=== PATIENT | male | born 1950 | race Caucasian/White ===

== ENCOUNTER 2024-06-07 08:51 | Outpatient (AMB) | payer OTHER, SELFPAY ==
[2024-06-07 08:58] VITALS: BP 176/74; PULSE 86; O2SAT 92; BMI 34.8
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
== END 2024-06-07 09:41 | disposition home or self-care (01) ==
PROVIDERS: PCP Family Medicine; Visit Provider Anesthesiology
DX: G89.4 Chronic pain syndrome (principal); M96.1 Postlaminectomy syndrome, not elsewhere classified; Z79.891 Long term (current) use of opiate analgesic
CPT/HCPCS: 99204

== ENCOUNTER 2024-06-07 08:51 | Outpatient (REF) | payer OTHER, SELFPAY ==
--- NOTE | ~2024-06-07 | XR_ITS ---
EXAMINATION: XR LUMBOSACRAL SPINE CLINICAL INFORMATION: Postlaminectomy syndrome. COMPARISON: None TECHNIQUE: AP, bilateral oblique and lateral views of the lumbar spine and lateral view of the lumbosacral junction. FINDINGS: There is bony demineralization. At L2-3, there is moderate posterior disc space narrowing, with a 3 mm retrolisthesis. There have been prior L3-S1 posterior fusions and discectomies, with intact posterior fixator rods, radicular screws and disc spaces. At L5-S1, there is a 5 mm anterolisthesis. No acute fracture or spondylolisthesis is seen. The posterior elements are intact. The paravertebral soft tissues are unremarkable. XR/XR lumbar spine 4V min IMPRESSION: 1. There is moderate degenerative disc disease at L2-3. 2. There have been prior posterior fusions and discectomies extending from L3 through S1. No hardware failure or loosening is seen. Electronically signed by: Finn Garnica MD 07/03/2024 05:43 PM EDT
== END 2024-06-07 08:52 | disposition home or self-care (01) ==
LOC: HO.XRAY 08:51
PROVIDERS: Visit Provider Anesthesiology
DX: M96.1 Postlaminectomy syndrome, not elsewhere classified (principal); G89.4 Chronic pain syndrome; Z79.891 Long term (current) use of opiate analgesic
CPT/HCPCS: 72110; 99202

== ENCOUNTER → 2024-06-15 10:55 | Outpatient (BNVA) | payer OTHER, SELFPAY | PROVIDERS: Visit Provider Anesthesiology ==

== ENCOUNTER → 2024-06-20 10:35 | Outpatient (BNVA) | payer OTHER, MEDICARE, MEDICAID, SELFPAY | PROVIDERS: PCP Family Medicine; Visit Provider Anesthesiology ==

== ENCOUNTER 2024-07-27 09:10 | Outpatient (AMB) | payer OTHER, MEDICAID, SELFPAY ==
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
[2024-07-27 09:28] VITALS: BP 186/106; PULSE 91; RESP 14; O2SAT 91; BMI 35.5
== END 2024-07-27 10:03 | disposition home or self-care (01) ==
PROVIDERS: PCP Family Medicine; Visit Provider Anesthesiology
DX: M96.1 Postlaminectomy syndrome, not elsewhere classified (principal); Z79.891 Long term (current) use of opiate analgesic; G89.4 Chronic pain syndrome
CPT/HCPCS: 99213

== ENCOUNTER → 2024-07-27 09:10 | Outpatient (BNVA) | payer OTHER, MEDICAID, SELFPAY | PROVIDERS: PCP Family Medicine; Visit Provider Anesthesiology | DX: M96.1 Postlaminectomy syndrome, not elsewhere classified (principal); G89.4 Chronic pain syndrome; Z79.891 Long term (current) use of opiate analgesic | CPT/HCPCS: 99212 ==

== ENCOUNTER 2024-08-29 06:04 | Outpatient (REF) | payer OTHER, MEDICAID, SELFPAY | END 2024-08-29 06:05 | disposition home or self-care (01) | LOC: CF 06:04 | PROVIDERS: Visit Provider Anesthesiology | DX: M96.1 Postlaminectomy syndrome, not elsewhere classified (principal); G89.4 Chronic pain syndrome; Z79.891 Long term (current) use of opiate analgesic; Z53.09 Procedure and treatment not carried out because of other contraindication | CPT/HCPCS: 99212 ==

== ENCOUNTER 2024-08-29 08:43 | Outpatient (AMB) | payer OTHER, MEDICAID, SELFPAY ==
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
[2024-08-29 08:49] VITALS: BP 198/126; PULSE 93; RESP 16; O2SAT 96; BMI 34.9
[2024-08-29 09:02] VITALS: BP 206/110
[2024-08-29 09:13] VITALS: BP 204/106
[2024-08-29 09:33] VITALS: BP 186/100
== END 2024-08-29 09:39 | disposition home or self-care (01) ==
PROVIDERS: PCP Family Medicine; Visit Provider Anesthesiology
DX: M96.1 Postlaminectomy syndrome, not elsewhere classified (principal); Z79.891 Long term (current) use of opiate analgesic; G89.4 Chronic pain syndrome
CPT/HCPCS: 99213

== ENCOUNTER 2024-09-05 06:11 | Outpatient (REF) | payer OTHER, MEDICAID, SELFPAY | END 2024-09-05 06:12 | disposition home or self-care (01) | LOC: CF 06:11 | PROVIDERS: Visit Provider Anesthesiology | DX: M96.1 Postlaminectomy syndrome, not elsewhere classified (principal); G89.4 Chronic pain syndrome; Z79.891 Long term (current) use of opiate analgesic | CPT/HCPCS: 62323; J0665; J2003 ==

== ENCOUNTER 2024-09-05 09:58 | Outpatient (AMB) | payer OTHER, MEDICAID, SELFPAY ==
--- NOTE | 2024-09-05 10:12 | A.OFFVIS_ITS ---
Vital Signs 09/05/24 10:20 09/05/24 13:46 09/05/24 13:48 09/05/24 13:48 09/05/24 13:50 Height 5 ft 5 in 5 ft 5 in Weight 210 lb 210 lb BMI 34.9 34.9 BP 145/110 H 118/67 156/88 H 175/97 H 170/97 H Blood Pressure Location Lt brachial Lt brachial Lt brachial Lt brachial Lt brachial Position Sitting Supine Sitting Sitting Sitting Respiration 14 14 Pulse 93 86 82 93 Pulse Source Pulse Oximeter Pulse Oximeter Pulse Oximeter Pulse Oximeter Pulse Oximetry (%) 90 L 90 L 90 L 90 L Oxygen Delivery Method Room Air Room Air Room Air Room Air Comment pre-op post-op Intake Visit Reasons: ITDD TRIAL WITH DILAUDID Allergies morphine Allergy (Intermediate, Verified 09/05/24 13:58) sweating PFSH Social History (Updated 06/07/24 @ 09:03 by Alesia Brown CMA) Household Members: None Alcohol intake: never Patient Tobacco Use Status: Current everyday Tobacco user Cigarettes Per Day: 10 Physical Exam Vital Signs: Last Vital Signs Pulse 93 09/05/24 13:50 Resp 14 09/05/24 13:46 BP 170/97 H 09/05/24 13:50 Pulse Ox 90 L 09/05/24 13:50 Oxygen Delivery Method Room Air 09/05/24 13:50 BMI result Body Mass Index 34.9 Assessment & Plan Assessment & Plan (1) Postlaminectomy syndrome of lumbar region: Code(s): M96.1 - Postlaminectomy syndrome, not elsewhere classified Category: Medical (2) custodial (current) use of opiate analgesic: Code(s): Z79.891 - custodial (current) use of opiate analgesic Category: Medical (3) Chronic pain syndrome: Code(s): G89.4 - Chronic pain syndrome Category: Medical Plan Intrathecal pain pump trial with bupivacaine. After obtaining informed consent the patient was brought to the operating room and positioned prone on operating table with pillow under the abdomen. Time-out was performed delineating name and date of of the patient, side and site of the procedure and nature of the procedure. The lower back was prepped with ChloraPrep and draped with sterile self adhesive utility towels. Sterilely draped C-arm was brought over the operating field and the sq picture of L1 and L2 vertebra were demonstrated on the screen. The hardware of the L3 vertebra was noted. In the projection of the right upper lamina to the skin injection of the local anesthetic lidocaine 2% was performed infiltrating the skin and subcutaneous tissues. After that 20 gauge pencil point 3 and a half inch needle was inserted through the skin and advanced to were the spinal canal on intermittent anterior posterior and lateral views. When tip of the needle was in the center of spinal canal on both AP and lateral views the stylette was removed and clear flow of CSF was observed. After that injection of the bupivacaine 0.25% preservative-free 0.7 mL (total dose 1.75 mg) was performed into the needle. After that needle was removed and sterile Band- Aid was applied. Patient was transferred to the recovery bed flat and recovered in PACU for 45 minutes. Patient tolerated procedure well. 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
[2024-09-05 10:20] VITALS: BP 145/110; PULSE 93; RESP 14; O2SAT 90; BMI 34.9
[2024-09-05 13:46] VITALS: BP 118/67; PULSE 86; RESP 14; O2SAT 90; BMI 34.9
[2024-09-05 13:48] VITALS: BP 156/88; BP 175/97; PULSE 82; O2SAT 90
[2024-09-05 13:50] VITALS: BP 170/97; PULSE 93; O2SAT 90
== END 2024-09-05 11:46 | disposition home or self-care (01) ==
LOC: HO.PMCPRC 09:58
PROVIDERS: PCP Family Medicine; Visit Provider Anesthesiology
DX: M96.1 Postlaminectomy syndrome, not elsewhere classified (principal); G89.4 Chronic pain syndrome; Z79.891 Long term (current) use of opiate analgesic
CPT/HCPCS: 62323

== ENCOUNTER 2024-09-13 10:46 | Outpatient (AMB) | payer OTHER, MEDICAID, SELFPAY ==
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
== END 2024-09-13 11:27 | disposition home or self-care (01) ==
LOC: HO.PMC 10:46
PROVIDERS: PCP Family Medicine; Visit Provider Anesthesiology
DX: M96.1 Postlaminectomy syndrome, not elsewhere classified (principal); Z79.891 Long term (current) use of opiate analgesic; G89.4 Chronic pain syndrome
CPT/HCPCS: 99214

== ENCOUNTER → 2024-09-13 10:46 | Outpatient (BNVA) | payer OTHER, MEDICAID, SELFPAY | PROVIDERS: PCP Family Medicine; Visit Provider Anesthesiology ==

== ENCOUNTER 2024-09-26 06:07 | Outpatient (REF) | payer OTHER, MEDICAID, SELFPAY | END 2024-09-26 06:08 | disposition home or self-care (01) | LOC: CF 06:07 | PROVIDERS: Visit Provider Anesthesiology | DX: Z13.89 Encounter for screening for other disorder (principal) ==

== ENCOUNTER 2025-07-05 15:19 | Outpatient (AMB) | payer MEDICARE, MEDICAID, SELFPAY ==
[2025-07-05 15:27] VITALS: BP 149/74; PULSE 101; RESP 18; O2SAT 98
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
== END 2025-07-05 15:43 | disposition home or self-care (01) ==
PROVIDERS: PCP Family Medicine; Visit Provider Anesthesiology
DX: M96.1 Postlaminectomy syndrome, not elsewhere classified (principal); Z79.891 Long term (current) use of opiate analgesic; G89.4 Chronic pain syndrome; Z45.1 Encounter for adjustment and management of infusion pump
CPT/HCPCS: 62368; 99214

== ENCOUNTER → 2025-07-05 15:19 | Outpatient (BNVA) | payer MEDICARE, MEDICAID, SELFPAY | PROVIDERS: PCP Family Medicine; Visit Provider Anesthesiology | DX: G89.4 Chronic pain syndrome (principal); M96.1 Postlaminectomy syndrome, not elsewhere classified; Z79.891 Long term (current) use of opiate analgesic | CPT/HCPCS: 62368; 99212 ==

== ENCOUNTER 2025-07-18 15:02 | Outpatient (AMB) | payer MEDICARE, MEDICAID, SELFPAY ==
--- OUTSIDE RECORDS SUMMARY | 2025-06-25 12:45 | XMS_ITS | Continuity of Care Document ---
Author Organization [facility] Address [address] [place] [address] Care Team Providers Care Feed Mixer Helper Name Role Phone Richa Bazan DNP [...] Copied on Encounter OFFICE/OUTPA TIENT VISIT, EST [facility], [address], [place], [place], [id number] , [facility] low back pain (chief complaint) Encounter for adjustment and management of infusion pumpOther specified diabetes mellitus with hyperglycemiaOt her spondylosis, lumbar regionPostlamin ectomy syndrome, not elsewhere classifiedChron ic pain syndromeLong term (current) use of opiate analgesicRadicu lopathy, lumbar regionHTN 5 Beni Chaudhry. [address] [facility], [address], [place], [place], [id number], [place]. tel:[phone] Referring Provider: Deisy Infante [address], [place], [address]. tel:[phone] OFFICE/OUTPA TIENT VISIT, EST [facility], [address], [place], [place], [id number] , [facility] low back pain (chief complaint) Knee Pain (chief complaint) Encounter for adjustment and management of infusion pumpOther specified diabetes mellitus with hyperglycemiaOt her spondylosis, lumbar regionPostlamin ectomy syndrome, not elsewhere classifiedRadic ulopathy, lumbar regionHTNChroni c pain syndromeLong term (current) use of opiate analgesic Jun- 5 Beni Richa. [address], [place], [id number], [place]. tel:[phone] Referring Provider: Marah Sandoval, [address], [place], [address]. tel:[phone] OFFICE/OUTPA TIENT VISIT, EST [facility], [address], [place], [place], [id number] , [facility] low back pain (chief complaint) Encounter for adjustment and management of infusion pumpOther specified diabetes mellitus with hyperglycemiaOt her spondylosis, lumbar regionPostlamin ectomy syndrome, not elsewhere classifiedRadic ulopathy, lumbar regionHTNChroni c pain syndromeLong term (current) use of opiate analgesicEncoun ter for removal of stapleGastro-es ophageal reflux disease without esophagitis Jun- 5 Beni Richa. [address], [place], [id number], [place]. tel:[phone] Referring Provider: Marah Sandoval, [address], [place], [address]. tel:[phone] [facility], [address], [place], [place], [id number] , [facility] low back pain (chief complaint) Knee Pain (chief complaint) Postlaminectomy syndrome, not elsewhere classifiedRadic ulopathy, lumbar regionOther spondylosis, lumbar regionChronic pain syndromeGERD without esophagitisHTNL eric term (current) use of opiate analgesicEncoun ter for adjustment and management of infusion pumpEncounter for change or removal of surgical wound dressing 5 Navjot Blanca. [address] [place], [place], [address], [place]. tel:[phone] Referring Provider: Marah Sandoval, [address], [place], [address]. tel:[phone] [facility], [address], [place], [place], [id number] , [place] [facility] No Information 5 Ivy Gerber. [address], [place], [address], [place]. tel:[phone] [facility], [address], [place], [place], [id number] , [facility] Chronic pain syndromePostlam inectomy syndrome, not elsewhere classifiedRadic ulopathy, lumbar region 5 Marshall Colorado. [address] [facility], [address], [place], [address], [place]. tel:[phone] OFFICE/OUTPA TIENT VISIT, EST [facility], [address], [place], [place], [id number] , [facility] Knee Pain (chief complaint) low back pain (chief complaint) Postlaminectomy syndrome, not elsewhere classifiedChron ic pain syndromeLong term (current) use of opiate analgesicHTNTyp e 2 diabetes mellitus without complicationsHy percholesterole miaRestless legs syndromeInsomni aGERD without esophagitisOthe r spondylosis, cervical region 5 Chetan Weeks. [address] [facility], [address], [id number], [place]. tel:[phone] Referring Provider: Marah Sandoval, [address], [place], [address]. tel:[phone] OFFICE/OUTPA TIENT VISIT, EST [facility], [address], [place], [place], [id number] , [facility] low back pain (chief complaint) Postlaminectomy syndrome, not elsewhere classifiedChron ic pain syndromeLong term (current) use of opiate analgesicHTNTyp e 2 diabetes mellitus without complicationsHy percholesterole miaGERD without esophagitisRest less legs syndromeInsomni aOther spondylosis, cervical region 5 Rayside LaMisa. [address] [facility], [facility] [address], [place], [id number], . tel:[phone] Referring Provider: Marah Sandoval, [address] [facility], [place], [address]. tel:[phone] OFFICE/OUTPA TIENT VISIT, EST [facility], [address], [place], [place], [id number] , [facility] Knee Pain (chief complaint) Other spondylosis, cervical regionPostlamin ectomy syndrome, not elsewhere classifiedChron ic pain syndromeLong term (current) use of opiate analgesicHTNTyp e 2 diabetes mellitus without complicationsHy percholesterole miaGERD without esophagitisRest less legs syndromeInsomni a 5 Rayside LaMisa. [address] [facility], [facility] [address], [place], [address], [place]. tel:[phone] Referring Provider: Marah Sandoval [address] [facility], [place], [address]. tel:[phone] [facility], [address], [place], [place], [id number] , [facility] No Information 5 Hudson Crystal. [address], [address] [facility], [place], [address], [place]. tel:[phone] Referring Provider: Marah Sandoval [address], [place], [address]. tel:[phone] OFFICE/OUTPA TIENT VISIT, EST [facility], [address], [place], [place], [id number] , [facility] Follow Up for Knee Pain (chief complaint) Follow Up for Lower Back Pain (chief complaint) Postlaminectomy syndrome, not elsewhere classifiedChron ic pain syndromeLong term (current) use of opiate analgesicHTNTyp e 2 diabetes mellitus without complicationsHy percholesterole miaGERD without esophagitisRest less legs syndrome Apr-2 5 Rayside LaMisa. [address] [facility], [facility] [address], [place], [address], [place]. tel:[phone] Referring Provider: Marah Sandoval, [address], [place], [address]. tel:[phone] [facility], [address], [place], [place], [id number] , [facility] Chronic pain syndromePostlam inectomy syndrome, not elsewhere classifiedRadic ulopathy, lumbar region Apr-2 5 Marshall Colorado. [address] [place] [address], [address], [place], [id number], [place]. tel:[phone] OFFICE/OUTPA TIENT VISIT, EST [facility], [address], [place], [place], [id number] , [facility] Knee Pain (chief complaint) low back pain (chief complaint) Postlaminectomy syndrome, not elsewhere classifiedRadic ulopathy, lumbar regionChronic pain syndromeInsomni aOther specified diabetes mellitus with hyperglycemiaLo ng term (current) use of opiate analgesic Apr- 5 Vecchione Analilia. [address] [facility] [address], [place], [id number], [place]. tel:[phone] [facility], [address], [place], [place], [id number] , [facility] No Information Apr-0 5 Beni Chaudhry. [address] [facility] [address], [place], [id number], [place]. tel:[phone] OFFICE/OUTPA TIENT VISIT, EST [facility], [address], [place], [place], [id number] , [facility] low back pain (chief complaint) Knee Pain (chief complaint) Postlaminectomy syndrome, not elsewhere classifiedChron ic pain syndromeHTN 5 Hudson Marah. [address], [place], [address], [place]. tel:[phone] Referring Provider: Marah Sandoval, [address], [place], [address]. tel:[phone] OFFICE/OUTPA TIENT VISIT, [facility], [address], [place], [place], [id number] , [facility] Knee Pain (chief complaint) back pain (chief complaint) Other spondylosis, lumbar regionPostlamin ectomy syndrome, not elsewhere classifiedRadic ulopathy, lumbar regionHTNChroni c pain syndromeLong term (current) use of opiate analgesicOther specified diabetes mellitus with hyperglycemia 5 Beni Chaudhry. [address] [place] [address], [id number], [place]. tel:[phone] OFFICE/OUTPA TIENT VISIT, [facility], [address], [place], [place], [id number] , [facility] low back pain (chief complaint) Knee Pain (chief complaint) Other spondylosis, lumbar regionPostlamin ectomy syndrome, not elsewhere classifiedRadic ulopathy, lumbar regionHTNDiabet es insipidusChroni c pain syndromeOther spondylosis, thoracic regionOther spondylosis, cervical regionLong term (current) use of opiate analgesic 5 Marshall Colorado. [address], [id number], [place]. tel:[phone] Family History Family Member Type Diagnosis Age At Onset Father Problem (finding) Family history of Alzhe shavonne's disease Mother Problem (finding) Family history of Arthr itis Father Problem (finding) Family history of Arthr itis Father Problem (finding) Family history of Demen tia Payers Payer name Insurance type Covered libertarian ID Authoriza tishereen(s) [employer] Assure H[employer] CI [id number] Social History Type Description Quantity Date Captured [...] meds/drugs and rest. low back pain Onset: gradual [...] reports he is leaving on today to [place] where he snowbirds from. He was advised that oral opiates will not be sent without an office visit so he is either to return to the office for refills or establish care with pain management while he is in [place] 6 months out of the year. Patient reports he cannot go back to the previous pain specialist he was consulting due to issues and will look into establishing care with someone else. As far as his pump goes, he reports he will follow up with Dr. rApit Bartlett who performed his ITP trial to see if he will manage his pump. Patient reports he will be returning in September and therefore can have his pump refilled at that time. Pending follow up in September, if patient has not established care with pain management in [place] who can manage his pump, we can attempt to send a referral to [facility] to see if his insurance will cover [...] AND DISCONTINUED ITP IS TITRATED. 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 Related to Radiculopathy, lumbar region We will continue Fen tanyl intrathecal therapy per protocol. We will continue Oxycodone 10 mg QID PRN for breakthrough pain as ITP is titrated. PATIENT IS ADVISED ORAL OPIATES WILL BE WEANED AND DISCONTINUED ITP IS TITRATED. Patient reports he is leaving on 06/25/2025 to [place] where he snowbirds from. Advised oral opiates will not be sent without an office visit so he is either to return to the office for refills or establish care with pain management while he is in [place] 6 months out of the year. Patient [...] not established care with pain management in [place] who can manage his pump, we can attempt to send a referral to [facility] to see if his insurance will cover [...] clean dry and intact. Site was cleaned. Thread Cutter applied benzoin tincture, removed abram, applied bacitracin [...] AND DISCONTINUED ITP IS TITRATED. Related to alf (current) use of opiate analgesic Advised to [...] others cannot easily access them. Related to alf (current) use of opiate analgesic UDS risk [...] others cannot easily access them. 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 Related to alf (current) use of opiate analgesic UDS risk [...] and destroyed at a depository. 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 Olivares. -pending PCP clearance- Dr. Yost in [place].-psych clearance on file. Advised that if we are going to proceed with IT pump implant we would need uds showing negative for any benzo' and A1C level needs to be 8% or below.Patient educated on the risks of taking benzodiazepines while taking prescribed opioids due to risk for LACE MENDER and respiratory depression and also on associated with an overdose. advised that no oxycodone would be prescribed until UDS is negative for benzo's. Related to Postlaminectomy syndrome, not elsewhere classified His last A1C is 8.6. Advised that we need this to be 8.0 or lower prior to proceeding with IT pump implant.He will follow up with PCP, Dr. Yost in [place] and still needs PCP clearance. 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 Related to alf (current) use of opiate analgesic Consider Lumbar [...] he has yet to find someone in [place] to manage his pump. Per records, daily dose of Fentanyl via intrathecal therapy was increased to 25% last encounter which he reports is well-tolerated without adverse side effects. He continues to report no significant relief of chronic low back pain and requesting additional pump adjustment today. assessment Chronic pain syndrome impression Transferred records from Dr. Itzel to reviewed. assessment alf (current) use of opiat e analgesic assessment Radiculopathy, lumbar region Jun impression Discontinued Cymbalta due to fabian sea. Aug-18-2025 assessment HTN impression Blood pressure is stable today. Mental Status Date Cognitive Assessment Orientation - Mcclusky ed to time, place, person, situation. Patient Care Teams Name Effective Dates (start - stop) Status Members No Information
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
[2025-07-18 15:12] VITALS: BP 153/83; PULSE 98; RESP 16; O2SAT 90; BMI 35.6
== END 2025-07-18 15:53 | disposition home or self-care (01) ==
PROVIDERS: PCP Family Medicine; Visit Provider Anesthesiology
DX: M96.1 Postlaminectomy syndrome, not elsewhere classified (principal); Z79.891 Long term (current) use of opiate analgesic; G89.4 Chronic pain syndrome; Z45.1 Encounter for adjustment and management of infusion pump
CPT/HCPCS: 95991; 99213

== ENCOUNTER → 2025-07-18 15:02 | Outpatient (BNVA) | payer MEDICARE, MEDICAID, SELFPAY | PROVIDERS: PCP Family Medicine; Visit Provider Anesthesiology | DX: M96.1 Postlaminectomy syndrome, not elsewhere classified (principal); G89.4 Chronic pain syndrome; Z79.891 Long term (current) use of opiate analgesic | CPT/HCPCS: 99212 ==

== ENCOUNTER 2025-07-24 14:15 | Outpatient (AMB) | payer MEDICARE, MEDICAID, SELFPAY ==
--- OUTSIDE RECORDS SUMMARY | 2025-06-25 12:45 | XMS_ITS | Continuity of Care Document ---
Author Organization [facility] Address [address] [place] [address] Care Team Providers Care Brand Strategy Manager Name Role Phone Richa Bazan DNP Unavailable [...] Copied on Encounter OFFICE/OUTPA TIENT VISIT, EST [facility], [address], [place], [place], [id number] , [facility] low back pain (chief complaint) Encounter for adjustment and management of infusion pumpOther specified diabetes mellitus with hyperglycemiaOt her spondylosis, lumbar regionPostlamin ectomy syndrome, not elsewhere classifiedChron ic pain syndromeLong term (current) use of opiate analgesicRadicu lopathy, lumbar regionHTN 5 Beni Chaudhry. [address] [facility], [address], [place], [place], [address], [place]. tel:[phone] Referring Provider: Deisy Infante [address], [place], [address]. tel:[phone] OFFICE/OUTPA TIENT VISIT, EST [facility], [address], [place], [place], [id number] , [facility] low back pain (chief complaint) Knee Pain (chief complaint) Encounter for adjustment and management of infusion pumpOther specified diabetes mellitus with hyperglycemiaOt her spondylosis, lumbar regionPostlamin ectomy syndrome, not elsewhere classifiedRadic ulopathy, lumbar regionHTNChroni c pain syndromeLong term (current) use of opiate analgesic Jun- 5 Beni Richa. [address], [place], [address], [place]. tel:[phone] Referring Provider: Marah Sandoval, [address], [place], [address]. tel:[phone] OFFICE/OUTPA TIENT VISIT, EST [facility], [address], [place], [place], [id number] , [facility] low back pain (chief complaint) Encounter for adjustment and management of infusion pumpOther specified diabetes mellitus with hyperglycemiaOt her spondylosis, lumbar regionPostlamin ectomy syndrome, not elsewhere classifiedRadic ulopathy, lumbar regionHTNChroni c pain syndromeLong term (current) use of opiate analgesicEncoun ter for removal of stapleGastro-es ophageal reflux disease without esophagitis Jun- 5 Beni Richa. [address], [place], [address], [place]. tel:[phone] Referring Provider: Marah Sandoval, [address], [place], [address]. tel:[phone] [facility], [address], [place], [place], [id number] , [facility] low back pain (chief complaint) Knee Pain (chief complaint) Postlaminectomy syndrome, not elsewhere classifiedRadic ulopathy, lumbar regionOther spondylosis, lumbar regionChronic pain syndromeGERD without esophagitisHTNL eric term (current) use of opiate analgesicEncoun ter for adjustment and management of infusion pumpEncounter for change or removal of surgical wound dressing 5 Navjot Blanca. [address] [place], [place], [address], [place]. tel:[phone] Referring Provider: Marah Sandoval, [address], [place], [address]. tel:[phone] [facility], [address], [place], [place], [id number] , [place] [facility] No Information 5 Ivy Gerber. [address], [place], [address], [place]. tel:[phone] [facility], [address], [place], [place], [id number] , [facility] Chronic pain syndromePostlam inectomy syndrome, not elsewhere classifiedRadic ulopathy, lumbar region 5 Marshall Colorado. [address] [facility], [address], [place], [address], [place]. tel:[phone] OFFICE/OUTPA TIENT VISIT, EST [facility], [address], [place], [place], [id number] , [facility] Knee Pain (chief complaint) low back pain (chief complaint) Postlaminectomy syndrome, not elsewhere classifiedChron ic pain syndromeLong term (current) use of opiate analgesicHTNTyp e 2 diabetes mellitus without complicationsHy percholesterole miaRestless legs syndromeInsomni aGERD without esophagitisOthe r spondylosis, cervical region 5 Chetan Weeks. [address] [facility], [address], [place], [address], [place]. tel:[phone] Referring Provider: Marah Sandoval, [address], [place], [address]. tel:[phone] OFFICE/OUTPA TIENT VISIT, EST [facility], [address], [place], [place], [id number] , [facility] low back pain (chief complaint) Postlaminectomy syndrome, not elsewhere classifiedChron ic pain syndromeLong term (current) use of opiate analgesicHTNTyp e 2 diabetes mellitus without complicationsHy percholesterole miaGERD without esophagitisRest less legs syndromeInsomni aOther spondylosis, cervical region 5 Rayside LaMisa. [address] [facility], [facility] [address], [place], [address], . tel:[phone] Referring Provider: Marah Sandoval, [address] [facility], [place], [address]. tel:[phone] OFFICE/OUTPA TIENT VISIT, EST [facility], [address], [place], [place], [id number] , [facility] Knee Pain (chief complaint) Other spondylosis, cervical regionPostlamin ectomy syndrome, not elsewhere classifiedChron ic pain syndromeLong term (current) use of opiate analgesicHTNTyp e 2 diabetes mellitus without complicationsHy percholesterole miaGERD without esophagitisRest less legs syndromeInsomni a 5 Rayside LaMisa. [address] [facility], [facility] [address], [place], [address], [place]. tel:[phone] Referring Provider: Marah Sandoval [address] [facility], [place], [address]. tel:[phone] [facility], [address], [place], [place], [id number] , [facility] No Information 5 Hudson Crystal. [address], [address] [facility], [place], [address], [place]. tel:[phone] Referring Provider: Marah Sandoval [address], [place], [address]. tel:[phone] OFFICE/OUTPA TIENT VISIT, EST [facility], [address], [place], [place], [id number] , [facility] Follow Up for Knee Pain (chief complaint) Follow Up for Lower Back Pain (chief complaint) Postlaminectomy syndrome, not elsewhere classifiedChron ic pain syndromeLong term (current) use of opiate analgesicHTNTyp e 2 diabetes mellitus without complicationsHy percholesterole miaGERD without esophagitisRest less legs syndrome Apr-2 5 Rayside LaMisa. [address] [facility], [facility] [address], [place], [address], [place]. tel:[phone] Referring Provider: Marah Sandoval, [address] [facility] [address], [place], [address]. tel:[phone] [facility], [address], [place], [place], [id number] , [facility] Chronic pain syndromePostlam inectomy syndrome, not elsewhere classifiedRadic ulopathy, lumbar region Apr-2 5 Marshall Colorado. [address] [place] [address], [address], [place], [address], [place]. tel:[phone] OFFICE/OUTPA TIENT VISIT, EST [facility], [address], [place], [place], [id number] , [facility] Knee Pain (chief complaint) low back pain (chief complaint) Postlaminectomy syndrome, not elsewhere classifiedRadic ulopathy, lumbar regionChronic pain syndromeInsomni aOther specified diabetes mellitus with hyperglycemiaLo ng term (current) use of opiate analgesic Apr- 5 Vecchione Analilia. [address] [facility] [address], [place], [address], [place]. tel:[phone] [facility], [address], [place], [place], [id number] , [facility] No Information Apr-0 5 Beni Chaudhry. [address] [facility] [address], [place], [address], [place]. tel:[phone] OFFICE/OUTPA TIENT VISIT, EST [facility], [address], [place], [place], [id number] , [facility] low back pain (chief complaint) Knee Pain (chief complaint) Postlaminectomy syndrome, not elsewhere classifiedChron ic pain syndromeHTN 5 Hudson Marah. [address], [place], [address], [place]. tel:[phone] Referring Provider: Marah Sandoval, [address], [place], [address]. tel:[phone] OFFICE/OUTPA TIENT VISIT, [facility], [address], [place], [place], [id number] , [facility] Knee Pain (chief complaint) back pain (chief complaint) Other spondylosis, lumbar regionPostlamin ectomy syndrome, not elsewhere classifiedRadic ulopathy, lumbar regionHTNChroni c pain syndromeLong term (current) use of opiate analgesicOther specified diabetes mellitus with hyperglycemia 5 Beni Chaudhry. [address] [place] [address], [id number], [place]. tel:[phone] OFFICE/OUTPA TIENT VISIT, [facility], [address], [place], [place], [id number] , [facility] low back pain (chief complaint) Knee Pain (chief complaint) Other spondylosis, lumbar regionPostlamin ectomy syndrome, not elsewhere classifiedRadic ulopathy, lumbar regionHTNDiabet es insipidusChroni c pain syndromeOther spondylosis, thoracic regionOther spondylosis, cervical regionLong term (current) use of opiate analgesic 5 Marshall Colorado. [address], [id number], [place]. tel:[phone] Family History Family Member Type Diagnosis Age At Onset Father Problem (finding) Family history of Alzhe shavonne's disease Mother Problem (finding) Family history of Arthr itis Father Problem (finding) Family history of Arthr itis Father Problem (finding) Family history of Demen tia Payers Payer name Insurance type Covered green party ID Authoriza tishereen(s) [employer] HMO CI [id number] Social History Type Description Quantity Date Captured [...] pain/RX meds and rest. Knee Pain Onset: year ago. [...] pain/RX meds and rest. Follow Up for Knee Pain Onset: 1 [...] heat, pain/RX meds and rest. Additional information: Follow Up for Lower Back Pain On [...] lying down, pain meds/drugs and rest. Qualifier: low back pain Onset: 7 years a [...] and rest. incomplete relief Knee Pain Onset: 7 years a go. [...] information: Incomplete relief. low back pain Onset: 20 years ago. [...] heat, pain/RX meds and rest. Knee Pain Severity level i [...] Pain Score 9/10 Instructions Date Instruction Marysol Har damon Advised to follow up with PCP [...] reports he is leaving on today to [place] where he snowbirds from. He was advised that oral opiates will not be sent without an office visit so he is either to return to the office for refills or establish care with pain management while he is in [place] 6 months out of the year. Patient [...] not established care with pain management in [place] who can manage his pump, we can attempt to send a referral to [facility] to see if his insurance will cover home health services for refills and adjustments. Related to Chronic pain syndrome Consider Lumbar ALAN at a later d [...] AND DISCONTINUED ITP IS TITRATED. Related to [facility] (current) use of opiate analgesic s/p Fentanyl ITP implant on 05/09. Related to Postlaminectomy syndrome, not elsewhere classified Consider Lumbar MBB at a later d [...] for adjustment and management of infusion pump s/p Fentanyl ITP implant on 05/09. Related [...] AND DISCONTINUED ITP IS TITRATED. Related to [facility] (current) use of opiate analgesic Consider Lumbar ALAN at a later d ate. Related to Radiculopathy, lumbar region Advised to follow up with [...] reports he is leaving on 06/25/2025 to [place] where he snowbirds from. Advised oral opiates will not be sent without an office visit so he is either to return to the office for refills or establish care with pain management while he is in [place] 6 months out of the year. Patient [...] not established care with pain management in [place] who can manage his pump, we can attempt to send a referral to [facility] to see if his insurance will cover home health services for refills and adjustments. Related to Chronic pain syndrome Consider Lumbar MBB at a later d ate. Related to Other spondylosis, lumbar region Incisions was assess ed prior to staple removal. Incision is clean dry and intact. Site was cleaned. Punchboard Stuffer applied benzoin tincture, removed abram, applied bacitracin [...] AND DISCONTINUED ITP IS TITRATED. Related to [facility] (current) use of opiate analgesic Advised to [...] others cannot easily access them. Related to [facility] (current) use of opiate analgesic UDS risk [...] others cannot easily access them. 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 Related to [facility] (current) use of opiate analgesic UDS risk [...] and destroyed at a depository. 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 Olivares. -pending PCP clearance- Dr. Yost in [place].-psych clearance on file. Advised that if we are going to proceed with IT pump implant we would need uds showing negative for any benzo' and A1C level needs to be 8% or below.Patient educated on the risks of taking benzodiazepines while taking prescribed opioids due to risk for RESOLUTE PROFESSIONAL and respiratory depression and also on associated with an overdose. advised that no oxycodone would be prescribed until UDS is negative for benzo's. Related to Postlaminectomy syndrome, not elsewhere classified His last A1C is 8.6. Advised that we need this to be 8.0 or lower prior to proceeding with IT pump implant.He will follow up with PCP, Dr. Yost in [place] and still needs PCP clearance. 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 Related to HTN Consider Lumbar ALAN at a later date. [...] continue non opioid treatment options. Related to [facility] (current) use of opiate analgesic Patient is an excell ent candidate for [...] Postlaminectomy syndrome, not elsewhere classified Consider Lumbar MBB at a later date. [...] taking prescribed opioids due to risk for RESOLUTE PROFESSIONAL and respiratory depression and also on associated [...] or drug to drug interactions. Related to [facility] (current) use of opiate analgesic Consider Lumbar [...] he has yet to find someone in [place] to manage his pump. Per records, daily dose of Fentanyl via intrathecal therapy was increased to 25% last encounter which he reports is well-tolerated without adverse side effects. He continues to report no significant relief of chronic low back pain and requesting additional pump adjustment today. assessment Chronic pain syndrome impression Transferred records from Dr. Itzel to reviewed. assessment [facility] (current) use of opiat e analgesic assessment Radiculopathy, lumbar region Jun impression Discontinued Cymbalta due to fabian sea. Aug-18-2025 assessment HTN impression Blood pressure is stable today. Mental Status Date Cognitive Assessment Orientation - [place] ed to time, place, person, situation. Patient Care Teams Name Effective Dates (start - stop) Status Members No Information
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
[2025-07-24 14:22] VITALS: BP 159/83; PULSE 79; RESP 18; O2SAT 97
== END 2025-07-24 14:31 | disposition home or self-care (01) ==
LOC: HO.PMCPRC 14:15
PROVIDERS: PCP Family Medicine; Visit Provider Anesthesiology
DX: G89.4 Chronic pain syndrome (principal); M96.1 Postlaminectomy syndrome, not elsewhere classified; Z79.891 Long term (current) use of opiate analgesic; Z45.1 Encounter for adjustment and management of infusion pump
CPT/HCPCS: 95991; 99214

== ENCOUNTER → 2025-07-24 14:15 | Outpatient (BNVA) | payer MEDICARE, MEDICAID, SELFPAY | PROVIDERS: PCP Family Medicine; Visit Provider Anesthesiology | DX: Z45.1 Encounter for adjustment and management of infusion pump (principal); G89.4 Chronic pain syndrome; M96.1 Postlaminectomy syndrome, not elsewhere classified; Z79.891 Long term (current) use of opiate analgesic | CPT/HCPCS: 99212 ==

== ENCOUNTER 2025-08-08 13:51 | Outpatient (AMB) | payer MEDICARE, MEDICAID, SELFPAY ==
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
[2025-08-08 14:29] VITALS: BP 149/89; PULSE 92; RESP 20; O2SAT 95
== END 2025-08-08 14:39 | disposition home or self-care (01) ==
LOC: HO.PMC 13:52
PROVIDERS: PCP Family Medicine; Visit Provider Anesthesiology
DX: M96.1 Postlaminectomy syndrome, not elsewhere classified (principal); Z79.891 Long term (current) use of opiate analgesic; G89.4 Chronic pain syndrome; Z45.1 Encounter for adjustment and management of infusion pump
CPT/HCPCS: 95991

== ENCOUNTER → 2025-08-08 13:51 | Outpatient (BNVA) | payer MEDICARE, MEDICAID, SELFPAY | PROVIDERS: PCP Family Medicine; Visit Provider Anesthesiology | DX: Z45.1 Encounter for adjustment and management of infusion pump (principal); M96.1 Postlaminectomy syndrome, not elsewhere classified; G89.4 Chronic pain syndrome; Z79.891 Long term (current) use of opiate analgesic | CPT/HCPCS: 95991 ==

== ENCOUNTER 2025-08-15 13:02 | Outpatient (AMB) | payer MEDICARE, MEDICAID, SELFPAY ==
[2025-08-15 13:05] VITALS: BP 138/86; PULSE 96; RESP 16; O2SAT 86; BMI 35.6
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
== END 2025-08-15 13:47 | disposition home or self-care (01) ==
LOC: HO.PMC 13:03
PROVIDERS: PCP Family Medicine; Visit Provider Anesthesiology
DX: M96.1 Postlaminectomy syndrome, not elsewhere classified (principal); Z79.891 Long term (current) use of opiate analgesic; G89.4 Chronic pain syndrome
CPT/HCPCS: 95991; 99213

== ENCOUNTER → 2025-08-15 13:02 | Outpatient (BNVA) | payer MEDICARE, MEDICAID, SELFPAY | PROVIDERS: PCP Family Medicine; Visit Provider Anesthesiology | DX: Z45.1 Encounter for adjustment and management of infusion pump (principal); G89.4 Chronic pain syndrome; M96.1 Postlaminectomy syndrome, not elsewhere classified; Z79.891 Long term (current) use of opiate analgesic | CPT/HCPCS: 95991; 99212 ==

== ENCOUNTER 2025-08-21 06:23 | Outpatient (REF) | payer MEDICARE, MEDICAID, SELFPAY ==
--- OUTSIDE RECORDS SUMMARY | 2025-06-25 12:45 | XMS_ITS | Continuity of Care Document ---
Author Organization [facility] Address [address] [place] [address] Care Team Providers Care Corrugator Operator Helper Name Role Phone Richa Bazan DNP Unavailable [...] SUSPECTED OR WITNESSED OPIOID OVERDOSE. TO CALL 9-1-1 IMMEDIATELY AFTER USE trazodone 50 mg tablet [...] Copied on Encounter OFFICE/OUTPA TIENT VISIT, EST [facility], [address], [place], [place], [id number] , [facility] low back pain (chief complaint) Encounter for adjustment and management of infusion pumpOther specified diabetes mellitus with hyperglycemiaOt her spondylosis, lumbar regionPostlamin ectomy syndrome, not elsewhere classifiedChron ic pain syndromeLong term (current) use of opiate analgesicRadicu lopathy, lumbar regionHTN 5 Beni Chaudhry. [address] [facility], [address], [place], [place], [id number], [place]. tel:[phone] Referring Provider: Deisy Infante [address], [place], [address]. tel:[phone] OFFICE/OUTPA TIENT VISIT, EST [facility], [address], [place], [place], [id number] , [facility] low back pain (chief complaint) Knee Pain (chief complaint) Encounter for adjustment and management of infusion pumpOther specified diabetes mellitus with hyperglycemiaOt her spondylosis, lumbar regionPostlamin ectomy syndrome, not elsewhere classifiedRadic ulopathy, lumbar regionHTNChroni c pain syndromeLong term (current) use of opiate analgesic Jun- 5 Beni Richa. [address] [facility] [address], [place], [id number], [place]. tel:[phone] Referring Provider: Marah Sandoval, [address], [place], [address]. tel:[phone] OFFICE/OUTPA TIENT VISIT, EST [facility], [address], [place], [place], [id number] , [facility] low back pain (chief complaint) Encounter for adjustment and management of infusion pumpOther specified diabetes mellitus with hyperglycemiaOt her spondylosis, lumbar regionPostlamin ectomy syndrome, not elsewhere classifiedRadic ulopathy, lumbar regionHTNChroni c pain syndromeLong term (current) use of opiate analgesicEncoun ter for removal of stapleGastro-es ophageal reflux disease without esophagitis Jun- 5 Beni Richa. [address], [place], [id number], [place]. tel:[phone] Referring Provider: Marah Sandoval, [address], [place], [address]. tel:[phone] [facility], [address], [place], [place], [id number] , [facility] low back pain (chief complaint) Knee Pain (chief complaint) Postlaminectomy syndrome, not elsewhere classifiedRadic ulopathy, lumbar regionOther spondylosis, lumbar regionChronic pain syndromeGERD without esophagitisHTNL eric term (current) use of opiate analgesicEncoun ter for adjustment and management of infusion pumpEncounter for change or removal of surgical wound dressing 5 Navjot Blanca. [address] [place], [place], [address], [place]. tel:[phone] Referring Provider: Marah Sandoval, [address], [place], [address]. tel:[phone] [facility], [address], [place], [place], [id number] , [place] [facility] No Information 5 Ivy Gerber. [address], [place], [address], [place]. tel:[phone] [facility], [address], [place], [place], [id number] , [facility] Chronic pain syndromePostlam inectomy syndrome, not elsewhere classifiedRadic ulopathy, lumbar region 5 Marshall Colorado. [address] [facility], [address], [place], [address], [place]. tel:[phone] OFFICE/OUTPA TIENT VISIT, EST [facility], [address], [place], [place], [id number] , [facility] Knee Pain (chief complaint) low back pain (chief complaint) Postlaminectomy syndrome, not elsewhere classifiedChron ic pain syndromeLong term (current) use of opiate analgesicHTNTyp e 2 diabetes mellitus without complicationsHy percholesterole miaRestless legs syndromeInsomni aGERD without esophagitisOthe r spondylosis, cervical region 5 Chetan Weeks. [address] [facility], [address], [place], [id number], [place]. tel:[phone] Referring Provider: Marah Sandoval, [address], [place], [address]. tel:[phone] OFFICE/OUTPA TIENT VISIT, EST [facility], [address], [place], [place], [id number] , [facility] low back pain (chief complaint) Postlaminectomy syndrome, not elsewhere classifiedChron ic pain syndromeLong term (current) use of opiate analgesicHTNTyp e 2 diabetes mellitus without complicationsHy percholesterole miaGERD without esophagitisRest less legs syndromeInsomni aOther spondylosis, cervical region 5 Rayside LaMisa. [address] [facility], [facility] [address], [place], [id number], . tel:[phone] Referring Provider: Marah Sandoval, [address] [facility], [place], [address]. tel:[phone] OFFICE/OUTPA TIENT VISIT, EST [facility], [address], [place], [place], [id number] , [facility] Knee Pain (chief complaint) Other spondylosis, cervical regionPostlamin ectomy syndrome, not elsewhere classifiedChron ic pain syndromeLong term (current) use of opiate analgesicHTNTyp e 2 diabetes mellitus without complicationsHy percholesterole miaGERD without esophagitisRest less legs syndromeInsomni a 5 Rayside LaMisa. [address] [facility], [facility] [address], [place], [address], [place]. tel:[phone] Referring Provider: Marah Sandoval [address] [facility], [place], [address]. tel:[phone] [facility], [address], [place], [place], [id number] , [facility] No Information 5 Hudson Crystal. [address], [address] [facility], [place], [address], [place]. tel:[phone] Referring Provider: Marah Sandoval [address], [place], [address]. tel:[phone] OFFICE/OUTPA TIENT VISIT, EST [facility], [address], [place], [place], [id number] , [facility] Follow Up for Knee Pain (chief complaint) Follow Up for Lower Back Pain (chief complaint) Postlaminectomy syndrome, not elsewhere classifiedChron ic pain syndromeLong term (current) use of opiate analgesicHTNTyp e 2 diabetes mellitus without complicationsHy percholesterole miaGERD without esophagitisRest less legs syndrome Apr-2 5 Rayside LaMisa. [address] [facility], [facility] [address], [place], [address], [place]. tel:[phone] Referring Provider: Marah Sandoval, [address] [facility] [address], [place], [address]. tel:[phone] [facility], [address], [place], [place], [id number] , [facility] Chronic pain syndromePostlam inectomy syndrome, not elsewhere classifiedRadic ulopathy, lumbar region Apr-2 5 Marshall Colorado. [address] [place] [address], [address], [place], [address], [place]. tel:[phone] OFFICE/OUTPA TIENT VISIT, EST [facility], [address], [place], [place], [id number] , [facility] Knee Pain (chief complaint) low back pain (chief complaint) Postlaminectomy syndrome, not elsewhere classifiedRadic ulopathy, lumbar regionChronic pain syndromeInsomni aOther specified diabetes mellitus with hyperglycemiaLo ng term (current) use of opiate analgesic Apr- 5 Vecchione Analilia. [address] [facility] [address], [place], [address], [place]. tel:[phone] [facility], [address], [place], [place], [id number] , [facility] No Information Apr-0 5 Beni Chaudhry. [address] [facility] [address], [place], [address], [place]. tel:[phone] OFFICE/OUTPA TIENT VISIT, EST [facility], [address], [place], [place], [id number] , [facility] low back pain (chief complaint) Knee Pain (chief complaint) Postlaminectomy syndrome, not elsewhere classifiedChron ic pain syndromeHTN 5 Hudson Marah. [address], [place], [address], [place]. tel:[phone] Referring Provider: Marah Sandoval, [address], [place], [address]. tel:[phone] OFFICE/OUTPA TIENT VISIT, [facility], [address], [place], [place], [id number] , [facility] Knee Pain (chief complaint) back pain (chief complaint) Other spondylosis, lumbar regionPostlamin ectomy syndrome, not elsewhere classifiedRadic ulopathy, lumbar regionHTNChroni c pain syndromeLong term (current) use of opiate analgesicOther specified diabetes mellitus with hyperglycemia 5 Beni Chaudhry. [address] [place] [address], [id number], [place]. tel:[phone] OFFICE/OUTPA TIENT VISIT, [facility], [address], [place], [place], [id number] , [facility] low back pain (chief complaint) Knee Pain (chief complaint) Other spondylosis, lumbar regionPostlamin ectomy syndrome, not elsewhere classifiedRadic ulopathy, lumbar regionHTNDiabet es insipidusChroni c pain syndromeOther spondylosis, thoracic regionOther spondylosis, cervical regionLong term (current) use of opiate analgesic 5 Marshall Colorado. [address], [id number], [place]. tel:[phone] Family History Family Member Type Diagnosis Age At Onset Father Problem (finding) Family history of Alzhe shavonne's disease Mother Problem (finding) Family history of Arthr itis Father Problem (finding) Family history of Arthr itis Father Problem (finding) Family history of Demen tia Payers Payer name Insurance type Covered democrat ID Authoriza tishereen(s) [employer] H[employer] CI [id number] Social History Type Description Quantity Date Captured [...] rest. partial relief low back pain Onset: 10 years ago. [...] pain meds/drugs and rest. Knee Pain Onset: 6 years a go. [...] down, pain meds/drugs and rest. incomplete relief Knee Pain Onset: 20 years ago. Duration: [...] heat, lying down, pain meds/drugs and rest. back pain Severity level i [...] pain meds/drugs and rest. Knee Pain Onset: gradual. Duration: more than 1 hour. Severity level is 7. Location: bilateral knee. There is no radiation. The pain is aching, dull and deep. The pain is aggravated by movement, walking and standing. The pain is relieved by elevation, heat, pain/RX meds and rest. Functional Status Date Functional Assessmen t Pain Score 9/10 Instructions Date Instruction Marysol Infor damon Advised to follow up with PCP as scheduled. Related to Other specified diabetes mellitus with hyperglycemia Advised to follow up with PCP as scheduled. Related to HTN We will continue Fen tanyl intrathecal therapy per protocol. We will continue Oxycodone 10 mg QID PRN for breakthrough pain as ITP is titrated. PATIENT IS ADVISED ORAL OPIATES WILL BE WEANED AND DISCONTINUED ITP IS TITRATED. Patient reports he is leaving on today to [place] where he snowbirds from. He was advised that oral opiates will not be sent without an office visit so he is either to return to the office for refills or establish care with pain management while he is in [place] 6 months out of the year. Patient [...] not established care with pain management in [place] who can manage his pump, we can attempt to send a referral to [facility] to see if his insurance will cover home health services for refills and adjustments. Related to Chronic pain syndrome s/p Fentanyl ITP implant on 05/09. Related to Postlaminectomy syndrome, not elsewhere classified Consider Lumbar ALAN at a later d ate. Related to Radiculopathy, lumbar region E-FORCSE and [...] DISCONTINUED ITP IS TITRATED. Related to terminal makeup operator (current) use of opiate analgesic Consider Lumbar MBB at a later d ate. Related to Other spondylosis, lumbar region Will increase daily dosage by 25%Current daily [...] Related to Postlaminectomy syndrome, not elsewhere classified E-FORCSE and UDS wer e analyzed for [...] substances with no evidence of early refills. OMARLLLOW risk: UDS performed 1-2 times every 6 [...] DISCONTINUED ITP IS TITRATED. Related to terminal makeup operator (current) use of opiate analgesic Advised to follow up with PCP as scheduled. Related to HTN Advised to follow up with PCP as scheduled. Related to Other specified diabetes mellitus with hyperglycemia We will continue Fen tanyl intrathecal therapy per protocol. We will continue Oxycodone 10 mg QID PRN for breakthrough pain as ITP is titrated. PATIENT IS ADVISED ORAL OPIATES WILL BE WEANED AND DISCONTINUED ITP IS TITRATED. Patient reports he is leaving on 06/25/2025 to [place] where he snowbirds from. Advised oral opiates will not be sent without an office visit so he is either to return to the office for refills or establish care with pain management while he is in [place] 6 months out of the year. Patient [...] not established care with pain management in [place] who can manage his pump, we can attempt to send a referral to [facility] to see if his insurance will cover home health services for refills and adjustments. Related to Chronic pain syndrome Consider Lumbar MBB at a later d ate. Related to Other spondylosis, lumbar region Incisions was assess ed prior to staple removal. Incision is clean dry and intact. Site was cleaned. Degree Clerk applied benzoin tincture, removed abram, applied bacitracin [...] DISCONTINUED ITP IS TITRATED. Related to terminal makeup operator (current) use of opiate analgesic Advised [...] cannot easily access them. Related to terminal makeup operator (current) use of opiate analgesic UDS [...] cannot easily access them. Related to terminal makeup operator (current) use of opiate analgesic UDS [...] in an opioid emergency. Related to terminal makeup operator (current) use of opiate analgesic UDS [...] destroyed at a depository. Related to terminal makeup operator (current) use of opiate analgesic He is scheduled for fentanyl it pump trial w/ dr. Olivares. -pending PCP clearance- Dr. Yost in [place].-psych clearance on file. Advised that if we are going to proceed with IT pump implant we would need uds showing negative for any benzo' and A1C level needs to be 8% or below.Patient educated on the risks of taking benzodiazepines while taking prescribed opioids due to risk for DIRECTOR TARGETED MARKETING and respiratory depression and also on associated with an overdose. advised that no oxycodone would be prescribed until UDS is negative for benzo's. Related to Postlaminectomy syndrome, not elsewhere classified His last A1C is 8.6. Advised that we need this to be 8.0 or lower prior to proceeding with IT pump implant.He will follow up with PCP, Dr. Yost in [place] and still needs PCP clearance. Related to Other specified diabetes mellitus with hyperglycemia prescribed doxepin a nd says that it does not work well. Related to Insomnia E-FORCSE and UDS wer e analyzed for [...] of benzodiazepines and any metabolite Related to USP (current) use of opiate analgesic Says that [...] BID PRN. Related to Radiculopathy, lumbar region Consider Lumbar MBB at a later date. We will obtain records from Dr. Arpit Bartlett. We will trial Celebrex 100 mg BID. Discussed risks of long use of NSAIDs. Patient denies renal, liver, GI or cardiovascular disease. Advised patient to continue to follow up with PCP for annual labs and close monitoring. Related to Other spondylosis, lumbar region E-FORCSE and UDS wer e [...] continue non opioid treatment options. Related to terminal makeup operator (current) use of opiate analgesic UDS from 12/21/2024 i s positive for Benzodiazepines and ETOH. Alcohol is likely a false positive due to history of poorly controlled diabetes. Patients EHR indicates he is prescribed Diazepam 10 mg. Per PDMP, Diazepam has not been filled but records only go as far is 2022. Patient educated on the risks of taking benzodiazepines while taking prescribed opioids due to risk for DIRECTOR TARGETED MARKETING and respiratory depression and also on associated [...] or drug to drug interactions. Related to USP (current) use of opiate analgesic Consider Lumbar [...] he has yet to find someone in [place] to manage his pump. Per records, daily dose of Fentanyl via intrathecal therapy was increased to 25% last encounter which he reports is well-tolerated without adverse side effects. He continues to report no significant relief of chronic low back pain and requesting additional pump adjustment today. assessment Chronic pain syndrome impression Transferred records from Dr. Itzel to reviewed. assessment terminal makeup operator (current) use of opiat e analgesic assessment Radiculopathy, lumbar region Jun impression Discontinued Cymbalta due to fabian sea. Aug-18-2025 assessment HTN impression Blood pressure is stable today. Mental Status Date Cognitive Assessment Orientation - [place] ed to time, place, person, situation. Patient Care Teams Name Effective Dates (start - stop) Status Members No Information
== END 2025-08-21 06:24 | disposition home or self-care (01) ==
LOC: CF 06:23
PROVIDERS: Visit Provider Anesthesiology
DX: M96.1 Postlaminectomy syndrome, not elsewhere classified (principal); G89.4 Chronic pain syndrome; Z79.891 Long term (current) use of opiate analgesic
CPT/HCPCS: 62370; 99212

== ENCOUNTER 2025-08-21 13:02 | Outpatient (AMB) | payer MEDICARE, MEDICAID, SELFPAY ==
[2025-08-21 13:03] VITALS: BP 154/82; PULSE 100; RESP 16; O2SAT 89; BMI 35.6
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
== END 2025-08-21 14:46 | disposition home or self-care (01) ==
LOC: HO.PMCPRC 13:02
PROVIDERS: PCP Family Medicine; Visit Provider Anesthesiology
DX: M96.1 Postlaminectomy syndrome, not elsewhere classified (principal); Z79.891 Long term (current) use of opiate analgesic; G89.4 Chronic pain syndrome; Z45.1 Encounter for adjustment and management of infusion pump
CPT/HCPCS: 62370; 99214

== ENCOUNTER 2025-08-29 15:12 | Outpatient (AMB) | payer MEDICARE, MEDICAID, SELFPAY ==
--- OUTSIDE RECORDS SUMMARY | 2025-06-25 12:45 | XMS_ITS | Continuity of Care Document ---
Author Organization [facility] Address [address] [place] [address] Care Team Providers [facility] [employer] Name Role Phone Richa Bazan DNP Unavailable [...] SUSPECTED OR WITNESSED OPIOID OVERDOSE. TO CALL -- IMMEDIATELY AFTER USE trazodone 50 mg tablet take 1 tablet by oral route every evening after meals 50 MG - Active lisinopril 20 mg tablet take 1 tablet by oral route 2 times every day 20 MG - Active omeprazole 20 mg tablet,delayed release - Active ropinirole 0.5 mg tablet take 1 tablet by oral route every day 0.5 MG - Active glimepiride 4 mg tablet take 1 tablet by oral route 2 times every day 4 MG - Active Arnuity Ellipta 100 mcg/actuation powder for inhalation inhale 1 puff by inhalation route every day at the same time each day 100 MCG - Active Jardiance 10 mg tablet take 1 tablet by oral route every day in the morning 10 MG - Active amlodipine 5 mg tablet take 1 tablet by oral route every day 5 MG - Active albuterol sulfate HFA 90 mcg/actuation aerosol inhaler inhale 2 puff by inhalation route every 4 - 6 hours as needed 180 MCG - Active Procedures Procedure Date OFFICE/OUTPATIENT VISIT, [...] Copied on Encounter OFFICE/OUTPA TIENT VISIT, EST [facility], [address], [place], [place], [id number] , [facility] low back pain (chief complaint) Encounter for adjustment and management of infusion pumpOther specified diabetes mellitus with hyperglycemiaOt her spondylosis, lumbar regionPostlamin ectomy syndrome, not elsewhere classifiedChron ic pain syndromeLong term (current) use of opiate analgesicRadicu lopathy, lumbar regionHTN 5 Beni Chaudhry. [address] [facility], [address], [place], [place], [id number], [place]. tel:[phone] Referring Provider: Deisy Infante [address], [place], [address]. tel:[phone] OFFICE/OUTPA TIENT VISIT, EST [facility], [address], [place], [place], [id number] , [facility] low back pain (chief complaint) Knee Pain (chief complaint) Encounter for adjustment and management of infusion pumpOther specified diabetes mellitus with hyperglycemiaOt her spondylosis, lumbar regionPostlamin ectomy syndrome, not elsewhere classifiedRadic ulopathy, lumbar regionHTNChroni c pain syndromeLong term (current) use of opiate analgesic Jun- 5 Beni Richa. [address] [facility] [address], [place], [address], [place]. tel:[phone] Referring Provider: Marah Sandoval, [address], [place], [address]. tel:[phone] OFFICE/OUTPA TIENT VISIT, EST [facility], [address], [place], [place], [id number] , [facility] low back pain (chief complaint) Encounter for adjustment and management of infusion pumpOther specified diabetes mellitus with hyperglycemiaOt her spondylosis, lumbar regionPostlamin ectomy syndrome, not elsewhere classifiedRadic ulopathy, lumbar regionHTNChroni c pain syndromeLong term (current) use of opiate analgesicEncoun ter for removal of stapleGastro-es ophageal reflux disease without esophagitis Jun- 5 Beni Richa. [address] [facility] [address], [place], [address], [place]. tel:[phone] Referring Provider: Marah Sandoval, [address], [place], [address]. tel:[phone] [facility], [address], [place], [place], [id number] , [facility] low back pain (chief complaint) Knee Pain (chief complaint) Postlaminectomy syndrome, not elsewhere classifiedRadic ulopathy, lumbar regionOther spondylosis, lumbar regionChronic pain syndromeGERD without esophagitisHTNL eric term (current) use of opiate analgesicEncoun ter for adjustment and management of infusion pumpEncounter for change or removal of surgical wound dressing 5 Navjot Blanca. [address] [place], [place], [address], [place]. tel:[phone] Referring Provider: Marah Sandoval, [address], [place], [address]. tel:[phone] [facility], [address], [place], [place], [id number] , [place] [facility] No Information 5 Ivy Gerber. [address], [place], [address], [place]. tel:[phone] [facility], [address], [place], [place], [id number] , [facility] Chronic pain syndromePostlam inectomy syndrome, not elsewhere classifiedRadic ulopathy, lumbar region 5 Marshall Colorado. [address] [facility], [address], [place], [address], [place]. tel:[phone] OFFICE/OUTPA TIENT VISIT, EST [facility], [address], [place], [place], [id number] , [facility] Knee Pain (chief complaint) low back pain (chief complaint) Postlaminectomy syndrome, not elsewhere classifiedChron ic pain syndromeLong term (current) use of opiate analgesicHTNTyp e 2 diabetes mellitus without complicationsHy percholesterole miaRestless legs syndromeInsomni aGERD without esophagitisOthe r spondylosis, cervical region 5 Chetan Weeks. [address] [facility], [address], [place], [address], [place]. tel:[phone] Referring Provider: Marah Sandoval, [address], [place], [address]. tel:[phone] OFFICE/OUTPA TIENT VISIT, EST [facility], [address], [place], [place], [id number] , [facility] low back pain (chief complaint) Postlaminectomy syndrome, not elsewhere classifiedChron ic pain syndromeLong term (current) use of opiate analgesicHTNTyp e 2 diabetes mellitus without complicationsHy percholesterole miaGERD without esophagitisRest less legs syndromeInsomni aOther spondylosis, cervical region 5 Rayside LaMisa. [address] [facility], [facility], [place], [address], . tel:[phone] Referring Provider: Marah Sandoval, [address] [facility], [place], [address]. tel:[phone] OFFICE/OUTPA TIENT VISIT, EST [facility], [address], [place], [place], [id number] , [facility] Knee Pain (chief complaint) Other spondylosis, cervical regionPostlamin ectomy syndrome, not elsewhere classifiedChron ic pain syndromeLong term (current) use of opiate analgesicHTNTyp e 2 diabetes mellitus without complicationsHy percholesterole miaGERD without esophagitisRest less legs syndromeInsomni a 5 Rayside LaMisa. [address] [facility], [facility] [address], [place], [address], [place]. tel:[phone] Referring Provider: Marah Sandoval [address] [facility], [place], [address]. tel:[phone] [facility], [address], [place], [place], [id number] , [facility] No Information 5 Hudson Crystal. [address], [address] [facility], [place], [address], [place]. tel:[phone] Referring Provider: Marah Sandoval [address], [place], [address]. tel:[phone] OFFICE/OUTPA TIENT VISIT, EST [facility], [address], [place], [place], [id number] , [facility] Follow Up for Knee Pain (chief complaint) Follow Up for Lower Back Pain (chief complaint) Postlaminectomy syndrome, not elsewhere classifiedChron ic pain syndromeLong term (current) use of opiate analgesicHTNTyp e 2 diabetes mellitus without complicationsHy percholesterole miaGERD without esophagitisRest less legs syndrome Apr-2 5 Rayside LaMisa. [address] [facility], [facility], [place], [address], [place]. tel:[phone] Referring Provider: Marah Sandoval, [address] [facility] [address], [place], [address]. tel:[phone] [facility], [address], [place], [place], [id number] , [facility] Chronic pain syndromePostlam inectomy syndrome, not elsewhere classifiedRadic ulopathy, lumbar region Apr-2 5 Marshall Colorado. [address] [place] [address], [address], [place], [address], [place]. tel:[phone] OFFICE/OUTPA TIENT VISIT, EST [facility], [address], [place], [place], [id number] , [facility] Knee Pain (chief complaint) low back pain (chief complaint) Postlaminectomy syndrome, not elsewhere classifiedRadic ulopathy, lumbar regionChronic pain syndromeInsomni aOther specified diabetes mellitus with hyperglycemiaLo ng term (current) use of opiate analgesic Apr- 5 Vecchione Analilia. [address] [facility] [address], [place], [address], [place]. tel:[phone] [facility], [address], [place], [place], [address] , [facility] No Information Apr-0 5 Beni Chaudhry. [address] [facility] [address], [place], [address], [place]. tel:[phone] OFFICE/OUTPA TIENT VISIT, EST [facility], [address], [place], [place], [address] , [facility] low back pain (chief complaint) Knee Pain (chief complaint) Postlaminectomy syndrome, not elsewhere classifiedChron ic pain syndromeHTN 5 Hudson Marah. [address], [place], [address], [place]. tel:[phone] Referring Provider: Marah Sandoval, [address], [place], [address]. tel:[phone] OFFICE/OUTPA TIENT VISIT, [facility], [address], [place], [place], [id number] , [facility] Knee Pain (chief complaint) back pain (chief complaint) Other spondylosis, lumbar regionPostlamin ectomy syndrome, not elsewhere classifiedRadic ulopathy, lumbar regionHTNChroni c pain syndromeLong term (current) use of opiate analgesicOther specified diabetes mellitus with hyperglycemia 5 Beni Chaudhry. [address] [place] [address], [id number], [place]. tel:[phone] OFFICE/OUTPA TIENT VISIT, [facility], [address], [place], [place], [address] , [facility] low back pain (chief complaint) Knee Pain (chief complaint) Other spondylosis, lumbar regionPostlamin ectomy syndrome, not elsewhere classifiedRadic ulopathy, lumbar regionHTNDiabet es insipidusChroni c pain syndromeOther spondylosis, thoracic regionOther spondylosis, cervical regionLong term (current) use of opiate analgesic 5 Marshall Colorado. [address], [id number], [place]. tel:[phone] Family History Family Member Type Diagnosis Age At Onset Father Problem (finding) Family history of Alzhe shavonne's disease Mother Problem (finding) Family history of Arthr itis Father Problem (finding) Family history of Arthr itis Father Problem (finding) Family history of Demen tia Payers Payer name Insurance type Covered green party ID Authoriza tishereen(s) [employer] H[employer] CI [id number] Social History Type Description Quantity Date Captured [...] reports he is leaving on today to [place] where he snowbirds from. He was advised that oral opiates will not be sent without an office visit so he is either to return to the office for refills or establish care with pain management while he is in [place] 6 months out of the year. Patient [...] not established care with pain management in [place] who can manage his pump, we can attempt to send a referral to [facility] to see if his insurance will [...] ate. Related to Other spondylosis, lumbar region E-FORCSE [...] AND DISCONTINUED ITP IS TITRATED. Related to lobsterman (current) use of opiate analgesic Will increase [...] AND DISCONTINUED ITP IS TITRATED. Related to lobsterman (current) use of opiate analgesic Consider Lumbar ALAN at a later d ate. Related to Radiculopathy, lumbar region Advised to follow up with PCP as scheduled. Related to HTN Advised to follow up with PCP as scheduled. Related to Other specified diabetes mellitus with hyperglycemia Consider Lumbar MBB at a later d ate. Related to Other spondylosis, lumbar region We will continue Fen tanyl intrathecal therapy per protocol. We will continue Oxycodone 10 mg QID PRN for breakthrough pain as ITP is titrated. PATIENT IS ADVISED ORAL OPIATES WILL BE WEANED AND DISCONTINUED ITP IS TITRATED. Patient reports he is leaving on 06/25/2025 to [place] where he snowbirds from. Advised oral opiates will not be sent without an office visit so he is either to return to the office for refills or establish care with pain management while he is in [place] 6 months out of the year. Patient [...] not established care with pain management in [place] who can manage his pump, we can attempt to send a referral to [employer] to see if his insurance will cover home health services for refills and adjustments. Related to Chronic pain syndrome Incisions was assess ed prior to staple removal. Incision is clean dry and intact. Site was cleaned. Environmental Sampler applied benzoin tincture, removed abram, applied bacitracin [...] AND DISCONTINUED ITP IS TITRATED. Related to lobsterman (current) use of opiate analgesic Advised to follow up with PCP as scheduled. Related to Other specified diabetes mellitus with hyperglycemia Consider Lumbar ALAN at a later d ate. Related to Radiculopathy, lumbar region Consider Lumbar MBB at a later d ate. Related to Other spondylosis, lumbar region We will continue Fen tanyl [...] others cannot easily access them. Related to lobsterman (current) use of opiate analgesic UDS risk [...] others cannot easily access them. Related to lobsterman (current) use of opiate analgesic UDS risk [...] environment in an opioid emergency. Related to lobsterman (current) use of opiate analgesic UDS risk [...] and destroyed at a depository. Related to lobsterman (current) use of opiate analgesic He is scheduled for fentanyl it pump trial w/ dr. Olivares. -pending PCP clearance- Dr. Yost in [place].-psych clearance on file. Advised that if we are going to proceed with IT pump implant we would need uds showing negative for any benzo' and A1C level needs to be 8% or below.Patient educated on the risks of taking benzodiazepines while taking prescribed opioids due to risk for TABLE KEEPER and respiratory depression and also on associated with an overdose. advised that no oxycodone would be prescribed until UDS is negative for benzo's. Related to Postlaminectomy syndrome, not elsewhere classified His last A1C is 8.6. Advised that we need this to be 8.0 or lower prior to proceeding with IT pump implant.He will follow up with PCP, Dr. Yost in [place] and still needs PCP clearance. Related to [...] of benzodiazepines and any metabolite Related to half-way (current) use of opiate analgesic Says that [...] monitoring. Related to Other spondylosis, lumbar region Consider Lumbar ALAN at a later date. [...] continue non opioid treatment options. Related to lobsterman (current) use of opiate analgesic UDS from [...] taking prescribed opioids due to risk for TABLE KEEPER and respiratory depression and also on associated [...] or drug to drug interactions. Related to half-way (current) use of opiate analgesic Consider Lumbar [...] he has yet to find someone in [place] to manage his pump. Per records, daily dose of Fentanyl via intrathecal therapy was increased to 25% last encounter which he reports is well-tolerated without adverse side effects. He continues to report no significant relief of chronic low back pain and requesting additional pump adjustment today. assessment Chronic pain syndrome impression Transferred records from Dr. Itzel to reviewed. assessment lobsterman (current) use of opiat e analgesic assessment Radiculopathy, lumbar region Jun impression Discontinued Cymbalta due to fabian sea. Aug-18-2025 assessment HTN impression Blood pressure is stable today. Mental Status Date Cognitive Assessment Orientation - [place] ed to time, place, person, situation. Patient Care Teams Name Effective Dates (start - stop) Status Members No Information
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
[2025-08-29 15:26] VITALS: BP 149/80; PULSE 95; RESP 16; O2SAT 96; BMI 35.6
--- OUTSIDE RECORDS SUMMARY | 2025-08-29 21:27 | XMS_ITS | Data Portability ---
Author Organization [facility], [facility] [place] Address [address] [place] [address] Care Team Providers Care Probation Supervisor Name Role Phone EDDY JOHNSON Primary Care Provider [phone] Assessment No assessment recorded. Plan of Treatment Reminders Order Date Submit Date Provider Last Modified By Organization Details Last Modified Time Details Appointments Establ dariel Lai t 30 2024 08:00A Chris JOHNSON MD Not available Not available Not available Lab vitami n D, 25-hyd sharon, total, serum 2024 025 [facility] (Lab), [address] [place] [address], [id number], 06/18/2025 08:55:20 vitami n B12, serum 2024 025 [facility] (Lab), [address] [place] [address], [id number], 06/18/2025 08:55:20 folate , serum 2024 025 [facility] (Lab), [address] [place] [address], [id number], 06/18/2025 08:55:19 magnes ium, serum or plasma 2024 025 [facility] (Lab), [address] [place] [address], [id number], 06/18/2025 08:55:19 CBC w/ diff 2024 025 [facility] (Lab), [address] [place] [address], [id number], 06/18/2025 08:55:20 TSH, ultra- sensit felix, serum 2024 025 [facility] (Lab), [address] [place] [address], [id number], 06/18/2025 08:55:20 T4, free, serum 2024 025 [facility] (Lab), [address] [place] [address], [id number], 06/18/2025 08:55:19 lipid panel, serum 2024 025 [facility] (Lab), [address] [place] [address], [id number], 06/18/2025 08:55:19 HbA1c (hemog lobin A1c), blood 2024 025 [facility] (Lab), [address] [place] [address], [id number], 06/18/2025 08:55:19 CMP, serum or plasma 2024 025 [facility] (Lab), [address] [place] [address], [id number], 06/18/2025 08:55:20 urinal ysis comple te, reflex cultur e 2024 025 [facility] (Lab), [address] [place] [address], [id number], 06/18/2025 08:55:20 microa lbumin , urine 2024 025 [facility] (Lab), [address] [place] [address], [id number], 06/18/2025 08:55:20 Referral pulmon ologis t referr al 2024 025 nida Love MD, [address] [place] [address] [facility] [place], [place], [address], 06/20/2025 08:55:11 Procedures None record ed. Surgeries None record ed. Imaging None record ed. Medication Orders Lantus Solost ar U-100 Insuli n 100 unit/m L (3 mL) subcut aneous pen 2024 025 [facility] [place], [address], 06/18/2025 08:45:55 trazod one 50 mg tablet 2024 025 [facility] [address] [place], [address], 05/07/2025 11:29:02 Peride x 0.12 % mouthw lyndsay 2024 025 [facility] [place], [address], 06/18/2025 09:11:12 nystat in 100,00 0 unit/m L oral suspen ronn 2024 025 [facility] [place], [address], 04/19/2025 09:10:01 lisino pril 10 mg tablet 2024 025 [facility] [address] [place], [address], 04/19/2025 09:03:48 Advair Diskus 250 mcg-50 mcg/do se powder for inhala tion 2024 025 [facility] [place], [address], 04/19/2025 09:10:05 albute rol sulfat e 2.5 mg/3 mL (0.083 %) soluti on for nebuli zation 2024 025 [facility] [address] [place], [address], 04/19/2025 09:10:05 albute rol sulfat e 2.5 mg/3 mL (0.083 %) soluti on for nebuli zation 2024 025 [email or web address] iz Not available 04/24/2025 06:41:35 shona ukast 10 mg tablet 2024 025 [facility] [address] [place], [address], 04/19/2025 09:33:00 OneTou ch Verio test strips [address] [facility] [address] [facility] [address] [place], [address], 04/30/2025 08:30:24 Lantus Solost ar U-100 Insuli n 100 unit/m L (3 mL) subcut aneous pen [address] [facility] [address] [place], [address], 06/18/2025 08:43:00 clotri mazole 10 mg jaylin 2024 025 [facility] [address] [place], [address], 04/19/2025 08:22:07 Breztr i Aerosp here 160 mcg-9m cg-4.8 mcg/ac tuatio n HFA aeroso l inhale r 2024 025 [facility] [address] [place], [address], 05/07/2025 11:01:03 azithr omycin 250 mg tablet 2024 025 [facility] [address] [place], [address], 04/19/2025 08:21:44 Patient TargetsNo targets recorded. Patient Instructions Encounter Date Encounter Id Patient Instructions Last Modified By Organization Details Last Modified Time 03/01/2025 [id number] health literacy assessment* [email or web address] Not available 03/01/2025 11:52:19 04/05/2025 [id number] health literacy assessment* Not available 04/05/2025 13:21:08 candidiasis: car e instructions Not available 04/05/2025 13:21:08 04/19/2025 [id number] health literacy assessment* Not available 04/19/2025 09:03:38 05/07/2025 [id number] health literacy assessment* Not available 05/07/2025 11:25:37 06/18/2025 [id number] health literacy assessment* Not available 06/18/2025 08:45:44 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 Referral for A cute exacerbation of chronic obstructive pulmonary disease copd, seen in hospital Referring Physician: Chela Carranza, Family Medicine, Encounter Date: 03/01/2025 Results Created Date Observation Date Name Description Value Unit Range Abnormal Flag Note LastModifiedBy Organization Detail LastModifiedTime 02/22/2002/21/2025 healt h liter acy asses sment * Brief Health Literacy Results Normal Not Available [facility] [address], [address], 02/21/2025 11:39:55 03/01/20 25 03/01/2025 healt h liter acy asses sment * Brief Health Literacy Results Normal Not Available [facility] [address], [address], 03/01/2025 08:13:35 04/05/20 25 04/05/2025 healt h liter acy asses sment * Brief Health Literacy Results Normal Not Available [address], [address], 04/05/2025 12:53:39 04/19/20 25 04/19/2025 healt h liter acy asses sment * Brief Health Literacy Results Normal Not Available [address], [address], 04/19/2025 08:26:11 05/07/20 25 05/07/2025 HEMOG LOBIN A1C Hb A1C % res 8.1 % 4.0-6. 0 high Not Available [facility] (Lab) [address] [place], [address], 05/07/2025 13:36:01 05/07/20 25 05/07/2025 HEMOG LOBIN A1C estimated average glucose calc 185.77 The ADA diagn ostic crite hoa for diabe anay using Hgb A1C deter minat ion is two resul ts great er than or equal to 6.5%. (Rega rdles s of plasm a gluco se resul ts.) Refer ence: Diab etes Care 2023; 47 (Supp lemen t_1): S20-S 42 https ://do i.org /10.2 337/d c24-S 002 Not Available [facility] (Lab) [address] [place], [address], 05/07/2025 13:36:01 05/07/20 25 05/07/2025 healt h liter acy asses sment * Brief Health Literacy Results Normal Not Available [address], [address], 05/04/2025 14:33:17 05/29/20 25 05/29/2025 HEMOG LOBIN A1C Hb A1C % res 8.0 % 4.0-6. 0 high Not Available [facility] (Lab) [address] [place], [address], 05/29/2025 16:43:41 05/29/20 25 05/29/2025 HEMOG LOBIN A1C estimated average glucose calc 182.90 The ADA diagn ostic crite hoa for diabe anay using Hgb A1C deter minat ion is two resul ts great er than or equal to 6.5%. (Rega rdles s of plasm a gluco se resul ts.) Refer ence: Diab etes Care 2023; 47 (Supp lemen t_1): S20-S 42 https ://do i.org /10.2 337/d c24-S 002 Not Available [facility] (Lab) [address] [place], [address], 05/29/2025 16:43:41 06/18/20 25 06/18/2025 healt h liter acy asses sment * Brief Health Literacy Results [place] te Not Available [facility] [address], [place], [address], 06/15/2025 14:28:03 Result Notes None recorded. Problems Name Problem SNOMED Code Status Onset Date Resolution Date Notes Provider Name and Address Organization Details Recorded Time Acute kidney injury [id number] Marvin Hernandez [facility] 5 11:37:43 Acute exacerbati on of chronic obstructiv e pulmonary disease 570721808 Active DEEPTI TIPTON, LIFE SCIENCES MANAGER [address] [place], [address], [facility] 5 14:30:43 Respirator y acidosis and metabolic alkalosis 304605373 Marvin anne, [facility] 11:37:43 Dyspnea [id number] Marvin Hernandez [facility] 11:37:43 Joint swelling 958200578 Marvin anne [facility] 5 11:37:43 Laceration of thumb 045434621 Active Ana Hernandez null, [facility] 5 11:37:43 Left lower zone pneumonia 885879164 Active Ana Hernandez null, [facility] 5 11:37:43 Hypoxia 321240553 Active Ana Hernandez null, [facility] 5 11:37:43 Acute-on-c hronic respirator y failure 81490314 Active CHELA CARRANZA NP [address] [place], [address], [facility] 5 20:24:37 Acute respirator y acidosis 89178633 [facility] 11:37:43 Congestion of nasal sinus 98748044 [facility] 5 11:37:43 Mixed hyperlipid emia 966843806 Active 2022 Not Available [facility] 4 00:47:27 Tobacco dependence syndrome 03296267 Active 2022 CHELA CARRANZA NP [address] [place], [address], [facility] 5 20:27:42 Chronic obstructiv e pulmonary disease 23860073 Active 2022 DEEPTI TIPTON APRN [address] [place], [address], [facility] 5 10:02:27 Chronic low back pain 077323419 Active 2022 DEEPTI TIPTON APRN [address] [place], [address], [facility] 5 10:00:43 Cigarette smoker 59019006 Active 2022 Not Available [facility] 4 00:47:27 Pneumonia 682625578 Active 2022 Not Available [facility] 4 00:47:27 Type 2 diabetes mellitus 67691304 Active 2022 Not Available [facility] 4 00:47:27 Neuropathy due to type 2 diabetes mellitus 658594245213 106 Active 2022 Not Available [facility] 4 00:47:27 Essential hypertensi on 98691374 Active 2022 CHUCHO HALE[address] [facility], [place], [place], [address] [place] [address], [facility] 5 20:28:46 Restless legs syndrome 96688589 Active 2022 Not Available [facility] 4 00:47:27 Gastroesop hageal reflux disease 109641665 Active 2022 Not Available [facility] 4 00:47:27 Acute upper respirator y infection 85603831 Active 2023 Not Available [facility] 4 00:47:27 Nausea 258211280 Active 2024 MD Nia RUEDA [place], [address] [place] [address], [facility] 5 15:12:20 Constipati on 87677577 Active 2024 EDDY JOHNSON MD [address] [place], [place], [address] [place] [address], [facility] 5 15:20:09 Community acquired pneumonia 357783264 Active 2024 CHUCHO HALE N [facility], [place], [place], [address] [place] [address], [facility] 5 20:24:06 Acute on chronic hypoxemic and hypercapni c respirator y failure 425647945502 07 Active 2024 CHUCHO HALE N [facility], [place], [address], [facility] 5 20:26:15 Chronic pain syndrome 124475266 Active 2024 CHUCHO HALE N [facility], [place], [address], [facility] 5 20:27:59 Diabetic peripheral neuropathy 055100460 Active 2024 CHUCHO HAEL N [facility], [place], [address], [facility] 5 20:28:12 Gastroesop hageal reflux disease without esophagiti s 704277032 Active 2024 CHUCHO HALE N [facility], [place], [address], [facility] 5 20:29:08 Allergic rhinitis 10391324 Active [address] [place], [address], [facility] 5 09:46:02 Hyperglyce delon due to type 2 diabetes mellitus 822784137630 109 Active 2024 EZIO DEE [facility], [place], [address], [facility] 5 16:20:59 Candidiasi s of mouth 06134004 Active [address] [place], [address], [facility] 5 11:17:40 Gingivitis 80090709 Active [address] [place], [address], [facility] 5 11:24:16 Insomnia 275846700 Active [address] [place], [address], [facility] 5 11:26:33 Hyperlipid emia 16166242 Active [address] [place], [address], [place] [facility] 5 08:47:23 Problem Notes None recorded. Procedures Surgical History Date Name Laterality Status Provider Name and Address Organization Details Recorded Time 0 Self Management Goals completed Delores Dowd [facility] 03/28/2020 10:17:11 Imaging Results None recorded. Procedure Notes None recorded. Medical Equipment None Reported. Allergies Allergen ID Allergen Name Allergen Category Reaction Reaction Severity Criticality Documentation Date Start Date Code Code System Note Provider Name and Address Organization Details Recorded Time 77908 morphine medicatio n flushing moderate Not available 10/14/2023 7052 RxNorm Pedro anne, [facility] 5 14:55:28 Medications Name Sig Start Date Stop Date Status Note LastModified by Organization Details LastModified Time OneTouch Verio lancets Check glucose at least once daily in the morning 2024 active Not Available Not Available Not Avai lable clotrimaz ole 10 mg jaylin DISSOLVE 1 TABLET BY MOUTH FIVE TIMES DAILY FOR 7 DAYS FOR THRUSH 04/19 completed Not Available Not Available Not Available fluticaso ne 250 mcg-salme terol 50 mcg/dose blistr powdr for inhalatio n INHALE 1 PUFF BY MOUTH TWICE DAILY FOR COPD active Not Available Not Available No t Available nystatin 100,000 unit/mL oral suspensio n TAKE 5 ML BY MOUTH FOUR TIMES DAILY FOR 14 DAYS, FOR THRUSH. active Not Available Not Available No t Available prednison e 10 mg tablet 01/09 completed Not Available Not Available Not Available doxycycli ne hyclate 100 mg capsule TAKE 1 CAPSULE BY MOUTH EVERY 12 HOURS FOR 10 DAYS 02/21 completed Not Available Not Available Not Available albuterol sulfate 2.5 mg/3 mL (0.083 %) solution for nebulizat ion USE 1 VIAL IN NEBULIZE R EVERY 4 TO 6 HOURS NEEDED FOR WHEEZING FOR SHORTNES S OF BREATH active Not Available Not Available No t Available guaifenes in ER 600 mg tablet,ex tended release Take 600 mg by oral route. 03/01 completed Not Available Not Available Not Available trazodone 50 mg tablet TAKE 1 TO 2 TABLETS BY MOUTH ONCE DAILY AT NIGHT NEEDED FOR INSOMNIA active Not Available Not Available No t Available azithromy omkar 250 mg tablet TAKE 2 TABLETS BY MOUTH ON DAY 1, AND THEN TAKE 1 TABLET BY MOUTH ONCE A DAY ON DAY 2 THROUGH DAY 5 04/19 completed Not Available Not Available Not Available aspirin 325 mg tablet Take 1 tablet every day by oral route. 01/09 completed Not Available Not Available Not Available tizanidin e 4 mg tablet TAKE 1 TABLET BY MOUTH EVERY 12 HOURS NEEDED 01/09 completed nausea Not Available Not Available Not Available benzonata te 200 mg capsule TAKE 1 CAPSULE BY MOUTH THREE TIMES A DAY FOR 5 DAYS 02/21 completed Not Available Not Available Not Available lisinopri l 20 mg tablet Take 20 mg by oral route. 03/01 completed Not Available Not Available Not Available prednison e 20 mg tablet TAKE 1 TABLET BY MOUTH TWICE A DAY 03/01 completed Not Available Not Available Not Available Advair Diskus 100 mcg-50 mcg/dose powder for inhalatio n INHALE 1 DOSE BY MOUTH TWICE DAILY. RINSE MOUTH AFTER USE 10/14 completed Not Available Not Available Not Available amlodipin e 5 mg tablet TAKE ONE TABLET (5MG) BY MOUTH DAILY AT 9AM active Not Available Not Available No t Available doxepin 10 mg capsule TAKE 1 CAPSULE BY MOUTH EVERY DAY AT BEDTIME 03/01 completed Not Available Not Available Not Available quetiapin e 100 mg tablet 10/14 completed Not Available Not Available Not Available glimepiri de 2 mg tablet Take 1 tablet every day by oral route. 01/09 completed Not Available Not Available Not Available meloxicam 7.5 mg tablet 01/09 completed Not Available Not Available Not Available ofloxacin 0.3 % ear drops INSTILL 5 DROPS INTO EACH AFFECTED EAR TWICE A DAY FOR 10 DAYS 05/04 completed Not Available Not Available Not Available baclofen 10 mg tablet TAKE 1 TABLET ORALLY TWICE A DAY NEEDED FOR PAIN 10/14 completed Not Available Not Available Not Available benzonata te 100 mg capsule TAKE 1 CAPSULE BY MOUTH 3 TIMES A DAY NEEDED FOR COUGH 03/01 completed Not Available Not Available Not Available cephalexi n 500 mg capsule 01/09 completed Not Available Not Available Not Available ropinirol e 0.5 mg tablet TAKE ONE TABLET (0.5 MG) BY MOUTH DAILY AT 9PM active Not Available Not Available No t Available lisinopri l 10 mg tablet TAKE 1 TABLET BY MOUTH ONCE DAILY FOR HIGH BLOOD PRESSURE (DOSE INCREASE ) active Not Available Not Available No t Available glimepiri de 4 mg tablet TAKE TWO TABLETS (8 MG) BY MOUTH DAILY AT 9AM active Not Available Not Available No t Available lidocaine 5 % topical patch APPLY 1 PATCH BY TOPICAL ROUTE ONCE DAILY (MAY WEAR UP TO 12HOURS. ) 01/09 completed Not Available Not Available Not Available nicotine 21 mg/24 hr daily transderm al patch 01/09 completed Not Available Not Available Not Available omeprazol e 20 mg capsule,d elayed release TAKE ONE CAPSULE (20 MG) BY MOUTH EVERY OTHER DAY active Not Available Not Available No t Available pseudoeph edrine 30 mg tablet Take 60 mg by oral route. 06/18 completed Not Available Not Available Not Available monteluka st 10 mg tablet TAKE 1 TABLET BY MOUTH ONCE DAILY FOR ALLERGIE S active Not Available Not Available No t Available lisinopri l 5 mg tablet TAKE 1 TABLET BY MOUTH EVERY DAY 01/09 completed Not Available Not Available Not Available mupirocin 2 % topical ointment APPLY SMOLE AMOUNT TO POST OP WOUND THREE TIMES A DAY TO AFFECATE D AREA 06/18 completed Not Available Not Available Not Available diazepam 10 mg tablet TAKE ONE TABLET BY MOUTH TWICE DAILY NEEDED FOR ANXIETY 02/21 completed Not Available Not Available Not Available zolpidem 10 mg tablet 10/14 completed Not Available Not Available Not Available albuterol sulfate HFA 90 mcg/actua tion aerosol inhaler INHALE TWO PUFFS BY MOUTH FOUR TIMES DAILY NEEDED FOR SHORTNES S OF BREATH OR WHEEZING active Not Available Not Available No t Available celecoxib 100 mg capsule TAKE 1 CAPSULE BY MOUTH TWICE DAILY 01/09 completed nausea Not Available Not Available Not Available ondansetr on 4 mg disintegr ating tablet DISSOLVE 2 TABLETS IN MOUTH TWICE DAILY 03/01 completed Not Available Not Available Not Available doxycycli ne hyclate 100 mg tablet TAKE 1 TABLET BY MOUTH TWICE DAILY FOR 14 DAYS 06/18 completed Not Available Not Available Not Available diazepam 5 mg tablet Take 1 tablet every day by oral route as needed. 01/09 completed Prescrib ed by PCP in [place] Not Available Not Available Not Available amoxicill in 875 mg-potass ium clavulana te 125 mg tablet TAKE 1 TABLET BY MOUTH EVERY 12 HOURS FOR 7 DAYS 05/07 completed Not Available Not Available Not Available tobramyci n 0.3 %-dexamet hasone 0.1 % eye drops,jeni pension PLEASE SEE ATTACHED FOR DETAILED DIRECTIO NS 10/14 completed Not Available Not Available Not Available oxycodone 5 mg tablet TAKE 1 TABLET BY MOUTH EVERY 6 HOURS NEEDED FOR BREAKTHR OUGH PAIN 04/05 completed Not Available Not Available Not Available Comp-Air Nebulizer Compresso r USE DIRECTED active Not Available Not Available No t Available azithromy omkar 500 mg tablet TAKE 1 TABLET BY MOUTH EVERY DAY FOR 3 DAYS 11/23 completed Not Available Not Available Not Available duloxetin e 20 mg capsule,d elayed release TAKE 1 CAPSULE BY MOUTH TWICE DAILY 03/01 completed Not Available Not Available Not Available chlorhexi dine gluconate 0.12 % mouthwash SWISH AND SPIT 15 ML IN MOUTH TWICE DAILY 06/18 completed Not Available Not Available Not Available Lantus Solostar U-100 Insulin 100 unit/mL (3 mL) subcutane ous pen INJECT 10 UNITS SUBCUTAN EOUSLY TWICE A DAY IN THE MORNING FOR 30 DAYS FOR DIABETES . active Not Available Not Available No t Available oxycodone 10 mg tablet TAKE 1 TABLET BY MOUTH EVERY 6 HOURS . DO NOT EXCEED 4 PER 24 HOURS active Not Available Not Available No t Available OneTouch Verio test strips CHECK BLOOD GLUCOSE AT LEAST ONCE DAILY IN THE MORNING , FASTING, AND THROUGHO UT THE DAY NEEDED. active Not Available Not Available No t Available OptiChamb er Omayra [facility] spacer FOR USE WITH INHALER INHALED EVERY 6 HRS WITH INHALER 30 DAYS active Not Available Not Available No t Available Jardiance 10 mg tablet TAKE ONE TABLET (10MG) BY MOUTH DAILY AT 9AM active Not Available Not Available No t Available OneTouch Verio Flex Meter active Not Available Not Available Not Available Trelegy Ellipta 100 mcg-62.5 mcg-25 mcg powder for inhalatio n INHALE 1 PUFF BY MOUTH DAILY 04/05 completed Not Available Not Available Not Available OneTouch Delica Plus Lancet 33 gauge active Not Available Not Available Not Available Breztri Aerospher e 160 mcg-9mcg- 4.8mcg/ac tuation HFA aerosol inhaler INHALE 2 PUFFS TWICE DAILY FOR 30 DAYS FOR COPD MAINMARVA NCE 05/07 completed Not Available Not Available Not Available QuickVue SARS Antigen kit Take 1 kit by miscell. route. 01/09 completed Not Available Not Available Not Available Ultra-Fin e Pen Needle 31 gauge x 5/16 USE ONE PEN NEEDEL EVERY DAY active Not Available Not Available No t Available Vitals Date Recorded Body height Body mass index (BMI) Body weight Body temperature Respiratory rate Oxygen saturation Oxygen saturation in Arterial blood by Pulse oximetry Systolic And Diastolic Provider Name and Address Organization Details Last Updated DateTime 165.1 cm 33.1 kg/m2 52577.1 6 g 97.2 [degF] 18 /min 10 % 10 % 144/84 mm[Hg] Natividad Reynaga [facility] 10:38:53 Date Recorded Oxygen saturation Oxygen saturation in Arterial blood by Pulse oximetry Provider Name and Address Organization Details Last Updated DateTime 04/05/2025 91 % 91 % DEEPTI TIPTON, LIFE SCIENCES MANAGER [address] [place], [address], [facility] 04/05/2025 13:10:57 Date Recorded Body height Body mass index (BMI) Body weight Respiratory rate Heart rate Body temperature Systolic And Diastolic Provider Name and Address Organization Details Last Updated DateTime 165.1 cm 33.4 kg/m2 71071.0 7 g 16 /min 98 /min 97 [degF] 130/88 mm[Hg] Ana Hernandez [facility] 12:56:50 Date Recorded Body height Body mass index (BMI) Body weight Respiratory rate Body temperature Oxygen saturation Oxygen saturation in Arterial blood by Pulse oximetry Heart rate Systolic And Diastolic Provider Name and Address Organization Details Last Updated DateTime 165.1 cm 33.7 kg/m2 75318.5 3 g 18 /min 97.3 [degF] 93 % 93 % 86 /min 136/84 mm[Hg] Angella AngelaKnight [facility] 5 08:20:16 Date Recorded Body height Body mass index (BMI) Body weight Respiratory rate Body temperature Heart rate Oxygen saturation Oxygen saturation in Arterial blood by Pulse oximetry Systolic And Diastolic Provider Name and Address Organization Details Last Updated DateTime 5 165.1 cm 34 kg/m2 25715.2 8 g 20 /min 97 [degF] 91 /min 91 % 91 % 130/78 mm[Hg] Ana Hernandez [facility] 5 11:00:01 Date Recorded Body height Body mass index (BMI) Body weight Respiratory rate Body temperature Oxygen saturation Oxygen saturation in Arterial blood by Pulse oximetry Heart rate Systolic And Diastolic Provider Name and Address Organization Details Last Updated DateTime 5 165.1 cm 33.4 kg/m2 23310.6 3 g 20 /min 97.3 [degF] 87 % 87 % 97 /min 140/90 mm[Hg] Ana Hernandez [facility] 5 08:22:16 Social History Question Answer Notes LastModified by Organizat ion Details LastModified Time Tobacco Smoking Status Current Some Day Smoker Cedric anne [facility] 10/14/2023 13:19:39 Are You Blind Or Do You Have Difficulty Seeing? No [email or web address] Information not available 04/19/2025 What Is Your Level Of Caffeine Consumption? Occasional A Pot Of Coffee Most Of The Time [email or web address] Information not available 04/19/2025 Are You Deaf Or Do You Have Serious Difficulty Hearing? No [email or web address] Information not available 04/19/2025 What Was The Date Of Your Most Recent Tobacco Screening? 06/18/2025 malcolm Information not available 06/18/2025 How Many Children Do You Have? 0 [email or web address] Information not available 04/19/2025 What Is Your Relationship Status? Single [email or web address] Information not available 04/19/2025 At What Age Did You Start Smoking Tobacco? [age] Yrs Old oscar Information not available 03/01/2025 How Much Tobacco Do You Smoke? 0.5 PPD Information not available 10/14/2023 How Many Years Have You Smoked Tobacco? 50 50 Yrs [email or web address] Information not available 03/01/2025 Do You Have Difficulty Walking Or Climbing Stairs? No [email or web address] Information not available 04/19/2025 Sex: Unknown Functional Status Question Answer Note LastModified by Organizat ion Details LastModified Time Do you or have you ever used any other forms of tobacco or nicotine? Yes Information not available 10/14/2023 What is your level of alcohol consumption? None [email or web address] Information not available 04/19/2025 Do you or have you ever used smokeless tobacco? Never used smokeless tobacco Nicotine Patch Information not available 10/14/2023 Are you currently employed? No DISABLE [email or web address] Information not available 04/19/2025 Are you able to walk independently without assistance or assistive devices? YESWOREST [email or web address] Information not available 04/19/2025 Do you have difficulty doing errands alone? No [email or web address] Information not available 04/19/2025 Are you able to care for yourself independently? Yes Information not available 04/19/2025 Do you or have you ever used e-cigarettes or vape? Never used electronic cigarettes Information not available 10/14/2023 Mental Status Question Answer Note LastModified by Organization D etails LastModified Time Do you have difficulty concentrating, remembering or making decisions? No [email or web address] Information no t available 04/19/2025 Family History Relationship Description Onset Age of this Age Resolved Age Notes LastModified by Organization Details LastModified Time Father Heart disease [email or web address] Not available 2022 13:58:46 Medical History No medical history recorded. Immunizations Vaccine Type Date Status Note Provider Rigo pollard and Address Organization Details Recorded Time COVID-19, mRNA, LNP-S, PF, 30 mcg/0.3 mL dose 12/16/2020 completed Ana Hernandez [facility] 02/21/2025 11:37:49 COVID-19, mRNA, LNP-S, PF, 30 mcg/0.3 mL dose 01/17/2021 completed Ana anne [facility] 02/21/2025 11:37:50 Tdap 02/16/2020 completed Ana anne, [facility] 02/21/2025 11:37:50 Past Encounters Encounter ID Performer Location Encounter Start Date Encounter Closed Date Diagnosis/Indication Diagnosis SNOMED-CT Code Diagnosis ICD10 Code Diagnosis IMO Codes Diagnosis Note [id number] SANDRA POOLE [facility] [address] [place] [address] 03/25/2020 15:10:57 03/25/2020 15:11:29 Exposure to viral disease 6323808685 81538 Z20.828 [id number] SANDRA LIPSCOMB [facility] [address] [place] [address] 03/27/2020 12:58:36 04/09/2020 08:41:59 Exposure to viral disease 7479384544 04460 Z20.828 Pt notified COVID-19 not detected on recent nasopharyn geal swab. Pt verbalizes understand ing and will monitor for any s/sx of infection. Pt advised to continue to practice social distancing and follow CDC guidelines , including the use of face coverings in public, frequent hand washing and sanitizing of high touch surfaces. All questions answered to pt's satisfacti on [id number] EDDY JOHNSON MD Family Medicine [facility] [address] [facility] [place] [address] 10/14/2023 13:07:31 10/15/2023 08:32:54 Chronic obstructive pulmonary disease 52736202 J44.9 Chronic, advair ICS/ LABAPoorly controlled , requires albuterol inhaler/ne b 5-8 times per weekHas PRN home O2 - Uses 1.5L o2 via NC at night if O2 down to 80s.Pt reports average 90-91 o2 satspredni sone.Discu ssed goal 88-92%O2 91% RA today at restSmokin g cessationB L wheezing and crackles today, see PNAIncreas e advair to 250-50 from 100-50mcgC ont PRN albuterol inhaler/ne bsHas pulmonolog y appt in February in [facility], none here Chronic low back pain 27 3337043 M54.50 S/p multiple back surgeriesF [facility]michael ortho who prescribed oxycodone 10mg qid Cigarette smoker 7824834 7 F17.210 1/2 pack daily [id number] pack yearsconte mplative stageUsing nicotine patches History of primary malignant neoplasm of urinary bladder 617028268 Z85.51 S/p surgery 10-12 yrs agoRpt biopsy several years ago was negativeFo jacky urology in [facility] Pneumonia 973067094 J18. 9 Recent PNA was placed on 2 courses of abx (doxycylin e) in [facility] and 1 course of prednisone . He felt better, now worsening with chest congestion , wheezing, sputum arguello worse with laying down. Denies fevers/chi llsNo resp distressOn going x 1 month.Last taken doxy 3 weeks ago Start augmentin x 5days, march d/c if labs / cxr normalStar t azt x 3 day course, complete regardless of invx Neuropathy due to type 2 diabetes mellitus [id number] 74079 E11.40 Pt not sure what meds he takes for DMAsked pt to bring in meds Essential hypertension 82289374 I10 Lisinopril 5mg Restless l egs syndrome 76212482 G25.81 ropinirole 0.5mg qhs Gastroesop hageal reflux disease 111854127 K21.9 well controlled omeprazole 20mg PRN [id number] EDDY JOHNSON MD Family Medicine [address] [address] 11/23/2023 13:42:22 11/23/2023 16:35:00 Chronic obstructive pulmonary disease 69899462 J44.9 Chronic, advair ICS/ LABAPoorly controlled requiring albuterol inhaler/ne b multiple times weekly, but improving since incr in advair dosageWhee juanisng improved from last visitHas PRN home O2 - Uses 1.5L o2 via NC at night if O2 down to 80s.Discus sed goal 88-92%O2 90% RA today at rest Smoking cessation discussedC hange advair to trelegyCon t PRN albuterol inhaler/ne bsHas pulmonolog y appt in February in [facility], none hereAdvise d to f/u pulm referral in [place] Pneumonia [id number] J18. 9 PNA resolved with course of augmentin + AZTProcal was negAdvised pt no need to obtain CXR Neuropathy due to type 2 diabetes mellitus 7238435829 11133 E11.40 Check A1COn glimepirid e 2mg Chronic low back pain 27 5161122 M54.50 Chronic, poorly controlled , worse with recent lifting and renovation sS/p multiple back surgeriesM idline spinal tenderness in upper backFollow ing ortho who prescribed oxycodone 10mg qidReferra l to pain mxTrial of lidocaine 5% patch Cigarette smoker 5853338 7 F17.210 1/2 pack daily smoker, or less than 1/2 pack with pack yearsconte mplative stageUsing nicotine patchesAdv ised pt to set quit date History of primary malignant neoplasm of urinary bladder 926813564 Z85.51 S/p surgery 10-12 yrs agoRpt biopsy several years ago was negativeFo [facility] Essential hypertension 25319140 I10 Chronic, elevated 153/93Pt reports various readings at homeF/u in 1 mo with BP log Restless l egs syndrome 09164542 G25.81 Chronic, stable on ropinirole 0.5mg qhs Gastroesop hageal reflux disease 452865210 K21.9 well controlled omeprazole 20mg PRN [id number] DEEPTI TIPTON APRN Family Medicine [address] [address] 11/26/2023 10:32:52 11/26/2023 14:38:05 Chronic obstructive pulmonary disease 77172924 J44.9 Discussed COPD symptoms, discussed inhaler use and safetyMedi cation instructio ns reviewed, use albuterol ONLY as neededCont inue maintenanc e inhaler use if you have onePt does/does not follow with pulmonolog yMonitor for new/worsen ing symptomsER precaution s discussedF ollow up as needed Acute uppe r respiratory infection 14861182 J06.9 Flu/COVID negative today in clinicMost likely a viral URI, so recommend watchful waiting and symptom mgmtAbx given due to history of COPD and per patient request in case of worsening symptoms or no improvemen t after a week or soNasal spray as directed, as needed for congestion and pressure reliefOTC cold/cough medicine as directed, unless history of HTN, in which case avoid decongesta nts and use Coricin HBP insteadSup portive care reviewed: raising HOB, humidifier use, saline nasal spray, rest, encourage PO fluids and monitor hydration status, infection control measures.F ollow up if neededER precaution s discussed [id number] EDDY JOHNSON MD Family Medicine [facility] [address] [facility] [place] [address] 01/09/2025 14:39:52 01/09/2025 15:26:00 Chronic obstructive pulmonary disease 87027082 J44.9 Chronic, advair ICS/ LABAPoorly controlled requiring albuterol inhaler/ne b multiple times weekly, but improving since incr in advair dosagehome O2 PRN - 1.5L via NC at night if O2 down to 80s,Discus sed goal 88-92%O2 92% RA today at rest Smoking cessation discussedR egimen:jacek legyCont PRN albuterol inhaler/ne bs pulmonolog y in [facility] Neuropathy due to type 2 diabetes mellitus 8853448019 78951 E11.40 A1C 7.7; 1 yr ago; pt had labs done 1-2 weeks ago downstairs will call lab Regimen:gl imepiride 4mgjardian ce 10mg Eye exam yearly advised.Fo ot exam yearly advised.Co ntinue current regimen.La bs as below in 3m Chronic low back pain 27 3631460 M54.50 Chronic,S/ p multiple back surgeriesM idline spinal tenderness in upper backtaperi ng off oxycodone 10mg qid on tizanidine + celecoxib pain mx DrCreamers cheduled for a Fentanyl IT pump on 02/19/25. Cigarette smoker 7574704 7 F17.210 1/2 pack daily smoker, or less than 1/2 pack with oscbtho27 pack yearsconte mplative stagehas not been using nicotine patchesAdv ised pt to set quit date History of primary malignant neoplasm of urinary bladder 450150301 Z85.51 S/p surgery 10-12 yrs agoRpt biopsy several years ago was negativeFo [facility] [place] [facility] Essential hypertension 30446767 I10 Chronic, elevated 145/80Pt reports home BP 120/70s Regimen:am lodipine 5mglisinop ril 10mg daily Restless l egs syndrome 12143850 G25.81 Chronic, stable on ropinirole 0.5mg qhs Gastroesop hageal reflux disease 980538560 K21.9 well controlled omeprazole 20mg PRN Nausea 299967049 R11.0 likely d/t mild opioid withdrawal sPRN zofran Constipation 21502207 K5 9.00 improved with increasing fiber intake in dietChroni c Recommende d increasing water intake, exercise and increasing fiber intake. Advised goal of daily soft stooling. May drink prune juice or pear juice to initiate bowel regularity and then decrease as needed to maintain a once daily or every other day bowel habit Also encouraged use of bulk forming laxatives such as methylcell ulose (Citrucel) & psyllium (Metamucil ) and/or osmotic laxatives such as Miralax, and avoidance of routine use of stimulant laxatives. [id number] DEEPTI TIPTON APRN [address] [address] 02/21/2025 11:32:20 02/23/2025 10:23:05 Pre-surgery evaluation 434033408 Z01.818 After speaking with surgical coordinato r, confirmed that they do NOT need any other bloodwork to be ordered, as they already have the results they need.No other testing required for their clearance. After exam today, patient can be cleared for the procedure, informed surgical coordinato r he was discharged from the hospital today after recent hospitaliz ation x 1 week for COPD pneumonia, but doing well today, on room air, no SOB, minimal wheezing. Chronic low back pain 27 4153329 M54.50 G89.29 [id number] Chronic ob structive pulmonary disease 71438179 J44.9 793865889 Discussed COPD symptoms, discussed inhaler use and safetyMedi cation instructio ns reviewed, use albuterol ONLY as neededCont inue maintenanc e inhaler use if you have onePt does/does not follow with pulmonolog yMonitor for new/worsen ing symptomsER precaution s discussedF ollow up as needed History of pneumonia 161 706104 Z87.01 941482 [id number] CHELA CARRANZA, [facility] Family Medicine Ruperto pollard [address] [place] [address] 03/01/2025 10:05:21 03/01/2025 13:12:20 Community acquired pneumonia 484606357 J15.9 114549 Left lower lobe pneumoniaP atient completed a course of Rocephin and azithromyc in Acute exac erbation of chronic obstructive pulmonary disease 442255596 J44.1 990189 Patient initially was treated with Rocephin and Zithromax as well as systemic steroids, and short acting bronchodil ators. He was seen by Dr. Dennison. Patient was slowly improving on discharge Dr. Dennison recommende d cefdinir and azithromyc in, prednisone taper and he should continue with Trelegy Ellipta once daily and a rescue inhaler as needed. He would encourage the patient to follow-up with him in the outpatient setting for pulmonary workup including pulmonary function tests and screening for alpha 1 antitrypsi n.On discharge it was recommende d patient be on Mucinex 600 p.o. twice dailyPredn isone 20 mg p.o. twice daily for 5 daysTessal on Perles as needed for coughMaint enance medicines for his COPD include Trelegy Ellipta 10-62.51 inhalation daily, and albuterol HFA as needed for shortness of breath.Did nt take steriod taper.Janna ent stated he just had a test intratheca l pump on wednesday, Acute on c hronic hypoxemic and hypercapnic respiratory failure 7596940558 5107 J96.21 J96.22 19168209 Improving, patient wears 1-1/2 L of oxygen at night as needed. Patient was seen by Dr. Dennison he also recommende d the possibilit y of workup for obstructiv e sleep apnea after discharge. Tobacco de pendence syndrome 14533715 F17.200 67598 Recommend [place] [employer] tobacco website as a source to help with cessationc utting down, 5 cigs a day.Uses nicotine patches. Chronic pain syndrome 37 1369629 G89.4 40428 Oxycodone 10 mg p.o. every 12 hours as neededwork ing with Pain management , [place] [facility], candidate for intratheca l pain, surgery tentative, 05/28/2025 . Patient just had a test intratheca l pump this past wednesday. Patient underwent urine drug screen on Wednesday, results pending. Patient stating he is in alot of pain, and needs additional narcotics, [place] [facility] will not prescribe additional , nacotics at this time, due to active prescripti on for valium, via mail order, in [facility]. Patient requested, a receipt , for return of medication . verified process with another provider, recommend to call [facility], and or [facility] to see if they have a take back program, and if they will give a written acknowledg ment of return, and also to call Mail order Pharam[facility], and stopp the mail order of your prescripti ons. Patient left office before , discussing recommenda tions. Essential hypertension 64024191 I10 83963 Blood pressure today is; 144/84Lisi nopril 20 mg p.o. daily and Norvasc 5 p.o. daily Gastroesop hageal reflux disease without esophagitis 919227611 K21.9 116774 Omeprazole 20 mg p.o. daily as needed Allergic rhinitis 418143 04 J30.9 104265[address]44 [address]Dr . Juma added intranasal steroidsDi scharge Sudafed 60 mg p.o. twice daily Hyperglyce delon due to type 2 diabetes mellitus 0143370176 19094 E11.65 11801778 Hemoglobin A1c is an 8.2Continu e Amaryl 8 mg p.o. daily, patient is also on Jardiance 10 tab p.o. daily [id number] DEEPTI TIPTON APRN Family Medicine [address] [address] 04/05/2025 12:35:59 04/05/2025 13:22:47 Acute exacerbation of chronic obstructive pulmonary disease 701370962 J44.1 898008 Will stop Trelegy and try Breztri insteadBe sure to rinse mouth thoroughly after each use Declines x-ray today Discussed COPD symptoms, discussed inhaler use and safetyMedi cation instructio ns reviewed, use albuterol ONLY as neededCont inue maintenanc e inhaler use if you have one Pt does not follow with pulmonolog y, declines referral today Monitor for new/worsen ing symptomsER precaution s discussedF ollow up as needed Candidiasis of mouth 014 99880 B33.0 938269 [id number] DEEPTI TIPTON APRN Family Medicine [facility] [address] [facility] [place] [address] 04/19/2025 07:57:53 04/19/2025 09:35:50 Essential hypertension 82201767 I10 27150 Reports he sees on his list that he's supposed to be taking the lisinopril , but he ran out a while back. Was prescribed by his PCP up [place], and he needs a refill. However, his manual BP today is 136/84 and he was originally on 20mg lisinopril .After discussion , will restart at 10mg lisinopril daily, with instructio ns for him to monitor BP daily and keep a diary, bring it to next appt Discussed normal parameters , follow up if home checks fall outside of theseDiscu ssed signs/symp toms of hypertensi on to monitor forRecomme nded DASH dietFollow with eye doctor regularly, at least annuallyCOLE henry discussedC all and/or follow up if questions or concerns Hyperglyce delon due to type 2 diabetes mellitus 0854828461 88669 E11.65 [id number] Results pulled from [employer], A1C does show 8.5% last weekPatien t reports when he checks his glucose, it can show as high as 500s throughout the day.He reports he's taking his oral diabetes meds as prescribed , but needs something else to help get better controlAft er discussion , will start him on Lantus 10 units daily, and instructed him to check his glucose every day in the morning, fasting. He already has follow-up appt scheduled 05/07 with me, so he will bring his glucose log in that day. Monitor for new/worsen ing symptomsCOLE henry discussedF ollow up as directed Chronic ob structive pulmonary disease 61417545 J44.9 835724585 He's likely using an Advair, so will refill since this is his preference . Rinse mouth after every use!Also recommend using nebulizer instead of inhaler when he has a flare of his COPDNeb treatment given in clinic today with resolution of wheezing, and improved air movement throughout , oxygen sat 90% on room air, patient feels relief.Als ifeanyi discussed he might be triggered by environmen yobany factors, especially when he said the weather has been triggering his symptoms lately.Collin fallon start on Montelukas t instead of OTC allergy med to see if this helps him manage his symptoms Medication instructio rafita reviewed, use albuterol ONLY as neededCont inue maintenanc e inhaler use if you have onePt does/does not follow with pulmonolog yMonitor for new/worsen ing symptomsCOLE henry discussedF ollow up as needed Candidiasis of mouth 797 01180 B37.0 82216 Lozenges didn't work as well as liquid did in the past, so will send liquid instead [id number] DEEPTI TIPTON, [facility] Medicine [facility] [address] [place] [address] 05/07/2025 10:47:55 05/09/2025 10:51:08 Hyperglycemia due to type 2 diabetes mellitus 3534146351 67455 E11.65 2485004353 05/07/2025 -- Increase Lantus to twice daily, 10 units each dose based on glucose log from home. Explained the importance of taking a true FASTING glucose in the mornings 04/19/2025 -- Results pulled from [employer], A1C does show 8.5% last weekPatien t reports when he checks his glucose, it can show as high as 500s throughout the day.He reports he's taking his oral diabetes meds as prescribed , but needs something else to help get better controlAft er discussion , will start him on Lantus 10 units daily, and instructed him to check his glucose every day in the morning, fasting. He already has follow-up appt scheduled 05/07 with me, so he will bring his glucose log in that day. Monitor for new/worsen ing symptomsCOLE henry discussedF ollow up as directed Gingivitis 36815155 K05. 10 9333132 Follows with [email or web address], has used Peridex before and feels like this would help with his thrush and gum discomfort . Will send. Insomnia 269960410 G47.0 0 40745668 Reports has a history of insomnia, was on trazodone years ago, states he maxed out at 200mg nightly. He states he's been off of it for years now, and has trouble sleeping regularly. Will try trazodone again since he's been off the med for a while, and OTC meds not helping. Sleep Hygiene: -No television in bedroom -Avoid daytime sleeping. -Regular exercise, but not near bedtime. -No heavy meals within a few hours of bedtime. -No alcohol within a few hours of bedtime and limit use. -Avoid caffeine in the evening. -If unable to fall asleep within 20 minutes, get out of bed and do something else until sleepy; repeat cycle until sleep occurs. [id number] DEEPTI TIPTON APRN Family Medicine [facility] [address] [place] [address] 06/18/2025 08:13:19 06/18/2025 08:56:12 Hyperglycemia due to type 2 diabetes mellitus 4536944640 51825 E11.65 06/2025 -- 8.0%, home readings 80s-110 -- Increase Lantus to twice daily, 10 units each dose based on glucose log from home. Explained the importance of taking a true FASTING glucose in the mornings 04/19/2025 -- Results pulled from [facility], A1C does show 8.5% last weekPatien leonardo reports when he checks his glucose, it can show as high as 500s throughout the day.He reports he's taking his oral diabetes meds as prescribed , but needs something else to help get better controlAft er discussion , will start him on Lantus 10 units daily, and instructed him to check his glucose every day in the morning, fasting. He already has follow-up appt scheduled 05/07 with me, so he will bring his glucose log in that day. Monitor for new/worsen ing symptomsCOLE henry discussedF ollow up as directed Essential hypertension 97638022 I10 27049 06/2025 -- 140/90, stable Continue amlodipine 5mg daily, lisinopril 10mg daily Discussed normal parameters , follow up if home checks fall outside of theseDiscu ssed signs/symp toms of hypertensi on to monitor forRecomme nded DASH dietFollow with eye doctor regularly, at least annuallyCOLE henry discussedC all and/or follow up if questions or concerns Hyperlipidemia 33572583 E78.5 48640830 No results on file? Insomnia 906287296 G47.0 0 [id number] 06/2025 -- Reports he thinks trazodone would work better if his allergies were better, states he lays down and his nose gets stuffy where he can't breathe through it. [place]. -- Reports has a history of insomnia, was on trazodone years ago, states he maxed out at 200mg nightly. He states he's been off of it for years now, and has trouble sleeping regularly. Will try trazodone again since he's been off the med for a while, and OTC meds not helping. Sleep Hygiene: -No television in bedroom -Avoid daytime sleeping. -Regular exercise, but not near bedtime. -No heavy meals within a few hours of bedtime. -No alcohol within a few hours of bedtime and limit use. -Avoid caffeine in the evening. -If unable to fall asleep within 20 minutes, get out of bed and do something else until sleepy; repeat cycle until sleep occurs. Chronic ob structive pulmonary disease 61949389 J44.9 [id number] 06/2025 -- Stable, CTA today, oxygen varies 87-88% to 92% on room air, denies any SOB04/2025 -- He's likely using an Advair, so will refill since this is his preference . Rinse mouth after every use!Also recommend using nebulizer instead of inhaler when he has a flare of his COPDNeb treatment given in clinic today with resolution of wheezing, and improved air movement throughout , oxygen sat 90% on room air, patient feels relief.Zofia o discussed he might be triggered by environmen yobany factors, especially when he said the weather has been triggering his symptoms lately.Collin l start on Montelukas t instead of OTC allergy med to see if this helps him manage his symptoms Medication instructio ns reviewed, use albuterol ONLY as neededCont inue maintenanc e inhaler use if you have onePt does/does not follow with pulmonolog yMonitor for new/worsen ing symptomsER precaution s discussedF ollow up as needed Chronic pain syndrome 37 7320438 G89.4 81417 Follows with pain mgmt in [place], just had pain pump implanted a couple of weeks ago, dosing being adjusted Allergic rhinitis 088425 04 J30.9 8593909 Meds as prescribed [place], and if so, may need allergy testing and further mgmt with group therapist Health Concerns Section Related Observation LastModified by Organization Detai ls LastModified Time None Recorded Concern Status LastModified by Organization Details LastModified Time None Recorded Advance Directives Directive None Recorded Payers Insurance Date Sequence Insurance Name Policy Number Policy Valentino Covered Member ID Valentino Member ID Guarantor Name 02/20/2025 1 [employer] (MEDICARE REPLACEMENT/A DVANTAGE - PPO) Stanislav Jacobson [id number] Stanislav Jacobson 06/17/2025 1 [employer] (MEDICARE REPLACEMENT/A DVANTAGE - [place] [id number] Stanislav Jacobson [id number] Stanislav Jacobson 02/20/2025 1 [employer] (HMO) [id number] Stanislav Jacobson [id number] Stanislav Jacobson 02/20/2025 1 [place] Stanislav Jacobson [id number] Stanislav Jacobson 02/20/2025 2 [place] [facility] Stanislav Jacobson [id number] Stanislav Jacobson Notes Date Note Type Note Provider Name and Address Organization Details Recorded Time 03/01/2025 text/html ROS as noted in the HPI Patient initally went to Urgent care , thought he had the flu, fatigue, congested, wheezing, moist nonproductive cough , SOB. Patient was prescribed doxycline for 10 days, Tried mucinex. no better, went back to urgent care after 9 days, no better, to ER.Patient is here for hospital follow-up visi Patient was admitted to [facility] on 02/15/2025 and discharged on 02/21/2025. Patient was admitted to the hospital with dyslipidemia, hypertension esophageal reflux disease, tobacco dependence, he has a history of COPD , no O2 at night,diabetes type 2 with diabetic neuropathy and chronic back pain and restless leg syndrome. Due to 2-week history of progressive shortness of breath and a cough congested and wheezing for the past week he went to an urgent care on Wednesday after having flulike symptoms he was presided present prescribed doxycycline for pneumonia has symptoms worsened therefore he came to the emergency room. Patients breatrhing much better, back to baseline. CHELA CARRANZA NP [address], [place], [address], [facility] 03/01/2025 11:57:25 04/05/2025 text/html ROS as noted in the HPI Patient is a 74yo male, presenting for concern about pneumonia coming back. States for the past couple of weeks, when he lays down, he feels like he gets congested nasally, and then he starts coughing and can't stop. He has been sleeping more upright lately. He clarifies that he does not get SOB where he feels like he can't get a deep breath or feels pressure on his chest, but only has trouble with breathing through his nose. Reports he thinks the Trelegy is giving him pneumonia, he has been reading the Trelegy packet. He states he stopped the Trelegy 2 days ago, and he's starting to improve now. Has oxygen at his bedside that he uses as needed. States he doesn't have full blown thrush, but he does have to rinse his mouth often throughout the day. He does have surgery in 16 days for his pain pump implant. [place]. DEEPTI TIPTON APRN [address], [place], [address], [facility] 04/05/2025 14:31:03 04/19/2025 text/html ROS as noted in the HPI Patient is a 74yo male, presenting for discussion labs and meds. Reports his pain pump implant surgery was canceled because of his A1C being too high. He reports was done at [facility], ordered by his surgeon, and A1C was 8.5%. States he also continues to have issues with his COPD. He went back to his Advair because he states the other inhaler causes thrush and doesn't help his breathing. He is wheezing today. He does use oxygen at home as needed. DEEPTI TIPTON APRN [address], [place], [address], [facility] 04/19/2025 13:29:30 05/07/2025 text/html ROS as noted in the [facility] Patient is a 74yo male, presenting for urgent care follow-up after being seen a couple of weeks ago, was diagnosed with ear infection. Given abx and drops. Helped. States also is concerned that he keeps getting the lung infection, state abx help a little, but then it keeps coming back. He does still smoke though. Feels good today. He brings his glucose log, has been doing his Lantus daily as prescribed. Home glucose log ranging from 113 to 160s, but times of checking vary throughout the morning from 0430 to as late as noon. States it's because he doesn't sleep, and often he stays up and cooks throughout the night. DEEPTI TIPTON APRN [address], [place], [address], [facility] 05/07/2025 16:21:14 06/18/2025 text/html ROS as noted in the HPI Patient is a 74yo male, presenting for follow-up after having his pain pump placed 06/01. He reports he's going back this week for follow-up, and still having pain, they're working on adjusting the dose. He [place] a [place], then return in mid-September. Reports he's been keeping track of his glucose at home, has been better, more in the 80s-115 range. Doing Lantus twice daily. DEEPTI TIPTON APRN [address], [place], [address], [facility] 06/18/2025 09:46:36
--- OUTSIDE RECORDS SUMMARY | 2025-08-29 21:27 | XMS_ITS | Data Portability ---
Author Organization [facility], autoContract - [facility] Address [address] [place] [address] Assessment No assessment recorded. Plan of Treatment Reminders Order Date Submit Date Provider Last Modified By Organization Details Last Modified Time Details Appointments None recorded. Lab HbA1c (hemoglobi n A1c), blood 2023 024 [email or web address] 3 [facility], [address] [place] [address], [address], [place], [address], 13:01:19 CBC w/ auto diff 2023 024 [facility] AT [address], [address], 4 09:54:28 CMP, serum or plasma 2023 024 [facility] AT [address], [address], 4 09:54:28 TSH, serum or plasma 2023 024 [facility] AT [address], [address], 4 09:54:27 vitamin D, 25-hydroxy , total, serum 2023 024 [facility] AT [address], [address], 4 09:54:27 vitamin B12 + folate, serum or blood 2023 024 [facility], [address] [place], [address], 4 09:54:28 urinalysis , complete 2023 024 [facility], [address] [place], [address], 4 09:54:28 microalbum in/creatin ine, mass ratio, urine 2023 024 3 [facility], [address] [place], [address], 4 13:01:20 lipid panel, serum 2023 024 [email or web address] [facility], [address], [address], [place], [address], 4 09:54:16 PSA, serum or plasma 2023 024 DAMON [facility], [address], [address], [place], [address], 4 09:55:20 fecal occult blood, stool 2023 024 3 [facility], [address], [address], [place], [address], 4 13:01:20 HbA1c (hemoglobi n A1c), blood 2023 024 [email or web address] 3 [facility], [address], [address], [place], [address], 4 13:02:24 CBC w/ auto diff 2023 024 DAMON [facility], [address], [address], [place], [address], 4 10:21:55 CMP, serum or plasma 2023 024 [facility], [address], [address], [place], [address], 4 10:21:59 TSH, serum or plasma 2023 024 [facility], [address], [address], [place], [address], 4 10:21:58 vitamin D, 25-hydroxy , total, serum 2023 024 [facility], [address], [address], [place], [address], 4 10:21:58 vitamin B12 + folate, serum or blood 2023 024 [facility], [address], [address], [place], [address], 4 10:21:55 urinalysis , complete 2023 024 [facility], [address], [address], [place], [address], 4 10:22:01 lipid panel, serum 2023 024 [facility], [address], [address], [place], [address], 4 10:22:00 PSA, serum or plasma 2023 024 [email or web address] [facility], [address], [address], [place], [address], 4 10:21:38 fecal occult blood, stool 2023 024 [email or web address] [facility], [address], [address], [place], [address], 4 10:21:38 Referral dermatolog ist referral - requesting skin cancer screening 2023 024 [facility] [place], [address], [place], [address], 4 09:01:43 Procedures None recorded. Surgeries None recorded. Imaging CT, head, w/o contrast - persistent headaches 2023 024 [email or web address] 3 [facility], [address], [address], [place], [address], 4 13:01:28 XR, chest, 2 view - persistent cough, shortness of breath 2023 024 3 [facility], [address], [place], [address], 4 13:01:27 XR, chest, 2 view - persistent cough, shortness of breath 2023 024 [email or web address] 3 [facility], [address], [address], [place], [address], 4 13:02:33 Medication Orders glimepirid e 4 mg tablet 2023 024 [facility]/Pharmacy #3668, [address] [place], [address], 4 09:54:24 albuterol sulfate HFA 90 mcg/actuat ion aerosol inhaler 2023 024 [email or web address] [facility]/Pharmacy #3668, [address] [place], [address], 4 09:54:17 Trelegy Ellipta 100 mcg-62.5 mcg-25 mcg powder for inhalation 2023 024 [facility]/Pharmacy #3668, [address] [place], [address], 4 09:54:23 ropinirole 0.5 mg tablet [address]/Pharmacy #3668, [address] [place], [address], 4 09:54:18 diazepam 10 mg tablet [address]/Pharmacy #3668, [address] [place], [address], 4 09:54:17 lisinopril 10 mg tablet [address]/Pharmacy #3668, [address] [place], [address], 4 09:54:18 lisinopril 20 mg tablet 2023 024 [facility] [address] [place], [address], 4 09:54:24 lidocaine 5 % topical patch [address]/Pharmacy #3668, [address] [place], [address], 4 09:54:18 neomycin-p olymyxin-h ydrocort 3.5 mg-10,000 unit/mL-1 % ear drops,susp [address]/Pharmacy #3668, [address] [place], [address], 4 09:54:18 nicotine 21 mg/24 hr daily transderma l patch 2023 024 [facility]/Pharmacy #3668, [address] [place], [address], 4 09:54:24 oxycodone 10 mg tablet [address]/Pharmacy #3668, [address] [place], [address], 4 09:54:18 omeprazole 20 mg capsule,de layed release 2023 024 [address], [address] [place] [address], [address], 4 09:54:18 levofloxac in 750 mg tablet 2023 024 [address], [address] [place] [address], [address], 4 09:54:16 montelukas t 10 mg tablet 2023 024 [address], [address] [place] [address], [address], 4 09:54:17 prednisone 10 mg tablet 2023 024 [address], [address] [place] [address], [address], 4 09:54:16 glimepirid e 4 mg tablet 2023 024 [address] [place] [address], [address], 4 10:20:25 albuterol sulfate HFA 90 mcg/actuat ion aerosol inhaler 2023 024 [facility], [address] [place] [address], [address], 4 10:20:30 Trelegy Ellipta 100 mcg-62.5 mcg-25 mcg powder for inhalation 2023 024 [facility] [address] [place] [address], [address], 4 10:20:31 ropinirole 0.5 mg tablet [address]/Pharmacy #3668, [address] [place], [address], 4 08:28:49 diazepam 10 mg tablet 2023 024 [address] [place], [address], 4 08:28:55 lisinopril 10 mg tablet 2023 024 [facility] [address] [place], [address], 4 09:31:08 lidocaine 5 % topical patch 2023 024 [address] [place], [address], 4 10:20:25 neomycin-p olymyxin-h ydrocort 3.5 mg-10,000 unit/mL-1 % ear drops,susp 2023 024 [facility] [address] [place], [address], 4 09:31:08 nicotine 21 mg/24 hr daily transderma l patch 2023 024 [address] [place], [address], 4 10:20:25 oxycodone 10 mg tablet 2023 024 [address] [place], [address], 4 08:29:06 omeprazole 20 mg capsule,de layed release 2023 024 [address] [place], [address], 4 10:20:25 levofloxac in 750 mg tablet 2023 024 [facility]/Pharmacy #3668, [address] [place], [address], 4 09:31:07 montelukas t 10 mg tablet 2023 024 [facility]/Pharmacy #3668, [address] [place], [address], 4 09:31:07 prednisone 10 mg tablet 2023 024 [facility]/Pharmacy #3668, [address] [place], [address], 4 09:42:17 Patient TargetsNo targets recorded. Patient InstructionsNo instructions recorded. 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 lesion requesting skin cancer screening Referring Physician: Milagros Urbina, Real Estate Administrative Assistant, Encounter Date: 01/13/2024 Problems Name Problem SNOMED Code Status Onset Date Resolution Date Notes Provider Name and Address Organization Details Recorded Time Chronic back pain 650297854 Active 2023 Madeline Nathan null, [facility] 4 08:28:00 Essential hypertensio n 37436387 Active 2023 Madeline Nathan null, [facility] 4 08:41:30 Chronic obstructive pulmonary disease 76910918 Active 2023 Madeline Nathan null, [facility] 4 08:41:43 Hyperlipide delon 44194951 Active 2023 Madeline Nathan null, [facility] 4 08:41:49 Diabetes mellitus 60701626 Active 2023 Madeline Nathan null, [facility] 4 08:41:55 Restless legs syndrome 54508257 Active 2023 Madeline Nathan null, [facility] 4 08:42:02 Gastroesoph ageal reflux disease 635248837 [facility] [address] [facility] 08:42:07 Upper respiratory infection 86831694 Active [address] [facility] 4 08:42:12 Pneumonia 023953198 Active [address] [facility] 4 08:42:18 Problem Notes None recorded. Procedures Surgical History Date Name Laterality Status Provider Name and Address Organization Details Recorded Time Knee Replacement completed Vineet Nathan [facility] 12/30/2023 08:33:46 Knee Surgery completed Madeline Nathan [facility] 12/30/2023 08:33:50 Hernia Repair completed Madeline Nathan [facility] 12/30/2023 08:33:55 procedure on shoulder completed Madeline Nathan [facility] 12/30/2023 08:34:12 Back Surgery completed Madeline Nathan [facility] 12/30/2023 08:34:16 Imaging Results None recorded. Procedure Notes None recorded. Medical Equipment None Reported. Allergies Allergen ID Allergen Name Allergen Category Reaction Reaction Severity Criticality Documentation Date Start Date Code Code System Note Provider Name and Address Organization Details Recorded Time 534185 morphine medicatio n flushing moderate Not available 12/30/2023 7052 RxNorm itchi ng and perfu sely sweat ing Milagros Ciara [facility] 4 08:41:48 Medications Name Sig Start Date Stop Date Status Note LastModified by Organization Details LastModified Time prednisone 10 mg tablet Take 1 tablet every day by oral route for 7 days. 2023 active Not Available Not Available Not Avai lable doxycycline hyclate 100 mg capsule 12/30 completed Not Available Not Available Not Available azithromyci n 250 mg tablet TAKE 2 TABLETS BY MOUTH TODAY, THEN TAKE 1 TABLET DAILY FOR 4 DAYS DIRECTED 12/30 completed Not Available Not Available Not Available lisinopril 20 mg tablet TAKE 1 TABLET BY MOUTH EVERY DAY FOR 30 DAYS 2023 active Not Available Not Available Not Avai lable prednisone 20 mg tablet 12/30 completed Not Available Not Available Not Available Advair Diskus 100 mcg-50 mcg/dose powder for inhalation INHALE 1 DOSE BY MOUTH TWICE DAILY. RINSE MOUTH AFTER USE 12/30 completed Not Available Not Available Not Available glimepiride 2 mg tablet 12/30 completed Not Available Not Available Not Available ropinirole 0.5 mg tablet Take 1 tablet 3 times a day by oral route for 30 days. 2023 active Not Available Not Available Not Avai lable lisinopril 10 mg tablet TAKE 1 TABLET BY MOUTH EVERY DAY active Not Available Not Available No t Available glimepiride 4 mg tablet Take 1 tablet every day by oral route for 90 days. 2023 active Not Available Not Available Not Avai lable lidocaine 5 % topical patch APPLY 1 PATCH BY TOPICAL ROUTE ONCE DAILY (MAY WEAR UP TO 12HOURS.) 2023 active Not Available Not Available Not Avai lable Advair Diskus 250 mcg-50 mcg/dose powder for inhalation INHALE 1 PUFF TWICE A DAY active Not Available Not Available No t Available nicotine 21 mg/24 hr daily transdermal patch Apply 1 patch every day by transderm al route for 30 days. 2023 active Not Available Not Available Not Avai lable omeprazole 20 mg capsule,del ayed release Take 1 capsule every day by oral route for 90 days. 2023 active Not Available Not Available Not Avai lable montelukast 10 mg tablet TAKE 1 TABLET BY MOUTH EVERY DAY AT BEDTIME active Not Available Not Available No t Available lisinopril 5 mg tablet TAKE 1 TABLET BY MOUTH EVERY DAY active Not Available Not Available No t Available diazepam 10 mg tablet Take 1 tablet every day by oral route for 15 days. 2023 active Not Available Not Available Not Avai lable levofloxaci n 750 mg tablet Take 1 tablet every day by oral route for 7 days. 2023 active Not Available Not Available Not Avai lable albuterol sulfate HFA 90 mcg/actuati on aerosol inhaler Inhale 2 puffs every 4 hours by inhalatio n route for 90 days. 2023 active Not Available Not Available Not Avai lable doxycycline hyclate 100 mg tablet 12/30 completed Not Available Not Available Not Available amoxicillin 875 mg-coryu m clavulanate 125 mg tablet TAKE 1 TABLET BY MOUTH EVERY 12 HOURS FOR 5 DAYS 12/30 completed Not Available Not Available Not Available tobramycin 0.3 %-dexametha sone 0.1 % eye drops,suspe nsion PLEASE SEE ATTACHED FOR DETAILED DIRECTION S 12/30 completed Not Available Not Available Not Available oxycodone 5 mg tablet 12/30 completed Not Available Not Available Not Available neomycin-po lymyxin-hyd rocort 3.5 mg-10,000 unit/mL-1 % ear drops,susp INSTILL 4 DROPS INTO AFFECTED EAR(S) BY OTIC ROUTE 3 TIMES PER DAY x 7 days 2023 active Not Available Not Available Not Avai lable Mucinex 600 mg tablet, extended release active Not Available Not Available Not Available azithromyci n 500 mg tablet TAKE 1 TABLET BY MOUTH EVERY DAY FOR 3 DAYS 12/30 completed Not Available Not Available Not Available oxycodone 10 mg tablet Take 1 tablet 4 times a day by oral route as needed for 30 days. 2023 active Not Available Not Available Not Avai lable Trelegy Ellipta 100 mcg-62.5 mcg-25 mcg powder for inhalation Inhale 2 puffs twice a day by inhalatio n route for 90 days. active Not Available Not Available No t Available [employer] At-Home COVID-19 Test kit TEST DIRECTED TODAY 12/30 completed Not Available Not Available Not Available Vitals Date Recorded Body weight Body mass index (BMI) Body height Heart rate Respiratory rate Oxygen saturation Oxygen saturation in Arterial blood by Pulse oximetry Body temperature Systolic And Diastolic Systolic And Diastolic Provider Name and Address Organization Details Last Updated DateTime 4 07991.4 g 34.9 kg/m2 165.1 cm 76 /min 16 /min 96 % 96 % 97.6 [degF] 154/88 mm[Hg] 148/90 mm[Hg] Cecilio LOPEZ - [facility] 4 08:37:25 Date Recorded Body height Body mass index (BMI) Body weight Heart rate Respiratory rate Body temperature Oxygen saturation Oxygen saturation in Arterial blood by Pulse oximetry Systolic And Diastolic Systolic And Diastolic Provider Name and Address Organization Details Last Updated DateTime 165.1 cm 35.3 kg/m2 79056.5 8 g 82 /min 16 /min 97.5 [degF] 97 % 97 % 170/98 mm[Hg] 174/96 mm[Hg] Cecilio Nathan [facility] 08:39:01 Social History Question Answer Notes LastModified by [employer] Details LastModified Time Tobacco Smoking Status Current Every Day Smoker Madeline Nathan [facility] 12/30/2023 08:33:37 Do You Have An Advance Directive? No Information not available 12/30/2023 What Is Your Level Of Caffeine Consumption? Moderate Information not available 12/30/2023 What Is Your Code Status? Full Code [email or web address] Information not available 12/30/2023 What Was The Date Of Your Most Recent Tobacco Screening? 01/13/2024 [email or web address] Information not available 07/20/2024 How Much Tobacco Do You Smoke? 0.5 PPD [email or web address] Information not available 12/30/2023 Sex: Unknown Functional Status Question Answer Note LastModified by [email or web address] Details LastModified Time Do you or have you ever used any other forms of tobacco or nicotine? No Information not available 12/30/2023 What is your level of alcohol consumption? Occasional [email or web address] Information not available 12/30/2023 Mental Status None recorded. Family History Relationship Description Onset Age of this Age Resolved Age Notes LastModified by Organization Details LastModified Time Mother Heart disease [email or web address] Not available 2023 08:32:10 Father Heart disease [email or web address] Not available 2023 08:32:24 Medical History Condition Response Coronary Artery Disease N Other N Gout N Atrial Fibrillation N Blood Diseases N Kidney Stones N Hyperthyroidism N Blood disorders N Blood Transfusion N Emphysema N COPD Y Depression N Congenital Heart Disease N Pneumonia N Peripheral Arterial Disease N Edema N Gastrointestinal Disease N Anxiety Disorder N Muscle, Joint, or Bone Problems Y Obesity N Vision or Eye Problems N Arthritis N Infertility N Polyps N Mental Disorder N Blood Clot N Cancer N Stroke N Varicosities N Crohn's Disease N Leg or Foot Ulcers N Raynaud's Disease N Polio N Aortic Aneurysm N Neurologic Disorder Y Rheumatoid Arthritis N Arrhythmia N Fibromyalgia N Headaches N Kidney Disease N Heart Problems N Pituitary Disorder N Ear or Hearing Problems N Hospitalizations Y Artificial Joints N Skin Problems N Eating Disorder N MRSA exposure N Constipation N Ulcers N Rheumatic Fever N Bleeding Disorder N AIDS/HIV N Asthma N Atrial Flutter N Substance Abuse N Peripheral Vascular Disease N Sleep Disorder N GERD/Reflux Y Hepatitis N Pulmonary Embolism N PCOS N Chronic Ear Infections N Chicken Pox N Autism Spectrum Disorder (ASD) N Hematologic Disease N Thrombophilias N Thyroid Disease N Breast Cancer N Hernia N Hospital Admission Other Than N Hypothyroidism N Glaucoma N Lung Disease N Developmental or Behavioral Disorders N Defects or Inherited Disease N Breast Problem N Pacemaker N Difficulty Swallowing N Anesthesia Complications N Genitourinary Disease N Deep Vein Thrombosis N Varicose Veins N Meniere's disease N Head Injury/Concussion N Congenital Anomalies N Brown Bite N Carotid Disease N Endometriosis N Bladder or Kidney Problems N High Cholesterol N Liver Disease N Valvular Abnormalities N Organ Transplant N Dialysis N Foot Deformity N Allergies/Hayfever N Dyslipidemia N Thyroid Problems N GI Problems N ADD/ADHD N Anemia N Back Pain N Sjogren's Syndorme N Heart Attack (IA) N Mental Illness N Diabetes Y Ovarian Cancer N Cardiomyopathy N Bedwetting N Seizures/Epilepsy N Congestive Heart Failure (CHF) N Hyperlipidemia Y Valvular Heart Disease N Eczema N Abuse/Domestic Violence N Diverticulitis N Lupus N Ankylosing Spondylitis N Psoriasis N Sleep Apnea N Warfarin Management N Heart Disease N Hypertension Y Pre-Eclampsia N Osteoporosis N Immunizations Vaccine Type Date Status Note Provider Nam e and Address Organization Details Recorded Time COVID-19, mRNA, LNP-S, PF, 30 mcg/0.3 mL dose 12/16/2020 completed Madeline henry null, [facility] 12/30/2023 08:26:36 COVID-19, mRNA, LNP-S, PF, 30 mcg/0.3 mL dose 01/17/2021 completed Madeline henry null, [facility] 12/30/2023 08:26:36 Tdap 02/16/2020 completed Madeline Salguero cas null, [facility] 12/30/2023 08:26:36 Past Encounters Encounter ID Performer Location Encounter Start Date Encounter Closed Date Diagnosis/Indication Diagnosis SNOMED-CT Code Diagnosis ICD10 Code Diagnosis IMO Codes Diagnosis Note [id number] MILAGROS EZIO URBINA [facility] [place] [address] 12/30/2023 08:13:19 12/30/2023 09:24:23 Acute otitis media 2896912 H66.92 Patient presents with signs/symp toms of otitis media. Will treat as below. Supportive care reviewed: avoid swimming for several days and use ear plugs thereafter . Recommende d acetaminop hen/ibupro fen PRN pain Follow up as below. Acute bronchitis 2058481 2 J20.9 Patient presents with allergic rhinitis. Supportive care reviewed: raising HOB, avoiding triggers, taking controller medication s, use of saline nasal spray/humi difier, encourage PO fluids, monitor hydration. RTO as scheduled for next WCC; sooner if any new or concerning symptoms arise. Essential hypertension 14379050 I10 First line treatment: lifestyle changes which include weight loss, exercise most days of the week, diet low in saturated fat, smoking cessation cessation. Increase the use of soluble fiber in diet such as gum, fruit, vegetables to enhance lowering of LDL.Follow Dash diet: eat foods rich in potassium, magnesium, and calcium.Re duce red meat and processed foods.Redu ce salt intake.BP 154/88 then 148/90pati ent reports this is what he usually runs dailywill increase Lisinopril to 10 mg q dayPatient will monitor blood pressure and report if unable to control or if they develop new symptoms. Polyarthropathy 31094505 M13.0 Discussed medication regimen as well as diet and exercise modificati on. Patient will apply heat/ice as needed for pain relief. Follow up in 3 months. Chronic pain syndrome 37 5242486 G89.4 will monitor and notify as needed [facility] examination 522327479 Z00.01 Education was provided on healthy nutrition, including a diet rich in fruits and vegetables , minimizing simple carbohydra anay, salt, and saturated fats. Encouraged regular cardiovasc ular exercise such as walking at least 30 minutes daily, 5 times per week. Emphasized preventive health measures and educated pt on fall prevention and community- based lifestyle interventi ons to help reduce health risks and promote healthy living. Gastroesop hageal reflux disease without esophagitis 242099102 K21.9 Patient will continue conservati ve management at this time. This includes: hydration eating a low irritant diet and avoiding alcohol until symptoms subside. Patient was advised to contact their doctor or nearest Emergency Department if they have any of the following symptoms: pain increases or moves to one location, vomiting and/or diarrhea, fever over 100.5, blood in vomit or bowel movements, weakness or dizziness, chest or back pain, cough or trouble breathing or any new/concer kelly symptoms. Restless l egs syndrome 27086758 G25.81 will monitor and notify f worsens Hyperlipidemia 16210072 E78.5 Patient with known hyperlipid emia. Last lipid panel poorly controlled . Lifestyle modificati ons discussed including weight loss, aerobic exercise at least 30 min/day at least 5 days per week, and a diet rich in fruit and vegetables . Goal LDL: 100mg/dL, 70mg/dL}}. Will continue to follow lipid panel q6-12 months. Chronic ob structive pulmonary disease 38484251 J44.9 Plan1-Diet and lifestyle counseling , especially breathing exercises to improve oxygenatio n.2- Mood and cognitive assessment will follow regimen be done in future to make sure patient is able to follow regimen.3- Also we will be discussing life stressors and advanced directives and documentat ion in future encounters . Generalize d anxiety disorder 00729506 F41.1 Patient identified triggers for anxiety and impact of anxious thinking on functionin g. Discussed strategies to regulate symptoms and need for compliance with treatment. Nicotine dependence 5629 4008 F17.200 Advise about smoking cessationO rder smoking cessation counseling , greater than 3 minutes up to 10 minutes Type 2 gerry betes mellitus 02396429 E11.9 Patient seen in office today for Diabetes is well controlled . Patient educated on diabetes complicati ons . Discussed treatment/ diagnostic plan and orders with patient as indicated below. Provided diabetic diet Screening for malignant neoplasm of prostate 798144155 Z12.5 will follow results Screening for malignant neoplasm of colon 388604133 Z12.11 will follow results [id number] MILAGROS URBINA APRN [facility] [employer] [facility] [address] [place] [address] 01/13/2024 08:28:42 01/13/2024 09:13:47 Acute otitis media 3746222 H66.92 Patient presents with signs/symp toms of otitis media. Will treat as below. Supportive care reviewed:a void swimming for several days and use ear plugs thereafter . Recommende d acetaminop hen/ibupro fen PRN pain Follow up as below. RESOLVED Acute bronchitis [id number] 2 J20.9 Patient presents with allergic rhinitis. Supportive care reviewed: raising HOB, avoiding triggers, taking controller medication s, use of saline nasal spray/humi difier, encourage PO fluids, monitor hydration. RTO as scheduled for next WCC; sooner if any new or concerning symptoms arise. RESOLVED Essential hypertension [id number] I10 First line treatment: lifestyle changes which include weight loss, exercise most days of the week, diet low in saturated fat, smoking cessation cessation. Increase the use of soluble fiber in diet such as gum, fruit, vegetables to enhance lowering of LDL.Follow Dash diet: eat foods rich in potassium, magnesium, and calcium.Re duce red meat and processed foods.Redu ce salt intake.BP 170/98 and 174/96 todaypatie nt reports this is what he usually runs dailywill increase Lisinopril to 20 mg q dayPatient will monitor blood pressure and report if unable to control or if they develop new symptoms.w ill bring in BP diary in 2 weeks Polyarthropathy [id number] M13.0 Discussed medication regimen as well as diet and exercise modificati on. Patient will apply heat/ice as needed for pain relief. Follow up in 3 months. Chronic pain syndrome [id number] G89.4 will monitor and notify as needed Adult [facility] examination [id number] Z00.01 Education was provided on healthy nutrition, including a diet rich in fruits and vegetables , minimizing simple carbohydra anay, salt, and saturated fats. Encouraged regular cardiovasc ular exercise such as walking at least 30 minutes daily, 5 times per week. Emphasized preventive health measures and educated pt on fall prevention and community- based lifestyle interventi ons to help reduce health risks and promote healthy living. Gastroesop hageal reflux disease without esophagitis [id number] K21.9 Patient will continue conservati ve management at this time. This includes: hydration eating a low irritant diet and avoiding alcohol until symptoms subside. Patient was advised to contact their doctor or nearest Emergency Department if they have any of the following symptoms: pain increases or moves to one location, vomiting and/or diarrhea, fever over 100.5, blood in vomit or bowel movements, weakness or dizziness, chest or back pain, cough or trouble breathing or any new/concer kelly symptoms. Restless l egs syndrome [id number] G25.81 will monitor and notify f worsens Hyperlipidemia [id number] E78.5 Patient with known hyperlipid emia. Last lipid panel poorly controlled . Lifestyle modificati ons discussed including weight loss, aerobic exercise at least 30 min/day at least 5 days per week, and a diet rich in fruit and vegetables . Goal LDL: 100mg/dL, 70mg/dL}}. Will continue to follow lipid panel q6-12 months. Chronic ob structive pulmonary disease [id number] J44.9 Plan1-Diet and lifestyle counseling , especially breathing exercises to improve oxygenatio n.2- Mood and cognitive assessment will follow regimen be done in future to make sure patient is able to follow regimen.3- Also we will be discussing life stressors and advanced directives and documentat ion in future encounters . Increase trelegy to 2 puffs twice nisa Generalize d anxiety disorder [id number] F41.1 Patient identified triggers for anxiety and impact of anxious thinking on functionin g. Discussed strategies to regulate symptoms and need for compliance with treatment. Nicotine dependence [id number] F17.200 Advise about smoking cessationO rder smoking cessation counseling , greater than 3 minutes up to 10 minuteswea ring nicotine patch but still smokingper medical records patient had LDCT in 05/30 which revealed emphysemat ous changes Type 2 gerry betes mellitus [id number] E11.9 Patient seen in office today for Diabetes is well controlled . Patient educated on diabetes complicati ons . Discussed treatment/ diagnostic plan and orders with patient as indicated below. Provided diabetic diet Screening for malignant neoplasm of prostate [id number] Z12.5 will follow results Screening for malignant neoplasm of colon [id number] Z12.11 will follow results Skin lesion 34273874 L98 .9 will follow results Headache 14269316 R51.9 will follow results Obesity [id number] E66.9 BMI:35.3 Advise about healthy life style and weight loss Health Concerns Section Related Observation LastModified by Organization Detai ls LastModified Time None Recorded Concern Status LastModified by Organization Details LastModified Time None Recorded Advance Directives Directive N: Payers Insurance Date Sequence Insurance Name Policy Number Policy Valentino Covered Member ID Valentino Member ID Guarantor Name 06/21/2024 2 [place] Stanislav Jacobson [id number] Stanislav Austinard 06/21/2024 1 [employer] (MEDICARE REPLACEMENT/ ADVANTAGE - PPO) Stanislav Jacobson [id number] Stanislav Jacobson Notes Date Note Type Note Provider Name and Address Organization Details Recorded Time 12/30/2023 text/html Annual WellnessReported by PatientSocial/Behavior al HistoryFor additional lifestyle factors, patient reportstobacco usebut reportsno alcohol intake. For diet and nutrition, patient reportshealthy dietanddiscussed diet improvement. For fracture risk, patient reportsno history of fractures,no recent explained fracture, andno sudden unexplained fractures. For physical activity, patient reportsgood physical condition.Mental Status:For depression risk, patient reportsnever feels sad, empty, or tearfulandno loss of interest in activities.Functional AbilityFor hearing, patient reportsloss of hearing in one ear only(left ear pain). For vision, patient reportsno vision problems. 73 y/o male patient new to [facility] patient presented for admission to the practice. Studies ordered as below. Discussed plan with patient, who expressed understanding. Follow up as noted below.patient has history of polyarthritis, chronic pain, COPD, nicotine dependence, DM type 2, GERD and hypertensionhe reports that he has had a persistent congested cough and recurrent URI's.Also left ear pain x 2 weeks Milagros Urbian [place], [place] - [facility] 01/13/2024 08:29:11 01/13/2024 text/html Annual WellnessReported by PatientSocial/Behavior al HistoryFor additional lifestyle factors, patient reportstobacco usebut reportsdrinks alcohol (mild-moderate)(report s that he has cut back on cigarette use). For diet and nutrition, patient reportshealthy dietanddiscussed diet improvement. For fracture risk, patient reportsno history of fracturesandno recent explained fracture. 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 For vision, patient reportsno vision problems. 73 y/o male with history of COPD, chronic back pain, DM, type 2, GERD, hyperlipidemia, RLS and chronic bronchitis.here for CDAalso, reports unable to get labs done do to insurance issuecomplains of headaches, noted BP 170/98 and 174/96 todayalso, chronic cough and generalized back and joint pain [facility] [place] - [facility] 01/13/2024 09:59:10
== END 2025-08-29 15:43 | disposition home or self-care (01) ==
LOC: HO.PMC 15:13
PROVIDERS: PCP Family Medicine; Visit Provider Anesthesiology
DX: M96.1 Postlaminectomy syndrome, not elsewhere classified (principal); Z79.891 Long term (current) use of opiate analgesic; G89.4 Chronic pain syndrome; Z45.1 Encounter for adjustment and management of infusion pump
CPT/HCPCS: 62367; 99214

== ENCOUNTER → 2025-08-29 15:12 | Outpatient (BNVA) | payer MEDICARE, MEDICAID, SELFPAY | PROVIDERS: PCP Family Medicine; Visit Provider Anesthesiology | DX: Z45.1 Encounter for adjustment and management of infusion pump (principal); G89.4 Chronic pain syndrome; M96.1 Postlaminectomy syndrome, not elsewhere classified; Z96.89 Presence of other specified functional implants; Z79.891 Long term (current) use of opiate analgesic | CPT/HCPCS: 62367; 99212 ==

== ENCOUNTER 2025-09-05 10:48 | Outpatient (AMB) | payer MEDICARE, MEDICAID, SELFPAY ==
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
[2025-09-05 10:57] VITALS: BP 196/110; PULSE 92; RESP 16; O2SAT 87; BMI 35.8
== END 2025-09-05 11:28 | disposition home or self-care (01) ==
LOC: HO.PMC 10:49
PROVIDERS: PCP Family Medicine; Visit Provider Anesthesiology
DX: M96.1 Postlaminectomy syndrome, not elsewhere classified (principal); Z79.891 Long term (current) use of opiate analgesic; G89.4 Chronic pain syndrome; Z45.1 Encounter for adjustment and management of infusion pump
CPT/HCPCS: 95991; 99213

== ENCOUNTER → 2025-09-05 10:48 | Outpatient (BNVA) | payer MEDICARE, MEDICAID, SELFPAY | PROVIDERS: PCP Family Medicine; Visit Provider Anesthesiology | DX: Z45.89 Encounter for adjustment and management of other implanted devices (principal); M96.1 Postlaminectomy syndrome, not elsewhere classified; G89.4 Chronic pain syndrome; Z79.891 Long term (current) use of opiate analgesic | CPT/HCPCS: 95991; 99212 ==

== ENCOUNTER 2025-09-13 14:03 | Outpatient (AMB) | payer MEDICARE, MEDICAID, SELFPAY ==
--- OUTSIDE RECORDS SUMMARY | 2025-06-25 11:45 | XMS_ITS | Continuity of Care Document ---
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 Name Role Phone Richa Bazan DNP Unavailable Unavailable Allergies, Adverse Reactions, Alerts Substance Reaction Status Criticality morphine Other Active No Information Medications Medication Instructions Dosage Effective Dates (start - stop) Status Comments mupirocin 2 % topical ointment apply by topical route 3 times every day a small amount to the affected area 0.00 - Active to be applied to post-op wound Narcan 4 mg/actuation nasal spray spray 0.1 milliliter by intranasal route in 1 nostril may repeat dose every 2-3 minutes as needed alternating nostrils with each dose 4 MG - Active TO BE USED IN A SUSPECTED OR WITNESSED OPIOID OVERDOSE. TO CALL 9--1 IMMEDIATELY AFTER USE trazodone 50 mg tablet take 1 tablet by oral route every evening after meals 50 MG - Active albuterol sulfate HFA 90 mcg/actuation aerosol inhaler inhale 2 puff by inhalation route every 4 - 6 hours as needed 180 MCG - Active amlodipine 5 mg tablet take 1 tablet by oral route every day 5 MG - Active Jardiance 10 mg tablet take 1 tablet by oral route every day in the morning 10 MG - Active Arnuity Ellipta 100 mcg/actuation powder for inhalation inhale 1 puff by inhalation route every day at the same time each day 100 MCG - Active glimepiride 4 mg tablet take 1 tablet by oral route 2 times every day 4 MG - Active lisinopril 20 mg tablet take 1 tablet by oral route 2 times every day 20 MG - Active omeprazole 20 mg tablet,delayed release - Active ropinirole 0.5 mg tablet take 1 tablet by oral route every day 0.5 MG - Active Procedures Procedure Date OFFICE/OUTPATIENT VISIT, EST SPIN/BRAIN PUMP REFIL & MAIN OFFICE/OUTPATIENT VISIT, EST SPIN/BRAIN PUMP REFIL & MAIN SPIN/BRAIN PUMP REFIL & MAIN OFFICE/OUTPATIENT VISIT, EST SPIN/BRAIN PUMP REFIL & MAIN POSTOP FOLLOW-UP VISIT ASC Coding Pump Implant IMPLANT SPINAL CANAL CATH OFFICE/OUTPATIENT VISIT, EST OFFICE/OUTPATIENT VISIT, EST OFFICE/OUTPATIENT VISIT, EST Duplicate Encounter OFFICE/OUTPATIENT VISIT, EST ALAN interlaminar lmbr/sac OFFICE/OUTPATIENT VISIT, EST Patient Left Without Being Seen 025 OFFICE/OUTPATIENT VISIT, EST OFFICE/OUTPATIENT VISIT, EST OFFICE/OUTPATIENT VISIT, NEW DRUG TEST PRSMV CHEM ANLYZR Advance Directives Directive Yes / No Effective Date File Name No Information Encounters Encounter Description Practice Location Reason(s) For Visit Diagnoses Date Provider Providers Copied on Encounter OFFICE/OUTPA TIENT VISIT, EST [facility], [address], [place], [place], [id number] , [facility] low back pain (chief complaint) Encounter for adjustment and management of infusion pumpOther specified diabetes mellitus with hyperglycemiaOt her spondylosis, lumbar regionPostlamin ectomy syndrome, not elsewhere classifiedChron ic pain syndromeLong term (current) use of opiate analgesicRadicu lopathy, lumbar regionHTN 5 Beni Chaudhry. [address] [facility], [place], [place], [id number], [place]. tel:[phone] Referring Provider: Deisy Infante [address], [place], [address]. tel:[phone] OFFICE/OUTPA TIENT VISIT, EST [facility], [address], [place], [place], [id number] , [facility] low back pain (chief complaint) Knee Pain (chief complaint) Encounter for adjustment and management of infusion pumpOther specified diabetes mellitus with hyperglycemiaOt her spondylosis, lumbar regionPostlamin ectomy syndrome, not elsewhere classifiedRadic ulopathy, lumbar regionHTNChroni c pain syndromeLong term (current) use of opiate analgesic Jun- 5 Beni Richa. [address] [facility] [address], [place], [id number], [place]. tel:[phone] Referring Provider: Marah Sandoval, [address], [place], [address]. tel:[phone] OFFICE/OUTPA TIENT VISIT, EST [facility], [address], [place], [place], [id number] , [facility] low back pain (chief complaint) Encounter for adjustment and management of infusion pumpOther specified diabetes mellitus with hyperglycemiaOt her spondylosis, lumbar regionPostlamin ectomy syndrome, not elsewhere classifiedRadic ulopathy, lumbar regionHTNChroni c pain syndromeLong term (current) use of opiate analgesicEncoun ter for removal of stapleGastro-es ophageal reflux disease without esophagitis Jun- 5 Beni Richa. [address], [place], [address], [place]. tel:[phone] Referring Provider: Marah Sandoval, [address], [place], [address]. tel:[phone] [facility], [address], [place], [place], [id number] , [facility] low back pain (chief complaint) Knee Pain (chief complaint) Postlaminectomy syndrome, not elsewhere classifiedRadic ulopathy, lumbar regionOther spondylosis, lumbar regionChronic pain syndromeGERD without esophagitisHTNL eric term (current) use of opiate analgesicEncoun ter for adjustment and management of infusion pumpEncounter for change or removal of surgical wound dressing 5 Navjot Blanca. [address] [place], [place], [address], [place]. tel:[phone] Referring Provider: Marah Sandoval, [address], [place], [address]. tel:[phone] [facility], [address], [place], [place], [id number] , [place] [facility] [place] No Information 5 Ivy Gerber. [address], [place], [address], [place]. tel:[phone] [facility], [address], [place], [place], [id number] , [facility] Chronic pain syndromePostlam inectomy syndrome, not elsewhere classifiedRadic ulopathy, lumbar region 5 Marshall Colorado. [address] [facility], [address], [address], [place]. tel:[phone] OFFICE/OUTPA TIENT VISIT, EST [facility], [address], [place], [place], [id number] , [facility] Knee Pain (chief complaint) low back pain (chief complaint) Postlaminectomy syndrome, not elsewhere classifiedChron ic pain syndromeLong term (current) use of opiate analgesicHTNTyp e 2 diabetes mellitus without complicationsHy percholesterole miaRestless legs syndromeInsomni aGERD without esophagitisOthe r spondylosis, cervical region 5 Chetan Weeks. [address] [facility], [address], [place], [address], [place]. tel:[phone] Referring Provider: Marah Sandoval, [address], [place], [address]. tel:[phone] OFFICE/OUTPA TIENT VISIT, EST [facility], [address], [place], [place], [id number] , [facility] low back pain (chief complaint) Postlaminectomy syndrome, not elsewhere classifiedChron ic pain syndromeLong term (current) use of opiate analgesicHTNTyp e 2 diabetes mellitus without complicationsHy percholesterole miaGERD without esophagitisRest less legs syndromeInsomni aOther spondylosis, cervical region 5 Rayside LaMisa. [address] [facility], [facility] [address], [place], [id number], . tel:[phone] Referring Provider: Marah Sandoval, [address] [facility], [place], [address]. tel:[phone] OFFICE/OUTPA TIENT VISIT, EST [facility], [address], [place], [place], [id number] , [facility] Knee Pain (chief complaint) Other spondylosis, cervical regionPostlamin ectomy syndrome, not elsewhere classifiedChron ic pain syndromeLong term (current) use of opiate analgesicHTNTyp e 2 diabetes mellitus without complicationsHy percholesterole miaGERD without esophagitisRest less legs syndromeInsomni a 5 Rayside LaMisa. [address] [facility], [facility] [address], [place], [id number], [place]. tel:[phone] Referring Provider: Marah Sandoval [address] [facility], [place], [address]. tel:[phone] [facility], [address], [place], [place], [id number] , [facility] No Information 5 Hudson Crystal. [address], [address] [facility], [place], [address], [place]. tel:[phone] Referring Provider: Marah Sandoval [address], [place], [address]. tel:[phone] OFFICE/OUTPA TIENT VISIT, EST [facility], [address], [place], [place], [id number] , [facility] Follow Up for Knee Pain (chief complaint) Follow Up for Lower Back Pain (chief complaint) Postlaminectomy syndrome, not elsewhere classifiedChron ic pain syndromeLong term (current) use of opiate analgesicHTNTyp e 2 diabetes mellitus without complicationsHy percholesterole miaGERD without esophagitisRest less legs syndrome Apr-2 5 Rayside LaMisa. [address] [facility], [facility] [address], [place], [address], [place]. tel:[phone] Referring Provider: Marah Sandoval, [address] [facility] [address], [place], [address]. tel:[phone] [facility], [address], [place], [place], [id number] , [facility] Chronic pain syndromePostlam inectomy syndrome, not elsewhere classifiedRadic ulopathy, lumbar region Apr-2 5 Marshall Colorado. [address] [place] [address], [address], [place], [address], [place]. tel:[phone] OFFICE/OUTPA TIENT VISIT, EST [facility], [address], [place], [place], [id number] , [facility] Knee Pain (chief complaint) low back pain (chief complaint) Postlaminectomy syndrome, not elsewhere classifiedRadic ulopathy, lumbar regionChronic pain syndromeInsomni aOther specified diabetes mellitus with hyperglycemiaLo ng term (current) use of opiate analgesic Apr- 5 Vecchione Analilia. [address] [facility] [address], [address], [place]. tel:[phone] [facility], [address], [place], [place], [id number] , [facility] No Information Apr-0 [address] [facility] [address], [place], [address], [place]. tel:[phone] OFFICE/OUTPA TIENT VISIT, EST [facility], [address], [place], [place], [id number] , [facility] low back pain (chief complaint) Knee Pain (chief complaint) Postlaminectomy syndrome, not elsewhere classifiedChron ic pain syndromeHTN 5 Hudson Marah. [address], [place], [address], [place]. tel:[phone] Referring Provider: Marah Sandoval, [address], [place], [address]. tel:[phone] OFFICE/OUTPA TIENT VISIT, [facility], [address], [place], [place], [id number] , [facility] Knee Pain (chief complaint) back pain (chief complaint) Other spondylosis, lumbar regionPostlamin ectomy syndrome, not elsewhere classifiedRadic ulopathy, lumbar regionHTNChroni c pain syndromeLong term (current) use of opiate analgesicOther specified diabetes mellitus with hyperglycemia 5 Beni Chaudhry. [address] [place] [address], [id number], [place]. tel:[phone] OFFICE/OUTPA TIENT VISIT, [facility], [address], [place], [place], [address] , [facility] low back pain (chief complaint) Knee Pain (chief complaint) Other spondylosis, lumbar regionPostlamin ectomy syndrome, not elsewhere classifiedRadic ulopathy, lumbar regionHTNDiabet es insipidusChroni c pain syndromeOther spondylosis, thoracic regionOther spondylosis, cervical regionLong term (current) use of opiate analgesic 5 Marshall Colorado. [address], [id number], [place]. tel:[phone] Family History Family Member Type Diagnosis Age At Onset Father Problem (finding) Family history of Alzhe shavonne's disease Mother Problem (finding) Family history of Arthr itis Father Problem (finding) Family history of Arthr itis Father Problem (finding) Family history of Demen tia Payers Payer name Insurance type Covered republican ID Authoriza tishereen(s) [employer] Assure HMO CI [id number] Social History Type Description Quantity Date Captured Comments Alcohol Use Details Unknown Caffeine Use Details Unknown Tobacco Use Status No Information Smoking Status No Information Sex Male Vital Signs Date / Time: Height Weight BMI Pulse Rate Blood Pressure Temperature Respiratory Rate Body Surface Area Head Circumference Head Circ. Percentile Wt./Alex. Percentile BMI percentile Pulse Ox Inhaled Ox 3:55 PM 71.00 in 86.183 kg (190.00 lbs) 26.5 0 kg/m eter (2) 93 /min 138/80 mm[Hg] 2.08 meter(2) Chief Complaint And Reason For Visit From encounter dated '06/25/2025 16:45'. low back pain (chief complaint). Description: Onset: 20 years ago. Severity level is 8. Duration: > 1 hour. The problem is worsening. It occurs persistently. Location of pain is lower back. The client describes the pain as an ache, deep, dull, stabbing and throbbing. Symptoms are aggravatedby ascending stairs, jumping, sneezing and standing. Symptoms are relieved by heat, lying down, pain meds/drugs and rest. partial relief Reason For Referral Reason For Referral No Information Plan Of Treatment Date Type Action Status Goal Tobacco cessation counseling completed Referral Ordered: Family Medicine (related to Postlaminectomy syndrome, not elsewhere classified) ordered Appointment Stanislav Jacobson 07/20 BOOKED History Of Present Illness Encounter Date Complaint History Of Prese nt Illness low back pain Onset: 20 years ago. Severity level is 8. Duration: > 1 hour. The problem is worsening. It occurs persistently. Location of pain is lower back. The client describes the pain as an ache, deep, dull, stabbing and throbbing. Symptoms are aggravated by ascending stairs, jumping, sneezing and standing. Symptoms are relieved by heat, lying down, pain meds/drugs and rest. partial relief Knee Pain Onset: gradual. Duration: more than 1 hour. Severity level is 6. Location: right knee. The pain is aching, dull and deep. The pain is aggravated by movement, walking and standing. The pain is relieved by elevation, heat, pain/RX meds and rest. Additional information: Qualifier: Partial Relief. . low back pain Onset: gradual w ithout injury. Severity level is 8. Duration: > 1 hour. The client describes the pain as an ache, deep, dull, stabbing and throbbing. Symptoms are aggravated by bending, daily activities, extension, flexion, jumping, lifting, pushing, running, sneezing, twisting and walking. Symptoms are relieved by heat, lying down, pain meds/drugs and rest. partial relief low back pain Onset: gradual w ithout injury. Severity level is 8. Duration: > 1 hour. Location of pain is lower back. The client describes the pain as an ache, deep, dull, stabbing and throbbing. Symptoms are aggravated by bending, daily activities, extension, flexion, jumping, lifting, pushing, running, sneezing, twisting and walking. Symptoms are relieved by heat, lying down, pain meds/drugs and rest. partial relief Knee Pain Onset: 6 years a go. Duration: more than 1 hour. Location: knee. The pain radiates to the Right side. The pain is aching, dull and deep. The pain is aggravated by movement, walking and standing. The pain is relieved by elevation, heat, pain/RX meds and rest. low back pain Onset: 10 years ago. Severity level is 6. Duration: > 1 hour. The problem is worsening. It occurs persistently. Location of pain is lower back. Pain is radiated to the back and both sides. The client describes the pain as an ache, deep, dull and throbbing. Symptoms are aggravated by bending, daily activities, extension, flexion, jumping, lifting, pushing, running, sneezing, twisting and walking. Symptoms are relieved by heat, lying down, pain meds/drugs and rest. low back pain Onset: 20 years ago. Severity level is 9. Duration: > 1 hour. The problem is changing in character. It occurs persistently. Location of pain is lower back. Pain is radiated to the left ankle, right ankle, left calf, right calf, left foot, right foot, left thigh and right thigh. The client describes the pain as an ache, burning, deep, numbness, piercing and sharp. Symptoms are aggravated by bending, daily activities, extension, flexion, jumping, lifting, pushing, running, sneezing, twisting and walking. Symptoms are relieved by heat, lying down, pain meds/drugs and rest. Knee Pain Onset: year ago. Duration: more than 1 hour. Severity level is 8. It occurs constantly and is changing in character. Location: right knee. The pain is aching and dull. The pain is aggravated by movement, walking and standing. The pain is relieved by elevation, heat, pain/RX meds and rest. low back pain Onset: 20 years ago. Severity level is 9. Duration: > 1 hour. The problem is changing in character. It occurs persistently. Location of pain is lower back. Pain is radiated to the left ankle, right ankle, left calf, right calf, left foot, right foot, left thigh and right thigh. The client describes the pain as an ache, burning, deep, dull, numbness, piercing, sharp, stabbing and throbbing. Symptoms are aggravated by bending, daily activities, extension, flexion, jumping, lifting, pushing, sneezing and walking. Symptoms are relieved by heat, lying down, pain meds/drugs and rest. Knee Pain Onset: 10 years ago. Duration: more than 1 hour. Severity level is 6. It occurs constantly and is changing in character. Location: right knee. There is no radiation. The pain is aching, dull and deep. The pain is aggravated by movement, walking and standing. The pain is relieved by elevation, heat, pain/RX meds and rest. Follow Up for Lower Back Pain On set: 30 years ago. Severity level is 9. Duration: > 1 hour. It occurs persistently. Location of pain is lower back. Pain is radiated to the BLE. The client describes the pain as an ache, burning, deep, dull, numbness, piercing, sharp, stabbing and throbbing. Symptoms are aggravated by bending, daily activities, extension, flexion, jumping, lifting, pushing, running, sneezing, twisting and walking. Symptoms are relieved by heat, lying down, pain meds/drugs and rest. Qualifier: Follow Up for Knee Pain Onset: 1 0 years ago. Duration: more than 1 hour. Severity level is 6. It occurs constantly and is better than the last visit. Location: knee. The pain does not radiate at this time. The pain is aching, dull and deep. The pain is aggravated by movement, walking and standing. The pain is relieved by elevation, heat, pain/RX meds and rest. Additional information: Knee Pain Onset: 7 years a go. Duration: more than 1 hour. Severity level is 9. It occurs constantly and is worsening. Location: knee. The pain radiates to the right leg. The pain is aching, dull and deep. The pain is aggravated by movement, walking and standing. The pain is relieved by elevation, heat, pain/RX meds and rest. Additional information: Incomplete relief. low back pain Onset: 7 years a go. Severity level is 9. Duration: > 1 hour. It occurs persistently. Location of pain is lower back. Pain is radiated to the BLE. The client describes the pain as an ache, burning, deep, dull, numbness, piercing, sharp, stabbing and throbbing. Symptoms are aggravated by bending, daily activities, extension, flexion, jumping, lifting, pushing, running, sneezing, twisting and walking. Symptoms are relieved by heat, lying down, pain meds/drugs and rest. incomplete relief low back pain Onset: 20 years ago. Severity level is 9. Duration: > 1 hour. The problem is changing in character. It occurs persistently. Location of pain is lower back. Pain is radiated to the left ankle, right ankle, left calf, right calf, left foot, right foot, left thigh and right thigh. The client describes the pain as an ache, burning, deep, dull, numbness, piercing, sharp, stabbing and throbbing. Symptoms are aggravated by bending, daily activities, extension, flexion, jumping, lifting, pushing, running, sneezing, twisting and walking. Symptoms are relieved by heat, lying down, pain meds/drugs and rest. Knee Pain Onset: 20 years ago. Duration: more than 1 hour. Severity level is 6. It occurs constantly and is changing in character. Location: bilateral knee. The pain is aching, dull and deep. The pain is aggravated by movement, walking and standing. The pain is relieved by elevation, heat, pain/RX meds and rest. back pain Severity level i s severe. Location of pain is lower back. The client describes the pain as an ache, burning, piercing, stabbing and throbbing. Symptoms are aggravated by bending, daily activities, extension, flexion, lifting, pushing, running, sneezing, standing, twisting and walking. Symptoms are relieved by heat, lying down, pain meds/drugs and rest. Knee Pain Severity level i s moderate-severe. Location: bilateral knee. The pain is aching, dull and deep. The pain is aggravated by movement, walking and standing. The pain is relieved by elevation, heat, pain/RX meds and rest. Knee Pain Onset: gradual. Duration: more than 1 hour. Severity level is 7. Location: bilateral knee. There is no radiation. The pain is aching, dull and deep. The pain is aggravated by movement, walking and standing. The pain is relieved by elevation, heat, pain/RX meds and rest. low back pain Onset: gradual w ithout injury. Severity level is 8. Duration: > 1 hour. Location of pain is lower back. Pain is radiated to the left thigh, right thigh and Down both sides. The client describes the pain as an ache, burning, piercing, stabbing and throbbing. Symptoms are aggravated by bending, daily activities, extension, flexion, jumping, lifting, pushing, running, sneezing, standing, twisting and walking. Symptoms are relieved by heat, lying down, pain meds/drugs and rest. Functional Status Date Functional Assessmen t Pain Score 9/10 Instructions Date Instruction Marysol jose Advised to follow up with PCP as scheduled. Related to Other specified diabetes mellitus with hyperglycemia We will continue Fen tanyl intrathecal therapy per protocol. We will continue Oxycodone 10 mg QID PRN for breakthrough pain as ITP is titrated. PATIENT IS ADVISED ORAL OPIATES WILL BE WEANED AND DISCONTINUED ITP IS TITRATED. Patient reports he is leaving on today to [place] where he [place] from. He was advised that oral opiates will not be sent without an office visit so he is either to return to the office for refills or establish care with pain management while he is in [place] 6 months out of the year. Patient reports he cannot go back to the previous pain specialist he was consulting due to issues and will look into establishing care with someone else. As far as his pump goes, he reports he will follow up with Dr. Arpit Bartlett who performed his ITP trial to see if he will manage his pump. Patient reports he will be returning in September and therefore can have his pump refilled at that time. Pending follow up in September, if patient has not established care with pain management in [place] who can manage his pump, we can attempt to send a referral to [facility] to see if his insurance will cover home health services for refills and adjustments. Related to Chronic pain syndrome s/p Fentanyl ITP implant on 05/09. Related to Postlaminectomy syndrome, not elsewhere classified Consider Lumbar ALAN at a later d ate. Related to Radiculopathy, lumbar region Consider Lumbar MBB at a later d ate. Related to Other spondylosis, lumbar region Advised to follow up with PCP as scheduled. Related to HTN E-FORCSE and UDS wer e analyzed for clinical management and judgment. No aberrant behavior detected on today's assessment. UDS risk category color- YELLOW- No evidence of aberrant behaviors. Previous urine drugs screens have been inconsistent; positive for benzodiazepines and alcohol. Based on PDMP, patient continues to comply with the opiate agreement by maintaining one provider for prescription of controlled substances with no evidence of early refills. ZENA risk: UDS performed 1-2 times every 6 months. Last UDS 02/28/2025. I have reviewed the results of the most recent urine drug screen which is CONSISTENT. Based on these results, we will continue Fentanyl intrathecal therapy per protocol. We will continue Oxycodone 10 mg QID PRN for breakthrough pain as ITP is titrated. PATIENT IS ADVISED ORAL OPIATES WILL BE WEANED AND DISCONTINUED ITP IS TITRATED. SIX UDS performed in 12 months.Definitive UDS NOT ordered today. CAGE score 0; PHQ-9 score 0; Opiate risk score <3 as of 06/25/2025.We will continue Fentanyl intrathecal therapy per protocol. We will continue Oxycodone 10 mg QID PRN for breakthrough pain as ITP is titrated. PATIENT IS ADVISED ORAL OPIATES WILL BE WEANED AND DISCONTINUED ITP IS TITRATED. 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 Patient scheduled for pump refill on 09/27/2025. Related to Encounter for adjustment and management of infusion pump Will increase daily dosage by 25%Current daily dosage 20.55 mcg/day Next ALARM DATE 01/15/2025Patient provided a copy of telemetry. Patient to follow up in 2-4 weeks for pump adjustment. Related to Encounter for adjustment and management of infusion pump Consider Lumbar ALAN at a later d ate. Related to Radiculopathy, lumbar region s/p Fentanyl ITP implant on 05/09. Related to Postlaminectomy syndrome, not elsewhere classified Advised to follow up with PCP as scheduled. Related to HTN E-FORCSE and UDS wer e analyzed for clinical management and judgment. No aberrant behavior detected on today's assessment. UDS risk category color- YELLOW- No evidence of aberrant behaviors. Previous urine drugs screens have been inconsistent; positive for benzodiazepines and alcohol. Based on PDMP, patient continues to comply with the opiate agreement by maintaining one provider for prescription of controlled substances with no evidence of early refills. MARICARMENLOW risk: UDS performed 1-2 times every 6 months. Last UDS 02/28/2025. I have reviewed the results of the most recent urine drug screen which is CONSISTENT. Based on these results, we will continue Fentanyl intrathecal therapy per protocol. We will continue Oxycodone 10 mg QID PRN for breakthrough pain as ITP is titrated. PATIENT IS ADVISED ORAL OPIATES WILL BE WEANED AND DISCONTINUED ITP IS TITRATED. SIX UDS performed in 12 months.Definitive UDS NOT ordered today. CAGE score 0; PHQ-9 score 0; Opiate risk score <3 as of 06/20/2025. We will continue Fentanyl intrathecal therapy per protocol. We will continue Oxycodone 10 mg QID PRN for breakthrough pain as ITP is titrated. PATIENT IS ADVISED ORAL OPIATES WILL BE WEANED AND DISCONTINUED ITP IS TITRATED. Related to detention (current) use of opiate analgesic We will continue Fen tanyl intrathecal therapy per protocol. We will continue Oxycodone 10 mg QID PRN for breakthrough pain as ITP is titrated. PATIENT IS ADVISED ORAL OPIATES WILL BE WEANED AND DISCONTINUED ITP IS TITRATED. Patient reports he is leaving on 06/25/2025 to [place] where he [place] from. Advised oral opiates will not be sent without an office visit so he is either to return to the office for refills or establish care with pain management while he is in [place] 6 months out of the year. Patient reports he cannot go back to the previous pain specialist he was consulting due to issues and will look into establishing care with someone else. As far as his pump goes, he reports he will follow up with Dr. Arpit Bartlett who performed his ITP trial to see if he will manage his pump. Patient reports he will be returning in September and therefore can have his pump refilled at that time. Pending follow up in September, if patient has not established care with pain management in [place] who can manage his pump, we can attempt to send a referral to [facility] to see if his insurance will cover home health services for refills and adjustments. Related to Chronic pain syndrome Advised to follow up with PCP as scheduled. Related to Other specified diabetes mellitus with hyperglycemia Consider Lumbar MBB at a later d ate. Related to Other spondylosis, lumbar region Incisions was assess ed prior to staple removal. Incision is clean dry and intact. Site was cleaned. Er Tech applied benzoin tincture, removed abram, applied bacitracin cream on incision and secured with steri-strips. Covered with dry sterile gauze and secured with medfix tape.Informed the patient that they can shower starting tomorrow. Advised against submerging in water such as pool or bath. Informed them to NOT remove the steri-strips and allow them to fall off on their own. Advised steri strips can be removed after 2 weeks if they have not been removed. Related to Encounter for removal of staple Advised patient to f ollow up with PCP or emergency room given concerns of GERD that is not alleviated with PPI as symptoms could be possibly be of other etiology. Patient verbalizes understanding. Related to Gastro-esophageal reflux disease without esophagitis Will increase daily dosage by 20%Current daily dosage 16.46 mcg/day Next ALARM DATE 03/08/2026Patient provided a copy of telemetry. Patient to follow up in 2-4 weeks for pump adjustment. Related to Encounter for adjustment and management of infusion pump E-FORCSE and UDS wer e analyzed for clinical management and judgment. No aberrant behavior detected on today's assessment. UDS risk category color- YELLOW- No evidence of aberrant behaviors. Previous urine drugs screens have been inconsistent; positive for benzodiazepines and alcohol. Based on PDMP, patient continues to comply with the opiate agreement by maintaining one provider for prescription of controlled substances with no evidence of early refills. YELLLOW risk: UDS performed 1-2 times every 6 months. Last UDS 02/28/2025. I have reviewed the results of the most recent urine drug screen which is CONSISTENT. Based on these results, we will continue Fentanyl intrathecal therapy per protocol. We will continue Oxycodone 10 mg QID PRN for breakthrough pain as ITP is titrated. PATIENT IS ADVISED ORAL OPIATES WILL BE WEANED AND DISCONTINUED ITP IS TITRATED. SIX UDS performed in 12 months.Definitive UDS NOT ordered today. CAGE score 0; PHQ-2 score 0; Opiate risk score <3 as of 06/13/2025. We will continue Fentanyl intrathecal therapy per protocol. We will continue Oxycodone 10 mg QID PRN for breakthrough pain as ITP is titrated. PATIENT IS ADVISED ORAL OPIATES WILL BE WEANED AND DISCONTINUED ITP IS TITRATED. 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 Related to Other specified diabetes mellitus with hyperglycemia Consider Lumbar MBB at a later d ate. Related to Other spondylosis, lumbar region Consider Lumbar ALAN at a later d ate. Related to Radiculopathy, lumbar region We will continue Fen tanyl intrathecal therapy per protocol. We will continue Oxycodone 10 mg QID PRN for breakthrough pain as ITP is titrated. PATIENT IS ADVISED ORAL OPIATES WILL BE WEANED AND DISCONTINUED ITP IS TITRATED. Related to Chronic pain syndrome Advised to follow up with PCP as scheduled. Related to HTN s/p Fentanyl ITP implant on 05/09. Related to Postlaminectomy syndrome, not elsewhere classified UDS risk category co michelle- YELLOW: Long-term use of BZOsYELLOW risk: UDS performed 1-2 times every 6 months. Last UDS 02/28/2025 consistent. SIX UDS completed in 6 months. UDS not indicated today.We will refill current opioid medications without changes in type, dosing, or frequency. Will continue current medication regimen of Oxycodone 10 mg QID PRN pain. Patient reminded that dose will be decreased once IT Fentanyl pump has been implanted. Verbalized understanding Daily MME: 60The patient was instructed that all controlled substance medications should be stored in their original bottles inside a locked cabinet, lockbox, or a location where others cannot easily access them. 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 Last UDS 02/28/25 consistent-NEG for BZO. FOUR (4)) UDS- 01/31/25, 02/07/25, 02/15/25, and 02/28/25 completed in 3 months. UDS not indicated today.As the patient has been experiencing inadequate pain control with current medication we will adjust the regimen as follows: increase Oxycodone 5 mg QID to 10 mg QID for better pain control. Patient informed that dose will be decreased once IT Fentanyl pump has been implanted. Verbalized understanding The patient was instructed that all controlled substance medications should be stored in their original bottles inside a locked cabinet, lockbox, or a location where others cannot easily access them. 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 Last UDS 02/28/25 consistent-NEG for BZO. FIVE (5)) UDS- 12/21/24, 01/31/25, 02/07/25, 02/15/25, and 02/28/25 completed in 3 months. UDS not indicated today.Diazepam 10 mg #30 wasted and destroyed with RX destroyer solution, witnessed by patient The patient has incomplete relief from NSAIDs, ice/heat and is in moderate to severe pain, consistent with the physical examination performed today. I will start the patient on a trial of Oxycodone 5 mg QID PRN. UDS from the last visit is consistent. The patient has signed an opioid contract. Rules of opiate prescribing reviewed with the patient. There is no evidence of aberrant behavior or inconsistencies. EFORSCE demonstrates no aberrant behavior. The patient understands to take the medication only as prescribed. It was explained to the patient and the patient understands the potential side effects of the medications including sedation, drowsiness and respiratory depression. The patient understands not to drive or operate heavy machinery while on this medication. Informed to bring medication in current bottle to EVERY office visitThe patient was instructed that all controlled substance medications should be stored in their original bottles inside a locked cabinet, lockbox, or a location where others cannot easily access them Narcan nasal spray prescribed to be used PRN in case of suspected or actual overdose. This product is medically necessary as there is no other FDA approved medication for use in a non-medical environment in an opioid emergency. 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 PDMP reveals that Diazepam 10 mg #30 was delivered to residence on 02/14/25--this was not disclosed by patient. States, I haven't taken any. RED risk: UDS performed 1-2 times every 3 months. Last UDS 02/15/2025 inconsistent-POS for BZO. FOUR (4) UDS- 12/21/24, 01/31/25, 02/07/25,and 02/15/25 completed in 3 months. Patient insists on leaving a urine sample todayUDS performed today to evaluate for compliance with medication regimen and opioid agreement. Evaluation of the DEFINITIVE levels of benzodiazepine metabolites via urine sample is medically necessary to identify a specific substance and to identify non-prescribed medication or illicit substances use for ongoing safe prescribing of controlled substances, which is needed to guide managementAgain, patient inform that opioids will not be prescribed until UDS returns NEG for benzodiazepinesPatient will provide documentation that Diazepam 10 mg #30 was left and destroyed at a depository. 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 Olivares. -pending PCP clearance- Dr. Yost in [place].-psych clearance on file. Advised that if we are going to proceed with IT pump implant we would need uds showing negative for any benzo' and A1C level needs to be 8% or below.Patient educated on the risks of taking benzodiazepines while taking prescribed opioids due to risk for MANUAL MACHINIST and respiratory depression and also on associated with an overdose. advised that no oxycodone would be prescribed until UDS is negative for benzo's. Related to Postlaminectomy syndrome, not elsewhere classified prescribed doxepin a nd says that it does not work well. Related to Insomnia His last A1C is 8.6. Advised that we need this to be 8.0 or lower prior to proceeding with IT pump implant.He will follow up with PCP, Dr. Yost in [place] and still needs PCP clearance. Related to Other specified diabetes mellitus with hyperglycemia E-FORCSE and UDS wer e analyzed for clinical management and judgment. Information on nonopioid alternatives for the treatment of pain has been discussed with patient today.UDS RED- UDS SHOWING + FOR BENZO'SPatient has had 4 UDS within the last 12 months. Last UDS results are: 02/07/25 and is still showing + for benzo. Oxazepam showed 85 on 02/07/25 and had showed 62 on 01/04/25.He says that he is unsure why it would still be + in the UDS and says that he has not taken any for at least over a month. Advised patient that no opiates will be prescribed in combination with any Benzo's and the UDS has to be negative for any benzo's before opiates can be prescribed.Patient's opiate risk tool score is: 0 which puts them at *LOW RISK* for future opioid abuse.CAGE questionnaire score: 0-obtain definitive UDS to asses for any presence of benzodiazepines and any metabolite Related to detention (current) use of opiate analgesic Says that the tizani dine does not work well. Related to Radiculopathy, lumbar region Case was discussed w lindsey Olivares. He is present in the room during the visit. Advised the patient to trial Doxepin to aid with sleep as patient states he has trialed Cymbalta and trazodone in the past. Hgb A1c must be bellow 8 before proceeding with implant.Patient has been advised the following clearances must be obtained prior to trial: - psychological clearance (pending from Dr. Arpit Bartlett) ( Request sent again, but pt was advised to obtain)- medical clearance (pending clearance) - Pre-operative labs (reports he completed, request another order because unsure if he completed the correct ones) Patient is scheduled for Fentanyl ITP trial on 02/19/2025. Related to Postlaminectomy syndrome, not elsewhere classified UDS from 12/21/2024 i s positive for Benzodiazepines and ETOH.ETOH may be due to uncontrolled diabetes.Discussed with the patient the office protocol for initiation of opioid therapy which requires obtaining medical records and obtaining a UDS. If it is negative for illicit substances and benzodiazepines we will consider low dose opioid therapy. Patient should speak to the prescribed for BZD about safer alternatives as the use of BZD and opioids are contraindicated as congruent use may lead to respiratory depression and even . EMPHASIZED TO THE PATIENT THAT THEY ARE NOT TO STOP BZD ABUPTLY.Advised patient to ensure records are received by this office before next visit or obtain them their self to provide for review to avoid treatment delays.We will obtain records from Dr. Claus Soto Related to Chronic pain syndrome Advised to follow up with PCP as scheduled. Related to Other specified diabetes mellitus with hyperglycemia Advised to follow up with PCP as scheduled. Related to HTN Patient is an excell ent candidate for an intrathecal Fentanyl IT pump trial. Patient reports he has failed Dilaudid and Bupivacaine intrathecal pump trial with previous pain specialist. Patient has failed conservative treatment including physical therapy, oral analgesics treatment with NSAIDs and opioids. Patient's pain is interfering with functional activities including sleep and work. It is medically necessary, reasonable, and appropriate to proceed with intrathecal morphine pump trial. Patient has been advised the following clearances must be obtained prior to trial: - psychological clearance (pending from Dr. Arpit Bartlett) - medical clearance (pending clearance) - Pre-operative labs (reports he completed but does not have a copy of results). Patient is scheduled for Fentanyl ITP trial on 02/19/2025. Patient is advised that we will not proceed with permanent implant until patient is able to discontinue benzodiazepines and provide a consistent UDS. He is also advised A1C would need to be <8 for permanent implant. Patient is not receptive to spinal cord stimulator trial. Related to Postlaminectomy syndrome, not elsewhere classified Consider Lumbar ALAN at a later date. We will obtain records from Dr. Arpit Bartlett. We will trial Tizanidine 4 mg BID PRN. Related to Radiculopathy, lumbar region E-FORCSE and UDS wer e analyzed for clinical management and judgment. No aberrant behavior detected on today's assessment. UDS risk category color- YELLOW- No evidence of aberrant behaviors. Previous urine drugs screens have been inconsistent; positive for benzodiazepines and alcohol. Based on PDMP, patient continues to comply with the opiate agreement by maintaining one provider for prescription of controlled substances with no evidence of early refills. ZENA risk: UDS performed 1-2 times every 6 months. Last UDS 12/21/2024. I have reviewed the results of the most recent urine drug screen which is inconsistent; positive for alcohol and benzodiazepines. Alcohol is likely a false positive due to uncontrolled diabetes. Patient denies alcohol use. Based on these results, we will defer overseeing opiate therapy until patient is able to discontinue benzodiazepines and provide a consistent UDS. ONE UDS performed in 12 months.Definitive UDS ordered today for patient to take orders and complete once he has weaned off of Diazepam. Patient advised it takes 2 weeks for UDS to process once it specimen is received by laboratory. Patient verbalizes understanding. CAGE score 0; PHQ-9 score 0; Opiate risk score <3 as of 01/04/2025. We will continue non opioid treatment options. Related to detention (current) use of opiate analgesic Consider Lumbar MBB at a later date. We will obtain records from Dr. Arpit Bartlett. We will trial Celebrex 100 mg BID. Discussed risks of long use of NSAIDs. Patient denies renal, liver, GI or cardiovascular disease. Advised patient to continue to follow up with PCP for annual labs and close monitoring. Related to Other spondylosis, lumbar region UDS from 12/21/2024 i s positive for Benzodiazepines and ETOH. Alcohol is likely a false positive due to history of poorly controlled diabetes. Patients EHR indicates he is prescribed Diazepam 10 mg. Per PDMP, Diazepam has not been filled but records only go as far is 2022. Patient educated on the risks of taking benzodiazepines while taking prescribed opioids due to risk for MANUAL MACHINIST and respiratory depression and also on associated with an overdose. Patient advised this office will not continue to prescribe opiates such as Oxycodone or proceed with permanent implant of Fentanyl intrathecal pump. He is advised to follow up with prescriber to discuss safe tapering and alternative treatment option. He is advised AGAINST abrupt discontinuation of medication as it can result in with threatening withdrawals. Pending patients ability to provide a consistent UDS negative for benzodiazepines and review of records from Dr. Claus Soto, we will consider overseeing Oxycodone as previously prescribed and proceeding with Fentanyl ITP implant if he has a successful ITP trial and A1C is <8. We will obtain records from Dr. Claus Soto. Related to Chronic pain syndrome Consider Thoracic MBB at a later date Related to Other spondylosis, thoracic region Consider Cervical MBB at a later date Related to Other spondylosis, cervical region Patient advised they may take Tylenol 1,000mg Q8-hours PRN. Patient strongly advised against exceeding 3,000mg of Tylenol a Day.Cymbalta recommended for this patient Related to Chronic pain syndrome This office is consi dering taking over this patient's care; therefore, we will obtain an initial presumptive UDS specimen provided today to evaluate for compliance with prescribed medications and the opioid consent, to identify non-prescribed medication or illicit substance use for ongoing safe prescribing of controlled substances, to identify drugs when a definitive concentration of a drug is needed to guide management, to identify a specific substance or its metabolite that is in a large class of drugs, or for use in a differential assessment of medication efficacy, side effects, or drug to drug interactions. 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 Patient is receptive to Treatment options were discussed Patient is receptive to fentanyl IT Pump trialPatient was scheduled for fentanyl IT Pump trialThis office is to attain records from previous physician, updated labs, and medical clearance Related to Postlaminectomy syndrome, not elsewhere classified Assessments Type Assessment Date assessment Encounter for adjustment and man agement of infusion pump assessment Other specified diabetes mellitu s with hyperglycemia impression A1C was 8.5 assessment Other spondylosis, lumbar region assessment Postlaminectomy syndrome, not el sewhere classified impression [HPI continued]: He reports he will return on 09/27/2025 for pump refill and pump adjustment if he has yet to find someone in [place] to manage his pump. Per records, daily dose of Fentanyl via intrathecal therapy was increased to 25% last encounter which he reports is well-tolerated without adverse side effects. He continues to report no significant relief of chronic low back pain and requesting additional pump adjustment today. assessment Chronic pain syndrome impression Transferred records from Dr. Itzel to reviewed. assessment terminal operator (current) use of opiat e analgesic assessment Radiculopathy, lumbar region Jun impression Discontinued Cymbalta due to [place]. Aug-18-2025 assessment HTN impression Blood pressure is stable today. Mental Status Date Cognitive Assessment Orientation - [place] ed to time, place, person, situation. Patient Care Teams Name Effective Dates (start - stop) Status Members No Information
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
[2025-09-13 14:05] VITALS: BP 170/87; PULSE 103; RESP 16; O2SAT 87
--- OUTSIDE RECORDS SUMMARY | 2025-09-13 17:15 | XMS_ITS | Data Portability ---
Author Organization [facility], autoContract - [facility] Medical Address [address] [place] [address] Assessment No assessment recorded. Plan of Treatment Reminders Order Date Submit Date Provider Last Modified By Organization Details Last Modified Time Details Appointments None recorded. Lab HbA1c (hemoglobi n A1c), blood 2023 024 [email or web address] 3 [facility], [address] [place] [address], [address], [place], [address], 13:01:19 CBC w/ auto diff 2023 024 [facility] AT [address], [address], 4 09:54:28 CMP, serum or plasma 2023 024 [facility] AT [address], [address], 4 09:54:28 TSH, serum or plasma 2023 024 [facility] AT [address], [address], 4 09:54:27 vitamin D, 25-hydroxy , total, serum 2023 024 [facility] AT [address], [address], 4 09:54:27 vitamin B12 + folate, serum or blood 2023 024 [facility], [address] [place], [address], 4 09:54:28 urinalysis , complete 2023 024 [facility], [address] [place], [address], 4 09:54:28 microalbum in/creatin ine, mass ratio, urine 2023 024 3 [facility], [address] [place], [address], 4 13:01:20 lipid panel, serum 2023 024 [email or web address] [facility], [address], [address], [place], [address], 4 09:54:16 PSA, serum or plasma 2023 024 [facility], [address], [address], [place], [address], 4 09:55:20 fecal occult blood, stool 2023 024 [email or web address] 3 [facility], [address], [address], [place], [address], 4 13:01:20 HbA1c (hemoglobi n A1c), blood 2023 024 [email or web address] 3 [facility], [address], [place], [address], 4 13:02:24 CBC w/ auto diff 2023 024 [facility], [address], [place], [address], 4 10:21:55 CMP, serum or plasma 2023 024 [facility], [address], [address], [place], [address], 4 10:21:59 TSH, serum or plasma 2023 024 [facility], [address], [address], [place], [address], 4 10:21:58 vitamin D, 25-hydroxy , total, serum 2023 024 [facility], [address], [address], [place], [address], 4 10:21:58 vitamin B12 + folate, serum or blood 2023 024 [facility], [address], [address], [place], [address], 4 10:21:55 urinalysis , complete 2023 024 [facility], [address], [address], [place], [address], 4 10:22:01 lipid panel, serum 2023 024 [facility], [address], [address], [place], [address], 4 10:22:00 PSA, serum or plasma 2023 024 [email or web address] [facility], [address], [address], [place], [address], 4 10:21:38 fecal occult blood, stool 2023 024 [email or web address] [facility], [address], [address], [place], [address], 4 10:21:38 Referral dermatolog ist referral - requesting skin cancer screening 2023 024 [facility] [place], [address], [place], [address], 4 09:01:43 Procedures None recorded. Surgeries None recorded. Imaging CT, head, w/o contrast - persistent headaches 2023 024 [email or web address] 3 [facility], [address], [address], [place], [address], 4 13:01:28 XR, chest, 2 view - persistent cough, shortness of breath 2023 024 [email or web address] 3 [facility], [address], [address], [place], [address], 4 13:01:27 XR, chest, 2 view - persistent cough, shortness of breath 2023 024 [email or web address] 3 [facility], [address], [address], [place], [address], 4 13:02:33 Medication Orders glimepirid e 4 mg tablet 2023 024 [facility]/Pharmacy #3668, [address] [place], [address], 4 09:54:24 albuterol sulfate HFA 90 mcg/actuat ion aerosol inhaler 2023 024 [email or web address] [facility]/Pharmacy #3668, [address] [place], [address], 4 09:54:17 Trelegy Ellipta 100 mcg-62.5 mcg-25 mcg powder for inhalation 2023 024 [facility]/Pharmacy #3668, [address] [place], [address], 4 09:54:23 ropinirole 0.5 mg tablet [address]/Pharmacy #3668, [address] [place], [address], 4 09:54:18 diazepam 10 mg tablet [address]/Pharmacy #3668, [address] [place], [address], 4 09:54:17 lisinopril 10 mg tablet [address]/Pharmacy #3668, [address] [place], [address], 4 09:54:18 lisinopril 20 mg tablet 2023 024 [facility] [address] [place], [address], 4 09:54:24 lidocaine 5 % topical patch [address]/Pharmacy #3668, [address] [place], [address], 4 09:54:18 neomycin-p olymyxin-h ydrocort 3.5 mg-10,000 unit/mL-1 % ear drops,susp [address]/Pharmacy #3668, [address] [place], [address], 4 09:54:18 nicotine 21 mg/24 hr daily transderma l patch 2023 024 [facility]/Pharmacy #3668, [address] [place], [address], 4 09:54:24 oxycodone 10 mg tablet [address]/Pharmacy #3668, [address] [place], [address], 4 09:54:18 omeprazole 20 mg capsule,de layed release 2023 024 [address], [address] [place] [address], [address], 4 09:54:18 levofloxac in 750 mg tablet 2023 024 [address], [address] [place] [address], [address], 4 09:54:16 montelukas t 10 mg tablet 2023 024 [address], [address] [place] [address], [address], 4 09:54:17 prednisone 10 mg tablet 2023 024 [address], [address] [place] [address], [address], 4 09:54:16 glimepirid e 4 mg tablet 2023 024 [address], [address] [place] [address], [address], 4 10:20:25 albuterol sulfate HFA 90 mcg/actuat ion aerosol inhaler 2023 024 [facility] [address] [place] [address], [address], 4 10:20:30 Trelegy Ellipta 100 mcg-62.5 mcg-25 mcg powder for inhalation 2023 024 [facility] [address] [place] [address], [address], 4 10:20:31 ropinirole 0.5 mg tablet [address]/Pharmacy #3668, [address] [place], [address], 4 08:28:49 diazepam 10 mg tablet 2023 024 [address], [address] [place], [address], 4 08:28:55 lisinopril 10 mg tablet 2023 024 [facility] [address] [place], [address], 4 09:31:08 lidocaine 5 % topical patch 2023 024 [address], [address] [place], [address], 4 10:20:25 neomycin-p olymyxin-h ydrocort 3.5 mg-10,000 unit/mL-1 % ear drops,susp 2023 024 [facility] [address] [place], [address], 4 09:31:08 nicotine 21 mg/24 hr daily transderma l patch 2023 024 [address], [address] [place], [address], 4 10:20:25 oxycodone 10 mg tablet 2023 024 [address], [address] [place], [address], 4 08:29:06 omeprazole 20 mg capsule,de layed release 2023 024 [address], [address] [place], [address], 4 10:20:25 levofloxac in 750 mg tablet 2023 024 [facility]/Pharmacy #3668, [address] [place], [address], 4 09:31:07 montelukas t 10 mg tablet 2023 024 [facility]/Pharmacy #3668, [address] [place], [address], 4 09:31:07 prednisone 10 mg tablet 2023 024 [facility]/Pharmacy #3668, [address] [place], [address], 4 09:42:17 Patient TargetsNo targets recorded. Patient InstructionsNo instructions recorded. 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 4 08:28:00 Essential hypertensio n 34562760 Active 2023 Madeline Nathan null, [facility] 4 08:41:30 Chronic obstructive pulmonary disease 20263863 Active 2023 Madeline Nathan null, [facility] 4 08:41:43 Hyperlipide delon 33346084 Active 2023 Madeline Nathan null, [facility] 4 08:41:49 Diabetes mellitus 39501618 Active 2023 Madeline Nathan null, [facility] 4 08:41:55 Restless legs syndrome 55099111 Active 2023 Madeline Nathan null, [facility] 4 08:42:02 Gastroesoph ageal reflux disease 777747943 [facility] 08:42:07 Upper respiratory infection 66061017 [facility] 4 08:42:12 Pneumonia 241109716 Active 2023 [facility] 4 08:42:18 Problem Notes None recorded. Procedures Surgical History Date Name Laterality Status Provider Name and Address Organization Details Recorded Time Knee Replacement completed Vineet Nathan [facility] 12/30/2023 08:33:46 Knee Surgery completed Madeline Nathan [facility] 12/30/2023 08:33:50 Hernia Repair completed Madeline Nathan [facility] 12/30/2023 08:33:55 procedure on shoulder completed Madeline Nathan [facility] 12/30/2023 08:34:12 Back Surgery completed Madeline Nathan [facility] 12/30/2023 08:34:16 Imaging Results None recorded. Procedure Notes None recorded. Medical Equipment None Reported. Allergies Allergen ID Allergen Name Allergen Category Reaction Reaction Severity Criticality Documentation Date Start Date Code Code System Note Provider Name and Address Organization Details Recorded Time 379373 morphine medicatio n flushing moderate Not available 12/30/2023 7052 RxNorm itchi ng and perfu sely sweat ing Milagros [facility] 4 08:41:48 Medications Name Sig Start [...] Address Organization Details Last Updated DateTime 4 00914.4 g 34.9 kg/m2 165.1 cm 76 /min 16 /min 96 % 96 % 97.6 [degF] 154/88 mm[Hg] 148/90 mm[Hg] Cecilio LOPEZ - [facility] 4 08:37:25 Date Recorded Body height Body mass index (BMI) Body weight Heart rate Respiratory rate Body temperature Oxygen saturation Oxygen saturation in Arterial blood by Pulse oximetry Systolic And Diastolic Systolic And Diastolic Provider Name and Address Organization Details Last Updated DateTime 165.1 cm 35.3 kg/m2 53278.5 8 g 82 /min 16 /min 97.5 [degF] 97 % 97 % 170/98 mm[Hg] 174/96 mm[Hg] Cecilio Nathan [facility] 08:39:01 Social History Question Answer Notes LastModified by [employer] Details LastModified Time Tobacco Smoking Status Current Every Day Smoker Madeline Nathan [facility] 12/30/2023 08:33:37 Do You Have An Advance Directive? No [email or web address] Information not available 12/30/2023 What Is Your Level Of Caffeine Consumption? Moderate [email or web address] Information not available 12/30/2023 What Is Your Code Status? Full Code Information not available 12/30/2023 What Was The Date Of Your Most Recent Tobacco Screening? 01/13/2024 [email or web address] Information not available 07/20/2024 How Much Tobacco Do You Smoke? 0.5 PPD [email or web address] Information not available 12/30/2023 Sex: Unknown Functional Status Question Answer Note LastModified by [employer] Details LastModified Time Do you or have you ever used any other forms of tobacco or nicotine? No [email or web address] Information not available 12/30/2023 What is your level of alcohol consumption? Occasional [email or web address] Information not available 12/30/2023 Mental Status None recorded. Family History Relationship Description Onset Age of this Age Resolved Age Notes LastModified by Organization Details LastModified Time Mother Heart disease [email or web address] Not available 2023 08:32:10 Father Heart disease [email or web address] Not available 2023 08:32:24 Medical History Condition Response Coronary Artery Disease N Other N Gout N Atrial Fibrillation N Blood Diseases N Kidney Stones N Hyperthyroidism N Blood Transfusion N Blood disorders N Emphysema N COPD Y Congenital Heart Disease N Depression N Pneumonia N Peripheral Arterial Disease N Edema N Gastrointestinal Disease N Anxiety Disorder N Muscle, Joint, or Bone Problems Y Obesity N Vision or Eye Problems N Arthritis N Polyps N Infertility N Blood Clot N Mental Disorder N Cancer N Varicosities N Stroke N Crohn's Disease N Leg or Foot Ulcers N Raynaud's Disease N Polio N Aortic Aneurysm N Neurologic Disorder Y Arrhythmia N Rheumatoid Arthritis N Headaches N Fibromyalgia N Kidney Disease N Heart Problems N [...] Pain N Sjogren's Syndorme N Heart Attack ([place]) N Mental Illness N Diabetes Y Ovarian [...] mL dose 12/16/2020 completed Madeline henry null, [facility] 12/30/2023 08:26:36 COVID-19, mRNA, LNP-S, PF, 30 mcg/0.3 mL dose 01/17/2021 completed Madeline henry null, [facility] 12/30/2023 08:26:36 Tdap 02/16/2020 completed Madeline Salguero cas null, [facility] 12/30/2023 08:26:36 Past Encounters Encounter ID Performer Location Encounter Start Date Encounter Closed Date Diagnosis/Indication Diagnosis SNOMED-CT Code Diagnosis ICD10 Code Diagnosis IMO Codes Diagnosis Note [id number] MILAGROS EZIO URBINA [facility] [place] [address] 12/30/2023 08:13:19 12/30/2023 09:24:23 Acute otitis media 1269252 H66.92 Patient presents with signs/symp toms of otitis media. Will treat as below. Supportive care reviewed: avoid swimming for several days and use ear plugs thereafter . Recommende d acetaminop hen/ibupro fen PRN pain Follow up as below. Acute bronchitis 5786828 2 J20.9 Patient presents with allergic rhinitis. Supportive care reviewed: raising HOB, avoiding triggers, taking controller medication s, use of saline nasal spray/humi difier, encourage PO fluids, monitor hydration. RTO as scheduled for next WCC; sooner if any new or concerning symptoms arise. Essential hypertension 53447943 I10 First line treatment: lifestyle changes which [...] or if they develop new symptoms. Polyarthropathy 04543356 M13.0 Discussed medication regimen as well as diet and exercise modificati on. Patient will apply heat/ice as needed for pain relief. Follow up in 3 months. Chronic pain syndrome 37 1035973 G89.4 will monitor and notify as needed Adult [facility] examination 298334904 Z00.01 Education was provided on healthy nutrition, [...] living. Gastroesop hageal reflux disease without esophagitis 240815137 K21.9 Patient will continue conservati ve management [...] new/concer kelly symptoms. Restless l egs syndrome 18057534 G25.81 will monitor and notify f worsens Hyperlipidemia 75288610 E78.5 Patient with known hyperlipid emia. Last lipid panel poorly controlled . Lifestyle modificati ons discussed including weight loss, aerobic exercise at least 30 min/day at least 5 days per week, and a diet rich in fruit and vegetables . Goal LDL: 100mg/dL, 70mg/dL}}. Will continue to follow lipid panel q6-12 months. Chronic ob structive pulmonary disease 89258160 J44.9 Plan1-Diet and lifestyle counseling , especially breathing exercises to improve oxygenatio n.2- Mood and cognitive assessment will follow regimen be done in future to make sure patient is able to follow regimen.3- Also we will be discussing life stressors and advanced directives and documentat ion in future encounters . Generalize d anxiety disorder 59109077 F41.1 Patient identified triggers for anxiety and impact of anxious thinking on functionin g. Discussed strategies to regulate symptoms and need for compliance with treatment. Nicotine dependence 5629 4008 F17.200 Advise about smoking cessationO rder smoking cessation counseling , greater than 3 minutes up to 10 minutes Type 2 gerry betes mellitus 01528409 E11.9 Patient seen in office today for Diabetes is well controlled . Patient educated on diabetes complicati ons . Discussed treatment/ diagnostic plan and orders with patient as indicated below. Provided diabetic diet Screening for malignant neoplasm of prostate 817292747 Z12.5 will follow results Screening for malignant neoplasm of colon 383831455 Z12.11 will follow results [id number] MILAGROS URBINA [facility]N [facility] [employer] [facility] [address] [place] [address] 01/13/2024 08:28:42 01/13/2024 09:13:47 Acute otitis media 0937230 H66.92 Patient presents with signs/symp toms of otitis media. Will treat as below. Supportive care reviewed:a void swimming for several days and use ear plugs thereafter . Recommende d acetaminop hen/ibupro fen PRN pain Follow up as below. RESOLVED Acute bronchitis 0656786 2 J20.9 Patient presents with allergic rhinitis. Supportive care reviewed: raising HOB, avoiding triggers, taking controller medication s, use of saline nasal spray/humi difier, encourage PO fluids, monitor hydration. RTO as scheduled for next WCC; sooner if any new or concerning symptoms arise. RESOLVED Essential hypertension 45072397 I10 First line treatment: lifestyle changes which [...] in BP diary in 2 weeks Polyarthropathy 89162316 M13.0 Discussed medication regimen as well as diet and exercise modificati on. Patient will apply heat/ice as needed for pain relief. Follow up in 3 months. Chronic pain syndrome 37 6488635 G89.4 will monitor and notify as needed Adult [facility] examination 849031484 Z00.01 Education was provided on healthy nutrition, [...] living. Gastroesop hageal reflux disease without esophagitis 773691755 K21.9 Patient will continue conservati ve management [...] new/concer kelly symptoms. Restless l egs syndrome 88632096 G25.81 will monitor and notify f worsens Hyperlipidemia 58311340 E78.5 Patient with known hyperlipid emia. Last lipid panel poorly controlled . Lifestyle modificati ons discussed including weight loss, aerobic exercise at least 30 min/day at least 5 days per week, and a diet rich in fruit and vegetables . Goal LDL: 100mg/dL, 70mg/dL}}. Will continue to follow lipid panel q6-12 months. Chronic ob structive pulmonary disease 26340313 J44.9 Plan1-Diet and lifestyle counseling , especially breathing exercises to improve oxygenatio n.2- Mood and cognitive assessment will follow regimen be done in future to make sure patient is able to follow regimen.3- Also we will be discussing life stressors and advanced directives and documentat ion in future encounters . Increase trelegy to 2 puffs twice nisa Generalize d anxiety disorder 88132789 F41.1 Patient identified triggers for anxiety and [...] ous changes Type 2 gerry betes mellitus 25853030 E11.9 Patient seen in office today for Diabetes is well controlled . Patient educated on diabetes complicati ons . Discussed treatment/ diagnostic plan and orders with patient as indicated below. Provided diabetic diet Screening for malignant neoplasm of prostate 319165483 Z12.5 will follow results Screening for malignant neoplasm of colon 927145201 Z12.11 will follow results Skin lesion 29941288 L98 .9 will follow results Headache 60722581 R51.9 will follow results Obesity 039652287 E66.9 BMI:35.3 Advise about healthy life style and weight loss Health Concerns Section Related Observation LastModified by Organization Detai ls LastModified Time None Recorded Concern Status LastModified by Organization Details LastModified Time None Recorded Advance Directives Directive N: Payers Insurance Date Sequence Insurance Name Policy Number Policy Valentino Covered Member ID Valentino Member ID Guarantor Name 06/21/2024 2 MEDICARE-ID (MEDICARE) Stanislav Jacobson [id number] Stanislav Austinard 06/21/2024 1 [employer] (MEDICARE REPLACEMENT/ ADVANTAGE - PPO) Stanislav Jacobson [id number] Stanislav Jacobson Notes Date Note Type Note [...] problems. 73 y/o male patient new to [facility] patient presented for admission to the practice. Studies ordered as below. Discussed plan with patient, who expressed understanding. Follow up as noted below.patient has history of polyarthritis, chronic pain, COPD, nicotine dependence, DM type 2, GERD and hypertensionhe reports that he has had a persistent congested cough and recurrent URI's.Also left ear pain x 2 weeks Milagros Urbina [place], [place] - [facility] 01/13/2024 08:29:11 01/13/2024 text/html Annual WellnessReported [...] generalized back and joint pain Milagros Urbina [facility], [place] - [facility] 01/13/2024 09:59:10
--- OUTSIDE RECORDS SUMMARY | 2025-09-13 17:15 | XMS_ITS | Data Portability ---
Author Organization [facility], Family Medicine [address] Address [address] [place] [address] Care Team Providers Care Chiller Operator Name Role Phone EDDY JOHNSON Primary Care Provider Assessment No assessment recorded. Plan of Treatment Reminders Order Date Submit Date Provider Last Modified By Organization Details Last Modified Time Details Appointments Establ dariel Lai t 30 2024 08:00A Chris JOHNSON MD Not available Not available Not available Lab vitami n D, 25-hyd sharon, total, serum 2024 025 [facility] (Lab), [address] [place] [address], [address], 06/18/2025 08:55:20 vitami n B12, serum 2024 025 [facility] (Lab), [address] [place] [address], [address], 06/18/2025 08:55:20 folate , serum 2024 025 [facility] (Lab), [address] [place] [address], [address], 06/18/2025 08:55:19 magnes ium, serum or plasma 2024 025 [facility] (Lab), [address] [place] [address], [address], 06/18/2025 08:55:19 CBC w/ diff 2024 025 [facility] (Lab), [address] [place] [address], [address], 06/18/2025 08:55:20 TSH, ultra- sensit felix, serum 2024 025 [facility] (Lab), [address] [place] [address], [address], 06/18/2025 08:55:20 T4, free, serum 2024 025 [facility] (Lab), [address] [place] [address], [address], 06/18/2025 08:55:19 lipid panel, serum 2024 025 [facility] (Lab), [address] [place] [address], [address], 06/18/2025 08:55:19 HbA1c (hemog lobin A1c), blood 2024 025 [facility] (Lab), [address] [place] [address], [address], 06/18/2025 08:55:19 CMP, serum or plasma 2024 025 [facility] ([facility]), [address] [place] [address], [address], 06/18/2025 08:55:20 urinal ysis comple te, reflex cultur e 2024 025 [facility] (Lab), [address] [place] [address], [address], 06/18/2025 08:55:20 microa lbumin , urine 2024 025 [facility] ([facility]), [address] [place] [address], [address], 06/18/2025 08:55:20 Referral pulmon ologis t referr al 2024 025 nida Love MD, [address] [place] [address] [facility] [place], [place], [address], 06/20/2025 08:55:11 Procedures None record ed. Surgeries None record ed. Imaging None record ed. Medication Orders Lantus Solost ar U-100 Insuli n 100 unit/m L (3 mL) subcut aneous pen 2024 025 [facility] [place], [address], 06/18/2025 08:45:55 trazod one 50 mg tablet 2024 025 [facility], [address] [place], [address], 05/07/2025 11:29:02 Peride x 0.12 % mouthw lyndsay 2024 025 [facility], [address] [place], [address], 06/18/2025 09:11:12 nystat in 100,00 0 unit/m L oral suspen ronn 2024 025 [facility], [address] [place], [address], 04/19/2025 09:10:01 lisino pril 10 mg tablet 2024 025 [facility], [address] [place], [address], 04/19/2025 09:03:48 Advair Diskus 250 mcg-50 mcg/do se powder for inhala tion 2024 025 [facility], [address] [place], [address], 04/19/2025 09:10:05 albute rol sulfat e 2.5 mg/3 mL (0.083 %) soluti on for nebuli zation 2024 025 [facility], [address] [place], [address], 04/19/2025 09:10:05 albute rol sulfat e 2.5 mg/3 mL (0.083 %) soluti on for nebuli zation 2024 025 [email or web address] iz Not available 04/24/2025 06:41:35 shona ukast 10 mg tablet 2024 025 [facility], [address] [place], [address], 04/19/2025 09:33:00 OneTou ch Verio test strips [address] [facility] [place], [address], 04/30/2025 08:30:24 Lantus Solost ar U-100 Insuli n 100 unit/m L (3 mL) subcut aneous pen [address] [facility] [place], [address], 06/18/2025 08:43:00 clotri mazole 10 mg jayiln 2024 025 [facility], [address] [place], [address], 04/19/2025 08:22:07 Breztr i Aerosp here 160 mcg-9m cg-4.8 mcg/ac tuatio n HFA aeroso l inhale r 2024 025 [facility], [address] [place], [address], 05/07/2025 11:01:03 azithr omycin 250 mg tablet 2024 025 [facility], [address] [place], [address], 04/19/2025 08:21:44 Patient TargetsNo targets recorded. Patient Instructions Encounter Date Encounter Id Patient Instructions Last Modified By Organization Details Last Modified Time 03/01/2025 [id number] health literacy assessment* [email or web address] Not available 03/01/2025 11:52:19 04/05/2025 [id number] health literacy assessment* Not available 04/05/2025 13:21:08 candidiasis: car e instructions Not available 04/05/2025 13:21:08 04/19/2025 [id number] health literacy assessment* Not available 04/19/2025 09:03:38 05/07/2025 [id number] health literacy assessment* Not available 05/07/2025 11:25:37 06/18/2025 [id number] health literacy assessment* Not available 06/18/2025 08:45:44 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 Referral for A cute exacerbation of chronic obstructive pulmonary disease copd, seen in hospital Referring Physician: Chela Carranza, Family Medicine, Encounter Date: 03/01/2025 Results Created Date Observation Date Name Description Value Unit Range Abnormal Flag Note LastModifiedBy Organization Detail LastModifiedTime 02/22/2002/21/2025 healt h liter acy asses sment * Brief Health Literacy Results Normal Not Available [facility] [address], [address], 02/21/2025 11:39:55 03/01/20 25 03/01/2025 healt h liter acy asses sment * Brief Health Literacy Results Normal Not Available [facility] [address], [address], 03/01/2025 08:13:35 04/05/20 25 04/05/2025 healt h liter acy asses sment * Brief Health Literacy Results Normal Not Available [address], [address], 04/05/2025 12:53:39 04/19/20 25 04/19/2025 healt h liter acy asses sment * Brief Health Literacy Results Normal Not Available [address], [address], 04/19/2025 08:26:11 05/07/20 25 05/07/2025 HEMOG LOBIN A1C Hb A1C % res 8.1 % 4.0-6. 0 high Not Available [facility] ([facility]) [address] [place], [address], 05/07/2025 13:36:01 05/07/20 25 05/07/2025 HEMOG LOBIN [...] /10.2 337/d c24-S 002 Not Available [facility] ([facility]) [address] [place], [address], 05/07/2025 13:36:01 05/07/20 25 05/07/2025 healt h liter acy asses sment * Brief Health Literacy Results Normal Not Available [address], [address], 05/04/2025 14:33:17 05/29/20 25 05/29/2025 HEMOG LOBIN A1C Hb A1C % res 8.0 % 4.0-6. 0 high Not Available [facility] (Lab) [address] [place], [address], 05/29/2025 16:43:41 05/29/20 25 05/29/2025 HEMOG LOBIN [...] /10.2 337/d c24-S 002 Not Available [facility] (Lab) [address] [place], [address], 05/29/2025 16:43:41 06/18/20 25 06/18/2025 healt h liter acy asses sment * Brief Health Literacy Results Adequa te Not Available [facility] [address], [place], [address], 06/15/2025 14:28:03 Result Notes None recorded. Problems Name Problem SNOMED Code Status Onset Date Resolution Date Notes Provider Name and Address Organization Details Recorded Time Acute kidney injury [id number] Marvin Hernandez [facility] 5 11:37:43 Acute exacerbati on of chronic obstructiv e pulmonary disease 328804898 Active DEEPTI TIPTON, DOORS PREFITTER [address] [place], [address], [facility] 5 14:30:43 Respirator y acidosis and metabolic alkalosis 563466170 Marvin anne, [facility] 11:37:43 Dyspnea [id number] Marvin Hernandez [facility] 11:37:43 Joint swelling 932382624 Marvin anne [facility] 5 11:37:43 Laceration of thumb 229140609 Active Ana Hernandez null, [facility] 5 11:37:43 Left lower zone pneumonia 427534587 Active Ana Hernandez null, [facility] 5 11:37:43 Hypoxia 954780956 Active Ana Hernandez null, [facility] 5 11:37:43 Acute-on-c hronic respirator y failure 61576205 Active CHELA CARRANZA NP [address] [place], [address], [facility] 5 20:24:37 Acute respirator y acidosis 74966705 [facility] 11:37:43 Congestion of nasal sinus 63073321 [facility] 5 11:37:43 Mixed hyperlipid emia 420079606 Active 2022 Not Available [facility] 4 00:47:27 Tobacco dependence syndrome 31186934 Active 2022 CHELA CARRANZA NP [address] [place], [address], [facility] 5 20:27:42 Chronic obstructiv e pulmonary disease 53798514 Active 2022 DEEPTI TIPTON APRN [address] [place], [address], [facility] 5 10:02:27 Chronic low back pain 387323404 Active 2022 DEEPTI TIPTON APRN [address] [place], [address], [facility] 5 10:00:43 Cigarette smoker 28111941 Active 2022 Not Available [facility] 4 00:47:27 Pneumonia 864411964 Active 2022 Not Available [facility] 4 00:47:27 Type 2 diabetes mellitus 48491564 Active 2022 Not Available [facility] 4 00:47:27 Neuropathy due to type 2 diabetes mellitus 470203271030 106 Active 2022 Not Available [facility] 4 00:47:27 Essential hypertensi on 49986852 Active 2022 CHUCHO HALE[address] [facility], [place], [place], [address] [place] [address], [facility] 5 20:28:46 Restless legs syndrome 42141302 Active 2022 Not Available [facility] 4 00:47:27 Gastroesop hageal reflux disease 603589246 Active 2022 Not Available [facility] 4 00:47:27 Acute upper respirator y infection 71470391 Active 2023 Not Available [facility] 4 00:47:27 Nausea 484571819 Active 2024 MD Nia RUEDA [place], [address] [place] [address], [facility] 5 15:12:20 Constipati on 03217756 Active 2024 EDDY JOHNSON MD [address] [place], [place], [address] [place] [address], [facility] 5 15:20:09 Community acquired pneumonia 533249459 Active 2024 CHUCHO HALE N [facility], [place], [place], [address] [place] [address], [facility] 5 20:24:06 Acute on chronic hypoxemic and hypercapni c respirator y failure 210739453626 07 Active 2024 CH[facility]CHO [facility]ALE N [facility], [place], [address], [facility] 5 20:26:15 Chronic pain syndrome 211496684 Active 2024 CHUCHO HALE N [facility], [place], [address], [facility] 5 20:27:59 Diabetic peripheral neuropathy 584724285 Active 2024 CHUCHO HALE N [facility], [place], [address], [facility] 5 20:28:12 Gastroesop hageal reflux disease without esophagiti s 604999503 Active 2024 CHUCHO HALE N [facility], [place], [address], [facility] 5 20:29:08 Allergic rhinitis 18424502 Active [address] [place], [address], [facility] 5 09:46:02 Hyperglyce delon due to type 2 diabetes mellitus 103108752341 109 Active 2024 EZIO DEE [facility], [place], [address], [facility] 5 16:20:59 Candidiasi s of mouth 50251562 Active [address] [place], [address], [facility] 5 11:17:40 Gingivitis 08139953 Active 2024 [place], [address], [facility] 5 11:24:16 Insomnia 760314871 Active 2024 [place], [address], [facility] 5 11:26:33 Hyperlipid emia 56657039 Active 2024 [place], [address], [place] [facility] 5 08:47:23 Problem Notes None recorded. Procedures Surgical History Date Name Laterality Status Provider Name and Address Organization Details Recorded Time 0 Self Management Goals completed Delores Dowd [facility] 03/28/2020 10:17:11 Imaging Results None recorded. Procedure Notes None recorded. Medical Equipment None Reported. Allergies Allergen ID Allergen Name Allergen Category Reaction Reaction Severity Criticality Documentation Date Start Date Code Code System Note Provider Name and Address Organization Details Recorded Time 75937 morphine medicatio n flushing moderate Not available 10/14/2023 7052 RxNorm Pedro anne, [facility] 5 14:55:28 Medications Name Sig Start Date [...] 01/09 completed Prescrib ed by PCP in [place] Not Available Not Available Not Available amoxicill [...] Available No t Available OptiChamb er Omayra [facility] spacer FOR USE WITH INHALER INHALED EVERY [...] Last Updated DateTime 165.1 cm 33.1 kg/m2 49855.1 6 g 97.2 [degF] 18 /min 10 % 10 % 144/84 mm[Hg] Natividad Reynaga [facility] 10:38:53 Date Recorded Oxygen saturation Oxygen saturation in Arterial blood by Pulse oximetry Provider Name and Address Organization Details Last Updated DateTime 04/05/2025 91 % 91 % DEEPTI TIPTON, DOORS PREFITTER [address] [place], [address], [facility] 04/05/2025 13:10:57 Date Recorded Body height Body mass index (BMI) Body weight Respiratory rate Heart rate Body temperature Systolic And Diastolic Provider Name and Address Organization Details Last Updated DateTime 165.1 cm 33.4 kg/m2 96537.0 7 g 16 /min 98 /min 97 [degF] 130/88 mm[Hg] Ana Hernandez [facility] 12:56:50 Date Recorded Body height Body mass index (BMI) Body weight Respiratory rate Body temperature Oxygen saturation Oxygen saturation in Arterial blood by Pulse oximetry Heart rate Systolic And Diastolic Provider Name and Address Organization Details Last Updated DateTime 165.1 cm 33.7 kg/m2 31395.5 3 g 18 /min 97.3 [degF] 93 % 93 % 86 /min 136/84 mm[Hg] Angella AngelaKnight [facility] 5 08:20:16 Date Recorded Body height Body mass index (BMI) Body weight Respiratory rate Body temperature Heart rate Oxygen saturation Oxygen saturation in Arterial blood by Pulse oximetry Systolic And Diastolic Provider Name and Address Organization Details Last Updated DateTime 5 165.1 cm 34 kg/m2 09573.2 8 g 20 /min 97 [degF] 91 /min 91 % 91 % 130/78 mm[Hg] Ana Hernandez [facility] 5 11:00:01 Date Recorded Body height Body mass index (BMI) Body weight Respiratory rate Body temperature Oxygen saturation Oxygen saturation in Arterial blood by Pulse oximetry Heart rate Systolic And Diastolic Provider Name and Address Organization Details Last Updated DateTime 5 165.1 cm 33.4 kg/m2 97032.6 3 g 20 /min 97.3 [degF] 87 % 87 % 97 /min 140/90 mm[Hg] Ana Hernandez [facility] 5 08:22:16 Social History Question Answer Notes LastModified by Organizat ion Details LastModified Time Tobacco Smoking Status Current Some Day Smoker Cedric anne [facility] 10/14/2023 13:19:39 Are You Blind Or Do You Have Difficulty Seeing? No [email or web address] Information not available 04/19/2025 What Is Your Level Of Caffeine Consumption? Occasional A Pot Of Coffee Most Of The Time [email or web address] Information not available 04/19/2025 Are You Deaf Or Do You Have Serious Difficulty Hearing? No [email or web address] Information not available 04/19/2025 What Was The Date Of Your Most Recent Tobacco Screening? 06/18/2025 [email or web address] Information not available 06/18/2025 How Many Children Do You Have? 0 [email or web address] Information not available 04/19/2025 What Is Your Relationship Status? Single [email or web address] Information not available 04/19/2025 At What Age Did You Start Smoking Tobacco? [age] Yrs Old oscar Information not available 03/01/2025 How Much Tobacco Do You Smoke? 0.5 PPD Information not available 10/14/2023 How Many Years Have You Smoked Tobacco? 50 52 Yrs [email or web address] Information not available 03/01/2025 Do You Have Difficulty Walking Or Climbing Stairs? No [email or web address] Information not available 04/19/2025 Sex: Unknown Functional Status Question Answer Note LastModified by Organizat ion Details LastModified Time Do you or have you ever used any other forms of tobacco or nicotine? Yes Information not available 10/14/2023 What is your level of alcohol consumption? None [email or web address] Information not available 04/19/2025 Do you or have you ever used smokeless tobacco? Never used smokeless tobacco Nicotine Patch Information not available 10/14/2023 Are you currently employed? No DISABLE [email or web address] Information not available 04/19/2025 Are you able to walk independently without assistance or assistive devices? YESWOREST [email or web address] Information not available 04/19/2025 Do you have difficulty doing errands alone? No [email or web address] Information not available 04/19/2025 Are you able to care for yourself independently? Yes [email or web address] Information not available 04/19/2025 Do you or have you ever used e-cigarettes or vape? Never used electronic cigarettes Information not available 10/14/2023 Mental Status Question Answer Note LastModified by Organization D etails LastModified Time Do you have difficulty concentrating, remembering or making decisions? No [email or web address] Information no t available 04/19/2025 Family History [...] mcg/0.3 mL dose 12/16/2020 completed Ana Hernandez [facility] 02/21/2025 11:37:49 COVID-19, mRNA, LNP-S, PF, 30 mcg/0.3 mL dose 01/17/2021 completed Ana anne [facility] 02/21/2025 11:37:50 Tdap 02/16/2020 completed Ana anne, [facility] 02/21/2025 11:37:50 Past Encounters Encounter ID Performer Location Encounter Start Date Encounter Closed Date Diagnosis/Indication Diagnosis SNOMED-CT Code Diagnosis ICD10 Code Diagnosis IMO Codes Diagnosis Note [id number] [facility] POOLE [facility] [address] [place] [address] 03/25/2020 15:10:57 03/25/2020 15:11:29 Exposure to viral disease 7890049800 28175 Z20.828 [id number] [facility] LIPSCOMB [facility] [address] [place] [address] 03/27/2020 12:58:36 04/09/2020 08:41:59 Exposure to viral disease 0909505875 43748 Z20.828 Pt notified COVID-19 not detected on recent nasopharyn geal swab. Pt verbalizes understand ing and will monitor for any s/sx of infection. Pt advised to continue to practice social distancing and follow CDC guidelines , including the use of face coverings in public, frequent hand washing and sanitizing of high touch surfaces. All questions answered to pt's satisfacti on [id number] EDDY JOHNSON MD Family Medicine [facility] [address] [facility] [place] [address] 10/14/2023 13:07:31 10/15/2023 08:32:54 Chronic obstructive pulmonary disease 51259742 J44.9 Chronic, advair ICS/ LABAPoorly controlled , [...] bsHas pulmonolog y appt in February in [facility], none here Chronic low back pain 27 3068164 M54.50 S/p multiple back surgeriesF [facility] orth[facility] who prescribed oxycodone 10mg qid Cigarette smoker 6868013 7 F17.210 1/2 pack daily [email or web address] pack yearsconte mplative stageUsing nicotine patches History of primary malignant neoplasm of urinary bladder 429529947 Z85.51 S/p surgery 10-12 yrs agoRpt biopsy several years ago was negativeFo jacky urology in [facility] Pneumonia 530397279 J18. 9 Recent PNA was placed on 2 courses of abx (doxycylin e) in [facility] and 1 course of prednisone . [...] Neuropathy due to type 2 diabetes mellitus 8351579428 73893 E11.40 Pt not sure what meds he takes for DMAsked pt to bring in meds Essential hypertension 54351235 I10 Lisinopril 5mg Restless l egs syndrome 41765840 G25.81 ropinirole 0.5mg qhs Gastroesop hageal reflux disease 529091978 K21.9 well controlled omeprazole 20mg PRN [id number] EDDY JOHNSON MD Family Medicine [address] [address] 11/23/2023 13:42:22 11/23/2023 16:35:00 Chronic obstructive pulmonary disease 59666970 J44.9 Chronic, advair ICS/ LABAPoorly controlled requiring [...] bsHas pulmonolog y appt in February in [facility], none hereAdvise d to f/u pulm referral in [place] Pneumonia 299916335 J18. 9 PNA resolved with course of augmentin + AZTProcal was negAdvised pt no need to obtain CXR Neuropathy due to type 2 diabetes mellitus 7136302978 97490 E11.40 Check A1COn glimepirid e 2mg Chronic low back pain 27 1004395 M54.50 Chronic, poorly controlled , worse with recent lifting and renovation sS/p multiple back surgeriesM idline spinal tenderness in upper backFollow ing ortho who prescribed oxycodone 10mg qidReferra l to pain mxTrial of lidocaine 5% patch Cigarette smoker 3420730 7 F17.210 1/2 pack daily smoker, or less than 1/2 pack with [id number] pack yearsconte mplative stageUsing nicotine patchesAdv ised pt to set quit date History of primary malignant neoplasm of urinary bladder 094003880 Z85.51 S/p surgery 10-12 yrs agoRpt biopsy several years ago was negativeFo [facility] Essential hypertension 10901569 I10 Chronic, elevated 153/93Pt reports various readings at homeF/u in 1 mo with BP log Restless l egs syndrome 88475867 G25.81 Chronic, stable on ropinirole 0.5mg qhs Gastroesop hageal reflux disease 593451317 K21.9 well controlled omeprazole 20mg PRN [id number] DEEPTI TIPTON APRN Family Medicine [address] [address] 11/26/2023 10:32:52 11/26/2023 14:38:05 Chronic obstructive pulmonary disease 71609098 J44.9 Discussed COPD symptoms, discussed inhaler use and safetyMedi cation instructio ns reviewed, use albuterol ONLY as neededCont inue maintenanc e inhaler use if you have onePt does/does not follow with pulmonolog yMonitor for new/worsen ing symptomsER precaution s discussedF ollow up as needed Acute uppe r respiratory infection 41260352 J06.9 Flu/COVID negative today in clinicMost likely [...] ollow up if neededER precaution s discussed [id number] EDDY JOHNSON MD Family Medicine [place] [facility] [address] [facility] [address] 01/09/2025 14:39:52 01/09/2025 15:26:00 Chronic obstructive pulmonary disease 55780102 J44.9 Chronic, advair ICS/ LABAPoorly controlled requiring albuterol inhaler/ne b multiple times weekly, but improving since incr in advair dosagehome O2 PRN - 1.5L via NC at night if O2 down to 80s,Discus sed goal 88-92%O2 92% RA today at rest Smoking cessation discussedR egimen:jacek legyCont PRN albuterol inhaler/ne bs pulmonolog y in [facility] Neuropathy due to type 2 diabetes mellitus 8783925567 43614 E11.40 A1C 7.7; 1 yr ago; pt had labs done 1-2 weeks ago downstairs will call lab Regimen:gl imepiride 4mgjardian ce 10mg Eye exam yearly advised.Fo ot exam yearly advised.Co ntinue current regimen.La bs as below in 3m Chronic low back pain 27 9384472 M54.50 Chronic,S/ p multiple back surgeriesM idline spinal tenderness in upper backtaperi ng off oxycodone 10mg qid on tizanidine + celecoxib pain mx DrCreamers cheduled for a Fentanyl IT pump on 02/19/25. Cigarette smoker 5140642 7 F17.210 1/2 pack daily smoker, or less than 1/2 pack with [email or web address] pack yearsconte mplative stagehas not been using nicotine patchesAdv ised pt to set quit date History of primary malignant neoplasm of urinary bladder 472549317 Z85.51 S/p surgery 10-12 yrs agoRpt biopsy several years ago was negativeFo [facility] [place] Essential hypertension 71078129 I10 Chronic, elevated 145/80Pt reports home BP 120/70s Regimen:am lodipine 5mglisinop ril 10mg daily Restless l egs syndrome 71893092 G25.81 Chronic, stable on ropinirole 0.5mg qhs Gastroesop hageal reflux disease 877852485 K21.9 well controlled omeprazole 20mg PRN Nausea 348586038 R11.0 likely d/t mild opioid withdrawal sPRN zofran Constipation 82449285 K5 9.00 improved with increasing fiber intake [...] avoidance of routine use of stimulant laxatives. [id number] DEEPTI TIPTON APRN [address] [address] 02/21/2025 11:32:20 02/23/2025 10:23:05 Pre-surgery evaluation 232224511 Z01.818 After speaking with surgical coordinato r, [...] minimal wheezing. Chronic low back pain 27 7403931 M54.50 G89.29 9623461876 Chronic ob structive pulmonary disease 66035926 J44.9 [id number] Discussed COPD symptoms, discussed inhaler use and safetyMedi cation instructio ns reviewed, use albuterol ONLY as neededCont inue maintenanc e inhaler use if you have onePt does/does not follow with pulmonolog yMonitor for new/worsen ing symptomsER precaution s discussedF ollow up as needed History of pneumonia [id number] Z87.01 527800 [id number] CHELA CARRANZA, [facility] Ruperto pollard [address] [facility] [place] [address] 03/01/2025 10:05:21 03/01/2025 13:12:20 Community acquired pneumonia [id number] J15.9 341360 Left lower lobe pneumoniaP atient completed a course of Rocephin and azithromyc in Acute exac erbation of chronic obstructive pulmonary disease 945944881 J44.1 601242 Patient initially was treated with Rocephin and [...] c hronic hypoxemic and hypercapnic respiratory failure [id number] 5107 J96.21 J96.22 08577949 Improving, patient wears 1-1/2 L of oxygen at night as needed. Patient was seen by Dr. Dennison he also recommende d the possibilit y of workup for obstructiv e sleep apnea after discharge. Tobacco de pendence syndrome 68371557 F17.200 94064 Recommend [place] [employer] tobacco website as a source to help with cessationc utting down, 5 cigs a day.Uses nicotine patches. Chronic pain syndrome 37 4320229 G89.4 57248 Oxycodone 10 mg p.o. every 12 hours as neededwork ing with Pain management , [place] [facility], candidate for intratheca l pain, surgery tentative, 05/28/2025 . Patient just had a test intratheca l pump this past wednesday. Patient underwent urine drug screen on Wednesday, results pending. Patient stating he is in alot of pain, and needs additional narcotics, [place] [facility] will not prescribe additional , nacotics at this time, due to active prescripti on for valium, via mail order, in [facility]. Patient requested, a receipt , for return [...] before , discussing recommenda tions. Essential hypertension 66462912 I10 36180 Blood pressure today is; 144/84Lisi nopril 20 mg p.o. daily and Norvasc 5 p.o. daily Gastroesop hageal reflux disease without esophagitis 248525725 K21.9 005727 Omeprazole 20 mg p.o. daily as needed Allergic rhinitis 664866 04 J30.9 [id number] resolvedDr . Juma added intranasal steroidsDi scharge Sudafed 60 mg p.o. twice daily Hyperglyce delon due to type 2 diabetes mellitus 0889053072 82507 E11.65 63399630 Hemoglobin A1c is an 8.2Continu e Amaryl 8 mg p.o. daily, patient is also on Jardiance 10 tab p.o. daily [id number] DEEPTI TIPTON APRN Family Medicine [address] [address] 04/05/2025 12:35:59 04/05/2025 13:22:47 Acute exacerbation of chronic obstructive pulmonary disease 366954117 J44.1 873845 Will stop Trelegy and try Breztri insteadBe [...] ollow up as needed Candidiasis of mouth 670 61290 B32.0 202867 [id number] DEEPTI TIPTON APRN Family Medicine [facility] surya [address] [facility] [address] 04/19/2025 07:57:53 04/19/2025 09:35:50 Essential hypertension 48895203 I10 83319 Reports he sees on his list that he's supposed to be taking the lisinopril , but he ran out a while back. Was prescribed by his PCP up [place], and he needs a refill. However, his [...] delon due to type 2 diabetes mellitus [id number] 48399 E11.65 0358204403 Results pulled from [facility], A1C does show 8.5% last weekPatien t [...] as directed Chronic ob structive pulmonary disease 10422341 J44.9 111312879 He's likely using an Advair, so will [...] up as needed Candidiasis of mouth 797 39114 B37.0 91594 Lozenges didn't work as well as liquid did in the past, so will send liquid instead [id number] DEEPTI TIPTON, [facility] Medicine [facility] [address] [place] [address] 05/07/2025 10:47:55 05/09/2025 10:51:08 Hyperglycemia due to type 2 diabetes mellitus 4004806549 00835 E11.65 5602164463 05/07/2025 -- Increase Lantus to twice daily, 10 units each dose based on glucose log from home. Explained the importance of taking a true FASTING glucose in the mornings 04/19/2025 -- Results pulled from [facility], A1C does show 8.5% last weekPatien t [...] henry discussedF ollow up as directed Gingivitis 08798334 K05. 10 7765637 Follows with [facility], has used Peridex before and feels like this would help with his thrush and gum discomfort . Will send. Insomnia 598063244 G47.0 0 94292550 Reports has a history of insomnia, was [...] until sleepy; repeat cycle until sleep occurs. [id number] DEEPTI TIPTON APRN Family Medicine [facility] [address] [place] [address] 06/18/2025 08:13:19 06/18/2025 08:56:12 Hyperglycemia due to type 2 diabetes mellitus [id number] 03565 E11.65 06/2025 -- 8.0%, home readings 80s-110 [...] discussedF ollow up as directed Essential hypertension 86801345 I10 91144 06/2025 -- 140/90, stable Continue amlodipine 5mg daily, lisinopril 10mg daily Discussed normal parameters , follow up if home checks fall outside of theseDiscu ssed signs/symp toms of hypertensi on to monitor forRecomme nded DASH dietFollow with eye doctor regularly, at least annuallyCOLE henry discussedC all and/or follow up if questions or concerns Hyperlipidemia 56727525 E78.5 16549165 No results on file? Insomnia 807143352 G47.0 0 97255574 06/2025 -- Reports he thinks trazodone would [...] sleep occurs. Chronic ob structive pulmonary disease 94475484 J44.9 906337151 06/2025 -- Stable, CTA today, oxygen varies [...] up as needed Chronic pain syndrome 37 7275194 G89.4 69431 Follows with pain mgmt in [place], just had pain pump implanted a couple of weeks ago, dosing being adjusted Allergic rhinitis 179250 04 J30.9 3966124 Meds as prescribed [place], and if so, may need allergy testing and further mgmt with algebra teacher Health Concerns Section Related Observation LastModified by Organization Detai ls LastModified Time None Recorded Concern Status LastModified by Organization Details LastModified Time None Recorded Advance Directives Directive None Recorded Payers Insurance Date Sequence Insurance Name Policy Number Policy Valentino Covered Member ID Valentino Member ID Guarantor Name 02/20/2025 1 [employer] (MEDICARE REPLACEMENT/A DVANTAGE - PPO) Stanislav Jacobson [id number] Stanislav Jacobson 06/17/2025 1 [employer] (MEDICARE REPLACEMENT/A DVANTAGE - HMO) [id number] Stanislav Jacobson [id number] Stanislav Jacobson 02/20/2025 1 [employer] (HMO) [id number] Stanislav Jacobson [id number] Stanislav Jacobson 02/20/2025 1 [place] Stanislav Jacobson [id number] Stanislav Jacobson 02/20/2025 2 [place] [facility] Stanislav Jacobson [id number] Stanislav Jacobson Notes Date Note Type [...] follow-up visi Patient was admitted to [facility] on 02/15/2025 and discharged on 02/21/2025. Patient [...] to baseline. CHELA CARRANZA NP [address], [place], [address], [facility] 03/01/2025 11:57:25 04/05/2025 text/html ROS as [...] his surgery. DEEPTI TIPTON APRN [address], [place], [address], [facility] 04/05/2025 14:31:03 04/19/2025 text/html ROS as noted in the HPI Patient is a 74yo male, presenting for discussion labs and meds. Reports his pain pump implant surgery was canceled because of his A1C being too high. He reports was done at [facility], ordered by his surgeon, and A1C was 8.5%. States he also continues to have issues with his COPD. He went back to his Advair because he states the other inhaler causes thrush and doesn't help his breathing. He is wheezing today. He does use oxygen at home as needed. DEEPTI TIPTON APRN [address], [place], [address], [facility] 04/19/2025 13:29:30 05/07/2025 text/html ROS as noted in the [facility] Patient is a 74yo male, presenting for [...] the night. DEEPTI TIPTON APRN [address], [place], [address], [facility] 05/07/2025 16:21:14 06/18/2025 text/html ROS as [...] Doing Lantus twice daily. DEEPTI TIPTON APRN [address], [place], [address], [facility] 06/18/2025 09:46:36
== END 2025-09-13 14:48 | disposition home or self-care (01) ==
PROVIDERS: PCP Family Medicine; Visit Provider Anesthesiology
DX: Z45.1 Encounter for adjustment and management of infusion pump (principal)
CPT/HCPCS: 62370

== ENCOUNTER → 2025-09-13 14:03 | Outpatient (BNVA) | payer MEDICARE, MEDICAID, SELFPAY | PROVIDERS: PCP Family Medicine; Visit Provider Anesthesiology | DX: Z45.1 Encounter for adjustment and management of infusion pump (principal); M96.1 Postlaminectomy syndrome, not elsewhere classified; G89.4 Chronic pain syndrome; Z79.891 Long term (current) use of opiate analgesic | CPT/HCPCS: 62370 ==

== ENCOUNTER 2025-09-18 06:18 | Outpatient (REF) | payer MEDICARE, MEDICAID, SELFPAY ==
--- OUTSIDE RECORDS SUMMARY | 2025-09-17 08:26 | XMS_ITS | Continuity of Care Document ---
Author Organization [facility] Address [address] [place] [address] Care Team Providers Care Lumber Stacker Driver Name Role Phone Stanislav Olivares DO Unavailable Unavailable Allergies, Adverse Reactions, Alerts Substance Reaction Status Criticality morphine Other Active No Information Medications Medication Instructions Dosage Effective Dates (start - stop) Status Comments fentanyl citrate (bulk) 100 % powder for intrathecal route - Active Fentanyl 125 mcg/ml per 40 mL. Appt date XXX Delivery date: XXX mupirocin 2 % topical ointment apply by [...] VISIT, EST Patient Left Without Being Seen OFFICE/OUTPATIENT VISIT, EST OFFICE/OUTPATIENT VISIT, EST OFFICE/OUTPATIENT VISIT, NEW DRUG TEST PRSMV CHEM ANLYZR Advance Directives Directive Yes / No Effective Date File Name No Information Encounters Encounter Description Practice Location Reason(s) For Visit Diagnoses Date Provider Providers Copied on Encounter [facility], [address], [place], [place], [id number] , [facility] No Information Marshall Colorado. [address], [address], [place], [place], [address], [place]. tel:[phone] OFFICE/OUTPA TIENT VISIT, EST [facility], [address], [place], [place], [address] , [facility] low back pain (chief complaint) Encounter for adjustment and management of infusion pumpOther specified diabetes mellitus with hyperglycemiaOt her spondylosis, lumbar regionPostlamin ectomy syndrome, not elsewhere classifiedChron ic pain syndromeLong term (current) use of opiate analgesicRadicu lopathy, lumbar regionHTN 5 Beni Richa. [address], [place], [address], [place]. tel:[phone] Referring Provider: Deisy Infante [address], [place], [address]. tel:[phone] OFFICE/OUTPA TIENT VISIT, EST [facility], [address], [place], [place], [address] , [facility] low back pain (chief complaint) Knee Pain (chief complaint) Encounter for adjustment and management of infusion pumpOther specified diabetes mellitus with hyperglycemiaOt her spondylosis, lumbar regionPostlamin ectomy syndrome, not elsewhere classifiedRadic ulopathy, lumbar regionHTNChroni c pain syndromeLong term (current) use of opiate analgesic 5 Beni Richa. [address] [facility] [address], [place], [address], [place]. tel:[phone] Referring Provider: Deisy Infante [address], [place], [address]. tel:[phone] OFFICE/OUTPA TIENT VISIT, EST [facility], [address], [place], [place], [address] , [facility] low back pain (chief complaint) Encounter for adjustment and management of infusion pumpOther specified diabetes mellitus with hyperglycemiaOt her spondylosis, lumbar regionPostlamin ectomy syndrome, not elsewhere classifiedRadic ulopathy, lumbar regionHTNChroni c pain syndromeLong term (current) use of opiate analgesicEncoun ter for removal of stapleGastro-es ophageal reflux disease without esophagitis 5 Beni Richa. [address], [place], [place], [address], [place]. tel:[phone] Referring Provider: Deisy Infante [address], [place], [address]. tel:[phone] [facility], [address], [place], [place], [address] , [facility] low back pain (chief complaint) Knee Pain (chief complaint) Postlaminectomy syndrome, not elsewhere classifiedRadic ulopathy, lumbar regionOther spondylosis, lumbar regionChronic pain syndromeGERD without esophagitisHTNL eric term (current) use of opiate analgesicEncoun ter for adjustment and management of infusion pumpEncounter for change or removal of surgical wound dressing 5 Navjot Blanca. [address] [place], [place], [address], [place]. tel:[phone] Referring Provider: Marah Sandoval, [address], [place], [address]. tel:[phone] [facility], [address], [place], [place], [address] , [facility] No Information 5 Ivy Gerber. [address], [place], [address], [place]. tel:[phone] [facility], [address], [place], [place], [address] , [facility] Chronic pain syndromePostlam inectomy syndrome, not elsewhere classifiedRadic ulopathy, lumbar region 5 Marshall Colorado. [address], [address], [place], [address], [place]. tel:[phone] OFFICE/OUTPA TIENT VISIT, EST [facility], [address], [place], [place], [address] , [facility] Knee Pain (chief complaint) low back pain (chief complaint) Postlaminectomy syndrome, not elsewhere classifiedChron ic pain syndromeLong term (current) use of opiate analgesicHTNTyp e 2 diabetes mellitus without complicationsHy percholesterole miaRestless legs syndromeInsomni aGERD without esophagitisOthe r spondylosis, cervical region 5 Rayside LaMisa. [address], [address], [place], [address], [place]. tel:[phone] Referring Provider: Marah Sandoval, [address], [place], [address]. tel:[phone] OFFICE/OUTPA TIENT VISIT, EST [facility], [address], [place], [place], [address] , [facility] low back pain (chief complaint) Postlaminectomy syndrome, not elsewhere classifiedChron ic pain syndromeLong term (current) use of opiate analgesicHTNTyp e 2 diabetes mellitus without complicationsHy percholesterole miaGERD without esophagitisRest less legs syndromeInsomni aOther spondylosis, cervical region 5 Rayside LaMisa. [address], [address], [place], [address], [place]. tel:[phone] Referring Provider: Marah Sandoval, [address] [facility], [place], [address]. tel:[phone] OFFICE/OUTPA TIENT VISIT, EST [facility], [address], [place], [place], [address] , [facility] Knee Pain (chief complaint) Other spondylosis, cervical regionPostlamin ectomy syndrome, not elsewhere classifiedChron ic pain syndromeLong term (current) use of opiate analgesicHTNTyp e 2 diabetes mellitus without complicationsHy percholesterole miaGERD without esophagitisRest less legs syndromeInsomni a 5 Rayside LaMisa. [address], [address], [place], [address], [place]. tel:[phone] Referring Provider: Marah Sandoval, [address], [place], [address]. tel:[phone] [facility], [address], [place], [place], [address] , [facility] No Information Apr- 5 Hudson Crystal. [address], [place], [address], [place]. tel:[phone] Referring Provider: Marah Sandoval, [address], [place], [address]. tel:[phone] OFFICE/OUTPA TIENT VISIT, EST [facility], [address], [place], [place], [address] , [facility] Follow Up for Knee Pain (chief complaint) Follow Up for Lower Back Pain (chief complaint) Postlaminectomy syndrome, not elsewhere classifiedChron ic pain syndromeLong term (current) use of opiate analgesicHTNTyp e 2 diabetes mellitus without complicationsHy percholesterole miaGERD without esophagitisRest less legs syndrome Feb-2 5 Rayside Desi. [address] [facility] [address], [place], [address], [place]. tel:[phone] Referring Provider: Marah Sandoval, [address], [place], [address]. tel:[phone] [facility], [address], [place], [place], [address] , [facility] Chronic pain syndromePostlam inectomy syndrome, not elsewhere classifiedRadic ulopathy, lumbar region Feb- 5 Marshall Colorado. [address], [address], [place], [address], [place]. tel:[phone] OFFICE/OUTPA TIENT VISIT, EST [facility], [address], [place], [place], [address] , [facility] Knee Pain (chief complaint) low back pain (chief complaint) Postlaminectomy syndrome, not elsewhere classifiedRadic ulopathy, lumbar regionChronic pain syndromeInsomni aOther specified diabetes mellitus with hyperglycemiaLo ng term (current) use of opiate analgesic Apr- 5 Vecchione Analilia. [address], [address], [place], [address], [place]. tel:[phone] [facility], [address], [place], [place], [address] , [facility] No Information 0 5 Beni Richa. [address] [facility], [address], [place], [address], . tel:[phone] OFFICE/OUTPA TIENT VISIT, EST [facility], [address], [place], [place], [address] , [facility] low back pain (chief complaint) Knee Pain (chief complaint) Postlaminectomy syndrome, not elsewhere classifiedChron ic pain syndromeHTN 5 Hudson Crystal. [address], [address], [place], [address], [place]. tel:[phone] Referring Provider: Marah Sandoval, [address] [place] [address] [address], [place], [place], [facility] tel:[phone] OFFICE/OUTPA TIENT VISIT, EST [facility], [address], [place], [place], [address] , [facility] Knee Pain (chief complaint) back pain (chief complaint) Other spondylosis, lumbar regionPostlamin ectomy syndrome, not elsewhere classifiedRadic ulopathy, lumbar regionHTNChroni c pain syndromeLong term (current) use of opiate analgesicOther specified diabetes mellitus with hyperglycemia 5 Beni Richa. [address] [facility], [address], [place], [address], [place]. tel:[phone] OFFICE/OUTPA TIENT VISIT, NEW [facility], [address], [place], [place], [address] , [facility] low back pain (chief complaint) Knee Pain (chief complaint) Other spondylosis, lumbar regionPostlamin ectomy syndrome, not elsewhere classifiedRadic ulopathy, lumbar regionHTNDiabet es insipidusChroni c pain syndromeOther spondylosis, thoracic regionOther spondylosis, cervical regionLong term (current) use of opiate analgesic 5 Marshall Colorado. [address], [address], [place], [place], [address], [place]. tel:[phone] Family History Family Member Type Diagnosis Age At Onset Father Problem (finding) Family history of Alzhe shavonne's disease Mother Problem (finding) Family history of Arthr itis Father Problem (finding) Family history of Arthr itis Father Problem (finding) Family history of Demen tia Payers Payer name Insurance type Covered republican ID Authoriza tishereen(s) [employer] Medicare Assure HMO [place] [id number] Social History Type Description Quantity Date Captured Comments Alcohol Use Details Unknown Caffeine Use Details Unknown Tobacco Use Status No Information Smoking Status No Information Sex Male Chief Complaint And Reason For Visit No Information Reason For Referral Reason For Referral No Information Plan Of Treatment Date Type Action Status Goal Tobacco cessation counseling completed Referral Ordered: Family Medicine (related to Postlaminectomy syndrome, not elsewhere classified) ordered Appointment Stanislav Jacobson 07/20 ML BOOKED History Of Present Illness Encounter Date [...] rest. Functional Status Date Functional Assessmen t No Information Instructions Date Instruction Additional Infor damon Advised to follow up with [...] reports he is leaving on today to [place] where he snowbirds from. He was advised that oral opiates will not be sent without an office visit so he is either to return to the office for refills or establish care with pain management while he is in [place] 6 months out of the year. Patient [...] not established care with pain management in [place] who can manage his pump, we can attempt to send a referral to [facility] to see if his insurance will [...] AND DISCONTINUED ITP IS TITRATED. Related to exterminator termite (current) use of opiate analgesic Consider Lumbar [...] AND DISCONTINUED ITP IS TITRATED. Related to exterminator termite (current) use of opiate analgesic Advised to follow up with PCP as scheduled. Related to HTN We will continue Fen tanyl intrathecal therapy per protocol. We will continue Oxycodone 10 mg QID PRN for breakthrough pain as ITP is titrated. PATIENT IS ADVISED ORAL OPIATES WILL BE WEANED AND DISCONTINUED ITP IS TITRATED. Patient reports he is leaving on 06/25/2025 to [place] where he snowbirds from. Advised oral opiates will not be sent without an office visit so he is either to return to the office for refills or establish care with pain management while he is in [place] 6 months out of the year. Patient [...] not established care with pain management in [place] who can manage his pump, we can attempt to send a referral to [facility] to see if his insurance will [...] clean dry and intact. Site was cleaned. Customer Service Engineer applied benzoin tincture, removed abram, applied bacitracin [...] AND DISCONTINUED ITP IS TITRATED. Related to exterminator termite (current) use of opiate analgesic Advised to [...] others cannot easily access them. Related to care home (current) use of opiate analgesic UDS risk [...] others cannot easily access them. Related to care home (current) use of opiate analgesic UDS risk [...] environment in an opioid emergency. Related to exterminator termite (current) use of opiate analgesic UDS risk [...] and destroyed at a depository. Related to exterminator termite (current) use of opiate analgesic He is scheduled for fentanyl it pump trial w/ dr. Olivares. -pending PCP clearance- Dr. Yost in [place].-psych clearance on file. Advised that if we are going to proceed with IT pump implant we would need uds showing negative for any benzo' and A1C level needs to be 8% or below.Patient educated on the risks of taking benzodiazepines while taking prescribed opioids due to risk for WATER SKI ASSEMBLER and respiratory depression and also on associated with an overdose. advised that no oxycodone would be prescribed until UDS is negative for benzo's. Related to Postlaminectomy syndrome, not elsewhere classified His last A1C is 8.6. Advised that we need this to be 8.0 or lower prior to proceeding with IT pump implant.He will follow up with PCP, Dr. Yost in [place] and still needs PCP clearance. Related to [...] of benzodiazepines and any metabolite Related to exterminator termite (current) use of opiate analgesic Says that the tizani dine does not work well. Related to Radiculopathy, lumbar region Mar-18-2025 Case was discussed w lindsey Olivares. He [...] continue non opioid treatment options. Related to care home (current) use of opiate analgesic Consider Lumbar [...] taking prescribed opioids due to risk for WATER SKI ASSEMBLER and respiratory depression and also on associated [...] or drug to drug interactions. Related to exterminator termite (current) use of opiate analgesic Consider Lumbar [...] not elsewhere classified Assessments Type Assessment Date No Information Patient Care Teams Name Effective Dates (start - stop) Status Members No Information
--- OUTSIDE RECORDS SUMMARY | 2025-09-18 06:20 | XMS_ITS | Data Portability ---
Author Organization [facility], Family [facility] [place] Address [address] [place] [address] Care Team Providers Care Dynamotor Repairer Name Role Phone EDDY JOHNSON Primary Care Provider [phone] Assessment No assessment recorded. Plan of Treatment Reminders Order Date Submit Date Provider Last Modified By Organization Details Last Modified Time Details Appointments Establ dariel Lai t 30 2024 08:00A Chris JOHNSON MD Not available Not available Not available Lab vitami n D, 25-hyd sharon, total, serum 2024 025 [facility] (Lab), [address] [place] [address], [id number], 06/18/2025 08:55:20 vitami n B12, serum 2024 025 [facility] (Lab), [address] [place] [address], [id number], 06/18/2025 08:55:20 folate , serum 2024 025 [facility] (Lab), [address] [place] [address], [address], 06/18/2025 08:55:19 magnes ium, serum or plasma 2024 025 [facility] (Lab), [address] [place] [address], [id number], 06/18/2025 08:55:19 CBC w/ diff 2024 025 [facility] ([facility]), [address] [place] [address], [id number], 06/18/2025 08:55:20 TSH, ultra- sensit felix, serum 2024 025 [facility] (Lab), [address] [place] [address], [address], 06/18/2025 08:55:20 T4, free, serum 2024 025 [facility] ([facility]), [address] [place] [address], [address], 06/18/2025 08:55:19 lipid panel, serum 2024 025 [facility] ([facility]), [address] [place] [address], [address], 06/18/2025 08:55:19 HbA1c (hemog lobin A1c), blood 2024 025 [facility] (Lab), [address] [place] [address], [address], 06/18/2025 08:55:19 CMP, serum or plasma 2024 025 [facility] ([facility]), [address] [place] [address], [address], 06/18/2025 08:55:20 urinal ysis comple te, reflex cultur e 2024 025 [facility] ([facility]), [address] [place] [address], [address], 06/18/2025 08:55:20 microa lbumin , urine 2024 025 [facility] ([facility]), [address] [place] [address], [address], 06/18/2025 08:55:20 Referral pulmon ologis t referr al 2024 025 nida Love MD, [address] [place] [address] [facility], [place], [address], 06/20/2025 08:55:11 Procedures None record ed. Surgeries None record ed. Imaging None record ed. Medication Orders Lantus Solost ar U-100 Insuli n 100 unit/m L (3 mL) subcut aneous pen 2024 025 [facility] [place], [address], 06/18/2025 08:45:55 trazod one 50 mg tablet 2024 025 [facility] [place], [address], 05/07/2025 11:29:02 Peride x 0.12 % mouthw lyndsay 2024 025 [facility] [place], [address], 06/18/2025 09:11:12 nystat in 100,00 0 unit/m L oral suspen ronn 2024 025 [facility], [address] [place], [address], 04/19/2025 09:10:01 lisino pril 10 mg tablet 2024 025 [facility] [place], [address], 04/19/2025 09:03:48 Advair Diskus 250 mcg-50 mcg/do se powder for inhala tion 2024 025 [facility], [address] [place], [address], 04/19/2025 09:10:05 albute rol sulfat e 2.5 mg/3 mL (0.083 %) soluti on for nebuli zation 2024 025 [facility], [address] [place], [address], 04/19/2025 09:10:05 albute rol sulfat e 2.5 mg/3 mL (0.083 %) soluti on for nebuli zation 2024 025 [email or web address] iz Not available 04/24/2025 06:41:35 shona ukast 10 mg tablet 2024 025 [facility], [address] [place], [address], 04/19/2025 09:33:00 OneTou ch Verio test strips [address] [facility] [address] [facility], [address] [place], [address], 04/30/2025 08:30:24 Lantus Solost ar U-100 Insuli n 100 unit/m L (3 mL) subcut aneous pen [address] [facility] [address] [facility], [address] [place], [address], 06/18/2025 08:43:00 clotri mazole 10 mg jaylin 2024 025 [facility], [address] [place], [address], 04/19/2025 08:22:07 Breztr i Aerosp here 160 mcg-9m cg-4.8 mcg/ac tuatio n HFA aeroso l inhale r 2024 025 [facility], [address] [place], [address], 05/07/2025 11:01:03 azithr omycin 250 mg tablet 2024 025 [facility], [address] [place], [address], 04/19/2025 08:21:44 Patient TargetsNo targets recorded. Patient Instructions Encounter Date Encounter Id Patient Instructions Last Modified By Organization Details Last Modified Time 03/01/2025 [id number] health literacy assessment* [email or web address] Not available 03/01/2025 11:52:19 04/05/2025 [id number] health literacy assessment* Not available 04/05/2025 13:21:08 candidiasis: car e instructions Not available 04/05/2025 13:21:08 04/19/2025 [id number] health literacy assessment* Not available 04/19/2025 09:03:38 05/07/2025 [id number] health literacy assessment* Not available 05/07/2025 11:25:37 06/18/2025 [id number] health literacy assessment* Not available 06/18/2025 08:45:44 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 Referral for A cute exacerbation of chronic obstructive pulmonary disease copd, seen in hospital Referring Physician: Chela Carranza, Family Medicine, Encounter Date: 03/01/2025 Results Created Date Observation Date Name Description Value Unit Range Abnormal Flag Note LastModifiedBy Organization Detail LastModifiedTime 02/22/2002/21/2025 healt h liter acy asses sment * Brief Health Literacy Results Normal Not Available [facility] [address], [address], 02/21/2025 11:39:55 03/01/20 25 03/01/2025 healt h liter acy asses sment * Brief Health Literacy Results Normal Not Available [facility] [address], [address], 03/01/2025 08:13:35 04/05/20 25 04/05/2025 healt h liter acy asses sment * Brief Health Literacy Results Normal Not Available [address], [address], 04/05/2025 12:53:39 04/19/20 25 04/19/2025 healt h liter acy asses sment * Brief Health Literacy Results Normal Not Available [address], [address], 04/19/2025 08:26:11 05/07/20 25 05/07/2025 HEMOG LOBIN A1C Hb A1C % res 8.1 % 4.0-6. 0 high Not Available [facility] (Lab) [address] [place], [address], 05/07/2025 13:36:01 05/07/20 25 05/07/2025 HEMOG LOBIN [...] i.org /10.2 337/d c24-S 002 Not Available [facility] (Lab) [address] [place], [address], 05/07/2025 13:36:01 05/07/20 25 05/07/2025 healt h liter acy asses sment * Brief Health Literacy Results Normal Not Available [address], [address], 05/04/2025 14:33:17 05/29/20 25 05/29/2025 HEMOG LOBIN A1C Hb A1C % res 8.0 % 4.0-6. 0 high Not Available [facility] (Lab) [address] [place], [address], 05/29/2025 16:43:41 05/29/20 25 05/29/2025 HEMOG LOBIN [...] i.org /10.2 337/d c24-S 002 Not Available [facility] (Lab) [address] [place], [address], 05/29/2025 16:43:41 06/18/20 25 06/18/2025 healt h liter acy asses sment * Brief Health Literacy Results Adequa te Not Available [facility] [address], [place], [address], 06/15/2025 14:28:03 Result Notes None recorded. Problems Name Problem SNOMED Code Status Onset Date Resolution Date Notes Provider Name and Address Organization Details Recorded Time Acute kidney injury [id number] Marvin Hernandez [facility] 5 11:37:43 Acute exacerbati on of chronic obstructiv e pulmonary disease 744938651 Active DEEPTI TIPTON, ENVIRONMENTAL AUDITOR [address] [place], [address], [facility] 5 14:30:43 Respirator y acidosis and metabolic alkalosis 787463978 Marvin anne, [facility] 11:37:43 Dyspnea 102209889 Marvin Hernandez [facility] 11:37:43 Joint swelling 528210713 Marvin anne [facility] 5 11:37:43 Laceration of thumb 465026752 Active Ana Hernandez null, [facility] 5 11:37:43 Left lower zone pneumonia 443509597 Active Ana Hernandez null, [facility] 5 11:37:43 Hypoxia 078136425 Active Ana Hernandez null, [facility] 5 11:37:43 Acute-on-c hronic respirator y failure 76989758 Active CHELA CARRANZA NP [address] [place], [address], [facility] 5 20:24:37 Acute respirator y acidosis 95959123 Active [facility] 5 11:37:43 Congestion of nasal sinus 11972005 [facility] 5 11:37:43 Mixed hyperlipid emia 356967068 Active 2022 Not Available [facility] 4 00:47:27 Tobacco dependence syndrome 58966975 Active 2022 CHELA CARRANZA NP [address] [place], [address], [facility] 5 20:27:42 Chronic obstructiv e pulmonary disease 50231740 Active 2022 DEEPTI TIPTON APRN [address] [place], [address], [facility] 5 10:02:27 Chronic low back pain 280115944 Active 2022 DEEPTI TIPTON APRN [address] [place], [address], [facility] 5 10:00:43 Cigarette smoker 57453955 Active 2022 Not Available [facility] 4 00:47:27 Pneumonia 423505695 Active 2022 Not Available [facility] 4 00:47:27 Type 2 diabetes mellitus 64400917 Active 2022 Not Available [facility] 4 00:47:27 Neuropathy due to type 2 diabetes mellitus 413680898393 106 Active 2022 Not Available [facility] 4 00:47:27 Essential hypertensi on 20264880 Active 2022 CHUCHO HALE1 N [facility], [place], [place], [address] [place] [address], [facility] 5 20:28:46 Restless legs syndrome 21993013 Active 2022 Not Available [facility] 4 00:47:27 Gastroesop hageal reflux disease 781548510 Active 2022 Not Available [facility] 4 00:47:27 Acute upper respirator y infection 09871588 Active 2023 Not Available [facility] 4 00:47:27 Nausea 389842474 Active 2024 MD Nia RUEDA [address] [place], [place], [address] [place] [address], [facility] 5 15:12:20 Constipati on 54399684 Active 2024 EDDY JOHNSON MD [address] [place], [place], [address] [place] [address], [facility] 5 15:20:09 Community acquired pneumonia 020225596 Active 2024 CHUCHO HALE N [facility], [place], [address] [place] [address], [facility] 5 20:24:06 Acute on chronic hypoxemic and hypercapni c respirator y failure 208218218598 07 Active 2024 CHUCHO HALE N [facility], [place], [address], [facility] 5 20:26:15 Chronic pain syndrome 222882421 Active 2024 CHUCHO HALE N [facility], [place], [address], [facility] 5 20:27:59 Diabetic peripheral neuropathy 871267284 Active 2024 CHUCHO HALE N [facility], [place], [address], [facility] 5 20:28:12 Gastroesop hageal reflux disease without esophagiti s 546393629 Active 2024 CHUCHO HALE N [facility], [place], [address], [facility] 5 20:29:08 Allergic rhinitis 10393916 Active 2024 [place], [address], [facility] 5 09:46:02 Hyperglyce delon due to type 2 diabetes mellitus 579578629610 109 Active 2024 EZIO DEE [facility], [place], [address], [facility] 5 16:20:59 Candidiasi s of mouth 99529477 Active [address] [place], [address], [facility] 5 11:17:40 Gingivitis 15227221 Active 2024 [place], [address], [facility] 5 11:24:16 Insomnia 804446888 Active [address] [place], [address], [facility] 5 11:26:33 Hyperlipid emia 82829214 Active 2024 [place], [address], [place] [facility] 5 08:47:23 Problem Notes None recorded. Procedures Surgical History Date Name Laterality Status Provider Name and Address Organization Details Recorded Time 0 Self Management Goals completed Delores Dowd [facility] 03/28/2020 10:17:11 Imaging Results None recorded. Procedure Notes None recorded. Medical Equipment None Reported. Allergies Allergen ID Allergen Name Allergen Category Reaction Reaction Severity Criticality Documentation Date Start Date Code Code System Note Provider Name and Address Organization Details Recorded Time 94328 morphine medicatio n flushing moderate Not available 10/14/2023 7052 RxNorm Pedro anne, [facility] 5 14:55:28 Medications Name Sig Start Date [...] 01/09 completed Prescrib ed by PCP in [place] Not Available Not Available Not Available amoxicill [...] Available No t Available [facility] spacer FOR USE WITH INHALER [...] Last Updated DateTime 165.1 cm 33.1 kg/m2 45738.1 6 g 97.2 [degF] 18 /min 10 % 10 % 144/84 mm[Hg] Natividad Reynaga [facility] 10:38:53 Date Recorded Oxygen saturation Oxygen saturation in Arterial blood by Pulse oximetry Provider Name and Address Organization Details Last Updated DateTime 04/05/2025 91 % 91 % DEEPTI TIPTON, ENVIRONMENTAL AUDITOR [address] [place], [address], [facility] 04/05/2025 13:10:57 Date Recorded Body height Body mass index (BMI) Body weight Respiratory rate Heart rate Body temperature Systolic And Diastolic Provider Name and Address Organization Details Last Updated DateTime 165.1 cm 33.4 kg/m2 24598.0 7 g 16 /min 98 /min 97 [degF] 130/88 mm[Hg] Ana Hernandez [facility] 12:56:50 Date Recorded Body height Body mass index (BMI) Body weight Respiratory rate Body temperature Oxygen saturation Oxygen saturation in Arterial blood by Pulse oximetry Heart rate Systolic And Diastolic Provider Name and Address Organization Details Last Updated DateTime 165.1 cm 33.7 kg/m2 28791.5 3 g 18 /min 97.3 [degF] 93 % 93 % 86 /min 136/84 mm[Hg] Angella AngelaKnight [facility] 5 08:20:16 Date Recorded Body height Body mass index (BMI) Body weight Respiratory rate Body temperature Heart rate Oxygen saturation Oxygen saturation in Arterial blood by Pulse oximetry Systolic And Diastolic Provider Name and Address Organization Details Last Updated DateTime 5 165.1 cm 34 kg/m2 12569.2 8 g 20 /min 97 [degF] 91 /min 91 % 91 % 130/78 mm[Hg] Ana Hernandez [facility] 5 11:00:01 Date Recorded Body height Body mass index (BMI) Body weight Respiratory rate Body temperature Oxygen saturation Oxygen saturation in Arterial blood by Pulse oximetry Heart rate Systolic And Diastolic Provider Name and Address Organization Details Last Updated DateTime 5 165.1 cm 33.4 kg/m2 38318.6 3 g 20 /min 97.3 [degF] 87 % 87 % 97 /min 140/90 mm[Hg] Ana Hernandez [facility] 5 08:22:16 Social History Question Answer Notes LastModified by Organizat ion Details LastModified Time Tobacco Smoking Status Current Some Day Smoker Cedric anne [facility] 10/14/2023 13:19:39 Are You Blind Or Do You Have Difficulty Seeing? No [email or web address] Information not available 04/19/2025 What Is Your Level Of Caffeine Consumption? Occasional A Pot Of Coffee Most Of The Time Information not available 04/19/2025 Are You Deaf Or Do You Have Serious Difficulty Hearing? No [email or web address] Information not available 04/19/2025 What Was The Date Of Your Most Recent Tobacco Screening? 06/18/2025 [email or web address] Information not available 06/18/2025 How Many Children Do You Have? 0 [email or web address] Information not available 04/19/2025 What Is Your Relationship Status? Single Information not available 04/19/2025 At What Age Did You Start Smoking Tobacco? [age] Yrs Old oscar Information not available 03/01/2025 How Much Tobacco Do You Smoke? 0.5 PPD Information not available 10/14/2023 How Many Years Have You Smoked Tobacco? 50 52 Yrs [email or web address] Information not available 03/01/2025 Do You Have Difficulty Walking Or Climbing Stairs? No Information not available 04/19/2025 Sex: Unknown Functional Status Question Answer Note LastModified by Organizat ion Details LastModified Time Do you or have you ever used any other forms of tobacco or nicotine? Yes Information not available 10/14/2023 What is your level of alcohol consumption? None [email or web address] Information not available 04/19/2025 Do you or have you ever used smokeless tobacco? Never used smokeless tobacco Nicotine Patch Information not available 10/14/2023 Are you currently employed? No DISABLE [email or web address] Information not available 04/19/2025 Are you able to walk independently without assistance or assistive devices? YESWOREST [email or web address] Information not available 04/19/2025 Do you have difficulty doing errands alone? No [email or web address] Information not available 04/19/2025 Are you able to care for yourself independently? Yes [email or web address] Information not available 04/19/2025 Do you or have you ever used e-cigarettes or vape? Never used electronic cigarettes Information not available 10/14/2023 Mental Status Question Answer Note LastModified by Organization D etails LastModified Time Do you have difficulty concentrating, remembering or making decisions? No [email or web address] Information no t available 04/19/2025 Family History [...] mcg/0.3 mL dose 12/16/2020 completed Ana Hernandez [facility] 02/21/2025 11:37:49 COVID-19, mRNA, LNP-S, PF, 30 mcg/0.3 mL dose 01/17/2021 completed Ana anne [facility] 02/21/2025 11:37:50 Tdap 02/16/2020 completed Ana anne, [facility] 02/21/2025 11:37:50 Past Encounters Encounter ID Performer Location Encounter Start Date Encounter Closed Date Diagnosis/Indication Diagnosis SNOMED-CT Code Diagnosis ICD10 Code Diagnosis IMO Codes Diagnosis Note [id number] [facility] POOLE [facility] [address] [place] [address] 03/25/2020 15:10:57 03/25/2020 15:11:29 Exposure to viral disease 5563804200 17017 Z20.828 [id number] [facility]DRA LIPSCOMB [facility] [address] [place] [address] 03/27/2020 12:58:36 04/09/2020 08:41:59 Exposure to viral disease 6942436601 09779 Z20.828 Pt notified COVID-19 not detected on recent nasopharyn geal swab. Pt verbalizes understand ing and will monitor for any s/sx of infection. Pt advised to continue to practice social distancing and follow CDC guidelines , including the use of face coverings in public, frequent hand washing and sanitizing of high touch surfaces. All questions answered to pt's satisfacti on [id number] EDDY JOHSNON MD Family Medicine [facility] [address] [facility] [place] [address] 10/14/2023 13:07:31 10/15/2023 08:32:54 Chronic obstructive pulmonary disease 15018582 J44.9 Chronic, advair ICS/ LABAPoorly controlled , [...] bsHas pulmonolog y appt in February in [facility], none here Chronic low back pain 27 7202035 M54.50 S/p multiple back surgeriesF olmichael ortho who prescribed oxycodone 10mg qid Cigarette smoker 0562823 7 F17.210 1/2 pack daily ldnihw83 pack yearsconte mplative stageUsing nicotine patches History of primary malignant neoplasm of urinary bladder 777666867 Z85.51 S/p surgery 10-12 yrs agoRpt biopsy several years ago was negativeFo jacky urology in [facility] Pneumonia 028217483 J18. 9 Recent PNA was placed on 2 courses of abx (doxycylin e) in [facility] and 1 course of prednisone . [...] Neuropathy due to type 2 diabetes mellitus 3458651413 64642 E11.40 Pt not sure what meds he takes for DMAsked pt to bring in meds Essential hypertension 63361672 I10 Lisinopril 5mg Restless l egs syndrome 99149515 G25.81 ropinirole 0.5mg qhs Gastroesop hageal reflux disease 838466950 K21.9 well controlled omeprazole 20mg PRN [id number] EDDY JOHNSON MD Family Medicine [address] [address] 11/23/2023 13:42:22 11/23/2023 16:35:00 Chronic obstructive pulmonary disease 49778407 J44.9 Chronic, advair ICS/ LABAPoorly controlled requiring [...] bsHas pulmonolog y appt in February in [facility], none hereAdvise d to f/u pulm referral [place] Pneumonia 723283082 J18. 9 PNA resolved with course of augmentin + AZTProcal was negAdvised pt no need to obtain CXR Neuropathy due to type 2 diabetes mellitus 4967268201 94402 E11.40 Check A1COn glimepirid e 2mg Chronic low back pain 27 5091789 M54.50 Chronic, poorly controlled , worse with recent lifting and renovation sS/p multiple back surgeriesM idline spinal tenderness in upper backFollow ing ortho who prescribed oxycodone 10mg qidReferra l to pain mxTrial of lidocaine 5% patch Cigarette smoker 6325046 7 F17.210 1/2 pack daily smoker, or less than 1/2 pack with lapivhr43 pack yearsconte mplative stageUsing nicotine patchesAdv ised pt to set quit date History of primary malignant neoplasm of urinary bladder 018793533 Z85.51 S/p surgery 10-12 yrs agoRpt biopsy several years ago was negativeFo [facility] in [facility] Essential hypertension 98776700 I10 Chronic, elevated 153/93Pt reports various readings at homeF/u in 1 mo with BP log Restless l egs syndrome 46244755 G25.81 Chronic, stable on ropinirole 0.5mg qhs Gastroesop hageal reflux disease 892805486 K21.9 well controlled omeprazole 20mg PRN [id number] DEEPTI TIPTON APRN Family Medicine [address] [address] 11/26/2023 10:32:52 11/26/2023 14:38:05 Chronic obstructive pulmonary disease 70293180 J44.9 Discussed COPD symptoms, discussed inhaler use and safetyMedi cation instructio ns reviewed, use albuterol ONLY as neededCont inue maintenanc e inhaler use if you have onePt does/does not follow with pulmonolog yMonitor for new/worsen ing symptomsER precaution s discussedF ollow up as needed Acute uppe r respiratory infection 96123939 J06.9 Flu/COVID negative today in clinicMost likely [...] ollow up if neededER precaution s discussed [id number] EDDY JOHNSON MD Family Medicine [place] [facility] [address] [facility] [place] [address] 01/09/2025 14:39:52 01/09/2025 15:26:00 Chronic obstructive pulmonary disease 22513343 J44.9 Chronic, advair ICS/ LABAPoorly controlled requiring albuterol inhaler/ne b multiple times weekly, but improving since incr in advair dosagehome O2 PRN - 1.5L via NC at night if O2 down to 80s,Discus sed goal 88-92%O2 92% RA today at rest Smoking cessation discussedR egimen:jacek legyCont PRN albuterol inhaler/ne bs pulmonolog y in [facility] Neuropathy due to type 2 diabetes mellitus 5905120052 87535 E11.40 A1C 7.7; 1 yr ago; pt had labs done 1-2 weeks ago downstairs will call lab Regimen:gl imepiride 4mgjardian ce 10mg Eye exam yearly advised.Fo ot exam yearly advised.Co ntinue current regimen.La bs as below in 3m Chronic low back pain 27 3435507 M54.50 Chronic,S/ p multiple back surgeriesM idline spinal tenderness in upper backtaperi ng off oxycodone 10mg qid on tizanidine + celecoxib pain mx DrCreamers cheduled for a Fentanyl IT pump on 02/19/25. Cigarette smoker 2780995 7 F17.210 1/2 pack daily smoker, or less than 1/2 pack with djgmivi62 pack yearsconte mplative stagehas not been using nicotine patchesAdv ised pt to set quit date History of primary malignant neoplasm of urinary bladder 568947593 Z85.51 S/p surgery 10-12 yrs agoRpt biopsy several years ago was negativeFo [facility] [place] [place] Essential hypertension 31549475 I10 Chronic, elevated 145/80Pt reports home BP 120/70s Regimen:am lodipine 5mglisinop ril 10mg daily Restless l egs syndrome 23570960 G25.81 Chronic, stable on ropinirole 0.5mg qhs Gastroesop hageal reflux disease 459462985 K21.9 well controlled omeprazole 20mg PRN Nausea 053132398 R11.0 likely d/t mild opioid withdrawal sPRN zofran Constipation 53647569 K5 9.00 improved with increasing fiber intake [...] avoidance of routine use of stimulant laxatives. [id number] DEEPTI TITPON APRN [address] [address] 02/21/2025 11:32:20 02/23/2025 10:23:05 Pre-surgery evaluation 985205335 Z01.818 After speaking with surgical coordinato r, [...] minimal wheezing. Chronic low back pain 27 2818371 M54.50 G89.29 3403789573 Chronic ob structive pulmonary disease 62494776 J44.9 [id number] Discussed COPD symptoms, discussed inhaler use and safetyMedi cation instructio ns reviewed, use albuterol ONLY as neededCont inue maintenanc e inhaler use if you have onePt does/does not follow with pulmonolog yMonitor for new/worsen ing symptomsER precaution s discussedF ollow up as needed History of pneumonia 161 004017 Z87.01 086953 [id number] CHELA CARRANZA, [facility] [address] [facility] [place] [address] 03/01/2025 10:05:21 03/01/2025 13:12:20 Community acquired pneumonia [id number] J15.9 852298 Left lower lobe pneumoniaP atient completed a course of Rocephin and azithromyc in Acute exac erbation of chronic obstructive pulmonary disease [id number] J44.1 493694 Patient initially was treated with Rocephin and [...] c hronic hypoxemic and hypercapnic respiratory failure [id number] 5107 J96.21 J96.22 [id number] Improving, patient wears 1-1/2 L of oxygen at night as needed. Patient was seen by Dr. Dennison he also recommende d the possibilit y of workup for obstructiv e sleep apnea after discharge. Tobacco de pendence syndrome 67986225 F17.200 53170 Recommend [place] [facility] tobacco website as a source to help with cessationc utting down, 5 cigs a day.Uses nicotine patches. Chronic pain syndrome 37 [id number] G89.4 36781 Oxycodone 10 mg p.o. every 12 hours as neededwork ing with Pain management , [place] [facility], candidate for intratheca l pain, surgery tentative, 05/28/2025 . Patient just had a test intratheca l pump this past wednesday. Patient underwent urine drug screen on Wednesday, results pending. Patient stating he is in alot of pain, and needs additional narcotics, [place] [facility] will not prescribe additional , nacotics at this time, due to active prescripti on for valium, via mail order, in [facility]. Patient requested, a receipt , for [...] before , discussing recommenda tions. Essential hypertension 02782853 I10 88686 Blood pressure today is; 144/84Lisi nopril 20 mg p.o. daily and Norvasc 5 p.o. daily Gastroesop hageal reflux disease without esophagitis [id number] K21.9 579816 Omeprazole 20 mg p.o. daily as needed Allergic rhinitis 618066 04 J30.9 [id number] resolvedDr . Juma added intranasal steroidsDi scharge Sudafed 60 mg p.o. twice daily Hyperglyce delon due to type 2 diabetes mellitus [id number] 27958 E11.65 44278586 Hemoglobin A1c is an 8.2Continu e Amaryl 8 mg p.o. daily, patient is also on Jardiance 10 tab p.o. daily [id number] DEEPTI TIPTON APRN Family Medicine [address] [address] 04/05/2025 12:35:59 04/05/2025 13:22:47 Acute exacerbation of chronic obstructive pulmonary disease 807178911 J44.1 078724 Will stop Trelegy and try Breztri insteadBe [...] ollow up as needed Candidiasis of mouth 247 05000 B38.0 759772 [id number] DEEPTI TIPTON APRN Family Medicine [facility] [address] [facility] [place] [address] 04/19/2025 07:57:53 04/19/2025 09:35:50 Essential hypertension 54290951 I10 86216 Reports he sees on his list that he's supposed to be taking the lisinopril , but he ran out a while back. Was prescribed by his PCP [place], and he needs a refill. However, his [...] delon due to type 2 diabetes mellitus 7582401332 83118 E11.65 6768828010 Results pulled from [employer], A1C does show 8.5% last weekPatien t [...] as directed Chronic ob structive pulmonary disease 63420944 J44.9 839067087 He's likely using an Advair, so will [...] up as needed Candidiasis of mouth 797 65951 B37.0 66824 Lozenges didn't work as well as liquid did in the past, so will send liquid instead [id number] DEEPTI TIPTON, [facility] [address] [place] [address] 05/07/2025 10:47:55 05/09/2025 10:51:08 Hyperglycemia due to type 2 diabetes mellitus [id number] 49477 E11.65 3076971625 05/07/2025 -- Increase Lantus to twice daily, 10 units each dose based on glucose log from home. Explained the importance of taking a true FASTING glucose in the mornings 04/19/2025 -- Results pulled from [employer], A1C does show 8.5% last weekPatien t [...] henry discussedF ollow up as directed Gingivitis 99993065 K05. 10 9066726 Follows with [facility], has used Peridex before and feels like this would help with his thrush and gum discomfort . Will send. Insomnia 001404218 G47.0 0 31144245 Reports has a history of insomnia, was [...] until sleepy; repeat cycle until sleep occurs. [id number] DEEPTI TIPTON APRN Family Medicine [facility] [address] [place] [address] 06/18/2025 08:13:19 06/18/2025 08:56:12 Hyperglycemia due to type 2 diabetes mellitus [id number] 10941 E11.65 06/2025 -- 8.0%, home readings 80s-110 [...] discussedF ollow up as directed Essential hypertension 03297124 I10 88363 06/2025 -- 140/90, stable Continue amlodipine 5mg daily, lisinopril 10mg daily Discussed normal parameters , follow up if home checks fall outside of theseDiscu ssed signs/symp toms of hypertensi on to monitor forRecomme nded DASH dietFollow with eye doctor regularly, at least annuallyCOLE henry discussedC all and/or follow up if questions or concerns Hyperlipidemia 18985110 E78.5 38210114 No results on file? Insomnia 266495994 G47.0 0 98528987 06/2025 -- Reports he thinks trazodone would [...] sleep occurs. 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 Health Concerns Section Related Observation LastModified by Organization Detai ls LastModified Time None Recorded Concern Status LastModified by Organization Details LastModified Time None Recorded Advance Directives Directive None Recorded Payers Insurance Date Sequence Insurance Name Policy Number Policy Valentino Covered Member ID Valentino Member ID Guarantor Name 02/20/2025 1 [employer] (MEDICARE REPLACEMENT/A DVANTAGE - PPO) Stanislav Jacobson [id number] Stanislav Jacobson 06/17/2025 1 [employer] (MEDICARE REPLACEMENT/A DVANTAGE - HMO) [id number] Stanislav Jacobson [id number] Stanislav Jacobson 02/20/2025 1 [employer] (HMO) [id number] Stanislav Jacobson [id number] Stanislav Jacobson 02/20/2025 1 [place] Stanislav Jacobson [id number] Stanislav Jacobson 02/20/2025 2 [place] [facility] Stanislav Jacobson [id number] Stanislav Jacobson Notes Date Note Type [...] hospital follow-up visi Patient was admitted to [facility] on 02/15/2025 and discharged on 02/21/2025. Patient [...] to baseline. CHELA CARRANZA NP [address] [facility], [place], [address], [facility] 03/01/2025 11:57:25 04/05/2025 text/html ROS as noted [...] his surgery. DEEPTI TIPTON APRN [address], [place], [address], [facility] 04/05/2025 14:31:03 04/19/2025 text/html ROS as noted in the HPI Patient is a 74yo male, presenting for discussion labs and meds. Reports his pain pump implant surgery was canceled because of his A1C being too high. He reports was done at [facility], ordered by his surgeon, and A1C was 8.5%. States he also continues to have issues with his COPD. He went back to his Advair because he states the other inhaler causes thrush and doesn't help his breathing. He is wheezing today. He does use oxygen at home as needed. DEEPTI TIPTON APRN [address], [place], [address], [facility] 04/19/2025 13:29:30 05/07/2025 text/html ROS as noted in the [facility] Patient is a 74yo male, presenting for [...] the night. DEEPTI TIPTON APRN [address], [place], [address], [facility] 05/07/2025 16:21:14 06/18/2025 text/html ROS as noted [...] Doing Lantus twice daily. DEEPTI TIPTON APRN [address], [place], [address], [facility] 06/18/2025 09:46:36
--- OUTSIDE RECORDS SUMMARY | 2025-09-18 06:21 | XMS_ITS | Data Portability ---
Author Organization [facility], autoContract - [facility] Address [address] [place] [address] Assessment No assessment recorded. Plan of Treatment Reminders Order Date Submit Date Provider Last Modified By Organization Details Last Modified Time Details Appointments None recorded. Lab HbA1c (hemoglobi n A1c), blood 2023 024 3 [email or web address], [address] [place] [address], [address], [place], [address], 13:01:19 CBC w/ auto diff 2023 024 [facility] AT [address], [address], 4 09:54:28 CMP, serum or plasma 2023 024 [facility] AT [address], [address], 4 09:54:28 TSH, serum or plasma 2023 024 [facility] [place] [address] [place], [address], 4 09:54:27 vitamin D, 25-hydroxy , total, serum 2023 024 [facility] AT [address], [address], 4 09:54:27 vitamin B12 + folate, serum or blood 2023 024 [facility], [address] [place], [address], 4 09:54:28 urinalysis , complete 2023 024 [facility], [address] [place], [address], 4 09:54:28 microalbum in/creatin ine, mass ratio, urine 2023 024 [email or web address] 3 [facility], [address] [place], [address], 4 13:01:20 lipid panel, serum 2023 024 [email or web address], [address], [address], [place], [address], 4 09:54:16 PSA, serum or plasma 2023 024 [facility], [address], [address], [place], [address], 4 09:55:20 fecal occult blood, stool 2023 024 [email or web address] 3 [facility], [address], [address], [place], [address], 4 13:01:20 HbA1c (hemoglobi n A1c), blood 2023 024 3 [facility], [address], [address], [place], [address], 4 13:02:24 CBC w/ auto diff 2023 024 [facility], [address], [address], [place], [address], 4 10:21:55 CMP, serum or plasma 2023 024 [facility], [address], [address], [place], [address], 4 10:21:59 TSH, serum or plasma 2023 024 [facility], [address], [address], [place], [address], 4 10:21:58 vitamin D, 25-hydroxy , total, serum 2023 024 [facility], [address], [address], [place], [address], 4 10:21:58 vitamin B12 + folate, serum or blood 2023 024 [facility], [address], [address], [place], [address], 4 10:21:55 urinalysis , complete 2023 024 [facility], [address], [address], [place], [address], 4 10:22:01 lipid panel, serum 2023 024 [facility], [address], [address], [place], [address], 4 10:22:00 PSA, serum or plasma 2023 024 [email or web address] [facility], [address], [address], [place], [address], 4 10:21:38 fecal occult blood, stool 2023 024 [email or web address], [address], [address], [place], [address], 4 10:21:38 Referral dermatolog ist referral - requesting skin cancer screening 2023 [facility]24 [facility] [place], [address], [place], [address], 4 09:01:43 Procedures None recorded. Surgeries None recorded. Imaging CT, head, w/o contrast - persistent headaches 2023 024 [email or web address] 3 [facility], [address], [place], [address], 4 13:01:28 XR, chest, 2 view - persistent cough, shortness of breath 2023 024 [email or web address] 3 [facility], [address], [place], [address], 4 13:01:27 XR, chest, 2 view - persistent cough, shortness of breath 2023 024 [id number] 3 [facility], [address], [address], [place], [address], 4 13:02:33 Medication Orders glimepirid e [address] mg tablet [address] [facility]/Pharmacy #3668, [address] [place], [address], 4 09:54:24 albuterol sulfate HFA 90 mcg/actuat ion aerosol inhaler 2023 024 [email or web address] [facility]/Pharmacy #3668, [address] [place], [address], 4 09:54:17 Trelegy Ellipta 100 mcg-62.5 mcg-25 mcg powder for inhalation [address] [facility]/Pharmacy #3668, [address] [place], [address], 4 09:54:23 ropinirole 0.5 mg tablet [address]/Pharmacy #3668, [address] [place], [address], 4 09:54:18 diazepam 10 mg tablet [address]/Pharmacy #3668, [address] [place], [address], 4 09:54:17 lisinopril 10 mg tablet [address]/Pharmacy #3668, [address] [place], [address], 4 09:54:18 l[facility]opril 20 mg tablet 2023 024 [facility] [address] [place], [address], 4 09:54:24 lidocaine 5 % topical patch [address]/Pharmacy #3668, [address] [place], [address], 4 09:54:18 neomycin-p olymyxin-h ydrocort 3.5 mg-10,000 unit/mL-1 % ear drops,susp [address]/Pharmacy #3668, [address] [place], [address], 4 09:54:18 nicotine 21 mg/24 hr daily transderma l patch [address] [facility]/Pharmacy #3668, [address] [place], [address], 4 09:54:24 oxycodone 10 mg tablet [address]/Pharmacy #3668, [address] [place], [address], 4 09:54:18 omeprazole 20 mg capsule,de layed release 2023 024 [address], [address] [place] [address], [address], 4 09:54:18 levofloxac in 750 mg tablet 2023 024 [address], [address] [place] [address], [address], 4 09:54:16 montelukas t 10 mg tablet 2023 024 [address], [address] [place] [address], [address], 4 09:54:17 prednisone 10 mg tablet 2023 024 [address], [address] [place] [address], [address], 4 09:54:16 glimepirid e 4 mg tablet 2023 024 [address], [address] [place] [address], [address], 4 10:20:25 albuterol sulfate HFA 90 mcg/actuat ion aerosol inhaler 2023 024 [facility] [address] [place] [address], [address], 4 10:20:30 Trelegy Ellipta 100 mcg-62.5 mcg-25 mcg powder for inhalation 2023 024 [facility] [address] [place] [address], [address], 4 10:20:31 ropinirole 0.5 mg tablet [address]/Pharmacy #3668, [address] [place], [address], 4 08:28:49 diazepam 10 mg tablet 2023 024 [address] [place], [address], 4 08:28:55 lisinopril 10 mg tablet 2023 024 [facility] [address] [place], [address], 4 09:31:08 lidocaine 5 % topical patch 2023 [address]24 [address] [place], [address], 4 10:20:25 neomycin-p olymyxin-h ydrocort 3.5 mg-10,000 unit/mL-1 % ear drops,susp 2023 024 [facility] [address] [place], [address], 4 09:31:08 nicotine 21 mg/24 hr daily transderma l patch 2023 024 [address] [place], [address], 4 10:20:25 oxycodone 10 mg tablet 2023 024 [address] [place], [address], 4 08:29:06 omeprazole 20 mg capsule,de layed release 2023 024 [address] [place], [address], 4 10:20:25 levofloxac in 750 [address] tablet [address] [facility]/Pharmacy #3668, [address] [place], [address], 4 09:31:07 montelukas t 10 mg tablet [address] [facility]/Pharmacy #3668, [address] [place], [address], 4 09:31:07 prednisone [address] [facility]/Pharmacy #3668, [address] [place], [address], 4 09:42:17 Patient TargetsNo targets recorded. Patient InstructionsNo instructions recorded. 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 Painting Manager Referral for S kin lesion requesting skin cancer screening Referring Physician: Milagros Urbina, Director Experimental Medicine, Encounter Date: 01/13/2024 Problems Name Problem SNOMED Code Status Onset Date Resolution Date Notes Provider Name and Address Organization Details Recorded Time Chronic back pain 929876998 Active 2023 Madeline Nathan null, [facility] 4 08:28:00 Essential hypertensio n 10781349 Active 2023 Madeline Nathan null, [facility] 4 08:41:30 Chronic obstructive pulmonary disease 11466141 Active 2023 Madeline Nathan null, [facility] 4 08:41:43 Hyperlipide delon 19918940 Active 2023 Madeline Nathan null, [facility] 4 08:41:49 Diabetes mellitus 52571863 Active 2023 Madeline Nathan null, [facility] 4 08:41:55 Restless legs syndrome 04464787 Active 2023 Madeline Nathan null, [facility] 4 08:42:02 Gastroesoph ageal reflux disease 163262002 [facility] respiratory infection 23449626 [facility] 08:42:12 Pneumonia 523679425 [facility] 08:42:18 Problem Notes None recorded. Procedures Surgical History Date Name Laterality Status Provider Name and Address Organization Details Recorded Time Knee Replacement completed [facility]et [facility] 12/30/2023 08:33:46 Knee Surgery completed Madeline Nathan [facility] 12/30/2023 08:33:50 Hernia Repair completed Madeline Nathan [facility] 12/30/2023 08:33:55 procedure on shoulder completed Madeline Nathan [facility] 12/30/2023 08:34:12 Back Surgery completed Madeline [facility] 12/30/2023 08:34:16 Imaging Results None recorded. Procedure Notes None recorded. Medical Equipment None Reported. Allergies Allergen ID Allergen Name Allergen Category Reaction Reaction Severity Criticality Documentation Date Start Date Code Code System Note Provider Name and Address Organization Details Recorded Time 980008 morphine medicatio n flushing moderate Not available 12/30/2023 7052 RxNorm itchi ng and perfu sely sweat ing Milagros Ciara [facility] 4 08:41:48 Medications Name Sig Start Date [...] Address Organization Details Last Updated DateTime 4 79919.4 g 34.9 kg/m2 165.1 cm 76 /min 16 /min 96 % 96 % 97.6 [degF] 154/88 mm[Hg] 148/90 mm[Hg] Cecilio LOPEZ - [facility] 4 08:37:25 Date Recorded Body height Body mass index (BMI) Body weight Heart rate Respiratory rate Body temperature Oxygen saturation Oxygen saturation in Arterial blood by Pulse oximetry Systolic And Diastolic Systolic And Diastolic Provider Name and Address Organization Details Last Updated DateTime 165.1 cm 35.3 kg/m2 68435.5 8 g 82 /min 16 /min 97.5 [degF] 97 % 97 % 170/98 mm[Hg] 174/96 mm[Hg] Cecilio Nathan [facility] 08:39:01 Social History Question Answer Notes LastModified by [employer] Details LastModified Time Tobacco Smoking Status Current Every Day Smoker Madeline Nathan [facility] 12/30/2023 08:33:37 Do You Have An Advance Directive? No [email or web address] Information not available 12/30/2023 What Is Your Level Of Caffeine Consumption? Moderate [email or web address] Information not available 12/30/2023 What Is Your Code Status? Full Code [email or web address] Information not available 12/30/2023 What Was The Date Of Your Most Recent Tobacco Screening? 01/13/2024 [email or web address] Information not available 07/20/2024 How Much Tobacco Do You Smoke? 0.5 PPD Information not available 12/30/2023 Sex: Unknown Functional Status Question Answer Note LastModified by [employer] Details LastModified Time Do you or have you ever used any other forms of tobacco or nicotine? No [email or web address] Information not available 12/30/2023 What is your level of alcohol consumption? Occasional [email or web address] Information not available 12/30/2023 Mental Status None recorded. Family History Relationship Description Onset Age of this Age Resolved Age Notes LastModified by Organization Details LastModified Time Mother Heart disease [email or web address] Not available 2023 08:32:10 Father Heart disease [email or web address] Not available 2023 08:32:24 Medical History Condition [...] Pain N Sjogren's Syndorme N Heart Attack ([place]) N Mental Illness N Diabetes Y Ovarian [...] mL dose 12/16/2020 completed Madeline henry null, [facility] 12/30/2023 08:26:36 COVID-19, mRNA, LNP-S, PF, 30 mcg/0.3 mL dose 01/17/2021 completed Madeline henry null, [facility] 12/30/2023 08:26:36 Tdap 02/16/2020 completed Madeline Salguero cas null, [facility] 12/30/2023 08:26:36 Past Encounters Encounter ID Performer Location Encounter Start Date Encounter Closed Date Diagnosis/Indication Diagnosis SNOMED-CT Code Diagnosis ICD10 Code Diagnosis IMO Codes Diagnosis Note [id number] MILAGROS EZIO URBINA [facility] [place] [address] 12/30/2023 08:13:19 12/30/2023 09:24:23 Acute otitis media 7443793 H66.92 Patient presents with signs/symp toms of otitis media. Will treat as below. Supportive care reviewed: avoid swimming for several days and use ear plugs thereafter . Recommende d acetaminop hen/ibupro fen PRN pain Follow up as below. Acute bronchitis 9052189 2 J20.9 Patient presents with allergic rhinitis. Supportive care reviewed: raising HOB, avoiding triggers, taking controller medication s, use of saline nasal spray/humi difier, encourage PO fluids, monitor hydration. RTO as scheduled for next WCC; sooner if any new or concerning symptoms arise. Essential hypertension 40310607 I10 First line treatment: lifestyle changes which [...] or if they develop new symptoms. Polyarthropathy 71215549 M13.0 Discussed medication regimen as well as diet and exercise modificati on. Patient will apply heat/ice as needed for pain relief. Follow up in 3 months. Chronic pain syndrome 37 8120191 G89.4 will monitor and notify as needed [facility] 889816315 Z00.01 Education was provided on healthy nutrition, [...] living. Gastroesop hageal reflux disease without esophagitis 340209268 K21.9 Patient will continue conservati ve management [...] new/concer kelly symptoms. Restless l egs syndrome 23193885 G25.81 will monitor and notify f worsens Hyperlipidemia 15660134 E78.5 Patient with known hyperlipid emia. Last lipid panel poorly controlled . Lifestyle modificati ons discussed including weight loss, aerobic exercise at least 30 min/day at least 5 days per week, and a diet rich in fruit and vegetables . Goal LDL: 100mg/dL, 70mg/dL}}. Will continue to follow lipid panel q6-12 months. Chronic ob structive pulmonary disease 70436216 J44.9 Plan1-Diet and lifestyle counseling , especially breathing exercises to improve oxygenatio n.2- Mood and cognitive assessment will follow regimen be done in future to make sure patient is able to follow regimen.3- Also we will be discussing life stressors and advanced directives and documentat ion in future encounters . Generalize d anxiety disorder 08050109 F41.1 Patient identified triggers for anxiety and impact of anxious thinking on functionin g. Discussed strategies to regulate symptoms and need for compliance with treatment. Nicotine dependence 5629 4008 F17.200 Advise about smoking cessationO rder smoking cessation counseling , greater than 3 minutes up to 10 minutes Type 2 gerry betes mellitus 53874996 E11.9 Patient seen in office today for Diabetes is well controlled . Patient educated on diabetes complicati ons . Discussed treatment/ diagnostic plan and orders with patient as indicated below. Provided diabetic diet Screening for malignant neoplasm of prostate 876062962 Z12.5 will follow results Screening for malignant neoplasm of colon 353696704 Z12.11 will follow results [id number] MILAGROS URBINA APRN [facility] [employer] [facility] [address] [place] [address] 01/13/2024 08:28:42 01/13/2024 09:13:47 Acute otitis media 0577099 H66.92 Patient presents with signs/symp toms of otitis media. Will treat as below. Supportive care reviewed:a void swimming for several days and use ear plugs thereafter . Recommende d acetaminop hen/ibupro fen PRN pain Follow up as below. RESOLVED Acute bronchitis 1912665 2 J20.9 Patient presents with allergic rhinitis. Supportive care reviewed: raising HOB, avoiding triggers, taking controller medication s, use of saline nasal spray/humi difier, encourage PO fluids, monitor hydration. RTO as scheduled for next WCC; sooner if any new or concerning symptoms arise. RESOLVED Essential hypertension 11253712 I10 First line treatment: lifestyle changes which [...] in BP diary in 2 weeks Polyarthropathy 53188546 M13.0 Discussed medication regimen as well as diet and exercise modificati on. Patient will apply heat/ice as needed for pain relief. Follow up in 3 months. Chronic pain syndrome 37 3315008 G89.4 will monitor and notify as needed [facility] 844834104 Z00.01 Education was provided on healthy nutrition, [...] living. Gastroesop hageal reflux disease without esophagitis 506407886 K21.9 Patient will continue conservati ve management [...] new/concer kelly symptoms. Restless l egs syndrome 59425268 G25.81 will monitor and notify f worsens Hyperlipidemia 56789999 E78.5 Patient with known hyperlipid emia. Last lipid panel poorly controlled . Lifestyle modificati ons discussed including weight loss, aerobic exercise at least 30 min/day at least 5 days per week, and a diet rich in fruit and vegetables . Goal LDL: 100mg/dL, 70mg/dL}}. Will continue to follow lipid panel q6-12 months. Chronic ob structive pulmonary disease 99023571 J44.9 Plan1-Diet and lifestyle counseling , especially breathing exercises to improve oxygenatio n.2- Mood and cognitive assessment will follow regimen be done in future to make sure patient is able to follow regimen.3- Also we will be discussing life stressors and advanced directives and documentat ion in future encounters . Increase trelegy to 2 puffs twice nisa Generalize d anxiety disorder 82886195 F41.1 Patient identified triggers for anxiety and [...] ous changes Type 2 gerry betes mellitus 32274272 E11.9 Patient seen in office today for Diabetes is well controlled . Patient educated on diabetes complicati ons . Discussed treatment/ diagnostic plan and orders with patient as indicated below. Provided diabetic diet Screening for malignant neoplasm of prostate 092656879 Z12.5 will follow results Screening for malignant neoplasm of colon 958017051 Z12.11 will follow results Skin lesion 20636462 L98 .9 will follow results Headache 17746680 R51.9 will follow results Obesity 023805865 E66.9 BMI:35.3 Advise about healthy life style and weight loss Health Concerns Section Related Observation LastModified by Organization Detai ls LastModified Time None Recorded Concern Status LastModified by Organization Details LastModified Time None Recorded Advance Directives Directive N: Payers Insurance Date Sequence Insurance Name Policy Number Policy Valentino Covered Member ID Valentino Member ID Guarantor Name 06/21/2024 2 [place] Stanislav Jacobson [id number] Stanislav Austinard 06/21/2024 1 [employer] (MEDICARE REPLACEMENT/ ADVANTAGE - PPO) Stanislav Jacobson [id number] Stanislav Jacobson Notes Date Note Type Note [...] problems. 73 y/o male patient new to [facility] patient presented for admission to the practice. Studies ordered as below. Discussed plan with patient, who expressed understanding. Follow up as noted below.patient has history of polyarthritis, chronic pain, COPD, nicotine dependence, DM type 2, GERD and hypertensionhe reports that he has had a persistent congested cough and recurrent URI's.Also left ear pain x 2 weeks Milagros Urbina [place], [place] - [facility] 01/13/2024 08:29:11 01/13/2024 text/html Annual WellnessReported [...] generalized back and joint pain Milagros Urbina [facility], [place] - [facility] 01/13/2024 09:59:10
== END 2025-09-18 06:19 | disposition home or self-care (01) ==
LOC: CF 06:18
PROVIDERS: Visit Provider Anesthesiology
DX: Z13.89 Encounter for screening for other disorder (principal)

== ENCOUNTER 2025-10-02 06:20 | Outpatient (REF) | payer MEDICARE, MEDICAID, SELFPAY ==
--- OUTSIDE RECORDS SUMMARY | 2025-10-01 08:18 | XMS_ITS | Continuity of Care Document ---
Author Organization [facility] Address [address] [place] [address] Care Team Providers Care Police Pilot Name Role Phone Stanislav Olivares DO Unavailable Unavailable Allergies, Adverse Reactions, Alerts Substance Reaction Status Criticality morphine Other Active No Information Medications Medication Instructions Dosage Effective Dates (start - stop) Status Comments fentanyl citrate (bulk) 100 % powder for intrathecal route - Active Fentanyl 125 mcg/ml per 40 mL. Appt date 10/03/2025 Delivery date: 10/08/2025 mupirocin 2 % topical ointment apply by [...] evening after meals 50 MG - Active ropinirole 0.5 mg tablet take 1 tablet by oral route every day 0.5 MG - Active omeprazole 20 mg tablet,delayed release - Active lisinopril 20 mg tablet take 1 tablet by oral route 2 times every day 20 MG - Active glimepiride 4 mg tablet [...] hours as needed 180 MCG - Active fentanyl citrate (bulk) 100 % powder for intrathecal route - No Longer Active Fentanyl 125 mcg/ml per 40 mL. Appt date 09/26/2025 Delivery date: 09/27/2025 Procedures Procedure Date OFFICE/OUTPATIENT VISIT, EST SPIN/BRAIN [...] Diagnoses Date Provider Providers Copied on Encounter [facility], [address], [place], [place], [id number] , [facility] No Information 5 Marshall Colorado. [address] [facility], [address], [place], [place], [id number], [place]. tel:[phone] [facility], [address], [place], [place], [id number] , [facility] No Information 5 Marshall Stanislav. [address] [place] [address], [id number], . tel:[phone] OFFICE/OUTPA TIENT VISIT, EST [facility], [address], [place], [place], [id number] , [facility] low back pain (chief complaint) Encounter for adjustment and management of infusion pumpOther specified diabetes mellitus with hyperglycemiaOt her spondylosis, lumbar regionPostlamin ectomy syndrome, not elsewhere classifiedChron ic pain syndromeLong term (current) use of opiate analgesicRadicu lopathy, lumbar regionHTN 5 Beni Richa. [address] [place] [address], [id number], . tel:[phone] Referring Provider: [address] [address], [place], [address]. tel:[phone] OFFICE/OUTPA TIENT VISIT, EST [facility], [address], [place], [place], [id number] , [facility] low back pain (chief complaint) Knee Pain (chief complaint) Encounter for adjustment and management of infusion pumpOther specified diabetes mellitus with hyperglycemiaOt her spondylosis, lumbar regionPostlamin ectomy syndrome, not elsewhere classifiedRadic ulopathy, lumbar regionHTNChroni c pain syndromeLong term (current) use of opiate analgesic 5 Beni Richa. [address] [place] [address], [place], [id number], [place]. tel:[phone] Referring Provider: [facility]ante [facility] [address] [address], [place], [address]. tel:[phone] OFFICE/OUTPA TIENT VISIT, EST [facility], [address], [place], [place], [id number] , [facility] low back pain (chief complaint) Encounter for adjustment and management of infusion pumpOther specified diabetes mellitus with hyperglycemiaOt her spondylosis, lumbar regionPostlamin ectomy syndrome, not elsewhere classifiedRadic ulopathy, lumbar regionHTNChroni c pain syndromeLong term (current) use of opiate analgesicEncoun ter for removal of stapleGastro-es ophageal reflux disease without esophagitis 5 Benilatrice Chaudhry. [address] [facility] [address], [place], [id number], [place]. tel:[phone] Referring Provider: Marah Sandoval, [address], [place], [address]. tel:[phone] [facility], [address], [place], [place], [id number] , [facility] low back pain (chief complaint) Knee Pain (chief complaint) Postlaminectomy syndrome, not elsewhere classifiedRadic ulopathy, lumbar regionOther spondylosis, lumbar regionChronic pain syndromeGERD without esophagitisHTNL eric term (current) use of opiate analgesicEncoun ter for adjustment and management of infusion pumpEncounter for change or removal of surgical wound dressing 5 Navjot Blanca. [address] [place], [place], [id number], [place]. tel:[phone] Referring Provider: Marah Sandoval, [address], [place], [address]. tel:[phone] [facility], [address], [place], [place], [id number] , [facility] No Information 5 Ivy Gerber. [address], [place], [address], [place]. tel:[phone] [facility], [address], [place], [place], [id number] , [facility] Chronic pain syndromePostlam inectomy syndrome, not elsewhere classifiedRadic ulopathy, lumbar region 5 Marshall Colorado. [address] [facility] [address], [place], [id number], [place]. tel:[phone] OFFICE/OUTPA TIENT VISIT, EST [facility], [address], [place], [place], [id number] , [facility] Knee Pain (chief complaint) low back pain (chief complaint) Postlaminectomy syndrome, not elsewhere classifiedChron ic pain syndromeLong term (current) use of opiate analgesicHTNTyp e 2 diabetes mellitus without complicationsHy percholesterole miaRestless legs syndromeInsomni aGERD without esophagitisOthe r spondylosis, cervical region 5 Rayside LaMisa. [address] [facility], [address], [id number], [place]. tel:[phone] Referring Provider: Marah Sandoval, [address], [place], [address]. tel:[phone] OFFICE/OUTPA TIENT VISIT, EST [facility], [address], [place], [place], [address] , [facility] low back pain (chief complaint) Postlaminectomy syndrome, not elsewhere classifiedChron ic pain syndromeLong term (current) use of opiate analgesicHTNTyp e 2 diabetes mellitus without complicationsHy percholesterole miaGERD without esophagitisRest less legs syndromeInsomni aOther spondylosis, cervical region 5 Rayside LaMisa. [address] [facility], [address], [id number], [place]. tel:[phone] Referring Provider: Marah Sandoval, [address], [place], [address]. tel:[phone] OFFICE/OUTPA TIENT VISIT, EST [facility], [address], [place], [place], [id number] , [facility] Knee Pain (chief complaint) Other spondylosis, cervical regionPostlamin ectomy syndrome, not elsewhere classifiedChron ic pain syndromeLong term (current) use of opiate analgesicHTNTyp e 2 diabetes mellitus without complicationsHy percholesterole miaGERD without esophagitisRest less legs syndromeInsomni a 5 Rayside LaMisa. [address] [facility], [facility] [address], [id number], . tel:[phone] Referring Provider: Marah Sandoval, [address], [place], [address]. tel:[phone] [facility], [address], [place], [place], [id number] , [facility] No Information 5 Hudson Crystal. [address], [address] [facility], [place], [address], [place]. tel:[phone] Referring Provider: Marah Sandoval, [address] [facility], [place], [address]. tel:[phone] OFFICE/OUTPA TIENT VISIT, EST [facility], [address], [place], [place], [id number] , [facility] Follow Up for Knee Pain (chief complaint) Follow Up for Lower Back Pain (chief complaint) Postlaminectomy syndrome, not elsewhere classifiedChron ic pain syndromeLong term (current) use of opiate analgesicHTNTyp e 2 diabetes mellitus without complicationsHy percholesterole miaGERD without esophagitisRest less legs syndrome 5 Rayside LaMisa. [address] [facility], [address], [id number], [place]. tel:[phone] Referring Provider: Marah Sandoval, [address], [place], [address]. tel:[phone] [facility], [address], [place], [place], [id number] , [facility] Chronic pain syndromePostlam inectomy syndrome, not elsewhere classifiedRadic ulopathy, lumbar region Feb- 5 Marshall Colorado. [address] [facility], [address], [place], [id number], [place]. tel:[phone] OFFICE/OUTPA TIENT VISIT, EST [facility], [address], [place], [place], [id number] , [facility] Knee Pain (chief complaint) low back pain (chief complaint) Postlaminectomy syndrome, not elsewhere classifiedRadic ulopathy, lumbar regionChronic pain syndromeInsomni aOther specified diabetes mellitus with hyperglycemiaLo ng term (current) use of opiate analgesic 5 Vecchione Analilia. [address], [id number], [place]. tel:[phone] [facility], [address], [place], [place], [id number] , [facility] No Information 5 Beni Richa. [address] [place] [address], [id number], [place]. tel:[phone] OFFICE/OUTPA TIENT VISIT, EST [facility], [address], [place], [place], [id number] , [facility] low back pain (chief complaint) Knee Pain (chief complaint) Postlaminectomy syndrome, not elsewhere classifiedChron ic pain syndromeHTN 5 Hudson Crystal. [address] [facility], [address] [facility], [place], [address], [place]. tel:[phone] Referring Provider: Marah Sandoval, [address] [facility] [address] [facility], [place], [address]. tel:[phone] OFFICE/OUTPA TIENT VISIT, EST [facility], [address], [place], [place], [id number] , [facility] Knee Pain (chief complaint) back pain (chief complaint) Other spondylosis, lumbar regionPostlamin ectomy syndrome, not elsewhere classifiedRadic ulopathy, lumbar regionHTNChroni c pain syndromeLong term (current) use of opiate analgesicOther specified diabetes mellitus with hyperglycemia Dec- 5 Beni Richa. [address], [place], [id number], [place]. tel:[phone] OFFICE/OUTPA TIENT VISIT, [facility], [address], [place], [place], [id number] , [facility] low back pain (chief complaint) Knee Pain (chief complaint) Other spondylosis, lumbar regionPostlamin ectomy syndrome, not elsewhere classifiedRadic ulopathy, lumbar regionHTNDiabet es insipidusChroni c pain syndromeOther spondylosis, thoracic regionOther spondylosis, cervical regionLong term (current) use of opiate analgesic Marshall Colorado. [address] [facility], [address], [place], [place], [id number], [place]. tel:[phone] Family History Family Member Type Diagnosis Age At Onset Father Problem (finding) Family history of Alzhe shavonne's disease Mother Problem (finding) Family history of Arthr itis Father Problem (finding) Family history of Arthr itis Father Problem (finding) Family history of Demen tia Payers Payer name Insurance type Covered constitution party ID Authoriza tion(s) [employer] Assure HMO CI [id number] Social History Type Description Quantity Date Captured [...] syndrome, not elsewhere classified) ordered Appointment Stanislav Jacobson/ [facility] Meds Ordered For 10/03 [place] BOOKED History Of Present Illness Encounter Date [...] low back pain Onset: 7 years a . Severity level is 9. Duration: > 1 [...] reports he is leaving on today to [place] where he snowbirds from. He was advised that oral opiates will not be sent without an office visit so he is either to return to the office for refills or establish care with pain management while he is in [place] 6 months out of the year. Patient [...] not established care with pain management in [place] who can manage his pump, we can attempt to send a referral to [facility] to see if his insurance will [...] AND DISCONTINUED ITP IS TITRATED. Related to long term care social worker (current) use of opiate analgesic Consider Lumbar [...] AND DISCONTINUED ITP IS TITRATED. Related to long term care social worker (current) use of opiate analgesic s/p Fentanyl [...] reports he is leaving on 06/25/2025 to [place] where he snowbirds from. Advised oral opiates will not be sent without an office visit so he is either to return to the office for refills or establish care with pain management while he is in [place] 6 months out of the year. Patient [...] not established care with pain management in [place] who can manage his pump, we can attempt to send a referral to [facility] to see if his insurance will [...] clean dry and intact. Site was cleaned. [employer] applied benzoin tincture, removed abram, applied bacitracin [...] AND DISCONTINUED ITP IS TITRATED. Related to long term care social worker (current) use of opiate analgesic Advised to [...] others cannot easily access them. Related to long term care social worker (current) use of opiate analgesic UDS risk [...] others cannot easily access them. Related to long term care social worker (current) use of opiate analgesic UDS risk [...] environment in an opioid emergency. Related to intermediate (current) use of opiate analgesic UDS risk [...] and destroyed at a depository. Related to long term care social worker (current) use of opiate analgesic He is scheduled for fentanyl it pump trial w/ dr. Olivares. -pending PCP clearance- Dr. Yost in [place].-psych clearance on file. 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 advised that no oxycodone would be prescribed until UDS is negative for benzo's. Related to Postlaminectomy syndrome, not elsewhere classified His last A1C is 8.6. Advised that we need this to be 8.0 or lower prior to proceeding with IT pump implant.He will follow up with PCP, Dr. Yost in [place] and still needs PCP clearance. Related to [...] of benzodiazepines and any metabolite Related to intermediate (current) use of opiate analgesic Says that [...] BID PRN. Related to Radiculopathy, lumbar region Patient is an excell ent candidate for [...] continue non opioid treatment options. 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 Related to intermediate (current) use of opiate analgesic Consider Lumbar [...]
--- OUTSIDE RECORDS SUMMARY | 2025-10-02 06:23 | XMS_ITS | Data Portability ---
Author Organization [facility], [facility] [place] Address [address] [place] [address] Care Team Providers Care Enroute Controller Name Role Phone EDDY JOHNSON Primary Care Provider Assessment No assessment recorded. Plan of Treatment Reminders Order Date Submit Date Provider Last Modified By Organization Details Last Modified Time Details Appointments Establ dariel Lai t 30 2024 02:00P Chris JOHNSON MD Not available Not available Not available Lab vitami n D, 25-hyd sharon, total, serum 2024 025 [facility] (Lab), [address] [place] [address], [id number], 06/18/2025 08:55:20 vitami n B12, serum 2024 025 [facility] (Lab), [address] [place] [address], [id number], 06/18/2025 08:55:20 folate , serum 2024 025 [facility] (Lab), [address] [place] [address], [id number], 06/18/2025 08:55:19 magnes ium, serum or plasma 2024 025 [facility] (Lab), [address] [place] [address], [id number], 06/18/2025 08:55:19 CBC w/ diff 2024 025 [facility] (Lab), [address] [place] [address], [id number], 06/18/2025 08:55:20 TSH, ultra- sensit felix, serum 2024 025 [facility] (Lab), [address] [place] [address], [id number], 06/18/2025 08:55:20 T4, free, serum 2024 025 [facility] (Lab), [address] [place] [address], [id number], 06/18/2025 08:55:19 lipid panel, serum 2024 025 [facility] (Lab), [address] [place] [address], [id number], 06/18/2025 08:55:19 HbA1c (hemog lobin A1c), blood 2024 025 [facility] (Lab), [address] [place] [address], [address], 06/18/2025 08:55:19 CMP, serum or plasma 2024 025 [facility] (Lab), [address] [place] [address], [id number], 06/18/2025 08:55:20 urinal ysis comple te, reflex cultur e 2024 025 [facility] (Lab), [address] [place] [address], [address], 06/18/2025 08:55:20 microa lbumin , urine 2024 025 [facility] (Lab), [address] [place] [address], [id number], 06/18/2025 08:55:20 Referral pulmon ologis t referr al 2024 025 nida Love MD, [address] [place] [address] [facility], [place], [address], 06/20/2025 08:55:11 Procedures None record ed. Surgeries None record ed. Imaging None record ed. Medication Orders Lantus Solost ar U-100 Insuli n 100 unit/m L (3 mL) subcut aneous pen 2024 025 [facility] [place], [address], 06/18/2025 08:45:55 trazod one 50 mg tablet 2024 025 [facility], [address] [place], [address], 05/07/2025 11:29:02 Peride x 0.12 % mouthw lyndsay 2024 025 [facility], [address] [place], [address], 06/18/2025 09:11:12 nystat in 100,00 0 unit/m L oral suspen ronn 2024 025 [facility], [address] [place], [address], 04/19/2025 09:10:01 lisino pril 10 mg tablet 2024 025 [facility], [address] [place], [address], 04/19/2025 09:03:48 Advair Diskus 250 mcg-50 mcg/do se powder for inhala tion 2024 025 [facility], [address] [place], [address], 04/19/2025 09:10:05 albute rol sulfat e 2.5 mg/3 mL (0.083 %) soluti on for nebuli zation 2024 025 [facility], [address] [place], [address], 04/19/2025 09:10:05 albute rol sulfat e 2.5 mg/3 mL (0.083 %) soluti on for nebuli zation 2024 025 [email or web address] iz Not available 04/24/2025 06:41:35 shona ukast 10 mg tablet 2024 025 [facility], [address] [place], [address], 04/19/2025 09:33:00 OneTou ch Verio test strips [address] [facility], [address] [place], [address], 04/30/2025 08:30:24 Lantus Solost ar U-100 Insuli n 100 unit/m L (3 mL) subcut aneous pen [address] [facility] [place], [address], 06/18/2025 08:43:00 clotri mazole 10 mg jaylin 2024 025 [facility], [address] [place], [address], 04/19/2025 08:22:07 Breztr i Aerosp here 160 mcg-9m cg-4.8 mcg/ac tuatio n HFA aeroso l inhale r 2024 025 [facility], [address] [place], [address], 05/07/2025 11:01:03 azithr omycin 250 mg tablet 2024 025 [facility], [address] [place], [address], 04/19/2025 08:21:44 Patient TargetsNo targets recorded. Patient Instructions Encounter Date Encounter Id Patient Instructions Last Modified By Organization Details Last Modified Time 03/01/2025 [id number] health literacy assessment* [email or web address] Not available 03/01/2025 11:52:19 04/05/2025 [id number] health literacy assessment* Not available 04/05/2025 13:21:08 candidiasis: car e instructions Not available 04/05/2025 13:21:08 04/19/2025 [id number] health literacy assessment* Not available 04/19/2025 09:03:38 05/07/2025 [id number] health literacy assessment* Not available 05/07/2025 11:25:37 06/18/2025 [id number] health literacy assessment* Not available 06/18/2025 08:45:44 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 Referral for A cute exacerbation of chronic obstructive pulmonary disease copd, seen in hospital Referring Physician: Chela Carranza, Family Medicine, Encounter Date: 03/01/2025 Results Created Date Observation Date Name Description Value Unit Range Abnormal Flag Note LastModifiedBy Organization Detail LastModifiedTime 02/22/2002/21/2025 healt h liter acy asses sment * Brief Health Literacy Results Normal Not Available [facility] [address], [address], 02/21/2025 11:39:55 03/01/20 25 03/01/2025 healt h liter acy asses sment * Brief Health Literacy Results Normal Not Available [facility] [address], [address], 03/01/2025 08:13:35 04/05/20 25 04/05/2025 healt h liter acy asses sment * Brief Health Literacy Results Normal Not Available [address], [address], 04/05/2025 12:53:39 04/19/20 25 04/19/2025 healt h liter acy asses sment * Brief Health Literacy Results Normal Not Available [address], [address], 04/19/2025 08:26:11 05/07/20 25 05/07/2025 HEMOG LOBIN A1C Hb A1C % res 8.1 % 4.0-6. 0 high Not Available [facility] (Lab) [address] [place], [address], 05/07/2025 13:36:01 05/07/20 25 05/07/2025 HEMOG LOBIN [...] i.org /10.2 337/d c24-S 002 Not Available [facility] (Lab) [address] [place], [address], 05/07/2025 13:36:01 05/07/20 25 05/07/2025 healt h liter acy asses sment * Brief Health Literacy Results Normal Not Available [address], [address], 05/04/2025 14:33:17 05/29/20 25 05/29/2025 HEMOG LOBIN A1C Hb A1C % res 8.0 % 4.0-6. 0 high Not Available [facility] (Lab) [address] [place], [address], 05/29/2025 16:43:41 05/29/20 25 05/29/2025 HEMOG LOBIN [...] i.org /10.2 337/d c24-S 002 Not Available [facility] (Lab) [address] [place], [address], 05/29/2025 16:43:41 06/18/20 25 06/18/2025 healt h liter acy asses sment * Brief Health Literacy Results Adequa te Not Available [facility] [address], [place], [address], 06/15/2025 14:28:03 Result Notes None recorded. Problems Name Problem SNOMED Code Status Onset Date Resolution Date Notes Provider Name and Address Organization Details Recorded Time Acute kidney injury [id number] Marvin Hernandez [facility] 5 11:37:43 Acute exacerbati on of chronic obstructiv e pulmonary disease 966282209 Active DEEPTI TIPTON, [employer] [facility] [address] [place], [address], [facility] 5 14:30:43 Respirator y acidosis and metabolic alkalosis 519323291 Marvin anne, [facility] 11:37:43 Dyspnea 364697628 Marvin Hernandez [facility] 11:37:43 Joint swelling 455823093 Marvin anne [facility] 5 11:37:43 Laceration of thumb 526807320 Active Ana Hernandez null, [facility] 5 11:37:43 Left lower zone pneumonia 986807940 Active Ana Hernandez null, [facility] 5 11:37:43 Hypoxia 293717883 Active Ana Hernandez null, [facility] 5 11:37:43 Acute-on-c hronic respirator y failure 03027702 Active CHELA CARRANZA NP [address] [place], [address], [facility] 5 20:24:37 Acute respirator y acidosis 23933224 Active [facility] 11:37:43 Congestion of nasal sinus 73015499 [facility] 5 11:37:43 Mixed hyperlipid emia 944871684 Active 2022 Not Available [facility] 4 00:47:27 Tobacco dependence syndrome 85921876 Active 2022 CHELA CARRANZA NP [address] [place], [address], [facility] 5 20:27:42 Chronic obstructiv e pulmonary disease 56824545 Active 2022 DEEPTI TIPTON APRN [address] [place], [address], [facility] 5 10:02:27 Chronic low back pain 237123988 Active 2022 DEEPTI TIPTON APRN [address] [place], [address], [facility] 5 10:00:43 Cigarette smoker 59750313 Active 2022 Not Available [facility] 4 00:47:27 Pneumonia 951183247 Active 2022 Not Available [facility] 4 00:47:27 Type 2 diabetes mellitus 07083310 Active 2022 Not Available [facility] 4 00:47:27 Neuropathy due to type 2 diabetes mellitus 160758161590 106 Active 2022 Not Available [facility] 4 00:47:27 Essential hypertensi on 31506197 Active 2022 CHUCHO HALE1 N [facility], [place], [place], [address] [place] [address], [facility] 5 20:28:46 Restless legs syndrome 54637268 Active 2022 Not Available [facility] 4 00:47:27 Gastroesop hageal reflux disease 094976591 Active 2022 Not Available [facility] 4 00:47:27 Acute upper respirator y infection 05354423 Active 2023 Not Available [facility] 4 00:47:27 Nausea 598632535 Active 2024 MD Nia RUEDA [address] [place], [place], [address] [place] [address], [facility] 5 15:12:20 Constipati on 08864867 Active 2024 EDDY JOHNSON MD [address] [place], [place], [address] [place] [address], [facility] 5 15:20:09 Community acquired pneumonia 553436266 Active 2024 CHUCHO HALE N [facility], [place], [place], [address] [place] [address], [facility] 5 20:24:06 Acute on chronic hypoxemic and hypercapni c respirator y failure 006683631112 07 Active 2024 CHUCHO HALE N [facility], [place], [address], [facility] 5 20:26:15 Chronic pain syndrome 368774886 Active 2024 CHUCHO HALE N [facility], [place], [address], [facility] 5 20:27:59 Diabetic peripheral neuropathy 294875108 Active 2024 CHUCHO HALE N [facility], [place], [address], [facility] 5 20:28:12 Gastroesop hageal reflux disease without esophagiti s 661315188 Active 2024 CHUCHO HALE N [facility], [place], [address], [facility] 5 20:29:08 Allergic rhinitis 13726554 Active [address] [place], [address], [facility] 5 09:46:02 Hyperglyce delon due to type 2 diabetes mellitus 491578130118 109 Active 2024 EZIO DEE [facility], [place], [address], [facility] 5 16:20:59 Candidiasi s of mouth 37962317 Active [address] [place], [address], [facility] 5 11:17:40 Gingivitis 73545842 Active [address] [place], [address], [facility] 5 11:24:16 Insomnia 818300171 Active [address] [place], [address], [facility] 5 11:26:33 Hyperlipid emia 15860693 Active [address] [place], [address], [place] [facility] 5 08:47:23 Problem Notes None recorded. Procedures Surgical History Date Name Laterality Status Provider Name and Address Organization Details Recorded Time 0 Self Management Goals completed Delores Dowd [facility] 03/28/2020 10:17:11 Imaging Results None recorded. Procedure Notes None recorded. Medical Equipment None Reported. Allergies Allergen ID Allergen Name Allergen Category Reaction Reaction Severity Criticality Documentation Date Start Date Code Code System Note Provider Name and Address Organization Details Recorded Time 43266 morphine medicatio n flushing moderate Not available 10/14/2023 7052 RxNorm Pedro anne, [facility] 5 14:55:28 Medications Name Sig Start Date [...] PUFF BY MOUTH TWICE DAILY FOR COPD 2024 active Not Available Not Available Not Avai lable nystatin 100,000 unit/mL oral suspensio n TAKE 5 ML BY MOUTH FOUR TIMES DAILY FOR 14 DAYS, FOR THRUSH. active Not Available Not Available No t Available prednison e 10 mg tablet 01/09 completed Not Available Not Available Not Available doxycycli ne hyclate 100 mg capsule TAKE 1 CAPSULE (100 MG) ORALLY TWICE A DAY FOR 7 DAYS 09/28 completed Not Available Not Available Not Available [...] ONCE DAILY AT NIGHT NEEDED FOR INSOMNIA 2024 active Not Available Not Available Not Avai lable azithromy omkar 250 mg tablet TAKE 2 [...] tablet Take 20 mg by oral route. active Not Available Not Available No t Available prednison e 20 mg tablet TAKE 3 TABLETS ONCE BY MOUTH FOR 1 DAY. THEN TAKE 2 TABLETS TABLETS BY MOUTH DAYS 2 THROUGH 5 active Not Available Not Available No t Available Advair Diskus 100 mcg-50 mcg/dose powder [...] TABLET (0.5 MG) BY MOUTH DAILY AT 9AM active Not Available Not Available No t Available lisinopri l 10 mg tablet TAKE ONE TABLET BY MOUTH DAILY AT 9AM FOR HIGH BLOOD PRESSURE (DOSE INCREASE ) [...] DISSOLVE 2 TABLETS IN MOUTH TWICE DAILY active Not Available Not Available No t Available doxycycli ne hyclate 100 mg tablet TAKE 1 TABLET BY MOUTH TWICE DAILY FOR 14 DAYS 06/18 completed Not Available Not Available Not Available diazepam 5 mg tablet Take 1 tablet every day by oral route as needed. 01/09 completed Prescrib ed by PCP in [place] Not Available Not Available Not Available amoxicill in 875 mg-potass ium clavulana te 125 mg tablet TAKE 1 TABLET ORALLY TWICE A DAY FOR 7 DAYS 09/28 completed Not Available Not Available Not Available [...] Available No t Available [facility] spacer FOR USE WITH INHALER INHALED [...] active Not Available Not Available Not Available Elizabethtri Aerospher e 160 mcg-9mcg- 4.8mcg/ac tuation HFA aerosol inhaler INHALE 2 PUFFS TWICE DAILY FOR 30 DAYS FOR COPD MAINTENA NCE 05/07 completed Not Available Not Available [...] weight Body temperature Respiratory rate Oxygen saturation Systolic And Diastolic Provider Name and Address Organization Details Last Updated DateTime 165.1 cm 33.1 kg/m2 64844.1 6 g 97.2 [degF] 18 /min 10 % 144/84 mm[Hg] Natividad Reynaga [facility] 10:38:53 Date Recorded Oxygen saturation Provider Name and Address Organization Details Last Updated DateTime 04/05/2025 91 % DEEPTI TIPTON[facility] [address] [place], [address], [facility] 04/05/2025 13:10:57 Date Recorded Body height Body mass index (BMI) Body weight Respiratory rate Heart rate Body temperature Systolic And Diastolic Provider Name and Address Organization Details Last Updated DateTime 5 165.1 cm 33.4 kg/m2 49274.0 7 g 16 /min 98 /min 97 [degF] 130/88 mm[Hg] Ana Hernandez [facility] 12:56:50 Date Recorded Body height Body mass index (BMI) Body weight Respiratory rate Body temperature Oxygen saturation Heart rate Systolic And Diastolic Provider Name and Address Organization Details Last Updated DateTime 5 165.1 cm 33.7 kg/m2 87071.5 3 g 18 /min 97.3 [degF] 93 % 86 /min 136/84 mm[Hg] Angella Jose [facility] 5 08:20:16 Date Recorded Body height Body mass index (BMI) Body weight Respiratory rate Body temperature Heart rate Oxygen saturation Systolic And Diastolic Provider Name and Address Organization Details Last Updated DateTime 5 165.1 cm 34 kg/m2 62740.2 8 g 20 /min 97 [degF] 91 /min 91 % 130/78 mm[Hg] Ana David [facility] 5 11:00:01 Date Recorded Body height Body mass index (BMI) Body weight Respiratory rate Body temperature Oxygen saturation Heart rate Systolic And Diastolic Provider Name and Address Organization Details Last Updated DateTime 5 165.1 cm 33.4 kg/m2 90780.6 3 g 20 /min 97.3 [degF] 87 % 97 /min 140/90 mm[Hg] Ana Hernandez [facility] 5 08:22:16 Social History Question Answer Notes LastModified by Organizat ion Details LastModified Time Tobacco Smoking Status Current Some Day Smoker Cedric anne [facility] 10/14/2023 13:19:39 Are You Blind Or Do You Have Difficulty Seeing? No Information not available 04/19/2025 What Is Your Level Of Caffeine Consumption? Occasional A Pot Of Coffee Most Of The Time Information not available 04/19/2025 Are You Deaf Or Do You Have Serious Difficulty Hearing? No [email or web address] Information not available 04/19/2025 What Was The Date Of Your Most Recent Tobacco Screening? 06/18/2025 [email or web address] Information not available 06/18/2025 How Many Children Do You Have? 0 Information not available 04/19/2025 What Is Your Relationship Status? Single [email or web address] Information not available 04/19/2025 At What Age Did You Start Smoking Tobacco? 10 8 Yrs Old Information not available 03/01/2025 How Much Tobacco Do You Smoke? 0.5 PPD Information not available 10/14/2023 How Many Years Have You Smoked Tobacco? 50 50 Yrs Information not available 03/01/2025 Do You Have Difficulty Walking Or Climbing Stairs? No [email or web address] Information not available 04/19/2025 Sex: Unknown Functional Status Question Answer Note LastModified by Organizat ion Details LastModified Time Do you or have you ever used any other forms of tobacco or nicotine? Yes Information not available 10/14/2023 What is your level of alcohol consumption? None [email or web address] Information not available 04/19/2025 Do you or have you ever used smokeless tobacco? Never used smokeless tobacco Nicotine Patch Information not available 10/14/2023 Are you currently employed? No DISABLE [email or web address] Information not available 04/19/2025 Are you able to walk independently without assistance or assistive devices? YESWOREST [email or web address] Information not available 04/19/2025 Do you have difficulty doing errands alone? No [email or web address] Information not available 04/19/2025 Are you able to care for yourself independently? Yes [email or web address] Information not available 04/19/2025 Do you or have you ever used e-cigarettes or vape? Never used electronic cigarettes Information not available 10/14/2023 Mental Status Question Answer Note LastModified by Organization D etails LastModified Time Do you have difficulty concentrating, remembering or making decisions? No [email or web address] Information no t available 04/19/2025 Family History Relationship Description Onset Age of this Age Resolved Age Notes LastModified by Organization Details LastModified Time Father Heart disease [email or web address] Not available 2022 13:58:46 Medical History No medical history recorded. Immunizations Vaccine Type Date Status Note Provider Nam e and Address Organization Details Recorded Time COVID-19, mRNA, LNP-S, PF, 30 mcg/0.3 mL dose 12/16/2020 completed Ana anne, [facility] 02/21/2025 11:37:49 COVID-19, mRNA, LNP-S, PF, 30 mcg/0.3 mL dose 01/17/2021 completed Analatrice anne, [facility] 02/21/2025 11:37:50 Tdap 02/16/2020 completed Ana JESSICA Betancourt - [facility] 02/21/2025 11:37:50 Past Encounters Encounter ID Performer Location Encounter Start Date Encounter Closed Date Diagnosis/Indication Diagnosis SNOMED-CT Code Diagnosis ICD10 Code Diagnosis IMO Codes Diagnosis Note [id number] [facility]DR[facility] POOLE [facility] [address] [place] [address] 03/25/2020 15:10:57 03/25/2020 15:11:29 Exposure to viral disease 3684345952 16871 Z20.828 [id number] SANDRA LIPSCOMB [facility] [address] [place] [address] 03/27/2020 12:58:36 04/09/2020 08:41:59 Exposure to viral disease 4116129877 74969 Z20.828 Pt notified COVID-19 not detected on recent nasopharyn geal swab. Pt verbalizes understand ing and will monitor for any s/sx of infection. Pt advised to continue to practice social distancing and follow CDC guidelines , including the use of face coverings in public, frequent hand washing and sanitizing of high touch surfaces. All questions answered to pt's satisfacti on [id number] EDDY JOHNSON MD Family [address] [place] [address] 10/14/2023 13:07:31 10/15/2023 08:32:54 Chronic obstructive pulmonary disease 62508352 J44.9 Chronic, advair ICS/ LABAPoorly controlled , [...] bsHas pulmonolog y appt in February in [facility] tts, none here Chronic low back pain 27 4493487 M54.50 S/p multiple back surgeriesF ollowing ortho who prescribed oxycodone 10mg qid Cigarette smoker 0411474 7 F17.210 1/2 pack daily [email or web address] pack yearsconte mplative stageUsing nicotine patches History of primary malignant neoplasm of urinary bladder 216016139 Z85.51 S/p surgery 10-12 yrs agoRpt biopsy several years ago was negativeFo tonio urology in [facility] Pneumonia 773086152 J18. 9 Recent PNA was placed on 2 courses of abx (doxycylin e) in [facility] and 1 course of prednisone . [...] Neuropathy due to type 2 diabetes mellitus 5058742336 81290 E11.40 Pt not sure what meds he takes for DMAsked pt to bring in meds Essential hypertension 29270825 I10 Lisinopril 5mg Restless l egs syndrome 00908956 G25.81 ropinirole 0.5mg qhs Gastroesop hageal reflux disease 960540545 K21.9 well controlled omeprazole 20mg PRN [id number] EDDY JOHNSON MD Family Medicine [address] [address] 11/23/2023 13:42:22 11/23/2023 16:35:00 Chronic obstructive pulmonary disease 59723352 J44.9 Chronic, advair ICS/ LABAPoorly controlled requiring [...] bsHas pulmonolog y appt in February in [facility], none hereAdvise d to f/u pulm referral in [place] Pneumonia 199588012 J18. 9 PNA resolved with course of augmentin + AZTProcal was negAdvised pt no need to obtain CXR Neuropathy due to type 2 diabetes mellitus 1123990484 18839 E11.40 Check A1COn glimepirid e 2mg Chronic low back pain 27 4632675 M54.50 Chronic, poorly controlled , worse with recent lifting and renovation sS/p multiple back surgeriesM idline spinal tenderness in upper backFollow ing ortho who prescribed oxycodone 10mg qidReferra l to pain mxTrial of lidocaine 5% patch Cigarette smoker 9913211 7 F17.210 1/2 pack daily smoker, or less than 1/2 pack with [email or web address] pack yearsconte mplative stageUsing nicotine patchesAdv ised pt to set quit date History of primary malignant neoplasm of urinary bladder 301971364 Z85.51 S/p surgery 10-12 yrs agoRpt biopsy several years ago was negativeFo [facility] in [facility] Essential hypertension 20741001 I10 Chronic, elevated 153/93Pt reports various readings at homeF/u in 1 mo with BP log Restless l egs syndrome 11769435 G25.81 Chronic, stable on ropinirole 0.5mg qhs Gastroesop hageal reflux disease 264403735 K21.9 well controlled omeprazole 20mg PRN [id number] DEEPTI TIPTON, [employer] [facility] [address] [address] 11/26/2023 10:32:52 11/26/2023 14:38:05 Chronic obstructive pulmonary disease 18665293 J44.9 Discussed COPD symptoms, discussed inhaler use and safetyMedi cation instructio ns reviewed, use albuterol ONLY as neededCont inue maintenanc e inhaler use if you have onePt does/does not follow with pulmonolog yMonitor for new/worsen ing symptomsER precaution s discussedF ollow up as needed Acute uppe r respiratory infection 64524822 J06.9 Flu/COVID negative today in clinicMost likely [...] ollow up if neededER precaution s discussed [id number] EDDY JOHNSON MD Family Medicine [address] [place] [address] [facility] [place] [address] 01/09/2025 14:39:52 01/09/2025 15:26:00 Chronic obstructive pulmonary disease 53601261 J44.9 Chronic, advair ICS/ LABAPoorly controlled requiring albuterol inhaler/ne b multiple times weekly, but improving since incr in advair dosagehome O2 PRN - 1.5L via [place] at night if O2 down to 80s,Discus sed goal 88-92%O2 92% RA today at rest Smoking cessation discussedR egimen:jacek legyCont PRN albuterol inhaler/ne bs pulmonolog y in [facility] Neuropathy due to type 2 diabetes mellitus [id number] 23846 E11.40 A1C 7.7; 1 yr ago; pt had labs done 1-2 weeks ago downstairs will call lab Regimen:gl imepiride 4mgjardian ce 10mg Eye exam yearly advised.Fo ot exam yearly advised.Co ntinue current regimen.La bs as below in 3m Chronic low back pain 27 9057660 M54.50 Chronic,S/ p multiple back surgeriesM idline spinal tenderness in upper backtaperi ng off oxycodone 10mg qid on tizanidine + celecoxib pain mx DrCreamers cheduled for a Fentanyl IT pump on 02/19/25. Cigarette smoker 2417784 7 F17.210 1/2 pack daily smoker, or less than 1/2 pack with nxelcvz64 pack yearsconte mplative stagehas not been using nicotine patchesAdv ised pt to set quit date History of primary malignant neoplasm of urinary bladder 553826747 Z85.51 S/p surgery 10-12 yrs agoRpt biopsy several years ago was negativeFo [facility] Essential hypertension 20005340 I10 Chronic, elevated 145/80Pt reports home BP 120/70s Regimen:am lodipine 5mglisinop ril 10mg daily Restless l egs syndrome 58272161 G25.81 Chronic, stable on ropinirole 0.5mg qhs Gastroesop hageal reflux disease 147141226 K21.9 well controlled omeprazole 20mg PRN Nausea 605996241 R11.0 likely d/t mild opioid withdrawal sPRN zofran Constipation 77301148 K5 9.00 improved with increasing fiber intake [...] avoidance of routine use of stimulant laxatives. [id number] DEEPTI TIPTON APRN [facility] [address] [place] [place] [address] 02/21/2025 11:32:20 02/23/2025 10:23:05 Pre-surgery evaluation 995232594 Z01.818 After speaking with surgical coordinato r, [...] minimal wheezing. Chronic low back pain 27 3959443 M54.50 G89.29 [id number] Chronic ob structive pulmonary disease 64502105 J44.9 598843588 Discussed COPD symptoms, discussed inhaler use and safetyMedi cation instructio ns reviewed, use albuterol ONLY as neededCont inue maintenanc e inhaler use if you have onePt does/does not follow with pulmonolog yMonitor for new/worsen ing symptomsER precaution s discussedF ollow up as needed History of pneumonia 161 181476 Z87.01 653082 [id number] CHELA CARRANZA, CHUCHO [facility] [address] [place] [address] 03/01/2025 10:05:21 03/01/2025 13:12:20 Community acquired pneumonia 359292312 J15.9 943764 Left lower lobe pneumoniaP atient completed a course of Rocephin and azithromyc in Acute exac erbation of chronic obstructive pulmonary disease 780159884 J44.1 491748 Patient initially was treated with Rocephin and [...] c hronic hypoxemic and hypercapnic respiratory failure 4458473884 5107 J96.21 J96.22 97783126 Improving, patient wears 1-1/2 L of oxygen at night as needed. Patient was seen by Dr. Dennison he also recommende d the possibilit y of workup for obstructiv e sleep apnea after discharge. Tobacco de pendence syndrome 70324469 F17.200 44807 Recommend [place] [employer] tobacco website as a source to help with cessationc utting down, 5 cigs a day.Uses nicotine patches. Chronic pain syndrome 37 2697396 G89.4 81542 Oxycodone 10 mg p.o. every 12 hours as neededwork ing with Pain management , [place] [facility], candidate for intratheca l pain, surgery tentative, 05/28/2025 . Patient just had a test intratheca l pump this past wednesday. Patient underwent urine drug screen on Wednesday, results pending. Patient stating he is in alot of pain, and needs additional narcotics, [facility] will not prescribe additional , nacotics at this time, due to active prescripti on for valium, via mail order, in [place]. Patient requested, a receipt , for return [...] before , discussing recommenda tions. Essential hypertension 95721115 I10 56255 Blood pressure today is; 144/84Lisi nopril 20 mg p.o. daily and Norvasc 5 p.o. daily Gastroesop hageal reflux disease without esophagitis 022260538 K21.9 067597 Omeprazole 20 mg p.o. daily as needed Allergic rhinitis 723350 04 J30.9 [id number] resolvedDr . Dennison added intranasal steroidsDi scharge Sudafed 60 mg p.o. twice daily Hyperglyce delon due to type 2 diabetes mellitus 1140483790 81975 E11.65 64476679 Hemoglobin A1c is an 8.2Continu e Amaryl 8 mg p.o. daily, patient is also on Jardiance 10 tab p.o. daily [id number] DEEPTI TIPTON APRN [facility] [address] [place] [address] 04/05/2025 12:35:59 04/05/2025 13:22:47 Acute exacerbation of chronic obstructive pulmonary disease 421874083 J44.1 984701 Will stop Trelegy and try Breztri insteadBe [...] up as needed Candidiasis of mouth 797 79789 B37.0 144482 [id number] DEEPTI TIPTON APRN [facility] [address] [place] [address] 04/19/2025 07:57:53 04/19/2025 09:35:50 Essential hypertension 55531273 I10 84226 Reports he sees on his list that he's supposed to be taking the lisinopril , but he ran out a while back. Was prescribed by his PCP up [place], and he needs a refill. However, his manual BP today is 136/84 and he was originally on 20mg lisinopril .After discussion , will restart at 10mg lisinopril daily, with instructio rafita for him to monitor BP daily and [...] delon due to type 2 diabetes mellitus 1297276883 89893 E11.65 0600084150 Results pulled from [facility], A1C does show 8.5% last weekMing patterson reports when he checks his glucose, it [...] Monitor for new/worsen ing symptomsCOLE henry discussedF meilow dominique as directed Chronic ob structive pulmonary disease 69613338 J44.9 326925209 He's likely using an Advair, so will refill since this is his preference . Rinse mouth after every use!Also recommend using nebulizer instead of inhaler when he has a flare of his COPDNeb treatment given in clinic today with resolution of wheezing, and improved air movement throughout , oxygen sat 90% on room air, patient feels relief.Zofia suggs discussed he might be triggered by environmen [...] up as needed Candidiasis of mouth 797 48788 B37.0 96704 Lozenges didn't work as well as liquid did in the past, so will send liquid instead [id number] DEEPTI TIPTON APRN [facility] [address] [place] [address] 05/07/2025 10:47:55 05/09/2025 10:51:08 Hyperglycemia due to type 2 diabetes mellitus 7322965924 17324 E11.65 5960709820 05/07/2025 -- Increase Lantus to twice daily, 10 units each dose based on glucose log from home. Explained the importance of taking a true FASTING glucose in the mornings 04/19/2025 -- Results pulled from [facility], A1C does show 8.5% last weekPatien leonardo [...] henry discussedF ollow up as directed Gingivitis 13374479 K05. 10 9450692 Follows with [facility], has used Peridex before and feels like this would help with his thrush and gum discomfort . Will send. Insomnia 091651441 G47.0 0 51891731 Reports has a history of insomnia, was [...] until sleepy; repeat cycle until sleep occurs. [id number] DEEPTI TIPTON APRN [facility] [address] [place] [address] 06/18/2025 08:13:19 06/18/2025 08:56:12 Hyperglycemia due to type 2 diabetes mellitus 8915856346 07700 E11.65 06/2025 -- 8.0%, home readings 80s-110 -- Increase Lantus to twice daily, 10 units each dose based on glucose log from home. Explained the importance of taking a true FASTING glucose in the mornings 04/19/2025 -- Results pulled from [facility], A1C does show 8.5% last weekPatien t [...] discussedF ollow up as directed Essential hypertension 58285412 I10 47439 06/2025 -- 140/90, stable Continue amlodipine 5mg daily, lisinopril 10mg daily Discussed normal parameters , follow up if home checks fall outside of theseDiscu ssed signs/symp toms of hypertensi on to monitor forRecomme nded DASH dietFollow with eye doctor regularly, at least annuallyCOLE henry discussedC all and/or follow up if questions or concerns Hyperlipidemia 08298950 E78.5 78460442 No results on file? Insomnia 578353061 G47.0 0 50895501 06/2025 -- Reports he thinks trazodone would [...] sleep occurs. Chronic ob structive pulmonary disease 10336762 J44.9 001176325 06/2025 -- Stable, CTA today, oxygen varies [...] up as needed Chronic pain syndrome 37 0458956 G89.4 31075 Follows with pain mgmt in [place], just had pain pump implanted a couple of weeks ago, dosing being adjusted Allergic rhinitis 163695 04 J30.9 6363916 Meds as prescribed [place], and if so, may need allergy testing and further mgmt with test developer Health Concerns Section Related Observation LastModified by Organization Detai ls LastModified Time None Recorded Concern Status LastModified by Organization Details LastModified Time None Recorded Advance Directives Directive None Recorded Payers Insurance Date Sequence Insurance Name Policy Number Policy Valentino Covered Member ID Valentino Member ID Guarantor Name 02/20/2025 1 [employer] (MEDICARE REPLACEMENT/A DVANTAGE - PPO) Stanislav Jacobson [id number] Stanislav Flavio Kavon 09/28/2025 1 [employer] (MEDICARE REPLACEMENT/A DVANTAGE - HMO) [id number] Stanislav Muniz Kavon [id number] Stanislav Austinard 02/20/2025 1 [employer] (HMO) [id number] Stanislav Muniz Kavon [id number] Stanislav Austinard 02/20/2025 1 [place] Stanislav Jacobson [id number] Stanislav Muniz Kavon 02/20/2025 2 [place] [facility] Stanislav Austinard [id number] Stanislav Flavio Kavon Notes Date Note Type Note Provider Name [...] hospital follow-up visi Patient was admitted to [facility] on 02/15/2025 and discharged on 02/21/2025. Patient [...] breatrhing much better, back to baseline. CHELA CARRANZA, CHUCHO [address] [place], [address], [facility] 03/01/2025 11:57:25 04/05/2025 text/html ROS as noted in the [facility] Patient is a 74yo male, [...] his surgery. DEEPTI TIPTON APRN [address], [place], [address], [facility] 04/05/2025 14:31:03 04/19/2025 text/html ROS as noted in the [facility] Patient is a 74yo male, presenting for discussion labs and meds. Reports his pain pump implant surgery was canceled because of his A1C being too high. He reports was done at [facility], ordered by his surgeon, and A1C was 8.5%. States he also continues to have issues with his COPD. He went back to his Advair because he states the other inhaler causes thrush and doesn't help his breathing. He is wheezing today. He does use oxygen at home as needed. DEEPTI TIPTON APRN [address], [place], [address], [facility] 04/19/2025 13:29:30 05/07/2025 text/html ROS as noted in the [facility] Patient is a 74yo male, [...] the night. DEEPTI TIPTON APRN [address], [place], [address], [facility] 05/07/2025 16:21:14 06/18/2025 text/html ROS as noted [...] Doing Lantus twice daily. DEEPTI TIPTON APRN [address], [place], [address], [facility] 06/18/2025 09:46:36
--- OUTSIDE RECORDS SUMMARY | 2025-10-02 06:24 | XMS_ITS | Data Portability ---
Author Organization [facility], autoContract - [facility] Medical Address [address] [place] [address] Assessment No assessment recorded. Plan of Treatment Reminders Order Date Submit Date Provider Last Modified By Organization Details Last Modified Time Details Appointments None recorded. Lab HbA1c (hemoglobi n A1c), blood 2023 024 [email or web address] 3 [facility], [address] [place] [address], [address], [place], [address], 13:01:19 CBC w/ auto diff 2023 024 [facility] AT [address], [address], 4 09:54:28 CMP, serum or plasma 2023 024 [facility] [address], [address], 4 09:54:28 TSH, serum or plasma 2023 024 [facility] AT [address], [address], 4 09:54:27 vitamin D, 25-hydroxy , total, serum 2023 024 [facility] AT [address], [address], 4 09:54:27 vitamin B12 + folate, serum or blood 2023 024 [facility], [address] [place], [address], 4 09:54:28 urinalysis , complete 2023 024 [facility], [address] [place], [address], 4 09:54:28 microalbum in/creatin ine, mass ratio, urine 2023 024 3 [facility], [address] [place], [address], 4 13:01:20 lipid panel, serum 2023 024 [email or web address] [facility], [address], [address], [place], [address], 4 09:54:16 PSA, serum or plasma 2023 024 [facility], [address], [address], [place], [address], 4 09:55:20 fecal occult blood, stool 2023 024 3 [facility], [address], [address], [place], [address], 4 13:01:20 HbA1c (hemoglobi n A1c), blood 2023 024 3 [facility], [address], [address], [place], [address], 4 13:02:24 CBC w/ auto diff 2023 024 [facility], [address], [address], [place], [address], 4 10:21:55 CMP, serum or plasma 2023 024 [facility], [address], [address], [place], [address], 4 10:21:59 TSH, serum or plasma 2023 024 [facility], [address], [address], [place], [address], 4 10:21:58 vitamin D, 25-hydroxy , total, serum 2023 024 [facility], [address], [address], [place], [address], 4 10:21:58 vitamin B12 + folate, serum or blood 2023 024 [facility], [address], [address], [place], [address], 4 10:21:55 urinalysis , complete 2023 024 [facility], [address], [address], [place], [address], 4 10:22:01 lipid panel, serum 2023 024 [facility], [address], [address], [place], [address], 4 10:22:00 PSA, serum or plasma 2023 024 [email or web address] [facility], [address], [address], [place], [address], 4 10:21:38 fecal occult blood, stool 2023 024 [email or web address] [facility], [address], [address], [place], [address], 4 10:21:38 Referral dermatolog ist referral - requesting skin cancer screening 2023 [facility]24 [facility] [place], [address], [place], [address], 4 09:01:43 Procedures None recorded. Surgeries None recorded. Imaging CT, head, w/o contrast - persistent headaches 2023 024 [email or web address] 3 [facility], [address], [address], [place], [address], 4 13:01:28 XR, chest, 2 view - persistent cough, shortness of breath 2023 024 3 [facility], [address], [address], [place], [address], 4 13:01:27 XR, chest, 2 view - persistent cough, shortness of breath 2023 024 [email or web address] 3 [facility], [address], [address], [place], [address], 4 13:02:33 Medication Orders glimepirid e 4 mg tablet 2023 024 [facility]3668, [address] [place], [address], 4 09:54:24 albuterol sulfate HFA 90 mcg/actuat ion aerosol inhaler 2023 024 [email or web address] [facility] #3668, [address] [place], [address], 4 09:54:17 Trelegy Ellipta 100 mcg-62.5 mcg-25 mcg powder for inhalation 2023 024 [facility] #3668, [address] [place], [address], 4 09:54:23 ropinirole 0.5 mg tablet [address]/Pharmacy #3668, [address] [place], [address], 4 09:54:18 diazepam 10 mg tablet [address]/Pharmacy #3668, [address] [place], [address], 4 09:54:17 lisinopril 10 mg tablet [address]/Pharmacy #3668, [address] [place], [address], 4 09:54:18 lisinopril 20 mg tablet 2023 024 [facility] [address] [place], [address], 4 09:54:24 lidocaine 5 % topical patch [address]/Pharmacy #3668, [address] [place], [address], 4 09:54:18 neomycin-p olymyxin-h ydrocort 3.5 mg-10,000 unit/mL-1 % ear drops,susp [address]/Pharmacy #3668, [address] [place], [address], 4 09:54:18 nicotine 21 mg/24 hr daily transderma l patch 2023 024 [facility] #3668, [address] [place], [address], 4 09:54:24 oxycodone 10 mg tablet [address]/Pharmacy #3668, [address] [place], [address], 4 09:54:18 omeprazole 20 mg capsule,de layed release 2023 024 [address] [address], [address] [place] [address], [address], 4 09:54:18 levofloxac in 750 mg tablet 2023 024 [address], [address] [place] [address], [address], 4 09:54:16 montelukas t 10 mg tablet 2023 024 [address], [address] [place] [address], [address], 4 09:54:17 prednisone 10 mg tablet 2023 024 [address], [address] [place] [address], [address], 4 09:54:16 glimepirid e 4 mg tablet 2023 024 [address], [address] [place] [address], [address], 4 10:20:25 albuterol sulfate HFA 90 mcg/actuat ion aerosol inhaler 2023 024 [facility] [address] [place] [address], [address], 4 10:20:30 Trelegy Ellipta 100 mcg-62.5 mcg-25 mcg powder for inhalation 2023 024 [facility], [address] [place] [address], [address], 4 10:20:31 ropinirole 0.5 mg tablet [address]/Pharmacy #3668, [address] [place], [address], 4 08:28:49 diazepam 10 mg tablet 2023 024 [address], [address] [place], [address], 4 08:28:55 lisinopril 10 mg tablet 2023 024 [facility] [address] [place], [address], 4 09:31:08 lidocaine 5 % topical patch 2023 024 [address], [address] [place], [address], 4 10:20:25 neomycin-p olymyxin-h ydrocort 3.5 mg-10,000 unit/mL-1 % ear drops,susp 2023 024 [facility] [address] [place], [address], 4 09:31:08 nicotine 21 mg/24 hr daily transderma l patch 2023 024 [address], [address] [place], [address], 4 10:20:25 oxycodone 10 mg tablet 2023 024 [address], [address] [place], [address], 4 08:29:06 omeprazole 20 mg capsule,de layed release 2023 024 [address], [address] [place], [address], 4 10:20:25 levofloxac in 750 mg tablet 2023 024 [facility] #3668, [address] [place], [address], 4 09:31:07 montelukas t 10 mg tablet 2023 024 [facility] #3668, [address] [place], [address], 4 09:31:07 prednisone 10 mg tablet 2023 024 [facility]3668, [address] [place], [address], 4 09:42:17 Patient TargetsNo targets recorded. Patient InstructionsNo instructions recorded. 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 Referral for S kin lesion requesting skin cancer screening Referring Physician: Milagros Urbina, Tire Design Engineer, Encounter Date: 01/13/2024 Problems Name Problem SNOMED Code Status Onset Date Resolution Date Notes Provider Name and Address Organization Details Recorded Time Chronic back pain 801922493 Active 2023 Madeline Nathan null, [facility] 4 08:28:00 Essential hypertensio n 32136392 Active 2023 Madeline Nathan null, [facility] 4 08:41:30 Chronic obstructive pulmonary disease 45852562 Active 2023 Madeline Nathan null, [facility] 4 08:41:43 Hyperlipide delon 47235963 Active 2023 Madeline Nathan null, [facility] 4 08:41:49 Diabetes mellitus 82438624 Active 2023 Madeline Nathan null, [facility] 4 08:41:55 Restless legs syndrome 97854409 Active 2023 Madeline Nathan null, [facility] 4 08:42:02 Gastroesoph ageal reflux disease 125723005 Active 2023 Madeline anne, [facility] 4 08:42:07 Upper respiratory infection 62237905 Active 2023 [facility] 4 08:42:12 Pneumonia 176238229 Active 2023 Madeline anne [facility] 4 08:42:18 Problem Notes None recorded. Procedures Surgical History Date Name Laterality Status Provider Name and Address Organization Details Recorded Time Knee Replacement completed Vineet Nathan [facility] 12/30/2023 08:33:46 Knee Surgery completed Madeline Nathan [facility] 12/30/2023 08:33:50 Hernia Repair completed Madeline Nathan [facility] 12/30/2023 08:33:55 procedure on shoulder completed Madeline Nathan [facility] 12/30/2023 08:34:12 Back Surgery completed Madeline Nathan [facility] 12/30/2023 08:34:16 Imaging Results None recorded. Procedure Notes None recorded. Medical Equipment None Reported. Allergies Allergen ID Allergen Name Allergen Category Reaction Reaction Severity Criticality Documentation Date Start Date Code Code System Note Provider Name and Address Organization Details Recorded Time 513549 morphine medicatio n flushing moderate Not available 12/30/2023 7052 RxNorm itchi ng and perfu sely sweat ing MILAGROS URBINA, STORM SASH MAKER [address],[facility] [address], [place], [address] [place] [address] 4 08:41:48 Medications Name Sig Start Date [...] Available Not Available Not Available amoxicillin 875 mg-martina m clavulanate 125 mg tablet TAKE 1 [...] 2023 active Not Available Not Available Not Avmatthew labphil Mucinex 600 mg tablet, extended release active Not Available Not Available Not Available azithromyci n 500 mg tablet TAKE 1 TABLET BY MOUTH EVERY DAY FOR 3 DAYS 12/30 completed Not Available Not Available Not Available oxycodone 10 mg tablet Take 1 tablet 4 times a day by oral route as needed for 30 days. 2023 active Not Available Not Available Not Avmatthew labphil Trelegy Ellipta 100 mcg-62.5 mcg-25 mcg powder for inhalation Inhale 2 puffs twice a day by inhalatio n route for 90 days. active Not Available Not Available No t Available [employer] At-Home COVID-19 Test kit TEST DIRECTED TODAY 12/30 completed Not Available Not Available Not Available Vitals Date Recorded Body weight Body mass index (BMI) Body height Heart rate Respiratory rate Oxygen saturation Body temperature Systolic And Diastolic Systolic And Diastolic Provider Name and Address Organization Details Last Updated DateTime 4 99826.4 g 34.9 kg/m2 165.1 cm 76 /min 16 /min 96 % 97.6 [degF] 154/88 mm[Hg] 148/90 mm[Hg] Cecilio LOPEZ - [facility] 4 08:37:25 Date Recorded Body height Body mass index (BMI) Body weight Heart rate Respiratory rate Body temperature Oxygen saturation Systolic And Diastolic Systolic And Diastolic Provider Name and Address Organization Details Last Updated DateTime 165.1 cm 35.3 kg/m2 88226.5 8 g 82 /min 16 /min 97.5 [degF] 97 % 170/98 mm[Hg] 174/96 mm[Hg] Cecilio Nathan [facility] 08:39:01 Social History Question Answer Notes LastModified by [employer] Details LastModified Time Tobacco Smoking Status Current Every Day Smoker Madeline Nathan [facility], [facility] 12/30/2023 08:33:37 Do You Have An Advance Directive? No [email or web address] Information not available 12/30/2023 What Is Your Level Of Caffeine Consumption? Moderate Information not available 12/30/2023 What Is Your Code Status? Full Code [email or web address] Information not available 12/30/2023 What Was The Date Of Your Most Recent Tobacco Screening? 01/13/2024 [email or web address] Information not available 07/20/2024 How Much Tobacco Do You Smoke? 0.5 PPD [email or web address] Information not available 12/30/2023 Sex: Unknown Functional Status Question Answer Note LastModified by [employer] Details LastModified Time Do you or have you ever used any other forms of tobacco or nicotine? No [email or web address] Information not available 12/30/2023 What is your level of alcohol consumption? Occasional [email or web address] Information not available 12/30/2023 Mental Status None recorded. Family History Relationship Description Onset Age of this Age Resolved Age Notes LastModified by Organization Details LastModified Time Mother Heart disease [email or web address] Not available 2023 08:32:10 Father Heart disease [email or web address] Not available 2023 08:32:24 Medical History Condition Response Coronary Artery Disease N Other N Gout N Atrial Fibrillation N Kidney Stones N Blood Diseases N Hyperthyroidism N Blood disorders N Blood Transfusion N Emphysema N Congenital Heart Disease N COPD Y Depression N Pneumonia N Peripheral Arterial Disease N Edema N Gastrointestinal Disease N Anxiety Disorder N Muscle, Joint, or Bone Problems Y Obesity N Vision or Eye Problems N Arthritis N Polyps N Infertility N Mental Disorder N Blood Clot N Cancer N Varicosities N Stroke N Crohn's Disease N Leg or Foot Ulcers N Raynaud's Disease N Polio N Aortic Aneurysm N Neurologic Disorder Y Rheumatoid Arthritis N Arrhythmia N Headaches N Fibromyalgia N Kidney Disease [...] Pox N Autism Spectrum Disorder (ASD) N Thrombophilias N Hematologic Disease N Thyroid Disease N Breast Cancer N Hernia N Hospital Admission Other Than N Lung Disease N Hypothyroidism N Glaucoma N Developmental or Behavioral Disorders N Defects [...] N Valvular Abnormalities N Organ Transplant N Foot Deformity N Dialysis N Allergies/Hayfever N Dyslipidemia N Thyroid Problems N GI Problems N ADD/ADHD N Anemia N Back Pain N Sjogren's Syndorme N Heart Attack ([place]) N Mental Illness N Ovarian Cancer N Diabetes Y Cardiomyopathy N Bedwetting N Seizures/Epilepsy N Congestive Heart Failure (CHF) N Valvular Heart Disease N Hyperlipidemia Y Eczema N Diverticulitis N Abuse/Domestic Violence N Lupus N Ankylosing Spondylitis N Psoriasis N Sleep Apnea N Warfarin Management N Heart Disease N Pre-Eclampsia N Hypertension Y Osteoporosis N Immunizations Vaccine Type Date Status Note Provider Nam e and Address Organization Details Recorded Time COVID-19, mRNA, LNP-S, PF, 30 mcg/0.3 mL dose 12/16/2020 completed Madeline Lopez s null, [facility] 12/30/2023 08:26:36 COVID-19, mRNA, LNP-S, PF, 30 mcg/0.3 mL dose 01/17/2021 completed Madeline Lopez s null, [facility] 12/30/2023 08:26:36 Tdap 02/16/2020 completed Madeline Salguero cas null, [facility] 12/30/2023 08:26:36 Past Encounters Encounter ID Performer Location Encounter Start Date Encounter Closed Date Diagnosis/Indication Diagnosis SNOMED-CT Code Diagnosis ICD10 Code Diagnosis IMO Codes Diagnosis Note [id number] [facility] [place] [address] 12/30/2023 08:13:19 12/30/2023 09:24:23 Acute otitis media 6307825 H66.92 Patient presents with signs/symp toms of otitis media. Will treat as below. Supportive care reviewed: avoid swimming for several days and use ear plugs thereafter . Recommende d acetaminop hen/ibupro fen PRN pain Follow up as below. Acute bronchitis 9980075 2 J20.9 Patient presents with allergic rhinitis. Supportive care reviewed: raising HOB, avoiding triggers, taking controller medication s, use of saline nasal spray/humi difier, encourage PO fluids, monitor hydration. RTO as scheduled for next WCC; sooner if any new or concerning symptoms arise. Essential hypertension 31925456 I10 First line treatment: lifestyle changes which [...] or if they develop new symptoms. Polyarthropathy 43619013 M13.0 Discussed medication regimen as well as diet and exercise modificati on. Patient will apply heat/ice as needed for pain relief. Follow up in 3 months. Chronic pain syndrome 37 6334046 G89.4 will monitor and notify as needed Adult [facility] examination 917052992 Z00.01 Education was provided on healthy nutrition, [...] living. Gastroesop hageal reflux disease without esophagitis 289774610 K21.9 Patient will continue conservati ve management [...] new/concer kelly symptoms. Restless l egs syndrome 80399538 G25.81 will monitor and notify f worsens Hyperlipidemia 70983630 E78.5 Patient with known hyperlipid emia. Last lipid panel poorly controlled . Lifestyle modificati ons discussed including weight loss, aerobic exercise at least 30 min/day at least 5 days per week, and a diet rich in fruit and vegetables . Goal LDL: 100mg/dL, 70mg/dL}}. Will continue to follow lipid panel q6-12 months. Chronic ob structive pulmonary disease 00259110 J44.9 Plan1-Diet and lifestyle counseling , especially breathing exercises to improve oxygenatio n.2- Mood and cognitive assessment will follow regimen be done in future to make sure patient is able to follow regimen.3- Also we will be discussing life stressors and advanced directives and documentat ion in future encounters . Generalize d anxiety disorder 34266177 F41.1 Patient identified triggers for anxiety and impact of anxious thinking on functionin g. Discussed strategies to regulate symptoms and need for compliance with treatment. Nicotine dependence 5629 4008 F17.200 Advise about smoking cessationO rder smoking cessation counseling , greater than 3 minutes up to 10 minutes Type 2 gerry betes mellitus 61498478 E11.9 Patient seen in office today for Diabetes is well controlled . Patient educated on diabetes complicati ons . Discussed treatment/ diagnostic plan and orders with patient as indicated below. Provided diabetic diet Screening for malignant neoplasm of prostate 031116667 Z12.5 will follow results Screening for malignant neoplasm of colon 106495823 Z12.11 will follow results [id number] MILAGROS URBINA APRN [employer] [address] [place] [address] 01/13/2024 08:28:42 01/13/2024 09:13:47 Acute otitis media 1164280 H66.92 Patient presents with signs/symp toms of otitis media. Will treat as below. Supportive care reviewed:a void swimming for several days and use ear plugs thereafter . Recommende d acetaminop hen/ibupro fen PRN pain Follow up as below. RESOLVED Acute bronchitis 8133122 2 J20.9 Patient presents with allergic rhinitis. Supportive care reviewed: raising HOB, avoiding triggers, taking controller medication s, use of saline nasal spray/humi difier, encourage PO fluids, monitor hydration. RTO as scheduled for next WC; sooner if any new or concerning symptoms arise. RESOLVED Essential hypertension 57109028 I10 First line treatment: lifestyle changes which [...] in BP diary in 2 weeks Polyarthropathy 41279214 M13.0 Discussed medication regimen as well as diet and exercise modificati on. Patient will apply heat/ice as needed for pain relief. Follow up in 3 months. Chronic pain syndrome 37 1115576 G89.4 will monitor and notify as needed Adult [facility] examination 052926184 Z00.01 Education was provided on healthy nutrition, [...] living. Gastroesop hageal reflux disease without esophagitis 494536525 K21.9 Patient will continue conservati ve management [...] new/concer kelly symptoms. Restless l egs syndrome 69509799 G25.81 will monitor and notify f worsens Hyperlipidemia 56557947 E78.5 Patient with known hyperlipid emia. Last lipid panel poorly controlled . Lifestyle modificati ons discussed including weight loss, aerobic exercise at least 30 min/day at least 5 days per week, and a diet rich in fruit and vegetables . Goal LDL: 100mg/dL, 70mg/dL}}. Will continue to follow lipid panel q6-12 months. Chronic ob structive pulmonary disease 80425313 J44.9 Plan1-Diet and lifestyle counseling , especially breathing exercises to improve oxygenatio n.2- Mood and cognitive assessment will follow regimen be done in future to make sure patient is able to follow regimen.3- Also we will be discussing life stressors and advanced directives and documentat ion in future encounters . Increase trelegy to 2 puffs twice nisa Generalize d anxiety disorder 61713661 F41.1 Patient identified triggers for anxiety and [...] ous changes Type 2 gerry betes mellitus 81457672 E11.9 Patient seen in office today for Diabetes is well controlled . Patient educated on diabetes complicati ons . Discussed treatment/ diagnostic plan and orders with patient as indicated below. Provided diabetic diet Screening for malignant neoplasm of prostate 922326112 Z12.5 will follow results Screening for malignant neoplasm of colon 536839306 Z12.11 will follow results Skin lesion 65165283 L98 .9 will follow results Headache 67297843 R51.9 will follow results Obesity 448446372 E66.9 BMI:35.3 Advise about healthy life style and weight loss Health Concerns Section Related Observation LastModified by Organization Detai ls LastModified Time None Recorded Concern Status LastModified by Organization Details LastModified Time None Recorded Advance Directives Directive N: Payers Insurance Date Sequence Insurance Name Policy Number Policy Valentino Covered Member ID Valentino Member ID Guarantor Name 06/21/2024 2 [place] Stanislav Jacobson [id number] Stanislav Jacobson 06/21/2024 1 [employer] (MEDICARE REPLACEMENT/ ADVANTAGE - PPO) Stanislav Jacobson [id number] Stanislav Jacobson Notes Date Note Type Note [...] problems. 73 [facility]. Studies ordered as below. Discussed plan with patient, who expressed understanding. Follow up as noted below.patient has history of polyarthritis, chronic pain, COPD, nicotine dependence, DM type 2, GERD and hypertensionhe reports that he has had a persistent congested cough and recurrent URI's.Also left ear pain x 2 weeks MILAGROS URBINA, STORM SASH MAKER [address], [place], [address], [facility] 01/13/2024 08:29:11 01/13/2024 text/html Annual WellnessReported [...] cough and generalized back and joint pain MILAGROS URBINA, STORM SASH MAKER [address], [place], [address], [facility] - [facility] 01/13/2024 09:59:10
== END 2025-10-02 06:21 | disposition home or self-care (01) ==
LOC: CF 06:20
PROVIDERS: Visit Provider Anesthesiology
DX: Z45.49 Encounter for adjustment and management of other implanted nervous system device (principal); M96.1 Postlaminectomy syndrome, not elsewhere classified; G89.4 Chronic pain syndrome; Z79.891 Long term (current) use of opiate analgesic
CPT/HCPCS: 95991

== ENCOUNTER 2025-10-02 11:51 | Outpatient (AMB) | payer MEDICARE, MEDICAID, SELFPAY ==
--- OUTSIDE RECORDS SUMMARY | 2025-10-01 08:18 | XMS_ITS | Continuity of Care Document ---
Author Organization [facility] Address [address] [place] [address] Care Team Providers Care Simulation Tech Name Role Phone Stanislav Olivares DO Unavailable [...] route every day 0.5 MG - Active fentanyl citrate (bulk) 100 % [...] Diagnoses Date Provider Providers Copied on Encounter [facility], [address], [place], [place], [id number] , [facility] No Information 5 Marshall [place]. [address] [facility], [address], [place], [place], [id number], [place]. tel:[phone] [facility], [address], [place], [place], [id number] , [facility] No Information 5 Marshall Stanislav. [address] [place] [address], [id number], . tel:[phone] OFFICE/OUTPA TIENT VISIT, EST [facility], [address], [place], [place], [id number] , [facility] low back pain (chief complaint) Encounter for adjustment and management of infusion pumpOther specified diabetes mellitus with hyperglycemiaOt her spondylosis, lumbar regionPostlamin ectomy syndrome, not elsewhere classifiedChron ic pain syndromeLong term (current) use of opiate analgesicRadicu lopathy, lumbar regionHTN 5 Beni Richa. [address] [place] [address], [id number], . tel:[phone] Referring Provider: [address] [address], [place], [address]. tel:[phone] OFFICE/OUTPA TIENT VISIT, EST [facility], [address], [place], [place], [id number] , [facility] low back pain (chief complaint) Knee Pain (chief complaint) Encounter for adjustment and management of infusion pumpOther specified diabetes mellitus with hyperglycemiaOt her spondylosis, lumbar regionPostlamin ectomy syndrome, not elsewhere classifiedRadic ulopathy, lumbar regionHTNChroni c pain syndromeLong term (current) use of opiate analgesic 5 Beni Richa. [address] [place] [address], [place], [id number], [place]. tel:[phone] Referring Provider: [facility] Infante [facility] [address] [address], [place], [address]. tel:[phone] OFFICE/OUTPA TIENT VISIT, EST [facility], [address], [place], [place], [id number] , [facility] low back pain (chief complaint) Encounter for adjustment and management of infusion pumpOther specified diabetes mellitus with hyperglycemiaOt her spondylosis, lumbar regionPostlamin ectomy syndrome, not elsewhere classifiedRadic ulopathy, lumbar regionHTNChroni c pain syndromeLong term (current) use of opiate analgesicEncoun ter for removal of stapleGastro-es ophageal reflux disease without esophagitis 5 Benilatrice Chaudhry. [address] [facility] [address], [place], [id number], [place]. tel:[phone] Referring Provider: Marah Sandoval, [address], [place], [address]. tel:[phone] [facility], [address], [place], [place], [id number] , [facility] low back pain (chief complaint) Knee Pain (chief complaint) Postlaminectomy syndrome, not elsewhere classifiedRadic ulopathy, lumbar regionOther spondylosis, lumbar regionChronic pain syndromeGERD without esophagitisHTNL eric term (current) use of opiate analgesicEncoun ter for adjustment and management of infusion pumpEncounter for change or removal of surgical wound dressing 5 Navjot Blanca. [address] [place], [place], [id number], [place]. tel:[phone] Referring Provider: Marah Sandoval, [address], [place], [address]. tel:[phone] [facility], [address], [place], [place], [id number] , [facility] No Information 5 Ivy Gerber. [address], [place], [address], [place]. tel:[phone] [facility], [address], [place], [place], [id number] , [facility] Chronic pain syndromePostlam inectomy syndrome, not elsewhere classifiedRadic ulopathy, lumbar region 5 Marshall Colorado. [address] [facility] [address], [place], [id number], [place]. tel:[phone] OFFICE/OUTPA TIENT VISIT, EST [facility], [address], [place], [place], [id number] , [facility] Knee Pain (chief complaint) low back pain (chief complaint) Postlaminectomy syndrome, not elsewhere classifiedChron ic pain syndromeLong term (current) use of opiate analgesicHTNTyp e 2 diabetes mellitus without complicationsHy percholesterole miaRestless legs syndromeInsomni aGERD without esophagitisOthe r spondylosis, cervical region 5 Rayside [address]Misa. [address] [facility], [address], [id number], [place]. tel:[phone] Referring Provider: Marah Sandoval, [address], [place], [address]. tel:[phone] OFFICE/OUTPA TIENT VISIT, EST [facility], [address], [place], [place], [id number] , [facility] low back pain (chief complaint) Postlaminectomy syndrome, not elsewhere classifiedChron ic pain syndromeLong term (current) use of opiate analgesicHTNTyp e 2 diabetes mellitus without complicationsHy percholesterole miaGERD without esophagitisRest less legs syndromeInsomni aOther spondylosis, cervical region 5 Rayside [address]Misa[address] [facility], [address], [id number], [place]. tel:[phone] Referring Provider: Marah Sandoval, [address], [place], [address]. tel:[phone] OFFICE/OUTPA TIENT VISIT, EST [facility], [address], [place], [place], [id number] , [facility] Knee Pain (chief complaint) Other spondylosis, cervical regionPostlamin ectomy syndrome, not elsewhere classifiedChron ic pain syndromeLong term (current) use of opiate analgesicHTNTyp e 2 diabetes mellitus without complicationsHy percholesterole miaGERD without esophagitisRest less legs syndromeInsomni a [address]ayside [address] [facility], [facility] [address], [id number], . tel:[phone] Referring Provider: Marah Sandoval, [address], [place], [address]. tel:[phone] [facility], [address], [place], [place], [id number] , [facility] No Information 5 Hudson Crystal. [address], [address] [facility], [place], [address], [place]. tel:[phone] Referring Provider: Marah Sandoval, [address] [facility], [place], [address]. tel:[phone] OFFICE/OUTPA TIENT VISIT, EST [facility], [address], [place], [place], [id number] , [facility] Follow Up for Knee Pain (chief complaint) Follow Up for Lower Back Pain (chief complaint) Postlaminectomy syndrome, not elsewhere classifiedChron ic pain syndromeLong term (current) use of opiate analgesicHTNTyp e 2 diabetes mellitus without complicationsHy percholesterole miaGERD without esophagitisRest less legs syndrome 5 Rayside [address]Misa[address] [facility], [address], [id number], [place]. tel:[phone] Referring Provider: Marah Sandoval, [address], [place], [address]. tel:[phone] [facility], [address], [place], [place], [id number] , [facility] Chronic pain syndromePostlam inectomy syndrome, not elsewhere classifiedRadic ulopathy, lumbar region Feb- 5 Marshall [place]. [address] [facility], [address], [address], [place]. tel:[phone] OFFICE/OUTPA TIENT VISIT, EST [facility], [address], [place], [place], [id number] , [facility] Knee Pain (chief complaint) low back pain (chief complaint) Postlaminectomy syndrome, not elsewhere classifiedRadic ulopathy, lumbar regionChronic pain syndromeInsomni aOther specified diabetes mellitus with hyperglycemiaLo ng term (current) use of opiate analgesic 5 Vecchione Analilia. [address], [id number], [place]. tel:[phone] [facility], [address], [place], [place], [id number] , [facility] No Information 5 Beni Richa. [address] [place] [address], [id number], [place]. tel:[phone] OFFICE/OUTPA TIENT VISIT, EST [facility], [address], [place], [place], [address] , [facility] low back pain (chief complaint) Knee Pain (chief complaint) Postlaminectomy syndrome, not elsewhere classifiedChron ic pain syndromeHTN 5 Hudson Crystal. [address] [facility], [address] [facility], [place], [address], [place]. tel:[phone] Referring Provider: Marah Sandoval, [address] [facility] [address] [facility], [place], [address]. tel:[phone] OFFICE/OUTPA TIENT VISIT, EST [facility], [address], [place], [place], [id number] , [facility] Knee Pain (chief complaint) back pain (chief complaint) Other spondylosis, lumbar regionPostlamin ectomy syndrome, not elsewhere classifiedRadic ulopathy, lumbar regionHTNChroni c pain syndromeLong term (current) use of opiate analgesicOther specified diabetes mellitus with hyperglycemia Dec- 5 Beni Richa. [address], [place], [id number], [place]. tel:[phone] OFFICE/OUTPA TIENT VISIT, [facility], [address], [place], [place], [id number] , [facility] low back pain (chief complaint) Knee Pain (chief complaint) Other spondylosis, lumbar regionPostlamin ectomy syndrome, not elsewhere classifiedRadic ulopathy, lumbar regionHTNDiabet es insipidusChroni c pain syndromeOther spondylosis, thoracic regionOther spondylosis, cervical regionLong term (current) use of opiate analgesic Marshall Colorado. [address] [facility], [address], [place], [place], [id number], [place]. tel:[phone] Family History Family Member Type Diagnosis Age At Onset Father Problem (finding) Family history of Alzhe shavonne's disease Mother Problem (finding) Family history of Arthr itis Father Problem (finding) Family history of Arthr itis Father Problem (finding) Family history of Demen tia Payers Payer name Insurance type Covered constitution party ID Authoriza tion(s) [employer] Assure HMO CI [id number] Social History Type Description Quantity Date Captured [...] reports he is leaving on today to [place] where he snowbirds from. He was advised that oral opiates will not be sent without an office visit so he is either to return to the office for refills or establish care with pain management while he is in [place] 6 months out of the year. Patient [...] not established care with pain management in [place] who can manage his pump, we can attempt to send a referral to [facility] to see if his insurance [...] AND DISCONTINUED ITP IS TITRATED. Related to buttermaker (current) use of opiate analgesic Consider Lumbar [...] AND DISCONTINUED ITP IS TITRATED. Related to senior care (current) use of opiate analgesic We will continue Fen tanyl intrathecal therapy per protocol. We will continue Oxycodone 10 mg QID PRN for breakthrough pain as ITP is titrated. PATIENT IS ADVISED ORAL OPIATES WILL BE WEANED AND DISCONTINUED ITP IS TITRATED. Patient reports he is leaving on 06/25/2025 to [place] where he snowbirds from. Advised oral opiates will not be sent without an office visit so he is either to return to the office for refills or establish care with pain management while he is in [place] 6 months out of the year. Patient [...] not established care with pain management in [place] who can manage his pump, we can attempt to send a referral to [facility] to see if his insurance will cover home health services for refills and adjustments. Related to Chronic pain syndrome Consider Lumbar MBB at a later d ate. Related to Other spondylosis, lumbar region Advised to follow up with PCP as scheduled. Related to Other specified diabetes mellitus with hyperglycemia Incisions was assess ed prior to staple removal. Incision is clean dry and intact. Site was cleaned. Junior Account Executive applied benzoin tincture, removed abram, applied bacitracin [...] AND DISCONTINUED ITP IS TITRATED. Related to buttermaker (current) use of opiate analgesic Advised to [...] others cannot easily access them. Related to buttermaker (current) use of opiate analgesic UDS risk [...] others cannot easily access them. Related to buttermaker (current) use of opiate analgesic UDS risk [...] environment in an opioid emergency. Related to senior care (current) use of opiate analgesic UDS risk [...] and destroyed at a depository. Related to buttermaker (current) use of opiate analgesic He is scheduled for fentanyl it pump trial w/ dr. Olivares. -pending PCP clearance- Dr. Yost in [place].-psych clearance on file. 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 Yost in [place] and still needs PCP clearance. Related to [...] of benzodiazepines and any metabolite Related to senior care (current) use of opiate analgesic Says that [...] continue non opioid treatment options. 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 Related to senior care (current) use of opiate analgesic Consider Lumbar [...]
[2025-10-02 11:52] VITALS: BP 179/93; PULSE 103; RESP 16; O2SAT 89; BMI 35.8
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
== END 2025-10-02 12:42 | disposition home or self-care (01) ==
LOC: HO.PMCPRC 11:51
PROVIDERS: PCP Family Medicine; Visit Provider Anesthesiology
DX: M96.1 Postlaminectomy syndrome, not elsewhere classified (principal); Z79.891 Long term (current) use of opiate analgesic; G89.4 Chronic pain syndrome; Z45.1 Encounter for adjustment and management of infusion pump
CPT/HCPCS: 95991

== ENCOUNTER 2025-10-09 06:54 | Outpatient (REF) | payer MEDICARE, MEDICAID, SELFPAY ==
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
--- OUTSIDE RECORDS SUMMARY | 2025-10-09 06:57 | XMS_ITS | Data Portability ---
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 Plan of Treatment Reminders Order Date Submit Date Provider Last Modified By Organization Details Last Modified Time Details Appointments Establ dariel Lai t 30 2025 11:30A M DEEPTI TIPTON, EZIO Not available Not available Not available Lab vitami n D, 25-hyd sharon, total, serum 2024 025 [facility] (Lab), [address] [place] [address], [id number], 06/18/2025 08:55:20 vitami n B12, serum 2024 025 [facility] (Lab), [address] [place] [address], [address], 06/18/2025 08:55:20 folate , serum 2024 025 [facility] (Lab), [address] [place], [address], 06/18/2025 08:55:19 magnes ium, serum or plasma 2024 025 [facility] (Lab), [address] [place] [address], [address], 06/18/2025 08:55:19 CBC w/ diff 2024 025 [facility] (Lab), [address] [place] [address], [address], 06/18/2025 08:55:20 TSH, ultra- sensit felix, serum 2024 025 [facility] (Lab), [address] [place] [address], [address], 06/18/2025 08:55:20 T4, free, serum 2024 025 [facility] (Lab), [address] [place] [address], [address], 06/18/2025 08:55:19 lipid panel, serum 2024 025 [facility] (Lab), [address] [place] [address], [address], 06/18/2025 08:55:19 HbA1c (hemog lobin A1c), blood 2024 025 [facility] (Lab), [address] [place] [address], [address], 06/18/2025 08:55:19 CMP, serum or plasma 2024 025 [facility] (Lab), [address] [place] [address], [address], 06/18/2025 08:55:20 urinal ysis comple te, reflex cultur e 2024 025 [facility] (Lab), [address] [place] [address], [address], 06/18/2025 08:55:20 microa lbumin , urine 2024 025 [facility] (Lab), [address] [place] [address] [place], [address], 06/18/2025 08:55:20 Referral pulmon ologis t referr al 2024 025 nida Love MD, [address] [place] [address] [facility], [place], [address], 06/20/2025 08:55:11 Procedures None record ed. Surgeries None record ed. Imaging None record ed. Medication Orders Lantus Solost ar U-100 Insuli n 100 unit/m L (3 mL) subcut aneous pen 2024 025 [facility] [place], [address], 06/18/2025 08:45:55 trazod one 50 mg tablet 2024 025 [facility], [address] [place], [address], 05/07/2025 11:29:02 Peride x 0.12 % mouthw lyndsay 2024 025 [facility], [address] [place], [address], 06/18/2025 09:11:12 nystat in 100,00 0 unit/m L oral suspen ronn 2024 025 [facility], [address] [place], [address], 04/19/2025 09:10:01 lisino pril 10 mg tablet 2024 025 [facility], [address] [place], [address], 04/19/2025 09:03:48 Advair Diskus 250 mcg-50 mcg/do se powder for inhala tion 2024 025 [facility], [address] [place], [address], 04/19/2025 09:10:05 albute rol sulfat e 2.5 mg/3 mL (0.083 %) soluti on for nebuli zation 2024 025 [facility], [address] [place], [address], 04/19/2025 09:10:05 albute rol sulfat e 2.5 mg/3 mL (0.083 %) soluti on for nebuli zation 2024 025 [email or web address] iz Not available 04/24/2025 06:41:35 shona ukast 10 mg tablet 2024 [facility], [facility] [place], [address], 04/19/2025 09:33:00 OneTou ch Verio test strips [address] [place], [address], 04/30/2025 08:30:24 Lantus Solost ar U-100 Insuli n 100 unit/m L (3 mL) subcut aneous pen [address] [facility], [address] [place], [address], 06/18/2025 08:43:00 clotri mazole 10 mg jaylin 2024 025 [facility], [facility] [place], [address], 04/19/2025 08:22:07 Breztr i Aerosp here 160 mcg-9m cg-4.8 mcg/ac tuatio n HFA aeroso l inhale r 2024 025 [facility], [address] [place], [address], 05/07/2025 11:01:03 azithr omycin 250 mg tablet 2024 025 [facility], [address] [place], [address], 04/19/2025 08:21:44 Patient TargetsNo targets recorded. Patient Instructions Encounter Date Encounter Id Patient Instructions Last Modified By Organization Details Last Modified Time 03/01/2025 [id number] health literacy assessment* [email or web address] Not available 03/01/2025 11:52:19 04/05/2025 [id number] health literacy assessment* Not available 04/05/2025 13:21:08 candidiasis: car e instructions Not available 04/05/2025 13:21:08 04/19/2025 [id number] health literacy assessment* Not available 04/19/2025 09:03:38 05/07/2025 [id number] health literacy assessment* Not available 05/07/2025 11:25:37 06/18/2025 [id number] health literacy assessment* Not available 06/18/2025 08:45:44 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 [employer] Technician Referral for A cute exacerbation of chronic obstructive pulmonary disease copd, seen in hospital Referring Physician: Chela Carranza, Family Medicine, Encounter Date: 03/01/2025 Results Created Date Observation Date Name Description Value Unit Range Abnormal Flag Note LastModifiedBy Organization Detail LastModifiedTime 02/22/2002/21/2025 healt h liter acy asses sment * Brief Health Literacy Results Normal Not Available [facility] [address], [address], 02/21/2025 11:39:55 03/01/20 25 03/01/2025 healt h liter acy asses sment * Brief Health Literacy Results Normal Not Available [facility] [address], [address], 03/01/2025 08:13:35 04/05/20 25 04/05/2025 healt h liter acy asses sment * Brief Health Literacy Results Normal Not Available [address], [address], 04/05/2025 12:53:39 04/19/20 25 04/19/2025 healt h liter acy asses sment * Brief Health Literacy Results Normal Not Available [address], [address], 04/19/2025 08:26:11 05/07/20 25 05/07/2025 HEMOG LOBIN A1C Hb A1C % res 8.1 % 4.0-6. 0 high Not Available [facility] (Lab) [address] [place], [address], 05/07/2025 13:36:01 05/07/20 25 05/07/2025 HEMOG LOBIN [...] i.org /10.2 337/d c24-S 002 Not Available [facility] (Lab) [address] [place], [address], 05/07/2025 13:36:01 05/07/20 25 05/07/2025 healt h liter acy asses sment * Brief Health Literacy Results Normal Not Available [address], [address], 05/04/2025 14:33:17 05/29/20 25 05/29/2025 HEMOG LOBIN A1C Hb A1C % res 8.0 % 4.0-6. 0 high Not Available [facility] (Lab) [address] [place], [address], 05/29/2025 16:43:41 05/29/20 25 05/29/2025 HEMOG LOBIN [...] i.org /10.2 337/d c24-S 002 Not Available [facility] (Lab) [address] [place], [address], 05/29/2025 16:43:41 06/18/20 25 06/18/2025 healt h liter acy asses sment * Brief Health Literacy Results Adequa te Not Available [facility] [address], [place], [address], 06/15/2025 14:28:03 Result Notes None recorded. Problems Name Problem SNOMED Code Status Onset Date Resolution Date Notes Provider Name and Address Organization Details Recorded Time Acute kidney injury [id number] Marvin anne, [facility] 5 11:37:43 Acute exacerbati on of chronic obstructiv e pulmonary disease 862241100 Active DEEPTI TIPTON, MANAGER STUDENT SERVICES [address] [place], [address], [facility] 5 14:30:43 Respirator y acidosis and metabolic alkalosis 109020855 Marvin anne, [facility] 5 11:37:43 Dyspnea 474562516 [facility] 5 11:37:43 Joint swelling 545824518 [facility] 5 11:37:43 Laceration of thumb 990125245 [facility] Ana [facility] 5 11:37:43 Left lower zone pneumonia 137115180 Active [facility] 5 11:37:43 Hypoxia 105096440 Active [facility] 5 11:37:43 Acute-on-c hronic respirator y failure 62524946 Active CHELA CARRANZA NP [address] [place], [address], [facility] 5 20:24:37 Acute respirator y acidosis 47357604 Active Ana Hernandez [facility] 5 11:37:43 Congestion of nasal sinus 23127031 [facility] Ana Hernandez [facility] 5 11:37:43 Mixed hyperlipid emia 929974353 Active 2022 Not Available [facility] 4 00:47:27 Tobacco dependence syndrome 23809527 Active 2022 CHELA CARRANZA NP [address] [place], [address], [facility] 5 20:27:42 Chronic obstructiv e pulmonary disease 03014235 Active 2022 DEEPTI TIPTON APRN [address] [place], [address], [facility] 5 10:02:27 Chronic low back pain 995800250 Active 2022 DEEPTI TIPTON APRN [address] [place], [address], [facility] 5 10:00:43 Cigarette smoker 95710530 Active 2022 Not Available [facility] 4 00:47:27 Pneumonia 540634022 Active 2022 Not Available [facility] 4 00:47:27 Type 2 diabetes mellitus 99734533 Active 2022 Not Available [facility] 4 00:47:27 Neuropathy due to type 2 diabetes mellitus 991570351096 106 Active 2022 Not Available [facility] 4 00:47:27 Essential hypertensi on 60937331 Active 2022 CHELA CARRANZA NP [address] [place], [address], [facility] 5 20:28:46 Restless legs syndrome 22660351 Active 2022 Not Available [facility] 4 00:47:27 Gastroesop hageal reflux disease 131264564 Active 2022 Not Available [facility] 4 00:47:27 Acute upper respirator y infection 09558088 Active 2023 Not Available [facility] 4 00:47:27 Nausea 972744129 Active 2024 EDDY JOHNSON MD [address] [place], [place], [address] [place] [address], [facility] 5 15:12:20 Constipati on 37865322 Active 2024 EDDY JOHNSON MD [address] [facility], [place], [place], [address] [place] [address], [facility] 5 15:20:09 Community acquired pneumonia 036383485 Active 2024 CHELA CARRANZA NP [address] [facility], [place], [place], [address] [place] [address], [facility] 5 20:24:06 Acute on chronic hypoxemic and hypercapni c respirator y failure 608201897035 07 Active 2024 [facility]CHO [address] [facility] [place], [address], [facility] 5 20:26:15 Chronic pain syndrome 852711310 Active 2024 CHELA CARRANZA NP [address] [facility], [place], [address], [facility] 5 20:27:59 Diabetic peripheral neuropathy 500385904 Active 2024 CHELA CARRANZA, CHUCHO [address] [facility], [place], [place], [address] [place] [address], [facility] 5 20:28:12 Gastroesop hageal reflux disease without esophagiti s 532715801 Active 2024 CHELA CARRANZA, CHUCHO [address] [facility], [place], [address], [facility] 5 20:29:08 Allergic rhinitis 44467245 Active 2024 EZIO DEE [place], [place], [address] [place] [address], [facility] 5 09:46:02 Hyperglyce delon due to type 2 diabetes mellitus 931093152018 109 Active 2024 EZIO DEE [facility], [place], [place], [address] [place] [address], [facility] 5 16:20:59 Candidiasi s of mouth 28623561 Active 2024 EZIO DEE [place], [place], [address] [place] [address], [facility] 5 11:17:40 Gingivitis 70973842 Active 2024 [place], [address], [facility] 5 11:24:16 Insomnia 037191073 Active 2024 [place], [address], [facility] 5 11:26:33 Hyperlipid emia 50880455 Active 2024 [place], [address], [place] [facility] 5 08:47:23 Problem Notes None recorded. Procedures Surgical History Date Name Laterality Status Provider Name and Address Organization Details Recorded Time 0 Self Management Goals completed Delores Dowd [facility] 03/28/2020 10:17:11 Imaging Results None recorded. Procedure Notes None recorded. Medical Equipment None Reported. Allergies Allergen ID Allergen Name Allergen Category Reaction Reaction Severity Criticality Documentation Date Start Date Code Code System Note Provider Name and Address Organization Details Recorded Time 14209 morphine medicatio n flushing moderate Not available 10/14/2023 7052 RxNorm Pedro anne, [facility] 5 14:55:28 Medications Name Sig Start [...] 01/09 completed Prescrib ed by PCP in [place] Not Available Not Available Not Available amoxicill [...] Available No t Available OptiChamb er Omayra [facility] spacer FOR USE WITH INHALER INHALED [...] active Not Available Not Available Not Available Charmaineemirtri Aerospher e 160 mcg-9mcg- 4.8mcg/ac tuation HFA aerosol inhaler INHALE 2 PUFFS TWICE DAILY FOR 30 DAYS FOR COPD MAINTENA NCE 05/07 completed Not Available Not Available Not Available QuickVue SARS Antigen kit Take 1 kit by 2C2Pcell. route. 01/09 completed Not Available Not Available [...] Last Updated DateTime 165.1 cm 33.1 kg/m2 19456.1 6 g 97.2 [degF] 18 /min 10 % 144/84 mm[Hg] Natividad Reynaga [facility] 10:38:53 Date Recorded Oxygen saturation Provider Name and Address Organization Details Last Updated DateTime 04/05/2025 91 % DEEPTI TIPTON, MANAGER STUDENT SERVICES [address] [place], [address], [facility] 04/05/2025 13:10:57 Date Recorded Body height Body mass index (BMI) Body weight Respiratory rate Heart rate Body temperature Systolic And Diastolic Provider Name and Address Organization Details Last Updated DateTime 5 165.1 cm 33.4 kg/m2 48771.0 7 g 16 /min 98 /min 97 [degF] 130/88 mm[Hg] Ana Hernandez [facility] 12:56:50 Date Recorded Body height Body mass index (BMI) Body weight Respiratory rate Body temperature Oxygen saturation Heart rate Systolic And Diastolic Provider Name and Address Organization Details Last Updated DateTime 5 165.1 cm 33.7 kg/m2 91471.5 3 g 18 /min 97.3 [degF] 93 % 86 /min 136/84 mm[Hg] Angella Jose [facility] 5 08:20:16 Date Recorded Body height Body mass index (BMI) Body weight Respiratory rate Body temperature Heart rate Oxygen saturation Systolic And Diastolic Provider Name and Address Organization Details Last Updated DateTime 5 165.1 cm 34 kg/m2 81979.2 8 g 20 /min 97 [degF] 91 /min 91 % 130/78 mm[Hg] Ana Hernandez [facility] 5 11:00:01 Date Recorded Body height Body mass index (BMI) Body weight Respiratory rate Body temperature Oxygen saturation Heart rate Systolic And Diastolic Provider Name and Address Organization Details Last Updated DateTime 5 165.1 cm 33.4 kg/m2 93336.6 3 g 20 /min 97.3 [degF] 87 % 97 /min 140/90 mm[Hg] Ana Hernandez [facility] 5 08:22:16 Social History Question Answer Notes LastModified by Organizat ion Details LastModified Time Tobacco Smoking Status Current Some Day Smoker Cedric anne [facility] 10/14/2023 13:19:39 Are You Blind Or Do You Have Difficulty Seeing? No [email or web address] Information not available 04/19/2025 What Is Your Level Of Caffeine Consumption? Occasional A Pot Of Coffee Most Of The Time Information not available 04/19/2025 Are You Deaf Or Do You Have Serious Difficulty Hearing? No [email or web address] Information not available 04/19/2025 What Was The Date Of Your Most Recent Tobacco Screening? 06/18/2025 [email or web address] Information not available 06/18/2025 How Many Children Do You Have? 0 [email or web address] Information not available 04/19/2025 What Is Your Relationship Status? Single [email or web address] Information not available 04/19/2025 At What Age Did You Start Smoking Tobacco? [age] Yrs Old Information not available 03/01/2025 How Much Tobacco Do You Smoke? 0.5 PPD Information not available 10/14/2023 How Many Years Have You Smoked Tobacco? 50 50 Yrs Information not available 03/01/2025 Do You Have Difficulty Walking Or Climbing Stairs? No [email or web address] Information not available 04/19/2025 Sex: Unknown Functional Status Question Answer Note LastModified by Organizat ion Details LastModified Time Do you or have you ever used any other forms of tobacco or nicotine? Yes Information not available 10/14/2023 What is your level of alcohol consumption? None [email or web address] Information not available 04/19/2025 Do you or have you ever used smokeless tobacco? Never used smokeless tobacco Nicotine Patch Information not available 10/14/2023 Are you currently employed? No DISABLE [email or web address] Information not available 04/19/2025 Are you able to walk independently without assistance or assistive devices? YESWOREST [email or web address] Information not available 04/19/2025 Do you have difficulty doing errands alone? No [email or web address] Information not available 04/19/2025 Are you able to care for yourself independently? Yes [email or web address] Information not available 04/19/2025 Do you or have you ever used e-cigarettes or vape? Never used electronic cigarettes Information not available 10/14/2023 Mental Status Question Answer Note LastModified by Organization D etails LastModified Time Do you have difficulty concentrating, remembering or making decisions? No [email or web address] Information no t available 04/19/2025 Family History [...] mcg/0.3 mL dose 12/16/2020 completed Ana anne, [facility] 02/21/2025 11:37:49 COVID-19, mRNA, LNP-S, PF, 30 mcg/0.3 mL dose 01/17/2021 completed Ana anne, [facility] 02/21/2025 11:37:50 Tdap 02/16/2020 completed JESSICA Bragg - [facility] 02/21/2025 11:37:50 Past Encounters Encounter ID Performer Location Encounter Start Date Encounter Closed Date Diagnosis/Indication Diagnosis SNOMED-CT Code Diagnosis ICD10 Code Diagnosis IMO Codes Diagnosis Note [id number] DANIEL QUINCAMILA , AUT[employer] FLEET MAINTENANCE MANAGER [facility] [address] [place] [address] 03/25/2020 15:10:57 03/25/2020 15:11:29 Exposure to viral disease 7470183586 38611 Z20.828 [id number] HOMER Patterson, AUTO FLEET MAINTENANCE MANAGER [facility] [address] [place] [address] 03/27/2020 12:58:36 04/09/2020 08:41:59 Exposure to viral disease 7342406332 32930 Z20.828 Pt notified COVID-19 not detected on recent nasopharyn geal swab. Pt verbalizes understand ing and will monitor for any s/sx of infection. Pt advised to continue to practice social distancing and follow CDC guidelines , including the use of face coverings in public, frequent hand washing and sanitizing of high touch surfaces. All questions answered to pt's satisfacti on [id number] EDDY JOHNSON MD Family Medicine [address] [place] [address] 10/14/2023 13:07:31 10/15/2023 08:32:54 Chronic obstructive pulmonary disease 09168845 J44.9 Chronic, advair ICS/ LABAPoorly controlled , [...] bsHas pulmonolog y appt in February in [facility] tts, none here Chronic low back pain 27 7883145 M54.50 S/p multiple back surgeriesF ollowing ortho who prescribed oxycodone 10mg qid Cigarette smoker 6927187 7 F17.210 1/2 pack daily [email or web address] pack yearsconte mplative stageUsing nicotine patches History of primary malignant neoplasm of urinary bladder 513848657 Z85.51 S/p surgery 10-12 yrs agoRpt biopsy several years ago was negativeFo tonio urology in [facility] Pneumonia 505226858 J18. 9 Recent PNA was placed on 2 courses of abx (doxycylin e) in [facility] and 1 course of prednisone . [...] Neuropathy due to type 2 diabetes mellitus 3111773366 05335 E11.40 Pt not sure what meds he takes for DMAsked pt to bring in meds Essential hypertension 68152632 I10 Lisinopril 5mg Restless l egs syndrome 47074884 G25.81 ropinirole 0.5mg qhs Gastroesop hageal reflux disease 758390369 K21.9 well controlled omeprazole 20mg PRN [id number] EDDY JOHNSON MD Family Medicine [address] [address] 11/23/2023 13:42:22 11/23/2023 16:35:00 Chronic obstructive pulmonary disease 35804052 J44.9 Chronic, advair ICS/ LABAPoorly controlled requiring albuterol inhaler/ne b multiple times weekly, but improving since incr in advair dosageWhee zing improved from last visitHas PRN home O2 - Uses 1.5L o2 via NC at night if O2 down to 80s.Discus sed goal 88-92%O2 90% RA today at rest Smoking cessation discussedC hange advair to trelegyCon t PRN albuterol inhaler/ne bsHas pulmonolog y appt in February in [facility], none hereAdvise d to f/u pulm referral in [place] Pneumonia 282668873 J18. 9 PNA resolved with course of augmentin + AZTProcal was negAdvised pt no need to obtain CXR Neuropathy due to type 2 diabetes mellitus 0106233237 47557 E11.40 Check A1COn glimepirid e 2mg Chronic low back pain 27 4376725 M54.50 Chronic, poorly controlled , worse with recent lifting and renovation sS/p multiple back surgeriesM idline spinal tenderness in upper backFollow ing ortho who prescribed oxycodone 10mg qidReferra l to pain mxTrial of lidocaine 5% patch Cigarette smoker 2236401 7 F17.210 1/2 pack daily smoker, or less than 1/2 pack with [id number] pack yearsconte mplative stageUsing nicotine patchesAdv ised pt to set quit date History of primary malignant neoplasm of urinary bladder 953585914 Z85.51 S/p surgery 10-12 yrs agoRpt biopsy several years ago was negativeFo [facility] Essential hypertension 10228382 I10 Chronic, elevated 153/93Pt reports various readings at homeF/u in 1 mo with BP log Restless l egs syndrome 12059344 G25.81 Chronic, stable on ropinirole 0.5mg qhs Gastroesop hageal reflux disease 699726914 K21.9 well controlled omeprazole 20mg PRN [id number] DEEPTI TIPTON, MANAGER STUDENT SERVICES Family [address] [address] 11/26/2023 10:32:52 11/26/2023 14:38:05 Chronic obstructive pulmonary disease 01524666 J44.9 Discussed COPD symptoms, discussed inhaler use and safetyMedi cation instructio ns reviewed, use albuterol ONLY as neededCont inue maintenanc e inhaler use if you have onePt does/does not follow with pulmonolog yMonitor for new/worsen ing symptomsER precaution s discussedF ollow up as needed Acute uppe r respiratory infection 75215409 J06.9 Flu/COVID negative today in clinicMost likely [...] ollow up if neededER precaution s discussed [id number] EDDY JOHNSON MD Family Medicine [address] [place] [address] [facility] [place] [address] 01/09/2025 14:39:52 01/09/2025 15:26:00 Chronic obstructive pulmonary disease 83766884 J44.9 Chronic, advair ICS/ LABAPoorly controlled requiring albuterol inhaler/ne b multiple times weekly, but improving since incr in advair dosagehome O2 PRN - 1.5L via NC at night if O2 down to 80s,Discus sed goal 88-92%O2 92% RA today at rest Smoking cessation discussedR egimen:jacek legyCont PRN albuterol inhaler/ne bs pulmonolog y in [facility] Neuropathy due to type 2 diabetes mellitus 8724927049 52509 E11.40 A1C 7.7; 1 yr ago; pt had labs done 1-2 weeks ago downstairs will call lab Regimen:gl imepiride 4mgjardian ce 10mg Eye exam yearly advised.Fo ot exam yearly advised.Co ntinue current regimen.La bs as below in 3m Chronic low back pain 27 7875280 M54.50 Chronic,S/ p multiple back surgeriesM idline spinal tenderness in upper backtaperi ng off oxycodone 10mg qid on tizanidine + celecoxib pain mx DrCreamers cheduled for a Fentanyl IT pump on 02/19/25. Cigarette smoker 8881635 7 F17.210 1/2 pack daily smoker, or less than 1/2 pack with [id number] pack yearsconte mplative stagehas not been using nicotine patchesAdv ised pt to set quit date History of primary malignant neoplasm of urinary bladder 438859138 Z85.51 S/p surgery 10-12 yrs agoRpt biopsy several years ago [facility] Essential hypertension [id number] I10 Chronic, elevated 145/80Pt reports home BP 120/70s Regimen:am lodipine 5mglisinop ril 10mg daily Restless l egs syndrome 34517444 G25.81 Chronic, stable on ropinirole 0.5mg qhs Gastroesop hageal reflux disease 263041001 K21.9 well controlled omeprazole 20mg PRN Nausea 760649854 R11.0 likely d/t mild opioid withdrawal sPRN zofran Constipation 83325667 K5 9.00 improved with increasing fiber intake [...] avoidance of routine use of stimulant laxatives. [id number] DEEPTI TIPTON APRN [facility] [address] [place] [address] 02/21/2025 11:32:20 02/23/2025 10:23:05 Pre-surgery evaluation 467530639 Z01.818 After speaking with surgical coordinato r, [...] minimal wheezing. Chronic low back pain 27 7636157 M54.50 G89.29 [id number] Chronic ob structive pulmonary disease 58335807 J44.9 230997638 Discussed COPD symptoms, discussed inhaler use and safetyMedi cation instructio ns reviewed, use albuterol ONLY as neededCont inue maintenanc e inhaler use if you have onePt does/does not follow with pulmonolog yMonitor for new/worsen ing symptomsER precaution s discussedF ollow up as needed History of pneumonia 161 025799 Z87.01 553886 [id number] CHELA CARRANZA, CHUCHO [facility] [address] [place] [address] 03/01/2025 10:05:21 03/01/2025 13:12:20 Community acquired pneumonia 556083709 J15.9 318857 Left lower lobe pneumoniaP atient completed a course of Rocephin and azithromyc in Acute exac erbation of chronic obstructive pulmonary disease 144599795 J44.1 069887 Patient initially was treated with Rocephin and [...] c hronic hypoxemic and hypercapnic respiratory failure [id number] 5107 J96.21 J96.22 25721086 Improving, patient wears 1-1/2 L of oxygen at night as needed. Patient was seen by Dr. Dennison he also recommende d the possibilit y of workup for obstructiv e sleep apnea after discharge. Tobacco de pendence syndrome 78498684 F17.200 15208 Recommend [place] [employer] tobacco website as a source to help with cessationc utting down, 5 cigs a day.Uses nicotine patches. Chronic pain syndrome 37 4907622 G89.4 04986 Oxycodone 10 mg p.o. every 12 hours as neededwork ing with Pain management , [place] [facility], candidate for intratheca l pain, surgery tentative, 05/28/2025 . Patient just had a test intratheca l pump this past wednesday. Patient underwent urine drug screen on Wednesday, results pending. Patient stating he is in alot of pain, and needs additional narcotics, [place] [facility] will not prescribe additional , nacotics at this time, due to active prescripti on for valium, via mail order, in [facility]. Patient requested, a receipt , for return [...] before , discussing recommenda tions. Essential hypertension 19084271 I10 61039 Blood pressure today is; 144/84Lisi nopril 20 mg p.o. daily and Norvasc 5 p.o. daily Gastroesop hageal reflux disease without esophagitis 632475886 K21.9 316443 Omeprazole 20 mg p.o. daily as needed Allergic rhinitis 364867 04 J30.9 [id number] resolvedDr . Juma added intranasal steroidsDi scharge Sudafed 60 mg p.o. twice daily Hyperglyce delon due to type 2 diabetes mellitus 3432172689 06984 E11.65 22052734 Hemoglobin A1c is an 8.2Continu e Amaryl 8 mg p.o. daily, patient is also on Jardiance 10 tab p.o. daily [id number] DEEPTI TIPTON APRN [facility] [address] [facility] [place] [address] 04/05/2025 12:35:59 04/05/2025 13:22:47 Acute exacerbation of chronic obstructive pulmonary disease 204053950 J44.1 310728 Will stop Trelegy and try Breztri insteadBe [...] up as needed Candidiasis of mouth 797 95589 B37.0 720795 [id number] DEEPTI TIPTON APRN [facility] [address] [facility] [place] [address] 04/19/2025 07:57:53 04/19/2025 09:35:50 Essential hypertension 35647892 I10 35218 Reports he sees on his list that he's supposed to be taking the lisinopril , but he ran out a while back. Was prescribed by his PCP up [place], and he needs a refill. However, his [...] delon due to type 2 diabetes mellitus 0599956943 76509 E11.65 7065538971 Results pulled from [facility], A1C does show 8.5% last weekMing patterson [...] that day. Monitor for new/worsen ing symptomsCOLE mcgeeF coni fox as directed Chronic ob structive pulmonary disease 79738448 J44.9 237921912 He's likely using an Advair, so will [...] this helps him manage his symptoms Medication instructbebeto eller reviewed, use albuterol ONLY as neededCont inue maintenanc e inhaler use if you have onePt does/does not follow with pulmonolog yMonitor for new/worsen ing symptomsCOLE henry discussedF ollow up as needed Candidiasis of mouth 797 71359 B37.0 20406 Lozenges didn't work as well as liquid did in the past, so will send liquid instead [id number] DEEPTI TIPTON APRN [facility] [address] [place] [address] 05/07/2025 10:47:55 05/09/2025 10:51:08 Hyperglycemia due to type 2 diabetes mellitus 2688387281 60126 E11.65 0237564836 05/07/2025 -- Increase Lantus to twice daily, 10 units each dose based on glucose log from home. Explained the importance of taking a true FASTING glucose in the mornings 04/19/2025 -- Results pulled from [facility], A1C does show 8.5% last weekMing patterson [...] henry discussedF ollow up as directed Gingivitis 87624187 K05. 10 2039996 Follows with [facility], has used Peridex before and feels like this would help with his thrush and gum discomfort . Will send. Insomnia 004690600 G47.0 0 83095993 Reports has a history of insomnia, was [...] until sleepy; repeat cycle until sleep occurs. [id number] DEEPTI TIPTON APRN [facility] [address] [place] [address] 06/18/2025 08:13:19 06/18/2025 08:56:12 Hyperglycemia due to type 2 diabetes mellitus 6594082440 28721 E11.65 06/2025 -- 8.0%, home readings 80s-110 -- Increase Lantus to twice daily, 10 units each dose based on glucose log from home. Explained the importance of taking a true FASTING glucose in the mornings 04/19/2025 -- Results pulled from [facility], A1C does show 8.5% last weekPatien t [...] discussedF ollow up as directed Essential hypertension 83941302 I10 44895 06/2025 -- 140/90, stable Continue amlodipine 5mg daily, lisinopril 10mg daily Discussed normal parameters , follow up if home checks fall outside of theseDiscu ssed signs/symp toms of hypertensi on to monitor forRecomme nded DASH dietFollow with eye doctor regularly, at least annuallyCOLE henry discussedC all and/or follow up if questions or concerns Hyperlipidemia 58092025 E78.5 82363300 No results on file? Insomnia 657527533 G47.0 0 48065215 06/2025 -- Reports he thinks trazodone would [...] sleep occurs. 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 Health Concerns Section Related Observation LastModified by Organization Detai ls LastModified Time None Recorded Concern Status LastModified by Organization Details LastModified Time None Recorded Advance Directives Directive None Recorded Payers Insurance Date Sequence Insurance Name Policy Number Policy Valentino Covered Member ID Valentino Member ID Guarantor Name 02/20/2025 1 [employer] (MEDICARE REPLACEMENT/A DVANTAGE - PPO) Stanislav Austinard [id number] Stanislav Jacobson 09/28/2025 1 [employer] (MEDICARE REPLACEMENT/A DVANTAGE - HMO) [id number] Stanislav Muniz Kavon [id number] Stanislav Muniz Kavon 02/20/2025 1 [employer] (HMO) [id number] Stanislav Flavio Kavon [id number] Stanislav Flavio Kavon 02/20/2025 1 [place] Stanislav Austinard [id number] Stanislav Jacobson 02/20/2025 2 [place] [facility] Stanislav Muniz Kavon [id number] Stanislav Jacobson Notes Date Note Type [...] hospital follow-up visi Patient was admitted to [facility] on 02/15/2025 and discharged on [...] to baseline. CHELA CARRANZA, CHUCHO [address] [place], [address], [facility] 03/01/2025 11:57:25 04/05/2025 text/html ROS as noted in the [facility] Patient is a 74yo male, [...] after his surgery. DEEPTI TIPTON APRN [address], [place], [address], [facility] 04/05/2025 14:31:03 04/19/2025 text/html ROS as noted in the [facility] Patient is a 74yo male, presenting for discussion labs and meds. Reports his pain pump implant surgery was canceled because of his A1C being too high. He reports was done at [facility], ordered by his surgeon, and A1C was 8.5%. States he also continues to have issues with his COPD. He went back to his Advair because he states the other inhaler causes thrush and doesn't help his breathing. He is wheezing today. He does use oxygen at home as needed. DEEPTI TIPTON APRN [address] [place], [address], [facility] 04/19/2025 13:29:30 05/07/2025 text/html ROS as noted in the [facility] Patient is a 74yo male, [...] the night. DEEPTI TIPTON APRN [address], [place], [address], [facility] 05/07/2025 16:21:14 06/18/2025 text/html ROS as [...] DEEPTI TIPTON APRN [address], [place], [address], [facility] 06/18/2025 09:46:36
--- OUTSIDE RECORDS SUMMARY | 2025-10-09 06:57 | XMS_ITS | Data Portability ---
Author Organization [facility], autoContract - [facility] Medical Address [address] [place] [address] Assessment No assessment recorded. Plan of Treatment Reminders Order Date Submit Date Provider Last Modified By Organization Details Last Modified Time Details Appointments None recorded. Lab HbA1c (hemoglobi n A1c), blood 2023 024 [email or web address] 3 [facility], [address] [place] [address], [address], [place], [address], 13:01:19 CBC w/ auto diff 2023 024 [facility] AT [address], [address], 4 09:54:28 CMP, serum or plasma 2023 024 [facility] [address], [address], 4 09:54:28 TSH, serum or plasma 2023 024 [facility] [place] [address] [place], [address], 4 09:54:27 vitamin D, 25-hydroxy , total, serum 2023 024 [facility] AT [address], [address], 4 09:54:27 vitamin B12 + folate, serum or blood 2023 024 [facility] AT [facility], [address] [place], [address], 4 09:54:28 urinalysis , complete 2023 024 [facility] AT [facility], [address] [place], [address], 4 09:54:28 microalbum in/creatin ine, mass ratio, urine 2023 024 [email or web address] 3 [facility] AT [facility], [address] [place], [address], 4 13:01:20 lipid panel, serum 2023 024 [email or web address] [facility], [address], [address], [place], [address], 4 09:54:16 PSA, serum or plasma 2023 024 [facility], [address], [address], [place], [address], 4 09:55:20 fecal occult blood, stool 2023 024 [email or web address] 3 [facility], [address], [address], [place], [address], 4 13:01:20 HbA1c (hemoglobi n A1c), blood 2023 024 [email or web address] 3 [facility], [address], [address], [place], [address], 4 13:02:24 CBC w/ auto diff 2023 024 [facility], [address], [address], [place], [address], 4 10:21:55 CMP, serum or plasma 2023 024 [facility], [address], [address], [place], [address], 4 10:21:59 TSH, serum or plasma 2023 024 [facility], [address], [address], [place], [address], 4 10:21:58 vitamin D, 25-hydroxy , total, serum 2023 024 [facility], [address], [address], [place], [address], 4 10:21:58 vitamin B12 + folate, serum or blood 2023 024 [facility], [address], [address], [place], [address], 4 10:21:55 urinalysis , complete 2023 024 [facility], [address], [address], [place], [address], 4 10:22:01 lipid panel, serum 2023 024 [facility], [address], [address], [place], [address], 4 10:22:00 PSA, serum or plasma 2023 024 [email or web address] [facility], [address], [address], [place], [address], 4 10:21:38 fecal occult blood, stool 2023 024 [email or web address] [facility], [address], [address], [place], [address], 4 10:21:38 Referral dermatolog ist referral - requesting skin cancer screening 2023 024 [facility] [place], [address], [place], [address], 4 09:01:43 Procedures None recorded. Surgeries None recorded. Imaging CT, head, w/o contrast - persistent headaches 2023 024 3 [facility], [address], [address], [place], [address], 4 13:01:28 XR, chest, 2 view - persistent cough, shortness of breath 2023 024 [email or web address] 3 [facility], [address], [address], [place], [address], 4 13:01:27 XR, chest, 2 view - persistent cough, shortness of breath 2023 024 [email or web address] 3 [facility], [address], [address], [place], [address], 4 13:02:33 Medication Orders glimepirid e 4 mg tablet 2023 024 [facility]acy #3668, [address] [place], [address], 4 09:54:24 albuterol sulfate HFA 90 mcg/actuat ion aerosol inhaler 2023 024 [email or web address] [facility]/Pharmacy #3668, [address] [place], [address], 4 09:54:17 Trelegy Ellipta 100 mcg-62.5 mcg-25 mcg powder for inhalation 2023 024 [facility]acy #3668, [address] [place], [address], 4 09:54:23 ropinirole 0.5 mg tablet [address]/Pharmacy #3668, [address] [place], [address], 4 09:54:18 diazepam 10 mg tablet [address]/Pharmacy #3668, [address] [place], [address], 4 09:54:17 lisinopril 10 mg tablet [address]/Pharmacy #3668, [address] [place], [address], 4 09:54:18 lisinopril 20 mg tablet [address] [facility] [address] [place], [address], 4 09:54:24 lidocaine 5 % topical patch [address]/Pharmacy #3668, [address] [place], [address], 4 09:54:18 neomycin-p olymyxin-h ydrocort 3.5 mg-10,000 unit/mL-1 % ear drops,susp [address]/Pharmacy #3668, [address] [place], [address], 4 09:54:18 nicotine 21 mg/24 hr daily transderma l patch 2023 024 [facility]acy #3668, [address] [place], [address], 4 09:54:24 oxycodone 10 mg tablet [address]/Pharmacy #3668, [address] [place], [address], 4 09:54:18 omeprazole 20 mg capsule,de layed release 2023 024 [address], [address] [place] [address], [address], 4 09:54:18 levofloxac in 750 mg tablet 2023 024 [address], [address] [place] [address], [address], 4 09:54:16 montelukas t 10 mg tablet 2023 024 [address], [address] [place] [address], [address], 4 09:54:17 prednisone 10 mg tablet 2023 024 [address], [address] [place] [address], [address], 4 09:54:16 glimepirid e 4 mg tablet 2023 024 [address], [address] [place] [address], [address], 4 10:20:25 albuterol sulfate HFA 90 mcg/actuat ion aerosol inhaler [address] [facility], [address] [place] [address], [address], 4 10:20:30 Trelegy Ellipta 100 mcg-62.5 mcg-25 mcg powder for inhalation [address] [facility], [address] [place] [address], [address], 4 10:20:31 ropinirole 0.5 mg tablet [address]/Pharmacy #3668, [address] [place], [address], 4 08:28:49 diazepam 10 mg tablet 2023 024 [address], [address] [place], [address], 4 08:28:55 lisinopril 10 mg tablet [address] [facility], [address] [place], [address], 4 09:31:08 lidocaine 5 % topical patch 2023 024 [address], [address] [place], [address], 4 10:20:25 neomycin-p olymyxin-h ydrocort 3.5 mg-10,000 unit/mL-1 % ear drops,susp [address] [facility], [address] [place], [address], 4 09:31:08 nicotine 21 mg/24 hr daily transderma l patch 2023 024 [address] [place], [address], 4 10:20:25 oxycodone 10 mg tablet 2023 024 [address], [address] [place], [address], 4 08:29:06 omeprazole 20 mg capsule,de layed release 2023 024 [address], [address] [place], [address], 4 10:20:25 levofloxac in 750 mg tablet 2023 024 [facility]acy #3668, [address] [place], [address], 4 09:31:07 montelukas t 10 mg tablet 2023 024 [facility]acy #3668, [address] [place], [address], 4 09:31:07 prednisone 10 mg tablet 2023 024 [facility]acy #3668, [address] [place], [address], 4 09:42:17 Patient TargetsNo targets recorded. Patient InstructionsNo instructions recorded. 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 Testing Coordinator Referral for S kin lesion requesting skin cancer screening Referring Physician: Milagros Urbina, Set Up Person, Encounter Date: 01/13/2024 Problems Name Problem SNOMED Code Status Onset Date Resolution Date Notes Provider Name and Address Organization Details Recorded Time Chronic back pain 428883314 Active 2023 Madeline Nathan null, [facility] 4 08:28:00 Essential hypertensio n 96742754 Active 2023 Madeline Nathan null, [facility] 4 08:41:30 Chronic obstructive pulmonary disease 30312489 Active 2023 Madeline Nathan null, [facility] 4 08:41:43 Hyperlipide delon 02362798 Active 2023 Madeline Nathan null, [facility] 4 08:41:49 Diabetes mellitus 78374187 Active 2023 Madeline Nathan null, [facility] 4 08:41:55 Restless legs syndrome 63089842 Active 2023 Madeline Nathan null, [facility] 4 08:42:02 Gastroesoph ageal reflux disease 304138030 Active 2023 Madeline anne, [facility] 4 08:42:07 Upper respiratory infection 37369625 Active 2023 Madeline anne, [facility] 4 08:42:12 Pneumonia 127811357 Active 2023 Madeline anne [facility] 4 08:42:18 Problem Notes None recorded. Procedures Surgical History Date Name Laterality Status Provider Name and Address Organization Details Recorded Time Knee Replacement completed Vineet Nathan [facility] 12/30/2023 08:33:46 Knee Surgery completed Madeline Nathan [facility] 12/30/2023 08:33:50 Hernia Repair completed Madeline Nathan [facility] 12/30/2023 08:33:55 procedure on shoulder completed Madeline Nathan [facility] 12/30/2023 08:34:12 Back Surgery completed Madeline Nathan [facility] 12/30/2023 08:34:16 Imaging Results None recorded. Procedure Notes None recorded. Medical Equipment None Reported. Allergies Allergen ID Allergen Name Allergen Category Reaction Reaction Severity Criticality Documentation Date Start Date Code Code System Note Provider Name and Address Organization Details Recorded Time 292903 morphine medicatio n flushing moderate Not available 12/30/2023 7052 RxNorm itchi ng and perfu sely sweat ing MILAGROS URBINA, BILLET BED OPERATOR [address],[facility], [place], [address] [place] [address] 4 08:41:48 Medications Name Sig Start Date [...] Address Organization Details Last Updated DateTime 4 44150.4 g 34.9 kg/m2 165.1 cm 76 /min 16 /min 96 % 97.6 [degF] 154/88 mm[Hg] 148/90 mm[Hg] Cecilio LOPEZ - [facility] 4 08:37:25 Date Recorded Body height Body mass index (BMI) Body weight Heart rate Respiratory rate Body temperature Oxygen saturation Systolic And Diastolic Systolic And Diastolic Provider Name and Address Organization Details Last Updated DateTime 165.1 cm 35.3 kg/m2 58733.5 8 g 82 /min 16 /min 97.5 [degF] 97 % 170/98 mm[Hg] 174/96 mm[Hg] Cecilio Nathan [facility] 08:39:01 Social History Question Answer Notes LastModified by [employer] Details LastModified Time Tobacco Smoking Status Current Every Day Smoker Madeline Nathan [facility], [facility] 12/30/2023 08:33:37 Do You Have An Advance Directive? No [email or web address] Information not available 12/30/2023 What Is Your Level Of Caffeine Consumption? Moderate [email or web address] Information not available 12/30/2023 What Is Your Code Status? Full Code Information not available 12/30/2023 What Was The Date Of Your Most Recent Tobacco Screening? 01/13/2024 [email or web address] Information not available 07/20/2024 How Much Tobacco Do You Smoke? 0.5 PPD [email or web address] Information not available 12/30/2023 Sex: Unknown Functional Status Question Answer Note LastModified by [employer] Details LastModified Time Do you or have you ever used any other forms of tobacco or nicotine? No [email or web address] Information not available 12/30/2023 What is your level of alcohol consumption? Occasional [email or web address] Information not available 12/30/2023 Mental Status None recorded. Family History Relationship Description Onset Age of this Age Resolved Age Notes LastModified by Organization Details LastModified Time Mother Heart disease Not available 2023 08:32:10 Father Heart disease Not available 2023 08:32:24 Medical History Condition [...] Pain N Sjogren's Syndorme N Heart Attack ([place]) N Mental Illness N Ovarian Cancer N [...] dose 12/16/2020 completed Madeline Lopez s null, [facility] 12/30/2023 08:26:36 COVID-19, mRNA, LNP-S, PF, 30 mcg/0.3 mL dose 01/17/2021 completed Madeline Lopez s null, [facility] 12/30/2023 08:26:36 Tdap 02/16/2020 completed Madeline Salguero cas null, [facility] 12/30/2023 08:26:36 Past Encounters Encounter ID Performer Location Encounter Start Date Encounter Closed Date Diagnosis/Indication Diagnosis SNOMED-CT Code Diagnosis ICD10 Code Diagnosis IMO Codes Diagnosis Note [id number] [facility]AGROS URBINA [facility] [place] [address] 12/30/2023 08:13:19 12/30/2023 09:24:23 Acute otitis media 9316325 H66.92 Patient presents with signs/symp toms of otitis media. Will treat as below. Supportive care reviewed: avoid swimming for several days and use ear plugs thereafter . Recommende d acetaminop hen/ibupro fen PRN pain Follow up as below. Acute bronchitis 3021401 2 J20.9 Patient presents with allergic rhinitis. Supportive care reviewed: raising HOB, avoiding triggers, taking controller medication s, use of saline nasal spray/humi difier, encourage PO fluids, monitor hydration. RTO as scheduled for next WCC; sooner if any new or concerning symptoms arise. Essential hypertension 24935473 I10 First line treatment: lifestyle changes which [...] or if they develop new symptoms. Polyarthropathy 29283971 M13.0 Discussed medication regimen as well as diet and exercise modificati on. Patient will apply heat/ice as needed for pain relief. Follow up in 3 months. Chronic pain syndrome 37 0027240 G89.4 will monitor and notify as needed Adult [facility] examination 076687516 Z00.01 Education was provided on healthy nutrition, [...] living. Gastroesop hageal reflux disease without esophagitis 647571894 K21.9 Patient will continue conservati ve management [...] new/concer kelly symptoms. Restless l egs syndrome 42853594 G25.81 will monitor and notify f worsens Hyperlipidemia 86268021 E78.5 Patient with known hyperlipid emia. Last lipid panel poorly controlled . Lifestyle modificati ons discussed including weight loss, aerobic exercise at least 30 min/day at least 5 days per week, and a diet rich in fruit and vegetables . Goal LDL: 100mg/dL, 70mg/dL}}. Will continue to follow lipid panel q6-12 months. Chronic ob structive pulmonary disease 96931286 J44.9 Plan1-Diet and lifestyle counseling , especially breathing exercises to improve oxygenatio n.2- Mood and cognitive assessment will follow regimen be done in future to make sure patient is able to follow regimen.3- Also we will be discussing life stressors and advanced directives and documentat ion in future encounters . Generalize d anxiety disorder 75750982 F41.1 Patient identified triggers for anxiety and impact of anxious thinking on functionin g. Discussed strategies to regulate symptoms and need for compliance with treatment. Nicotine dependence 5629 4008 F17.200 Advise about smoking cessationO rder smoking cessation counseling , greater than 3 minutes up to 10 minutes Type 2 gerry betes mellitus 31366896 E11.9 Patient seen in office today for Diabetes is well controlled . Patient educated on diabetes complicati ons . Discussed treatment/ diagnostic plan and orders with patient as indicated below. Provided diabetic diet Screening for malignant neoplasm of prostate 676928430 Z12.5 will follow results Screening for malignant neoplasm of colon 745185887 Z12.11 will follow results [id number] MILAGROS URBINA APRN [facility] [address] [place] [address] 01/13/2024 08:28:42 01/13/2024 09:13:47 Acute otitis media 2709606 H66.92 Patient presents with signs/symp toms of otitis media. Will treat as below. Supportive care reviewed:a void swimming for several days and use ear plugs thereafter . Recommende d acetaminop hen/ibupro fen PRN pain Follow up as below. RESOLVED Acute bronchitis 0610007 2 J20.9 Patient presents with allergic rhinitis. Supportive care reviewed: raising HOB, avoiding triggers, taking controller medication s, use of saline nasal spray/humi difier, encourage PO fluids, monitor hydration. RTO as scheduled for next WC; sooner if any new or concerning symptoms arise. RESOLVED Essential hypertension 23166135 I10 First line treatment: lifestyle changes which [...] in BP diary in 2 weeks Polyarthropathy 61043488 M13.0 Discussed medication regimen as well as diet and exercise modificati on. Patient will apply heat/ice as needed for pain relief. Follow up in 3 months. Chronic pain syndrome 37 8930126 G89.4 will monitor and notify as needed Adult [facility] examination 488604174 Z00.01 Education was provided on healthy nutrition, [...] living. Gastroesop hageal reflux disease without esophagitis 786586416 K21.9 Patient will continue conservati ve management [...] new/concer kelly symptoms. Restless l egs syndrome 78367236 G25.81 will monitor and notify f worsens Hyperlipidemia 19427819 E78.5 Patient with known hyperlipid emia. Last lipid panel poorly controlled . Lifestyle modificati ons discussed including weight loss, aerobic exercise at least 30 min/day at least 5 days per week, and a diet rich in fruit and vegetables . Goal LDL: 100mg/dL, 70mg/dL}}. Will continue to follow lipid panel q6-12 months. Chronic ob structive pulmonary disease 47189152 J44.9 Plan1-Diet and lifestyle counseling , especially breathing exercises to improve oxygenatio n.2- Mood and cognitive assessment will follow regimen be done in future to make sure patient is able to follow regimen.3- Also we will be discussing life stressors and advanced directives and documentat ion in future encounters . Increase trelegy to 2 puffs twice nisa Generalize d anxiety disorder 09121175 F41.1 Patient identified triggers for anxiety and [...] ous changes Type 2 gerry betes mellitus 02109431 E11.9 Patient seen in office today for Diabetes is well controlled . Patient educated on diabetes complicati ons . Discussed treatment/ diagnostic plan and orders with patient as indicated below. Provided diabetic diet Screening for malignant neoplasm of prostate 021813975 Z12.5 will follow results Screening for malignant neoplasm of colon 897512164 Z12.11 will follow results Skin lesion 86257549 L98 .9 will follow results Headache 96100070 R51.9 will follow results Obesity 017723499 E66.9 BMI:35.3 Advise about healthy life style and weight loss Health Concerns Section Related Observation LastModified by Organization Detai ls LastModified Time None Recorded Concern Status LastModified by Organization Details LastModified Time None Recorded Advance Directives Directive N: Payers Insurance Date Sequence Insurance Name Policy Number Policy Valentino Covered Member ID Valentino Member ID Guarantor Name 06/21/2024 2 [place] Stanislav Jacobson [id number] Stanislav Jacobson 06/21/2024 1 [employer] (MEDICARE REPLACEMENT/ ADVANTAGE - PPO) Stanislav Jacobson [id number] Stanislav Jacobson Notes Date Note Type Note [...] problems. 73 [facility]. Studies ordered as below. Discussed plan with patient, who expressed understanding. Follow up as noted below.patient has history of polyarthritis, chronic pain, COPD, nicotine dependence, DM type 2, GERD and hypertensionhe reports that he has had a persistent congested cough and recurrent URI's.Also left ear pain x 2 weeks MILAGROS URBINA, BILLET BED OPERATOR [address], [place], [address], [facility] 01/13/2024 08:29:11 01/13/2024 text/html Annual [...] generalized back and joint pain MILAGROS URBINA, BILLET BED OPERATOR [address], [place], [address], [facility] - [facility] 01/13/2024 09:59:10
== END 2025-10-09 06:55 | disposition home or self-care (01) ==
LOC: CF 06:54
PROVIDERS: Visit Provider Anesthesiology
DX: M96.1 Postlaminectomy syndrome, not elsewhere classified (principal); G89.4 Chronic pain syndrome; Z79.891 Long term (current) use of opiate analgesic
CPT/HCPCS: 62368

== ENCOUNTER 2025-10-09 09:46 | Outpatient (AMB) | payer MEDICARE, MEDICAID, SELFPAY ==
[2025-10-09 10:33] VITALS: BP 135/68; PULSE 97; RESP 16; O2SAT 83; BMI 35.8
--- NOTE | 2025-10-09 10:33 | MHC.OFFVIS ---
Vital Signs 10/09/25 10:33 Height 5 ft 5 in Weight 215 lb BMI 35.8 BP 135/68 Blood Pressure Location Lt brachial Position Sitting Respiration 16 Pulse 97 Pulse Source Pulse Oximeter Pulse Oximetry (%) 83 L Oxygen Delivery Method Room Air Intake Visit Reasons: ITDD Pump Refill Allergies morphine Allergy (Intermediate, Verified 09/13/25 14:09) sweating PFSH Medical History (Updated 07/20/25 @ 08:13 by Natalia Nicholas LPN) Presence of other specified devices Social History (Updated 06/07/24 @ 09:03 by Alesia Brown CMA) Household Members: None Alcohol intake: never Patient Tobacco Use Status: Current everyday Tobacco user Cigarettes Per Day: 10 Physical Exam Vital Signs: Last Vital Signs Pulse 97 10/09/25 10:33 Resp 16 10/09/25 10:33 BP 135/68 10/09/25 10:33 Pulse Ox 83 L 10/09/25 10:33 Oxygen Delivery Method Room Air 10/09/25 10:33 BMI result Body Mass Index 35.8 Assessment & Plan Assessment & Plan (1) Postlaminectomy syndrome of lumbar region: Code(s): M96.1 - Postlaminectomy syndrome, not elsewhere classified Category: Medical (2) director long term care (current) use of opiate analgesic: Code(s): Z79.891 - custodial (current) use of opiate analgesic Category: Medical Plan: ? Intrathecal pump refill. THE PATIENT CAME TODAY IN THE OR - PACU FOR THE CHANGE OF THE MEDICATION IN her PAIN PUMP. The name and date of were verified and informed consent was obtained for the procedure. ?The pump was interrogated and the residual amount of fluid was found to be 0.1 mL. He WAS POSITIONED prone on the bed AND THE AREA OF THE INTRATHECAL PUMP WAS PREPPED WITH CHLORAPREP. The fenestrated drape was sterilely applied over the area of the pump. Sterile gloves were worn and of the aspiration system was assembled containing 2 in 22 gauge noncoring needle, the needle was connected to extension tubing which was connected to the 20 cc sterile syringe. The pain pump was palpated under the skin in the patient's right buttock area. The needle was inserted through the skin and the central plug of the pain pump and fluid was aspirated. The clear fluid was going into the syringe the total amount of the fluid was 1.1 mL .. After that a new batch? of medication was obtained which was containing Fentanyl in concentration 125 micro g/ml and bupivacaine 10 mg per ml. The admixture was made in the two 20 cc syringes prepared by [facility] compounding pharmacy. The syringe was connected to the bacterial filter, and then connected to the extension tubing. After that the medication in the syringe was slowly instilled into the pump with aspirations at 15 and 5 cc zee.? The pump was reprogrammed for the doses of Fentanyl 6.01 mcg per day with corresponding dose of bupivacaine.? The patient was given 9 doses of PTM 27 micrograms of fentanyl with corresponding dose of bupivacaine mg mg intrathecally? [id number] with maximum 9 activation in 24 hours. (3) Chronic pain syndrome: Code(s): G89.4 - Chronic pain syndrome Category: Medical Plan: The pump refill and adjustment see as above. Unfortunately patient is very upset about bridge bolus. I can not give him short script for the bridge bolus at this time. This office does not prescribe short scripts. Plan I will see this patient on the appointment next Wednesday09/18/2025 to perform pain pump adjustment.. Coding Level of Care Code Procedure Only Diagnoses Postlaminectomy syndrome of lumbar region M96.1 custodial (current) use of opiate analgesic Z79.891 Chronic pain syndrome G89.4
== END 2025-10-09 11:47 | disposition home or self-care (01) ==
LOC: HO.PMCPRC 09:46
PROVIDERS: PCP Family Medicine; Visit Provider Anesthesiology
DX: M96.1 Postlaminectomy syndrome, not elsewhere classified (principal); Z79.891 Long term (current) use of opiate analgesic; G89.4 Chronic pain syndrome; Z45.1 Encounter for adjustment and management of infusion pump
CPT/HCPCS: 62368

== ENCOUNTER 2025-10-16 07:47 | Outpatient (AMB) | payer MEDICARE, MEDICAID, SELFPAY ==
[2025-10-16 07:50] VITALS: BP 161/80; PULSE 98; RESP 16; O2SAT 81; BMI 35.8
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
== END 2025-10-16 08:18 | disposition home or self-care (01) ==
LOC: HO.PMCPRC 07:47
PROVIDERS: PCP Family Medicine; Visit Provider Anesthesiology
DX: M96.1 Postlaminectomy syndrome, not elsewhere classified (principal); Z79.891 Long term (current) use of opiate analgesic; G89.4 Chronic pain syndrome
CPT/HCPCS: 95991; 99213

== ENCOUNTER → 2025-10-16 07:47 | Outpatient (BNVA) | payer MEDICARE, MEDICAID, SELFPAY | PROVIDERS: PCP Family Medicine; Visit Provider Anesthesiology | DX: M96.1 Postlaminectomy syndrome, not elsewhere classified (principal); G89.4 Chronic pain syndrome; Z79.891 Long term (current) use of opiate analgesic | CPT/HCPCS: 95991; 99212 ==